=== PATIENT | female | born 1960 | race Caucasian/White ===

== ENCOUNTER 2016-10-12 20:28 | Emergency (ER) | payer OTHER ==
[2016-10-12] MEDS ORDERED: HYDROmorphone 1 MG/ML 1 ML SYRINGE IM STA (20:39)
[2016-10-12] MEDS ORDERED: ONDANSETRON ODT 4 MG TAB PO STA (20:39)
--- NOTE | 2016-10-12 20:41 | ED ---
General Adult HPI - General Chief complaint: Back Pain/Injury Stated complaint: back/flank injury-SOB Time Seen by Provider: 10/12/16 20:34 Source: patient, RN notes reviewed Mode of arrival: wheelchair Limitations: no limitations - History of Present Illness Initial comments: Patient 56-year-old female who presents emergency room today with chief complaint of left-sided rib pain that occurred just one hour ago. She does admit that she was laying down in bed when she went to roll onto her left side and then use her arm to push herself up. She states she felt a pop on the left side of the ribs. She does admit to pain to the left lateral ribs that she feels is coming through to the anterior portion. Patient does admit that it's worse with any turning twisting and bending. She states it hurts when she takes a deep breath. She does admit that she's been using pain medicine of oxycodone that she does have at home for chronic pain. She states she still having pain through his pain medication. Patient admits that it feels better when she holds the area with her hand. She denies any other complaints or symptoms. Patient denies any recent fever, chills, shortness of breath, chest pain, back pain, abdominal pain, nausea or vomiting, numbness or tingling, dysuria or hematuria, constipation or diarrhea, headaches or visual changes, or any other complaints. - Related Data Home Medications Medication Instructions Recorded Confirmed Furosemide [Lasix] 20 mg PO DAILY 09/24/14 10/12/16 Gabapentin [Neurontin] 300 mg PO QID 09/24/14 10/12/16 Montelukast Sodium [Singulair] 10 mg PO QAM 09/24/14 10/12/16 Omeprazole [PriLOSEC] 20 mg PO BID 09/24/14 10/12/16 cloNIDine HCL [Catapres] 0.1 mg PO HS 09/24/14 10/12/16 oxyCODONE HCL 10 mg PO BID 09/24/14 10/12/16 Albuterol Nebulized [Ventolin 2.5 mg INHALATION RT-Q4H PRN 04/05/16 10/12/16 Nebulized] Albuterol Sulfate [Ventolin HFA] 2 puff INHALATION RT-Q4H PRN 04/05/16 10/12/16 Alendronate Sodium [Fosamax] 70 mg PO MO 04/05/16 10/12/16 Cholecalciferol [Vitamin D3] 4,000 unit SL DAILY 04/05/16 10/12/16 Cyclobenzaprine [Flexeril] 10 mg PO BID 04/05/16 10/12/16 Fluticasone/Salmeterol [Advair 2 puff INHALATION RT-BID 04/05/16 10/12/16 500-50 Diskus] Lubiprostone [Amitiza] 24 mcg PO BID 04/05/16 10/12/16 Multivitamins, Thera [Multivitamin] 1 tab PO DAILY 04/05/16 10/12/16 Pramipexole Di-HCl [Mirapex] 1 mg PO TID 04/05/16 10/12/16 Ramipril [Altace] 5 mg PO DAILY 04/05/16 10/12/16 Triamterene/Hydrochlorothiazid 1 tab PO DAILY 04/05/16 10/12/16 [Maxzide 37.5-25] Calcium Carbonate [Calcium] 1,200 mg PO DAILY 10/12/16 10/12/16 Cholecalciferol (Vitamin D3) 2 drop MUCOUS MEM BID 10/12/16 10/12/16 [Vitamin D3] Temazepam 15 mg PO HS 10/12/16 10/12/16 oxyCODONE ER [OxyCONTIN 15MG E.R] 15 mg PO Q12HR 10/12/16 10/12/16 predniSONE 10 mg PO DAILY 10/12/16 10/12/16 traZODone HCL 50 mg PO HS 10/12/16 10/12/16 Allergies Allergy/AdvReac Type Severity Reaction Status Date / Time Penicillins Allergy Rash/Hives Verified 10/12/16 20:54 morphine AdvReac Severe Nausea & Verified 10/12/16 20:54 Vomiting aspirin AdvReac Dyspnea Verified 10/12/16 20:54 Review of Systems ROS Statement: Those systems with pertinent positive or pertinent negative responses have been documented in the HPI. ROS Other: All systems not noted in ROS Statement are negative. Past Medical History Past Medical History: Chest Pain / Angina, COPD History of Any Multi-Drug Resistant Organisms: None Reported Additional Past Surgical History / Comment(s): abdominal surgeries Past Psychological History: No Psychological Hx Reported Smoking Status: Unknown if ever smoked Past Alcohol Use History: Unable to Obtain Past Drug Use History: Unable to Obtain General Exam - General Exam Comments Initial Comments: General: The patient is awake and alert, in no distress, and does not appear acutely ill. Eye: Pupils are equal, round and reactive to light, extra-ocular movements are intact. No nystagmus. There is normal conjunctiva bilaterally. No signs of icterus. Ears, nose, mouth and throat: There are moist mucous membranes and no oral lesions. Neck: The neck is supple, there is no tenderness or JVD. Cardiovascular: There is a regular rate and rhythm. No murmur, rub or gallop is appreciated. Respiratory: Lungs are clear to auscultation, respirations are non-labored, breath sounds are equal. No wheezes, stridor, rales, or rhonchi. Musculoskeletal: Normal ROM. Patient has normal appearance of the left side of her ribs no obvious deformity. She is tender over the lateral left lower ribs. This reproduces her pain. Worse with bending and twisting. Strength 5/ 5. Sensation intact. Pulses equal bilaterally 2+. Neurological: A&O x 3. CN II-XII intact, There are no obvious motor or sensory deficits. Coordination appears grossly intact. Speech is normal. Skin: Skin is warm and dry and no rashes or lesions are noted. Psychiatric: Cooperative, appropriate mood & affect, normal judgment. Limitations: no limitations Course Vital Signs 10/12/16 20:30 Temperature 98.0 F Pulse Rate 108 H Respiratory 18 Rate Blood Pressure 133/81 O2 Sat by Pulse 97 Oximetry Medical Decision Making - Medical Decision Making X-rays reviewed and are unremarkable for any acute abnormalities. Results were discussed with the patient. Patient will be discharged home and advised to follow-up family doctor return if any symptoms increase or worsen. Disposition Clinical Impression: Rib pain on left side Disposition: HOME SELF-CARE Condition: Good Instructions: Rib Contusion (ED) Additional Instructions: Please use medication as discussed. Please follow-up with family doctor in the next 2 days of symptoms have not improved. Please return to emergency room if the symptoms increase or worsen or for any other concerns. Time of Disposition: 22:07
--- NOTE | 2016-10-12 22:03 | XR ---
EXAMINATION TYPE: XR ribs LT w pa chest xray DATE OF EXAM: 10/12/2016 9:07 PM COMPARISON: NONE HISTORY: Pain on left. TECHNIQUE: Single AP chest 2 views left RIBS FINDINGS: Mild plate atelectasis at the left base. No displaced fractures are identified. No pneumoth orax is evident. IMPRESSION: 1. Normal left ribs
[2016-10-12 22:16] VITALS: BP 100/58; PULSE 76; RESP 20; TEMP 97
== END 2016-10-12 22:16 | disposition home or self-care (01) ==
LOC: EC 20:28
DX: R07.81 Pleurodynia (principal); J44.9 Chronic obstructive pulmonary disease, unspecified; Z79.891 Long term (current) use of opiate analgesic; Z79.52 Long term (current) use of systemic steroids; Z79.899 Other long term (current) drug therapy; Z88.0 Allergy status to penicillin; Z88.5 Allergy status to narcotic agent; Z88.6 Allergy status to analgesic agent
CPT/HCPCS: 71101; 99284; 96372; J1170

== ENCOUNTER → 2016-11-09 | Outpatient (CLI) | payer OTHER ==
--- NOTE | 2016-11-09 17:56 | CT ---
EXAMINATION TYPE: CT abdomen pelvis w con DATE OF EXAM: 11/09/2016 4:36 PM COMPARISON: 12/24/2012 HISTORY: Epigastric pain and constipation. Hx of bowel obstructions. CT DLP: 1779 mGycm Automated exposure control for dose reduction was used. TECHNIQUE: Helical acquisition of images was performed from the lung bases through the pelvis. CONTRAST: Performed with Oral Contrast and with IV Contrast, patient injected with 100 mL of Omnipaque 300. FINDINGS: Lung bases are clear. There is no pleural effusion. There is a hiatal hernia. There are apparent clips at the gastroesophageal junction. Liver spleen pancreas appear normal. There are clips from cholecystectomy. Bile ducts are not dilated . There is no adrenal mass. Kidneys show satisfactory contrast opacification. There is no hydronephro sis. There are a few left renal cortical cysts posteriorly. The largest measures 3 cm. There is no re troperitoneal adenopathy. There is no ascites. Bladder distends smoothly. There is retained fecal mat erial in the rectum. There is a dilated loop of small bowel in the midabdomen. This measures 6 cm in diameter and is slightly smaller than the old CT scan of 12/24/2012. This appears to be the site of zaria stomosis and should be correlated with the surgical history. I do not see any other significant dilat ed bowel. The bladder distends smoothly. There is no pelvic mass. There is no ascites. Appendix is no t seen. IMPRESSION: THERE IS A DILATED LOOP OF SMALL BOWEL IN THE MIDABDOMEN WITH SURGICAL CLIPS. CORRELATION WITH THE OK EVIOUS SURGERY IS RECOMMENDED. THE BOWEL IS LESS DILATED THAN THE OLD CT SCAN OF 12/24/2012. STABLE LEFT RENAL CORTICAL CYSTS. STABLE HIATAL HERNIA. THERE ARE DILATED FLUID-FILLED BOWEL LOOPS ON PREVIOUS EXAM THAT ARE NOT SEEN ON TODAY'S EXAM AND CONSISTENT WITH RESOLUTION OF A PARTIAL VISUAL ARTIST AL SMALL BOWEL OBSTRUCTION.
== END | disposition home or self-care (01) ==
LOC: RADCTMAIN 15:49
PROVIDERS: ATTEND Family Medicine
DX: K59.8 Other specified functional intestinal disorders (principal); N28.1 Cyst of kidney, acquired; K44.9 Diaphragmatic hernia without obstruction or gangrene
CPT/HCPCS: 74177; Q9967

== ENCOUNTER 2017-01-21 09:30 | Emergency (ER) | payer OTHER ==
[2017-01-21] MEDS ORDERED: METOCLOPRAMIDE 5 MG/ML 2 ML VIAL IVP STA (09:57)
[2017-01-21] MEDS ORDERED: SODIUM CHLORIDE 0.9% 1,000 ML IV STA (09:57)
[2017-01-21] MEDS ORDERED: HYDROmorphone 1 MG/ML 1 ML SYRINGE IVP STA (09:57)
--- NOTE | 2017-01-21 10:02 | ED ---
Abdominal Pain HPI - General Chief Complaint: Abdominal Pain Stated Complaint: hiatal hernia, vomiting, weakness Time Seen by Provider: 01/21/17 09:57 Source: patient, RN notes reviewed Mode of arrival: wheelchair Limitations: no limitations - History of Present Illness Initial Comments: This a 56-year-old female presents emergency Department chief complaint of epigastric abdominal pain that started around 4:00 yesterday. The pain has been persistent states that she is been dry heaving and very stated. She denies any shortness of breath or chest pain. Patient states that she has been diagnosed with a hiatal hernia states occasionally she does have some issues with this. Patient denies any no fever, chills. Patient is normally has loose stool but states it's not worse than usual and check she states she has not had any bowel movements in 2 days. Patient had multiple bowel obstructions secondary to her gastric bypass that was in 1994. She states she had a gastric bypass. Patient did 13 or 14 surgeries after that for about instructions. Patient denies any dysuria, hematuria. - Related Data Home Medications Medication Instructions Recorded Confirmed Furosemide [Lasix] 20 mg PO DAILY 09/24/14 01/21/17 Gabapentin [Neurontin] 300 mg PO QID 09/24/14 01/21/17 Montelukast Sodium [Singulair] 10 mg PO QAM 09/24/14 01/21/17 Omeprazole [PriLOSEC] 20 mg PO BID 09/24/14 01/21/17 cloNIDine HCL [Catapres] 0.1 mg PO HS 09/24/14 01/21/17 Albuterol Nebulized [Ventolin 2.5 mg INHALATION RT-Q4H PRN 04/05/16 01/21/17 Nebulized] Albuterol Sulfate [Ventolin HFA] 2 puff INHALATION RT-Q4H PRN 04/05/16 01/21/17 Alendronate Sodium [Fosamax] 70 mg PO MO 04/05/16 01/21/17 Cyclobenzaprine [Flexeril] 10 mg PO HS 04/05/16 01/21/17 Fluticasone/Salmeterol [Advair 2 puff INHALATION RT-BID 04/05/16 01/21/17 500-50 Diskus] Lubiprostone [Amitiza] 24 mcg PO BID 04/05/16 01/21/17 Multivitamins, Thera [Multivitamin] 1 tab PO DAILY 04/05/16 01/21/17 Pramipexole Di-HCl [Mirapex] 1 mg PO TID 04/05/16 01/21/17 Ramipril [Altace] 5 mg PO DAILY 04/05/16 01/21/17 Triamterene/Hydrochlorothiazid 1 tab PO DAILY 04/05/16 01/21/17 [Maxzide 37.5-25] Calcium Carbonate [Calcium] 1,200 mg PO DAILY 10/12/16 01/21/17 Cholecalciferol (Vitamin D3) 2 drop MUCOUS MEM BID 10/12/16 01/21/17 [Vitamin D3] predniSONE 10 mg PO DAILY 10/12/16 01/21/17 traZODone HCL 50 mg PO HS 10/12/16 01/21/17 Morphine Sulfate [Wilma] 10 mg PO BID 01/21/17 01/21/17 Mylanta 1 tab PO DAILY 01/21/17 01/21/17 oxyCODONE HCL [Roxicodone] 5 mg PO BID 01/21/17 01/21/17 Previous Rx's Medication Instructions Recorded Azithromycin [Zithromax Z-pack] 0 mg PO DIRECTED #1 pack 01/21/17 Metoclopramide [Reglan] 10 mg PO TID PRN #15 tab 01/21/17 Allergies Allergy/AdvReac Type Severity Reaction Status Date / Time Penicillins Allergy Rash/Hives Verified 01/21/17 11:09 morphine AdvReac Severe Nausea & Verified 01/21/17 11:09 Vomiting aspirin AdvReac Dyspnea Verified 01/21/17 11:09 Review of Systems ROS Statement: Those systems with pertinent positive or pertinent negative responses have been documented in the HPI. ROS Other: All systems not noted in ROS Statement are negative. Past Medical History Past Medical History: Chest Pain / Angina, COPD Additional Past Medical History / Comment(s): hiatel hernia History of Any Multi-Drug Resistant Organisms: None Reported Additional Past Surgical History / Comment(s): abdominal surgeries Past Psychological History: No Psychological Hx Reported Smoking Status: Never smoker Past Alcohol Use History: None Reported Past Drug Use History: None Reported General Exam Limitations: no limitations General appearance: alert, in no apparent distress Head exam: Present: atraumatic, normocephalic, normal inspection Neck exam: Present: normal inspection, full ROM. Absent: tenderness, meningismus, lymphadenopathy Respiratory exam: Present: normal lung sounds bilaterally. Absent: respiratory distress, wheezes, rales, rhonchi, stridor Cardiovascular Exam: Present: regular rate, normal rhythm, normal heart sounds. Absent: systolic murmur, diastolic murmur, rubs, gallop, clicks GI/Abdominal exam: Present: soft, tenderness (Mild to moderate epigastric tenderness), normal bowel sounds. Absent: distended, guarding, rebound, rigid Back exam: Absent: CVA tenderness (R), CVA tenderness (L) Skin exam: Present: warm, dry, intact, normal color. Absent: rash Course Vital Signs 01/21/17 09:37 Temperature 97.8 F Pulse Rate 78 Respiratory 20 Rate Blood Pressure 113/77 O2 Sat by Pulse 97 Oximetry Medical Decision Making - Medical Decision Making 56-year-old female presented for epigastric discomfort and nausea and cough. Patient has what appears to be a left lingular pneumonia. Patient be treated for this. She just left Reglan pain medication. Patient discharged with Reglan also for nausea. Does have a hiatal hernia will follow up with her surgeon at [facility]. - Lab Data Result diagrams: 01/21/17 10:11 01/21/17 10:11 Lab Results 01/21/17 01/21/17 01/21/17 Range/Units 10:11 10:11 10:11 WBC 14.4 H (3.8-10.6) k/uL RBC 5.33 (3.80-5.40) m/uL Hgb 14.0 (11.4-16.0) gm/dL Hct 44.1 (34.0-46.0) % MCV 82.7 (80.0-100.0) fL MCH 26.3 (25.0-35.0) pg MCHC 31.8 (31.0-37.0) g/dL RDW 15.3 (11.5-15.5) % Plt Count 550 H (150-450) k/uL Neutrophils % 86 % Lymphocytes % 10 % Monocytes % 3 % Eosinophils % 0 % Basophils % 0 % Neutrophils # 12.4 H (1.3-7.7) k/uL Lymphocytes # 1.4 (1.0-4.8) k/uL Monocytes # 0.4 (0-1.0) k/uL Eosinophils # 0.0 (0-0.7) k/uL Basophils # 0.0 (0-0.2) k/uL PT 10.6 (9.0-12.0) sec INR 1.1 (<1.2) APTT 22.5 (22.0-30.0) sec Sodium 135 L (137-145) mmol/L Potassium 4.7 (3.5-5.1) mmol/L Chloride 100 (98-107) mmol/L Carbon Dioxide 23 (22-30) mmol/L Anion Gap 12 mmol/L BUN 23 H (7-17) mg/dL Creatinine 0.88 (0.52-1.04) mg/dL Est GFR (MDRD) Af Amer >60 (>60 ml/min/1.73 sqM) Est GFR (MDRD) Non-Af >60 (>60 ml/min/1.73 sqM) Glucose 107 H (74-99) mg/dL Calcium 9.4 (8.4-10.2) mg/dL Total Bilirubin 0.9 (0.2-1.3) mg/dL AST 35 (14-36) U/L ALT 32 (9-52) U/L Alkaline Phosphatase 97 (38-126) U/L Troponin I (0.000-0.034) ng/mL Total Protein 7.6 (6.3-8.2) g/dL Albumin 4.4 (3.5-5.0) g/dL Amylase 72 (30-110) U/L Lipase 170 (23-300) U/L /12/02 Range/Units 10:11 WBC (3.8-10.6) k/uL RBC (3.80-5.40) m/uL Hgb (11.4-16.0) gm/dL Hct (34.0-46.0) % MCV (80.0-100.0) fL MCH (25.0-35.0) pg MCHC (31.0-37.0) g/dL RDW (11.5-15.5) % Plt Count (150-450) k/uL Neutrophils % % Lymphocytes % % Monocytes % % Eosinophils % % Basophils % % Neutrophils # (1.3-7.7) k/uL Lymphocytes # (1.0-4.8) k/uL Monocytes # (0-1.0) k/uL Eosinophils # (0-0.7) k/uL Basophils # (0-0.2) k/uL PT (9.0-12.0) sec INR (<1.2) APTT (22.0-30.0) sec Sodium (137-145) mmol/L Potassium (3.5-5.1) mmol/L Chloride (98-107) mmol/L Carbon Dioxide (22-30) mmol/L Anion Gap mmol/L BUN (7-17) mg/dL Creatinine (0.52-1.04) mg/dL Est GFR (MDRD) Af Amer (>60 ml/min/1.73 sqM) Est GFR (MDRD) Non-Af (>60 ml/min/1.73 sqM) Glucose (74-99) mg/dL Calcium (8.4-10.2) mg/dL Total Bilirubin (0.2-1.3) mg/dL AST (14-36) U/L ALT (9-52) U/L Alkaline Phosphatase (38-126) U/L Troponin I <0.012 (0.000-0.034) ng/mL Total Protein (6.3-8.2) g/dL Albumin (3.5-5.0) g/dL Amylase (30-110) U/L Lipase (23-300) U/L Disposition Clinical Impression: Abdominal pain, Hiatal hernia, Pneumonia Disposition: HOME SELF-CARE Condition: Stable Instructions: Abdominal Pain (ED) Additional Instructions: Please return to the Emergency Department if symptoms worsen or any other concerns. Prescriptions: Azithromycin [Zithromax Z-pack] 0 mg PO DIRECTED #1 pack Metoclopramide [Reglan] 10 mg PO TID PRN #15 tab PRN Reason: GERD Referrals: Antoinette Khoury DO [Primary Care Provider] - 1-2 days Time of Disposition: 12:22
--- NOTE | 2017-01-21 10:30 | XR ---
EXAMINATION TYPE: XR KUB , 2 VIEWS DATE OF EXAM ORDERED: 01/21/2017 HISTORY: abdominal pain. COMPARISON: Previous study dated 12/24/2012. FINDINGS: Metallic sutures project over the epigastrium. There is been a previous cholecystectomy. T here is been a previous bowel resection. The abdominal gas pattern is normal. There is no evidence of obstruction or free air. There are scatt ered air-fluid levels. No unusual calcifications are seen. IMPRESSION: FINDINGS MOST CONSISTENT WITH EARLY ILEUS.
--- NOTE | 2017-01-21 10:32 | XR ---
EXAMINATION TYPE: XR chest 2V DATE OF EXAM: 01/21/2017 HISTORY: abdominal pain. REFERENCE: Previous study dated 10/12/2016. FINDINGS: There is a questionable infiltrate in the left lingula. Lungs otherwise clear. Pleural spac e are clear. Heart size is normal. IMPRESSION: I CANNOT EXCLUDE AN EARLY INFILTRATE IN THE LEFT LINGULA.
[2017-01-21 10:43] LABS: Basophils % (A) 0 %; CH 27.4; CHCM 33.2; Eosinophils % (A) 0 %; HCT 44.1 % (34.0-46.0); HDW 2.78; Luc # (Auto) 0.09; Luc % (Auto) 1; Lymphocytes # (A) 1.4 k/uL (1.0-4.8); Lymphocytes % (A) 10 %; MCH 26.3 pg (25.0-35.0); MCHC 31.8 g/dL (31.0-37.0); MCV 82.7 fL (80.0-100.0); Mean Platelet Volume 7.5; Monocytes # (A) 0.4 k/uL (0-1.0); Monocytes % (A) 3 %; Neutrophils # (A) 12.4 k/uL (1.3-7.7); Neutrophils % (A) 86 %; RBC 5.33 m/uL (3.80-5.40); RDW 15.3 % (11.5-15.5); WBC 14.4 k/uL (3.8-10.6); WBC (Perox) 14.11
[2017-01-21] MEDS ORDERED: RX INFO: IV CONTRAST WAS GIVEN 1 EACH MISC MISCELLANE PRN (10:47)
[2017-01-21] MEDS ORDERED: IOHEXOL 350 MG/ML 25 ML BOTTLE (ORAL USE) PO PRN (10:47)
[2017-01-21 10:51] LABS: INR 1.1 (<1.2); Prothrombin Time 10.6 sec (9.0-12.0)
[2017-01-21 10:58] LABS: Partial Thromboplastin Time 22.5 sec (22.0-30.0)
[2017-01-21 11:00] LABS: ALT 32 U/L (9-52); AST 35 U/L (14-36); Alkaline Phosphatase 97 U/L (38-126); Amylase 72 U/L (30-110); Anion Gap 12 mmol/L; Blood Urea Nitrogen 23 mg/dL (7-17); Calcium 9.4 mg/dL (8.4-10.2); Carbon Dioxide 23 mmol/L (22-30); Chloride 100 mmol/L (98-107); Glucose 107 mg/dL (74-99); Non-African American GFR(MDRD) >60 (>60 ml/min/1.73 sqM); Sodium 135 mmol/L (137-145); Total Bilirubin 0.9 mg/dL (0.2-1.3); Total Protein 7.6 g/dL (6.3-8.2)
[2017-01-21 11:07] LABS: Potassium 4.7 mmol/L (3.5-5.1)
--- NOTE | 2017-01-21 12:05 | CT ---
EXAMINATION TYPE: CT abdomen pelvis w con DATE OF EXAM: 01/21/2017 REFERENCE: Previous study dated 11/09/2016 HISTORY: Pain HISTORY: Epigastric pain CT DLP: 1226.5 mGy Automated exposure control for dose reduction was used. TECHNIQUE: Helical acquisition through the abdomen and pelvis was obtained following the oral ingesti on of with Oral Contrast and following intravenous administration of 97 mL of Omnipaque 300. The data was reformatted in axial, coronal and sagittal projections. FINDINGS: There is mild dependent atelectasis at the lung bases. Lungs otherwise clear. There is no pleural or pericardial fluid. The heart is not enlarged. Within the abdomen, the gallbladder is been removed. Liver and spleen appear normal. There is been a previous gastric sleeve procedure. Both adrenal glands appear normal. There are 2 stable, simple appearing cyst in the upper pole of the left kidney. The right kidney is u nremarkable. The pancreas is unremarkable. There is no significant retroperitoneal, iliac or inguinal adenopathy. The uterus and ovaries appear normal. The bladder is unremarkable. There is no significant diverticular change and there is no radiographic evidence of diverticulitis. There is thickening of the humeral mucosa of the sigmoid colon, descending colon and distal transvers e colon. The appendix is not visualized. Small bowel loops are normal in caliber. No free fluid and no free air is seen. There is degenerative disc disease, facet arthropathy and hypertrophic spondylosis within the spine. IMPRESSION: 1. POSTSURGICAL CHANGE. 2. STABLE LEFT RENAL CYST. 3. THICKENING OF THE LEFT SIDE OF THE COLON. PLEASE CORRELATE FOR COLITIS. 4. MILD DEGENERATIVE CHANGE WITHIN THE SPINE.
[2017-01-21 12:21] VITALS: RESP 18; TEMP 98
[2017-01-21 13:09] VITALS: BP 100/56; PULSE 64
== END 2017-01-21 13:09 | disposition home or self-care (01) ==
LOC: EC 09:30
DX: K44.9 Diaphragmatic hernia without obstruction or gangrene (principal); J18.9 Pneumonia, unspecified organism; J44.9 Chronic obstructive pulmonary disease, unspecified; Z98.84 Bariatric surgery status; Z79.899 Other long term (current) drug therapy; Z79.51 Long term (current) use of inhaled steroids; Z88.6 Allergy status to analgesic agent; Z88.5 Allergy status to narcotic agent; Z88.0 Allergy status to penicillin; Z79.891 Long term (current) use of opiate analgesic
CPT/HCPCS: 36415; 80053; 82150; 83690; 84484; 85025; 85610; 85730; 71020; 74000; 74177; 96374; 96375; 96361; 99284; J2765; J1170; Q9967

== ENCOUNTER → 2017-02-23 | Outpatient (CLI) | payer OTHER ==
--- NOTE | 2017-02-23 10:07 | FL ---
EXAMINATION TYPE: FL barium swallow DATE OF EXAM: 02/23/2017 CLINICAL HISTORY: GERD per order. Frequent vomiting with food getting stuck in distal esophagus per p atient. History of gastric bypass surgery 1994. Patient states she has hiatal hernia. TECHNIQUE: A double contrast esophagram is performed utilizing air and barium. A total of 1 minute 37 seconds of fluoroscopic time was utilized during procedure. A total of 48 images are saved during procedure. Air-contrast was utilized as I was told patient had no surgical history prior to starting procedure. COMPARISON: CT abdomen and pelvis January 21, 2017 FINDINGS: The esophagus shows occasional episodes of spasm with abnormal secondary and tertiary contr actions identified. Stomach remnant from gastric bypass is identified herniating above hemidiaphragm. There is mild narrowing or stricture at gastroesophageal junction just superior to this. There is go od flow of contrast along the diaphragmatic hiatus into another component of stomach remnant. There i s good flow of contrast from stomach remnant into the efferent small bowel loop. There is good flow o f contrast past this point. Cholecystectomy clips are incidentally noted. IMPRESSION: Surgical changes from gastric bypass procedure are identified. There is mild narrowing or stricture at gastroesophageal junction. There is herniation of portion of the gastric remnant above the diaphragmatic hiatus noted.
== END | disposition home or self-care (01) ==
LOC: RADFLMAIN 08:38
PROVIDERS: ATTEND Surgery
DX: K44.9 Diaphragmatic hernia without obstruction or gangrene (principal); K21.9 Gastro-esophageal reflux disease without esophagitis; Z98.84 Bariatric surgery status
CPT/HCPCS: 74220

== ENCOUNTER 2017-02-27 08:05 | Day surgery (SDC) | payer OTHER ==
[2017-02-23 15:40] VITALS: BMI 39.7
[~2017-02-27 08:05] MED LIST: LACTATED RINGERS 1,000 ML IV SCH
[2017-02-27 09:10] LABS: Glucose,Whole Blood 90 mg/dL (75-99)
[2017-02-27] MEDS ORDERED: PROPOFOL 10 MG/ML 20 ML VIAL IV ONE (09:19)
[2017-02-27] MEDS ORDERED: LIDOCAINE 1% 20 ML VIAL (10MG/ML) FOR IV START INTRADERMA ONE (09:19)
[2017-02-27 09:21] VITALS: TEMP 97.9
--- NOTE | 2017-02-27 09:21 | P.GSHP ---
History of Present Illness H&P Date: 02/27/17 Chief Complaint: GERD This is a 56-year-old female referred from Dr. Antoinette Khoury. Patient presents today for EGD. She's had issues with GERD. She has a history of a gastric bypass in 1994. Past Medical History Past Medical History: Asthma, Chest Pain / Angina, Hypertension Additional Past Medical History / Comment(s): IS HAVING DIFFICULTY EATING, HAS HAD 70 LB WT LOSS RECENTLY, hiatal hernia, OSTEOPOROSIS, CHRONIC BOWEL BLOCKAGES , CHRONIC BACK PAIN R/T SPINE ISSUES History of Any Multi-Drug Resistant Organisms: None Reported Past Surgical History: Appendectomy, Bariatric Surgery, Section, Cholecystectomy, Hernia Repair Additional Past Surgical History / Comment(s): STATES 14 BOWEL SX, GASTRIC BYPASS, SINUS SX Past Anesthesia/Blood Transfusion Reactions: No Reported Reaction Past Psychological History: No Psychological Hx Reported Smoking Status: Never smoker Past Alcohol Use History: None Reported Past Drug Use History: None Reported - Past Family History Mother Family Medical History: Unable to Obtain Additional Family Medical History / Comment(s): adopted Brother(s) Family Medical History: Cancer Medications and Allergies Home Medications Medication Instructions Recorded Confirmed Type Furosemide [Lasix] 20 mg PO DAILY 09/24/14 02/23/17 History Gabapentin [Neurontin] 300 mg PO QID 09/24/14 02/23/17 History Montelukast Sodium [Singulair] 10 mg PO QAM 09/24/14 02/23/17 History Omeprazole [PriLOSEC] 20 mg PO BID 09/24/14 02/23/17 History cloNIDine HCL [Catapres] 0.1 mg PO HS 09/24/14 02/23/17 History Albuterol Nebulized [Ventolin 2.5 mg INHALATION RT-Q4H PRN 04/05/16 02/23/17 History Nebulized] Albuterol Sulfate [Ventolin HFA] 2 puff INHALATION RT-Q4H PRN 04/05/16 02/23/17 History Alendronate Sodium [Fosamax] 70 mg PO MO 04/05/16 02/23/17 History Cyclobenzaprine [Flexeril] 10 mg PO HS 04/05/16 02/23/17 History Fluticasone/Salmeterol [Advair 2 puff INHALATION RT-BID 04/05/16 02/23/17 History 500-50 Diskus] Multivitamins, Thera [Multivitamin] 1 tab PO DAILY 04/05/16 02/23/17 History Pramipexole Di-HCl [Mirapex] 1 mg PO TID 04/05/16 02/23/17 History Ramipril [Altace] 5 mg PO DAILY 04/05/16 02/23/17 History Triamterene/Hydrochlorothiazid 1 tab PO DAILY 04/05/16 02/23/17 History [Maxzide 37.5-25] Calcium Carbonate [Calcium] 1,200 mg PO DAILY 10/12/16 02/23/17 History predniSONE 10 mg PO DAILY 10/12/16 02/23/17 History traZODone HCL 50 mg PO HS 10/12/16 02/23/17 History Mylanta 1 tab PO DAILY PRN 01/21/17 02/23/17 History oxyCODONE HCL [Roxicodone] 10 mg PO BID 01/21/17 02/23/17 History Cyanocobalamin (Vitamin B-12) 1,000 mcg PO DAILY 02/23/17 02/23/17 History [Vitamin B-12] Ergocalciferol [Vitamin D2] 50,000 unit PO Q7D 02/23/17 02/23/17 History oxyCODONE HCL [OxyCONTIN] 10 mg PO BID 02/23/17 02/23/17 History Allergies Allergy/AdvReac Type Severity Reaction Status Date / Time Penicillins Allergy Rash/Hives Verified 02/23/17 15:32 morphine AdvReac Severe Nausea & Verified 02/23/17 15:32 Vomiting aspirin AdvReac Dyspnea Verified 02/23/17 15:32 Surgical - Exam - General well developed, no distress - Eyes PERRL - ENT normal pinna - Neck no masses - Respiratory normal expansion - Cardiovascular Rhythm: regular - Abdomen Abdomen: soft, non tender Assessment and Plan Plan: GERD. We'll perform EGD.
[2017-02-27 10:15] VITALS: BP 105/56; PULSE 70; RESP 18
--- NOTE | 2017-03-07 14:35 | P.OP ---
Date of Procedure: 02/27/17 Preoperative Diagnosis: GERD Postoperative Diagnosis: Esophagitis Hiatal hernia Procedure(s) Performed: EGD Anesthesia: MAC Surgeon: Kendall Holloway Pathology: other (Esophagus) Condition: stable Disposition: PACU Description of Procedure: The patient's placed on the endoscopy table in the lateral position. She received IV sedation. The gastroscope placed oropharynx passed in the esophagus and stomach. The patient a previous gastric bypass. The scope was then placed through the gastrojejunostomy. This was patent without evidence of inflammation or stricture. The jejunum appeared normal. Scope was then brought back and stomach. There appeared to be evidence of a hiatal hernia. The GE junction was at 35 cm. The distal esophagus appeared mildly inflamed this was biopsied. The proximal esophagus appeared normal. Scope was withdrawn for patient.
== END 2017-02-27 11:32 | disposition home or self-care (01) ==
LOC: ORWHC2ENDO 08:05
PROVIDERS: ATTEND Surgery
DX: K21.0 Gastro-esophageal reflux disease with esophagitis (principal); K44.9 Diaphragmatic hernia without obstruction or gangrene; Z98.84 Bariatric surgery status; I25.10 Atherosclerotic heart disease of native coronary artery without angina pectoris; I10 Essential (primary) hypertension; J45.909 Unspecified asthma, uncomplicated; M79.7 Fibromyalgia; G25.81 Restless legs syndrome; Z79.891 Long term (current) use of opiate analgesic; Z79.51 Long term (current) use of inhaled steroids; Z79.52 Long term (current) use of systemic steroids; Z79.899 Other long term (current) drug therapy; Z88.6 Allergy status to analgesic agent; Z88.5 Allergy status to narcotic agent; Z88.0 Allergy status to penicillin; M81.0 Age-related osteoporosis without current pathological fracture
CPT/HCPCS: 88305; 43239; J2704

== ENCOUNTER → 2018-02-20 | Outpatient (CLI) | payer BC ==
[2018-02-20 13:55] LABS: Anisocytosis Slight; Basophils % (A) 0 %; Eosinophils # (A) 0.1 k/uL (0-0.7); Eosinophils % (A) 2 %; HGB 10.9 gm/dL (11.4-16.0); Hypochromasia Moderate; Lymphocytes % (A) 24 %; MCH 23.1 pg (25.0-35.0); MCHC 30.4 g/dL (31.0-37.0); MCV 75.9 fL (80.0-100.0); Mean Platelet Volume 6.5; Microcytosis Slight; Monocytes # (A) 0.4 k/uL (0-1.0); Monocytes % (A) 4 %; Neutrophils % (A) 69 %; Platelet Count 418 k/uL (150-450); RBC 4.74 m/uL (3.80-5.40); RDW 16.5 % (11.5-15.5); WBC 8.6 k/uL (3.8-10.6)
[2018-02-20 14:41] LABS: ALT 33 U/L (9-52); AST 28 U/L (14-36); Anion Gap 9 mmol/L; Blood Urea Nitrogen 23 mg/dL (7-17); C Reactive Protein <5.0 mg/L (<10.0); Calcium 8.8 mg/dL (8.4-10.2); Carbon Dioxide 26 mmol/L (22-30); Chloride 104 mmol/L (98-107); Creatine Kinase 35 U/L (30-135); Glucose 96 mg/dL (74-99); Potassium 4.5 mmol/L (3.5-5.1); Sodium 139 mmol/L (137-145); Uric Acid 5.5 mg/dL (3.7-7.4)
[2018-02-20 14:56] LABS: T4, Free (Free Thyroxine) 0.97 ng/dL (0.78-2.19)
[2018-02-20 15:14] LABS: Erythrocyte Sedimentation Rate 12 mm/hr (0-20)
[2018-02-20 20:53] LABS: Cyclic Citrullinated Pep IgG NEGATIVE (NEGATIVE)
[2018-02-20 23:07] LABS: Rheumatoid Factor 8 IU/mL (0-15)
[2018-02-20 23:14] LABS: Vitamin D 25 Hydroxy 16.8 ng/mL (30.0-100.0)
[2018-02-21 06:46] LABS: Angiotensin-1 Converting Enz. 5 U/L (8-52)
[2018-02-21 10:20] LABS: HLA B27 NEGATIVE
== END | disposition home or self-care (01) ==
LOC: LABWHC1 13:23
PROVIDERS: ATTEND Physician Assistant Medical
DX: M13.0 Polyarthritis, unspecified (principal)
CPT/HCPCS: 36415; 80048; 82164; 82306; 82550; 84439; 84443; 84450; 84460; 84550; 85025; 85652; 86038; 86140; 86200; 86431; 86812

== ENCOUNTER → 2018-11-21 | Outpatient (CLI) | payer BC ==
--- NOTE | 2018-11-21 13:52 | XR ---
EXAMINATION TYPE: XR lumbar spine 2 or 3V DATE OF EXAM: 11/21/2018 COMPARISON: None HISTORY: Low back pain TECHNIQUE: Three-view lumbar spine FINDINGS: There 5 lumbar-type vertebral bodies. The pedicles are intact. There is narrowing of the po sterior L4-5 and L3-4 disc heights. Remaining disc heights are preserved. Vertebral body heights are preserved. Spondylosis is present. IMPRESSION: 1. Mild posterior disc space narrowing L3-4 L4-5.
== END | disposition home or self-care (01) ==
LOC: RADXRMAIN 12:02
PROVIDERS: ATTEND Family Medicine
DX: M99.73 Connective tissue and disc stenosis of intervertebral foramina of lumbar region (principal)
CPT/HCPCS: 72100

== ENCOUNTER 2019-02-26 09:41 | Day surgery (SDC) | payer BC ==
[2019-02-24 10:37] VITALS: BMI 44.6
[~2019-02-26 09:41] MED LIST changes: +LIDOCAINE 1% 20 ML VIAL (10MG/ML) FOR IV START INTRADERMA PRN
[2019-02-26 10:19] VITALS: TEMP 97.9
[2019-02-26 10:46] LABS: Glucose,Whole Blood 94 mg/dL (75-99)
[2019-02-26] MEDS ORDERED: PROPOFOL 10 MG/ML 20 ML VIAL IV ONE (11:08)
--- NOTE | 2019-02-26 11:21 | P.GSHP ---
History of Present Illness H&P Date: 02/26/19 Chief Complaint: Screening colonoscopy This a 58-year-old female who presents today for screening colonoscopy. Patient denies a significant GI complaints. Past Medical History Past Medical History: Chest Pain / Angina, COPD, Hypertension Additional Past Medical History / Comment(s): hiatel hernia. CHRONIC SBO History of Any Multi-Drug Resistant Organisms: None Reported Past Surgical History: Appendectomy, Bariatric Surgery, Section, Cholecystectomy, Hernia Repair Additional Past Surgical History / Comment(s): abdominal surgeries X14. COLONOSCOPY Past Anesthesia/Blood Transfusion Reactions: No Reported Reaction Smoking Status: Never smoker - Past Family History Mother Additional Family Medical History / Comment(s): PT ADOPTED COMPLETE FAMILY HX UNKNOWN Brother(s) Family Medical History: Cancer Additional Family Medical History / Comment(s): TWIN BROTHER FROM CANCER AGE 45 Medications and Allergies Home Medications Medication Instructions Recorded Confirmed Type Furosemide [Lasix] 20 mg PO DAILY 09/24/14 02/26/19 History Gabapentin [Neurontin] 300 mg PO TID 09/24/14 02/26/19 History Montelukast Sodium [Singulair] 10 mg PO QAM 09/24/14 02/26/19 History Omeprazole [PriLOSEC] 20 mg PO BID 09/24/14 02/26/19 History cloNIDine HCL [Catapres] 0.1 mg PO HS 09/24/14 02/26/19 History Albuterol Nebulized [Ventolin 2.5 mg INHALATION RT-Q4H PRN 04/05/16 02/26/19 History Nebulized] Albuterol Sulfate [Ventolin HFA] 2 puff INHALATION RT-Q4H PRN 04/05/16 02/26/19 History Alendronate Sodium [Fosamax] 70 mg PO MO 04/05/16 02/26/19 History Cyclobenzaprine [Flexeril] 10 mg PO HS 04/05/16 02/26/19 History Fluticasone/Salmeterol [Advair 2 puff INHALATION RT-BID 04/05/16 02/26/19 History 500-50 Diskus] Multivitamins, Thera [Multivitamin] 1 tab PO DAILY 04/05/16 02/26/19 History Pramipexole Di-HCl [Mirapex] 1 mg PO TID 04/05/16 02/26/19 History Ramipril [Altace] 5 mg PO DAILY 04/05/16 02/26/19 History Triamterene/Hydrochlorothiazid 1 tab PO DAILY 04/05/16 02/26/19 History [Maxzide 37.5-25] Calcium Carbonate [Calcium] 1,200 mg PO DAILY 10/12/16 02/26/19 History predniSONE 10 mg PO DAILY 10/12/16 02/26/19 History traZODone HCL 50 mg PO HS 10/12/16 02/26/19 History Mylanta 1 tab PO DAILY PRN 01/21/17 02/26/19 History Cyanocobalamin (Vitamin B-12) 1,000 mcg PO DAILY 02/23/17 02/26/19 History [Vitamin B-12] oxyCODONE HCL [OxyCONTIN] 10 mg PO BID 02/23/17 02/26/19 History Allergies Allergy/AdvReac Type Severity Reaction Status Date / Time Penicillins Allergy Rash/Hives Verified 02/26/19 10:09 morphine AdvReac Severe Nausea & Verified 02/26/19 10:09 Vomiting aspirin AdvReac Dyspnea Verified 02/26/19 10:09 Surgical - Exam Vital Signs Temp Pulse Resp BP Pulse Ox 97.9 F 70 18 125/59 100 02/26/19 10:10 02/26/19 10:10 02/26/19 10:10 02/26/19 10:10 02/26/19 10:10 - General well developed, well nourished, no distress - Eyes PERRL - ENT normal pinna - Neck no masses - Respiratory normal expansion - Cardiovascular Rhythm: regular - Abdomen Abdomen: soft, non tender Assessment and Plan Assessment: We'll perform screening colonoscopy.
--- NOTE | 2019-02-26 11:30 | P.OP ---
Date of Procedure: 02/26/19 Preoperative Diagnosis: Screening colonoscopy Postoperative Diagnosis: Normal colon to splenic flexure Poor colonic prep Procedure(s) Performed: Colonoscopy Anesthesia: MAC Surgeon: Kendall Holloway Pathology: none sent Condition: stable Disposition: PACU Description of Procedure: The patient's placed on the endoscopy table in the lateral position. She received IV sedation. Digital rectal exam was performed which revealed a few external hemorrhoids. The flexible colonoscope was then placed patient anus passed throughout the colon. Scope was passed beyond the transverse colon secondary to poor colonic prep. There is a large amount stool in the transverse colon. This point scope was withdrawn. The descending and sigmoid colon appeared normal however the view was limited due to the large amount stool. Scope was then brought back the rectum this appeared normal. Scope was withdrawn for patient. The patient will have to be reprepped for another colonoscopy due to her large amount of fecal material from her poor prep..
[2019-02-26 11:38] VITALS: RESP 16
[2019-02-26 12:09] VITALS: BP 122/87; PULSE 61
== END 2019-02-26 12:25 | disposition home or self-care (01) ==
LOC: ORWHC2ENDO 09:41
PROVIDERS: ATTEND Surgery
DX: Z12.11 Encounter for screening for malignant neoplasm of colon (principal); K64.4 Residual hemorrhoidal skin tags; J44.9 Chronic obstructive pulmonary disease, unspecified; I10 Essential (primary) hypertension; Z90.49 Acquired absence of other specified parts of digestive tract; Z98.84 Bariatric surgery status; Z79.891 Long term (current) use of opiate analgesic; Z79.51 Long term (current) use of inhaled steroids; Z79.52 Long term (current) use of systemic steroids; Z79.899 Other long term (current) drug therapy; Z88.6 Allergy status to analgesic agent; Z88.5 Allergy status to narcotic agent; Z88.0 Allergy status to penicillin
CPT/HCPCS: G0121; J2704

== ENCOUNTER 2019-02-28 07:57 | Day surgery (SDC) | payer BC ==
[~2019-02-28 07:57] MED LIST changes: -LIDOCAINE 1% 20 ML VIAL (10MG/ML) FOR IV START INTRADERMA PRN
[2019-02-28 08:16] VITALS: RESP 16; TEMP 97.7
[2019-02-28 08:25] LABS: Glucose,Whole Blood 92 mg/dL (75-99)
[2019-02-28] MEDS ORDERED: MIDAZOLAM 2 MG/2 ML VIAL ONE (08:50)
[2019-02-28] MEDS ORDERED: PROPOFOL 10 MG/ML 20 ML VIAL IV ONE (08:50)
--- NOTE | 2019-02-28 08:54 | P.GSHP ---
History of Present Illness H&P Date: 02/28/19 Chief Complaint: Screening colonoscopy This is a 58-year-old female who presents today for screening colonoscopy. Patient denies a significant GI complaints. Past Medical History Past Medical History: Chest Pain / Angina, COPD, Hypertension Additional Past Medical History / Comment(s): hiatal hernia. CHRONIC SBO History of Any Multi-Drug Resistant Organisms: None Reported Past Surgical History: Appendectomy, Bariatric Surgery, Section, Cholecystectomy, Hernia Repair Additional Past Surgical History / Comment(s): abdominal surgeries X14. COLONOSCOPY Past Anesthesia/Blood Transfusion Reactions: No Reported Reaction Smoking Status: Never smoker - Past Family History Mother Additional Family Medical History / Comment(s): PT ADOPTED COMPLETE FAMILY HX UNKNOWN Brother(s) Family Medical History: Cancer Additional Family Medical History / Comment(s): TWIN BROTHER FROM CANCER AGE 45 Medications and Allergies Home Medications Medication Instructions Recorded Confirmed Type Furosemide [Lasix] 20 mg PO DAILY 09/24/14 02/28/19 History Gabapentin [Neurontin] 300 mg PO TID 09/24/14 02/28/19 History Montelukast Sodium [Singulair] 10 mg PO QAM 09/24/14 02/28/19 History Omeprazole [PriLOSEC] 20 mg PO BID 09/24/14 02/28/19 History cloNIDine HCL [Catapres] 0.1 mg PO HS 09/24/14 02/28/19 History Albuterol Nebulized [Ventolin 2.5 mg INHALATION RT-Q4H PRN 04/05/16 02/28/19 History Nebulized] Albuterol Sulfate [Ventolin HFA] 2 puff INHALATION RT-Q4H PRN 04/05/16 02/28/19 History Alendronate Sodium [Fosamax] 70 mg PO MO 04/05/16 02/28/19 History Cyclobenzaprine [Flexeril] 10 mg PO HS 04/05/16 02/28/19 History Fluticasone/Salmeterol [Advair 2 puff INHALATION RT-BID 04/05/16 02/28/19 History 500-50 Diskus] Multivitamins, Thera [Multivitamin] 1 tab PO DAILY 04/05/16 02/28/19 History Pramipexole Di-HCl [Mirapex] 1 mg PO TID 04/05/16 02/28/19 History Ramipril [Altace] 5 mg PO DAILY 04/05/16 02/28/19 History Triamterene/Hydrochlorothiazid 1 tab PO DAILY 04/05/16 02/28/19 History [Maxzide 37.5-25] Calcium Carbonate [Calcium] 1,200 mg PO DAILY 10/12/16 02/28/19 History predniSONE 10 mg PO DAILY 10/12/16 02/28/19 History traZODone HCL 50 mg PO HS 10/12/16 02/28/19 History Mylanta 1 tab PO DAILY PRN 01/21/17 02/28/19 History Cyanocobalamin (Vitamin B-12) 1,000 mcg PO DAILY 02/23/17 02/28/19 History [Vitamin B-12] oxyCODONE HCL [OxyCONTIN] 10 mg PO BID 02/23/17 02/28/19 History Allergies Allergy/AdvReac Type Severity Reaction Status Date / Time Penicillins Allergy Rash/Hives Verified 02/28/19 08:18 morphine AdvReac Severe Nausea & Verified 02/28/19 08:18 Vomiting aspirin AdvReac Dyspnea Verified 02/28/19 08:18 Surgical - Exam Vital Signs Temp Pulse Resp BP Pulse Ox 97.7 F 83 16 118/69 98 02/28/19 08:15 02/28/19 08:15 02/28/19 08:15 02/28/19 08:15 02/28/19 08:15 - General well developed, well nourished, no distress - Eyes PERRL - ENT normal pinna - Neck no masses - Respiratory normal expansion - Cardiovascular Rhythm: regular - Abdomen Abdomen: soft, non tender Assessment and Plan Assessment: We'll perform screening colonoscopy.
--- NOTE | 2019-02-28 09:10 | P.OP ---
Date of Procedure: 02/28/19 Preoperative Diagnosis: Screening colonoscopy Postoperative Diagnosis: Normal colon Procedure(s) Performed: Colonoscopy Anesthesia: MAC Surgeon: Kendall Holloway Pathology: none sent Condition: stable Disposition: PACU Description of Procedure: PROCEDURE: The patient was placed on the endoscopy table in the lateral position. Digital rectal examination was performed which revealed no abnormalities. . Flexible colonoscope was then placed in the patient's anus and passed throughout the entire colon. The ileocecal valve was visualized. The cecum, ascending, transverse, descending and sigmoid colon were normal. The rectum was normal as well. There were no masses, polyps or diverticula noted in the entire colon. SUMMARY OF FINDINGS: Normal colonoscopy.
[2019-02-28 09:25] VITALS: BP 108/68; PULSE 65
== END 2019-02-28 09:44 | disposition home or self-care (01) ==
LOC: ORWHC2ENDO 07:57
PROVIDERS: ATTEND Surgery
DX: Z12.11 Encounter for screening for malignant neoplasm of colon (principal); J44.9 Chronic obstructive pulmonary disease, unspecified; I25.10 Atherosclerotic heart disease of native coronary artery without angina pectoris; I10 Essential (primary) hypertension; K56.609 Unspecified intestinal obstruction, unspecified as to partial versus complete obstruction; Z98.84 Bariatric surgery status; Z90.49 Acquired absence of other specified parts of digestive tract; Z79.83 Long term (current) use of bisphosphonates; Z79.891 Long term (current) use of opiate analgesic; Z79.51 Long term (current) use of inhaled steroids; Z79.52 Long term (current) use of systemic steroids; Z79.899 Other long term (current) drug therapy; Z88.6 Allergy status to analgesic agent; Z88.5 Allergy status to narcotic agent; Z88.0 Allergy status to penicillin; Z97.2 Presence of dental prosthetic device (complete) (partial)
CPT/HCPCS: G0121; J2250; J2704; 45378

== ENCOUNTER 2019-07-18 17:15 | Emergency (ER) | payer BC ==
[2019-07-18 17:21] VITALS: RESP 18; TEMP 97.8
[2019-07-18] MEDS ORDERED: ACETAMINOPHEN TAB 325 MG TAB PO STA (17:48)
[2019-07-18] MEDS ORDERED: SODIUM CHLORIDE 0.9% 1,000 ML IV STA (17:48)
[2019-07-18 18:21] LABS: Basophils % (A) 0 %; Eosinophils % (A) 0 %; HCT 39.7 % (34.0-46.0); HGB 12.4 gm/dL (11.4-16.0); Lymphocytes # (A) 1.4 k/uL (1.0-4.8); Lymphocytes % (A) 13 %; MCH 26.4 pg (25.0-35.0); MCHC 31.3 g/dL (31.0-37.0); MCV 84.5 fL (80.0-100.0); Mean Platelet Volume 7.3; Monocytes # (A) 0.3 k/uL (0-1.0); Monocytes % (A) 3 %; Neutrophils # (A) 9.4 k/uL (1.3-7.7); Neutrophils % (A) 83 %; Platelet Count 441 k/uL (150-450); RDW 15.8 % (11.5-15.5); WBC 11.4 k/uL (3.8-10.6)
--- NOTE | 2019-07-18 18:26 | ED ---
General Adult HPI - General Chief complaint: Abdominal Pain Stated complaint: Bowel Obstruction Time Seen by Provider: 07/18/19 17:40 Source: patient, RN notes reviewed, old records reviewed Mode of arrival: ambulatory Limitations: no limitations - History of Present Illness Initial comments: 58-year-old female patient with past history of extensive abdominal surgeries, patient did have a bariatric surgery in 1994, had multiple complications from the patient has had cholecystectomy appendectomy small bowel obstruction, colon perforation over the years. Patient reports that she does have a chronic small bowel obstruction which is partial however there is concern from her primary care provider that is worsening. Patient is having left lower quadrant abdominal pain. Does have chronic abdominal pain and chronic nausea and vomiting at baseline, however reports that the last week the pain has gotten worse. Denies any fevers, denies any other complaints. Systemic: Pt denies fatigue, fever/chills, rash. Pt denies weakness, night sweats, weight loss. Neuro: Pt denies headache, visual disturbances, syncope or pre-syncope. HEENT: Pt denies ocular discharge or irritation, otalgia, rhinorrhea, pharyngitis or notable lymphadenopathy. Cardiopulmonary: Pt denies chest pain, SOB, heart palpitations, dyspnea on exertion. . : Pt denies dysuria, burning w/ urination, frequency/urgency. Denies new onset urinary or bowel incontinence. MSK: Pt denies myalgia, loss of strength or function in extremities. Neuro: Pt denies new onset weakness, paresthesias. - Related Data Home Medications Medication Instructions Recorded Confirmed Furosemide [Lasix] 20 mg PO DAILY 09/24/14 02/28/19 Gabapentin [Neurontin] 300 mg PO TID 09/24/14 02/28/19 Montelukast Sodium [Singulair] 10 mg PO QAM 09/24/14 02/28/19 Omeprazole [PriLOSEC] 20 mg PO BID 09/24/14 02/28/19 cloNIDine HCL [Catapres] 0.1 mg PO HS 09/24/14 02/28/19 Albuterol Nebulized [Ventolin 2.5 mg INHALATION RT-Q4H PRN 04/05/16 02/28/19 Nebulized] Albuterol Sulfate [Ventolin HFA] 2 puff INHALATION RT-Q4H PRN 04/05/16 02/28/19 Alendronate Sodium [Fosamax] 70 mg PO MO 04/05/16 02/28/19 Cyclobenzaprine [Flexeril] 10 mg PO HS 04/05/16 02/28/19 Fluticasone/Salmeterol [Advair 2 puff INHALATION RT-BID 04/05/16 02/28/19 500-50 Diskus] Multivitamins, Thera [Multivitamin] 1 tab PO DAILY 04/05/16 02/28/19 Pramipexole Di-HCl [Mirapex] 1 mg PO TID 04/05/16 02/28/19 Ramipril [Altace] 5 mg PO DAILY 04/05/16 02/28/19 Triamterene/Hydrochlorothiazid 1 tab PO DAILY 04/05/16 02/28/19 [Maxzide 37.5-25] Calcium Carbonate [Calcium] 1,200 mg PO DAILY 10/12/16 02/28/19 predniSONE 10 mg PO DAILY 10/12/16 02/28/19 traZODone HCL 50 mg PO HS 10/12/16 02/28/19 Mylanta 1 tab PO DAILY PRN 01/21/17 02/28/19 Cyanocobalamin (Vitamin B-12) 1,000 mcg PO DAILY 02/23/17 02/28/19 [Vitamin B-12] oxyCODONE HCL [OxyCONTIN] 10 mg PO BID 02/23/17 02/28/19 Allergies Allergy/AdvReac Type Severity Reaction Status Date / Time Penicillins Allergy Rash/Hives Verified 07/18/19 17:22 morphine AdvReac Severe Nausea & Verified 07/18/19 17:22 Vomiting aspirin AdvReac Dyspnea Verified 07/18/19 17:22 Review of Systems ROS Statement: Those systems with pertinent positive or pertinent negative responses have been documented in the HPI. ROS Other: All systems not noted in ROS Statement are negative. Past Medical History Past Medical History: Asthma, Chest Pain / Angina, Hypertension Additional Past Medical History / Comment(s): hiatal hernia. CHRONIC SBO History of Any Multi-Drug Resistant Organisms: None Reported Past Surgical History: Appendectomy, Bariatric Surgery, Section, Cholecystectomy, Hernia Repair Additional Past Surgical History / Comment(s): abdominal surgeries X14. COLONOSCOPY Past Anesthesia/Blood Transfusion Reactions: No Reported Reaction Past Psychological History: No Psychological Hx Reported Smoking Status: Never smoker Past Alcohol Use History: None Reported Past Drug Use History: None Reported - Past Family History Mother Additional Family Medical History / Comment(s): PT ADOPTED COMPLETE FAMILY HX UNKNOWN Brother(s) Family Medical History: Cancer Additional Family Medical History / Comment(s): TWIN BROTHER FROM CANCER AGE 45 General Exam - General Exam Comments Initial Comments: Constitutional: NAD, AOX3, Pt has pleasant affect. HEENT: NC/AT, trachea midline, neck supple, no lymphadenopathy. Posterior pharynx non erythematous, without exudates. External ears appear normal, without discharge. Mucous membranes moist. Eyes PERRLA, EOM intact. There is no scleral icterus. No pallor noted. Cardiopulmonary: RRR, no murmurs, rubs or gallops, no JVD noted. Lungs CTAB in anterior and posterior martin. No peripheral edema. Abdominal exam: Abdomen is mildly distended, abdomen is tender to palpation left lower quadrant. No other areas of abdominal tenderness. Neuro: CN II-XII grossly intact. No nuchal rigidity. No raccon eyes, no moreno sign, no hemotympanum. No cervical spinal tenderness. MSK: No posterior calf tenderness bilaterally, homans sign negative bilaterally. Posterior tibialis and radial pulse +2 bilaterally. Sensation intact in upper and lower extremities. Full active ROM in upper and lower extremities, 5/5 stregnth. Limitations: no limitations Course Vital Signs 07/18/19 17:17 Temperature 97.8 F Pulse Rate 105 H Respiratory 18 Rate Blood Pressure 134/85 O2 Sat by Pulse 98 Oximetry Medical Decision Making - Medical Decision Making 58-year-old female patient with past history of extensive abdominal surgeries, patient did have a bariatric surgery in 1994, had multiple complications from the patient has had cholecystectomy appendectomy small bowel obstruction, colon perforation over the years. Patient reports that she does have a chronic small bowel obstruction which is partial however there is concern from her primary care provider that is worsening. Patient is having left lower quadrant abdominal pain. Does have chronic abdominal pain and chronic nausea and vomiting at baseline, however reports that the last week the pain has gotten worse. Denies any fevers, denies any other complaints. She will signs are stable, afebrile. Physical exam didn't display Savana be mildly distended and tender to palpation left lower quadrant. Laboratory investigations revealed a leukocytosis of 11.4. CMP, urine non-impressive. CT abdomen and pelvis displayed previous bariatric surgery. Loop of dilated jejunum in the midabdomen nonspecific change from old exam. No evidence of mechanical small bowel obs truction. Renal cortical cysts unchanged. Patient is aware of these results. She reports that she did have a bowel movement today and passed flatus. Patient will be discharged to follow up with primary care provider and will return to ER if condition worsens. Case discussed with Dr. Haynes. - Lab Data Result diagrams: 07/18/19 18:05 07/18/19 18:05 Lab Results 07/18/19 07/18/19 07/18/19 Range/Units 18:05 18:05 18:05 WBC 11.4 H (3.8-10.6) k/uL RBC 4.70 (3.80-5.40) m/uL Hgb 12.4 (11.4-16.0) gm/dL Hct 39.7 (34.0-46.0) % MCV 84.5 (80.0-100.0) fL MCH 26.4 (25.0-35.0) pg MCHC 31.3 (31.0-37.0) g/dL RDW 15.8 H (11.5-15.5) % Plt Count 441 (150-450) k/uL Neutrophils % 83 % Lymphocytes % 13 % Monocytes % 3 % Eosinophils % 0 % Basophils % 0 % Neutrophils # 9.4 H (1.3-7.7) k/uL Lymphocytes # 1.4 (1.0-4.8) k/uL Monocytes # 0.3 (0-1.0) k/uL Eosinophils # 0.0 (0-0.7) k/uL Basophils # 0.0 (0-0.2) k/uL PT (9.0-12.0) sec INR (<1.2) APTT (22.0-30.0) sec Sodium 134 L (137-145) mmol/L Potassium 4.0 (3.5-5.1) mmol/L Chloride 102 (98-107) mmol/L Carbon Dioxide 25 (22-30) mmol/L Anion Gap 7 mmol/L BUN 19 H (7-17) mg/dL Creatinine 0.69 (0.52-1.04) mg/dL Est GFR (CKD-EPI)AfAm >90 (>60 ml/min/1.73 sqM) Est GFR (CKD-EPI)NonAf >90 (>60 ml/min/1.73 sqM) Glucose 115 H (74-99) mg/dL Plasma Lactic Acid Dave 1.3 (0.7-2.0) mmol/L Calcium 9.3 (8.4-10.2) mg/dL Total Bilirubin 0.4 (0.2-1.3) mg/dL AST 32 (14-36) U/L ALT 31 (4-34) U/L Alkaline Phosphatase 119 (38-126) U/L Total Protein 6.7 (6.3-8.2) g/dL Albumin 3.9 (3.5-5.0) g/dL Lipase 97 (23-300) U/L Urine Color Urine Appearance (Clear) Urine pH (5.0-8.0) Ur Specific Shipman (1.001-1.035) Urine Protein (Negative) Urine Glucose (UA) (Negative) Urine Ketones (Negative) Urine Blood (Negative) Urine Nitrite (Negative) Urine Bilirubin (Negative) Urine Urobilinogen (<2.0) mg/dL Ur Leukocyte Esterase (Negative) Urine RBC (0-5) /hpf Urine WBC (0-5) /hpf Ur Squamous Epith Cells (0-4) /hpf Hyaline Casts (0-2) /lpf Urine Mucus (None) /hpf 07/18/19 07/18/19 Range/Units 18:05 19:55 WBC (3.8-10.6) k/uL RBC (3.80-5.40) m/uL Hgb (11.4-16.0) gm/dL Hct (34.0-46.0) % MCV (80.0-100.0) fL MCH (25.0-35.0) pg MCHC (31.0-37.0) g/dL RDW (11.5-15.5) % Plt Count (150-450) k/uL Neutrophils % % Lymphocytes % % Monocytes % % Eosinophils % % Basophils % % Neutrophils # (1.3-7.7) k/uL Lymphocytes # (1.0-4.8) k/uL Monocytes # (0-1.0) k/uL Eosinophils # (0-0.7) k/uL Basophils # (0-0.2) k/uL PT 9.3 (9.0-12.0) sec INR 0.9 (<1.2) APTT 21.8 L (22.0-30.0) sec Sodium (137-145) mmol/L Potassium (3.5-5.1) mmol/L Chloride (98-107) mmol/L Carbon Dioxide (22-30) mmol/L Anion Gap mmol/L BUN (7-17) mg/dL Creatinine (0.52-1.04) mg/dL Est GFR (CKD-EPI)AfAm (>60 ml/min/1.73 sqM) Est GFR (CKD-EPI)NonAf (>60 ml/min/1.73 sqM) Glucose (74-99) mg/dL Plasma Lactic Acid Dave (0.7-2.0) mmol/L Calcium (8.4-10.2) mg/dL Total Bilirubin (0.2-1.3) mg/dL AST (14-36) U/L ALT (4-34) U/L Alkaline Phosphatase (38-126) U/L Total Protein (6.3-8.2) g/dL Albumin (3.5-5.0) g/dL Lipase (23-300) U/L Urine Color Light Yellow Urine Appearance Clear (Clear) Urine pH 5.0 (5.0-8.0) Ur Specific Shipman 1.040 H (1.001-1.035) Urine Protein Negative (Negative) Urine Glucose (UA) Negative (Negative) Urine Ketones Negative (Negative) Urine Blood Negative (Negative) Urine Nitrite Negative (Negative) Urine Bilirubin Negative (Negative) Urine Urobilinogen <2.0 (<2.0) mg/dL Ur Leukocyte Esterase Moderate H (Negative) Urine RBC 1 (0-5) /hpf Urine WBC 5 (0-5) /hpf Ur Squamous Epith Cells 1 (0-4) /hpf Hyaline Casts 1 (0-2) /lpf Urine Mucus Rare H (None) /hpf Disposition Clinical Impression: Abdominal pain Disposition: HOME SELF-CARE Condition: Stable Instructions (If sedation given, give patient instructions): Abdominal Pain (ED) Additional Instructions: Follow up with primary care provider tomorrow. Return to ER if condition worsens in anyway. Is patient prescribed a controlled substance at d/c from ED?: No Referrals: Antoinette Khoury DO [Primary Care Provider] - 1-2 days
[2019-07-18 18:34] LABS: INR 0.9 (<1.2); Prothrombin Time 9.3 sec (9.0-12.0)
[2019-07-18 18:36] LABS: Partial Thromboplastin Time 21.8 sec (22.0-30.0)
[2019-07-18 18:48] LABS: ALT 31 U/L (4-34); AST 32 U/L (14-36); African American GFR (CKD) >90 (>60 ml/min/1.73 sqM); Albumin 3.9 g/dL (3.5-5.0); Alkaline Phosphatase 119 U/L (38-126); Anion Gap 7 mmol/L; Blood Urea Nitrogen 19 mg/dL (7-17); Calcium 9.3 mg/dL (8.4-10.2); Carbon Dioxide 25 mmol/L (22-30); Chloride 102 mmol/L (98-107); Glucose 115 mg/dL (74-99); Non-African American GFR(CKD) >90 (>60 ml/min/1.73 sqM); Sodium 134 mmol/L (137-145); Total Bilirubin 0.4 mg/dL (0.2-1.3); Total Protein 6.7 g/dL (6.3-8.2)
--- NOTE | 2019-07-18 19:21 | CT ---
EXAMINATION TYPE: CT abdomen pelvis w con DATE OF EXAM: 07/18/2019 COMPARISON: 01/21/2017 HISTORY: Abdominal pain. Possible obstruction CT DLP: 1842.3 mGycm Automated exposure control for dose reduction was used. CONTRAST: Performed with IV Contrast, patient injected with 100 mL of Isovue 300. Multiple axial sections were obtained from the diaphragm to the floor the pelvis with intravenous con trast. Lung bases are clear of consolidation. Heart size is normal. There is no pericardial effusion. There is gastric bariatric surgery. There is hiatal hernia. Spleen appears normal. There is no pancreatic m ass. Liver shows no focal defect. There are clips from cholecystectomy. The bile ducts are not dilate d. There is no adrenal mass. Kidneys have normal size. There are 3 cm cortical cyst on the lateral aspec t left kidney. Delayed images show normal renal excretion. There is no hydronephrosis. There is no re troperitoneal adenopathy. Bladder distends smoothly. There is no inguinal hernia. There is no free fl uid in the pelvis. Uterus is anteverted. Lumbar spine is intact. There is no evidence of a pelvic mas s. There is previous intestinal surgery with dilated loop of bowel in the mid abdomen that measures 7 cm in diameter. Appendix is not definitely seen. There is no sign of thickened appendix. There is no evidence of free air. There is no ascites. There is no mesenteric edema. Lumbar spine is intact. Bon y pelvis appears intact. IMPRESSION: Previous bariatric surgery. Loop of dilated jejunum in the mid abdomen not significantly different th an old exam. I do not see evidence for mechanical bowel obstruction. Renal cortical cysts unchanged.
[2019-07-18 20:13] LABS: Hyaline Casts,Urine 1 /lpf (0-2); RBC,Urine 1 /hpf (0-5); WBC,Urine 5 /hpf (0-5)
[2019-07-18 20:16] LABS: Appearance,Urine Clear (Clear); Bilirubin,Urine Negative (Negative); Blood,Urine Negative (Negative); Color,Urine Light Yellow; Glucose,Urine (UA) Negative (Negative); Ketones,Urine Negative (Negative); Leukocyte Esterase,Urine Moderate (Negative); Mucus,Urine Rare /hpf; Nitrite,Urine Negative (Negative); Protein,Urine Negative (Negative); Squamous Epithelial Cell,Urine 1 /hpf (0-4); Urobilinogen,Urine <2.0 mg/dL (<2.0)
[2019-07-18 20:53] VITALS: BP 128/86; PULSE 91
== END 2019-07-18 20:53 | disposition home or self-care (01) ==
LOC: EC 17:15
DX: R10.32 Left lower quadrant pain (principal); G89.29 Other chronic pain; N28.1 Cyst of kidney, acquired; I10 Essential (primary) hypertension; Z79.51 Long term (current) use of inhaled steroids; Z79.899 Other long term (current) drug therapy; Z88.0 Allergy status to penicillin; Z88.5 Allergy status to narcotic agent; Z88.6 Allergy status to analgesic agent; Z98.84 Bariatric surgery status; Z90.89 Acquired absence of other organs; Z90.49 Acquired absence of other specified parts of digestive tract
CPT/HCPCS: 99284 ×2; 96360 ×2; 96361 ×2; 36415; 80053; 83605; 83690; 85025; 85610; 85730; 81001; 74177; Q9967

== ENCOUNTER 2020-01-27 13:24 | Observation (INO) | payer BC ==
--- NOTE | 2020-01-27 14:12 | ED ---
SOB HPI - General Chief Complaint: Shortness of Breath Stated Complaint: Difficulty Breathing Time Seen by Provider: 01/27/20 14:07 Source: patient Mode of arrival: ambulatory Limitations: no limitations - History of Present Illness Initial Comments: She is a 59-year-old female with history of asthma, hypertension, fibromyalgia, gastric bypass presenting to emergency department with chief complaint shortness of breath. Patient reports about 10 days ago she developed some left-sided chest pain that is radiating to the left upper flank region. Patient reports he feels like it is "under her rib cage". Patient reports some after onset of the chest pain she developed shortness of breath. Also reports chest pain is pleuritic that is exacerbated with deep breaths. Patient states about 5 days ago she was [facility] where she had lab work as well as a CAT scan to rule out a PE. The results were negative. Patient was di scharged. Patient states her symptoms are not improving. Patient also reports having some lightheadedness but not currently. Denies any dizziness headaches one-sided weakness or paresthesia at this time. She reports having diaphoretic episodes for the last week. - Related Data Home Medications Medication Instructions Recorded Confirmed Furosemide [Lasix] 20 mg PO DAILY 09/24/14 02/28/19 Gabapentin [Neurontin] 300 mg PO TID 09/24/14 02/28/19 Montelukast Sodium [Singulair] 10 mg PO QAM 09/24/14 02/28/19 Omeprazole [PriLOSEC] 20 mg PO BID 09/24/14 02/28/19 cloNIDine HCL [Catapres] 0.1 mg PO HS 09/24/14 02/28/19 Albuterol Nebulized [Ventolin 2.5 mg INHALATION RT-Q4H PRN 04/05/16 02/28/19 Nebulized] Albuterol Sulfate [Ventolin HFA] 2 puff INHALATION RT-Q4H PRN 04/05/16 02/28/19 Alendronate Sodium [Fosamax] 70 mg PO MO 04/05/16 02/28/19 Cyclobenzaprine [Flexeril] 10 mg PO HS 04/05/16 02/28/19 Fluticasone/Salmeterol [Advair 2 puff INHALATION RT-BID 10/19/16 09/13/19 500-50 Diskus] Multivitamins, Thera [Multivitamin] 1 tab PO DAILY 04/05/16 02/28/19 Pramipexole Di-HCl [Mirapex] 1 mg PO TID 04/05/16 02/28/19 Ramipril [Altace] 5 mg PO DAILY 04/05/16 02/28/19 Triamterene/Hydrochlorothiazid 1 tab PO DAILY 04/05/16 02/28/19 [Maxzide 37.5-25] Calcium Carbonate [Calcium] 1,200 mg PO DAILY 10/12/16 02/28/19 predniSONE 10 mg PO DAILY 10/12/16 02/28/19 traZODone HCL 50 mg PO HS 10/12/16 02/28/19 Mylanta 1 tab PO DAILY PRN 01/21/17 02/28/19 Cyanocobalamin (Vitamin B-12) 1,000 mcg PO DAILY 02/23/17 02/28/19 [Vitamin B-12] oxyCODONE HCL [OxyCONTIN] 10 mg PO BID 02/23/17 02/28/19 Allergies Allergy/AdvReac Type Severity Reaction Status Date / Time Penicillins Allergy Rash/Hives Verified 01/27/20 15:41 morphine AdvReac Severe Nausea & Verified 01/27/20 15:41 Vomiting aspirin AdvReac Dyspnea Verified 01/27/20 15:41 Review of Systems ROS Statement: Those systems with pertinent positive or pertinent negative responses have been documented in the HPI. ROS Other: All systems not noted in ROS Statement are negative. Past Medical History Past Medical History: Asthma, Chest Pain / Angina, Hypertension Additional Past Medical History / Comment(s): hiatal hernia. CHRONIC SBO History of Any Multi-Drug Resistant Organisms: None Reported Past Surgical History: Appendectomy, Bariatric Surgery, Section, Cholecystectomy, Hernia Repair Additional Past Surgical History / Comment(s): abdominal surgeries X14. COLONOSCOPY Past Anesthesia/Blood Transfusion Reactions: No Reported Reaction Past Psychological History: No Psychological Hx Reported Past Alcohol Use History: None Reported Past Drug Use History: None Reported - Past Family History Mother Additional Family Medical History / Comment(s): PT ADOPTED COMPLETE FAMILY HX UNKNOWN Brother(s) Family Medical History: Cancer Additional Family Medical History / Comment(s): TWIN BROTHER FROM CANCER AGE 45 General Exam Limitations: no limitations General appearance: alert, in no apparent distress, obese Head exam: Present: atraumatic, normocephalic, normal inspection Eye exam: Present: normal appearance, PERRL, EOMI Pupils: Present: normal accommodation ENT exam: Present: normal exam, normal oropharynx, mucous membranes moist, TM's normal bilaterally, normal external ear exam Neck exam: Present: normal inspection, full ROM. Absent: tenderness Respiratory exam: Present: normal lung sounds bilaterally, chest wall tenderness. Absent: respiratory distress, wheezes, rales Cardiovascular Exam: Present: regular rate, normal rhythm, normal heart sounds GI/Abdominal exam: Present: soft, tenderness (Left upper quadrant, left lower chest.), normal bowel sounds. Absent: distended, guarding Extremities exam: Present: normal inspection, full ROM. Absent: tenderness Back exam: Present: normal inspection, full ROM. Absent: tenderness Neurological exam: Present: alert, oriented X3 Psychiatric exam: Present: normal affect, normal mood Skin exam: Present: warm, dry, intact, normal color Course Vital Signs 01/27/20 13:27 Temperature 98.1 F Pulse Rate 94 Respiratory 18 Rate Blood Pressure 157/101 O2 Sat by Pulse 97 Oximetry Medical Decision Making - Medical Decision Making Patient is a 59-year-old female history hypertension, fibromyalgia and asthma presenting to emergency Department with chief complaint of chest pain and shortness of breath. This appears to be pleuritic left-sided chest pain with radiation to the left upper flank region. Vitals are stable. Lungs are clear to auscultation. Chest x-ray reveals basilar atelectasis versus early infiltrates. Patient does have a white blood count of 15.5. I have higher suspicion for an inflammatory etiology. Patient will be started on antibiotics. Poor EKG showing likely sinus rhythm with some junctional ST depressions. Initial troponin is negative. D-dimer negative. Laboratory results from 5 days ago from another medical facility that showed CTA showed no signs of a PE. She also had CBC performed with a white count only of 11.5 which has not increased to 15.4. Patient will also be admitted for serial troponins. Patient will be admitted for further medical management. Case discussed with Admitting is Dr Carmen Consult cardiology - Lab Data Result diagrams: 01/27/20 14:33 01/27/20 14:33 Lab Results 0801/27/20 01/27/20 Range/Units 14:33 14:33 14:33 WBC 15.5 H (3.8-10.6) k/uL RBC 5.14 (3.80-5.40) m/uL Hgb 13.0 (11.4-16.0) gm/dL Hct 41.9 (34.0-46.0) % MCV 81.5 (80.0-100.0) fL MCH 25.2 (25.0-35.0) pg MCHC 30.9 L (31.0-37.0) g/dL RDW 16.4 H (11.5-15.5) % Plt Count 467 H (150-450) k/uL Neutrophils % 91 % Lymphocytes % 7 % Monocytes % 1 % Eosinophils % 0 % Basophils % 0 % Neutrophils # 14.1 H (1.3-7.7) k/uL Lymphocytes # 1.1 (1.0-4.8) k/uL Monocytes # 0.2 (0-1.0) k/uL Eosinophils # 0.1 (0-0.7) k/uL Basophils # 0.1 (0-0.2) k/uL Anisocytosis Slight PT 9.3 (9.0-12.0) sec INR 0.9 (<1.2) APTT 21.9 L (22.0-30.0) sec D-Dimer (<0.60) mg/L FEU Sodium 134 L (137-145) mmol/L Potassium 5.2 H (3.5-5.1) mmol/L Chloride 102 (98-107) mmol/L Carbon Dioxide 24 (22-30) mmol/L Anion Gap 8 mmol/L BUN 32 H (7-17) mg/dL Creatinine 1.00 (0.52-1.04) mg/dL Est GFR (CKD-EPI)AfAm 72 (>60 ml/min/1.73 sqM) Est GFR (CKD-EPI)NonAf 63 (>60 ml/min/1.73 sqM) Glucose 131 H (74-99) mg/dL Plasma Lactic Acid Dave (0.7-2.0) mmol/L Calcium 9.1 (8.4-10.2) mg/dL Total Bilirubin 0.4 (0.2-1.3) mg/dL AST 29 (14-36) U/L ALT 25 (4-34) U/L Alkaline Phosphatase 106 (38-126) U/L Troponin I (0.000-0.034) ng/mL Total Protein 6.9 (6.3-8.2) g/dL Albumin 4.2 (3.5-5.0) g/dL Amylase 71 (30-110) U/L Lipase 125 (23-300) U/L Urine Color Urine Appearance (Clear) Urine pH (5.0-8.0) Ur Specific [place] (1.001-1.035) Urine Protein (Negative) Urine Glucose (UA) (Negative) Urine Ketones (Negative) Urine Blood (Negative) Urine Nitrite (Negative) Urine Bilirubin (Negative) Urine Urobilinogen (<2.0) mg/dL Ur Leukocyte Esterase (Negative) Urine RBC (0-5) /hpf Urine WBC (0-5) /hpf Ur Squamous Epith Cells (0-4) /hpf Urine Mucus (None) /hpf 01/27/20 01/27/20 01/27/20 Range/Units 14:33 14:33 14:33 WBC (3.8-10.6) k/uL RBC (3.80-5.40) m/uL Hgb (11.4-16.0) gm/dL Hct (34.0-46.0) % MCV (80.0-100.0) fL MCH (25.0-35.0) pg MCHC (31.0-37.0) g/dL RDW (11.5-15.5) % Plt Count (150-450) k/uL Neutrophils % % Lymphocytes % % Monocytes % % Eosinophils % % Basophils % % Neutrophils # (1.3-7.7) k/uL Lymphocytes # (1.0-4.8) k/uL Monocytes # (0-1.0) k/uL Eosinophils # (0-0.7) k/uL Basophils # (0-0.2) k/uL Anisocytosis PT (9.0-12.0) sec INR (<1.2) APTT (22.0-30.0) sec D-Dimer 0.57 (<0.60) mg/L FEU Sodium (137-145) mmol/L Potassium (3.5-5.1) mmol/L Chloride (98-107) mmol/L Carbon Dioxide (22-30) mmol/L Anion Gap mmol/L BUN (7-17) mg/dL Creatinine (0.52-1.04) mg/dL Est GFR (CKD-EPI)AfAm (>60 ml/min/1.73 sqM) Est GFR (CKD-EPI)NonAf (>60 ml/min/1.73 sqM) Glucose (74-99) mg/dL Plasma Lactic Acid Dave 1.0 (0.7-2.0) mmol/L Calcium (8.4-10.2) mg/dL Total Bilirubin (0.2-1.3) mg/dL AST (14-36) U/L ALT (4-34) U/L Alkaline Phosphatase (38-126) U/L Troponin I <0.012 (0.000-0.034) ng/mL Total Protein (6.3-8.2) g/dL Albumin (3.5-5.0) g/dL Amylase (30-110) U/L Lipase (23-300) U/L Urine Color Urine Appearance (Clear) Urine pH (5.0-8.0) Ur Specific [place] (1.001-1.035) Urine Protein (Negative) Urine Glucose (UA) (Negative) Urine Ketones (Negative) Urine Blood (Negative) Urine Nitrite (Negative) Urine Bilirubin (Negative) Urine Urobilinogen (<2.0) mg/dL Ur Leukocyte Esterase (Negative) Urine RBC (0-5) /hpf Urine WBC (0-5) /hpf Ur Squamous Epith Cells (0-4) /hpf Urine Mucus (None) /hpf 01/27/20 Range/Units 14:59 WBC (3.8-10.6) k/uL RBC (3.80-5.40) m/uL Hgb (11.4-16.0) gm/dL Hct (34.0-46.0) % MCV (80.0-100.0) fL MCH (25.0-35.0) pg MCHC (31.0-37.0) g/dL RDW (11.5-15.5) % Plt Count (150-450) k/uL Neutrophils % % Lymphocytes % % Monocytes % % Eosinophils % % Basophils % % Neutrophils # (1.3-7.7) k/uL Lymphocytes # (1.0-4.8) k/uL Monocytes # (0-1.0) k/uL Eosinophils # (0-0.7) k/uL Basophils # (0-0.2) k/uL Anisocytosis PT (9.0-12.0) sec INR (<1.2) APTT (22.0-30.0) sec D-Dimer (<0.60) mg/L FEU Sodium (137-145) mmol/L Potassium (3.5-5.1) mmol/L Chloride (98-107) mmol/L Carbon Dioxide (22-30) mmol/L Anion Gap mmol/L BUN (7-17) mg/dL Creatinine (0.52-1.04) mg/dL Est GFR (CKD-EPI)AfAm (>60 ml/min/1.73 sqM) Est GFR (CKD-EPI)NonAf (>60 ml/min/1.73 sqM) Glucose (74-99) mg/dL Plasma Lactic Acid Dave (0.7-2.0) mmol/L Calcium (8.4-10.2) mg/dL Total Bilirubin (0.2-1.3) mg/dL AST (14-36) U/L ALT (4-34) U/L Alkaline Phosphatase (38-126) U/L Troponin I (0.000-0.034) ng/mL Total Protein (6.3-8.2) g/dL Albumin (3.5-5.0) g/dL Amylase (30-110) U/L Lipase (23-300) U/L Urine Color Yellow Urine Appearance Clear (Clear) Urine pH 6.0 (5.0-8.0) Ur Specific [place] 1.023 (1.001-1.035) Urine Protein Negative (Negative) Urine Glucose (UA) Negative (Negative) Urine Ketones Negative (Negative) Urine Blood Negative (Negative) Urine Nitrite Negative (Negative) Urine Bilirubin Negative (Negative) Urine Urobilinogen <2.0 (<2.0) mg/dL Ur Leukocyte Esterase Moderate H (Negative) Urine RBC 2 (0-5) /hpf Urine WBC 2 (0-5) /hpf Ur Squamous Epith Cells 1 (0-4) /hpf Urine Mucus Rare H (None) /hpf Disposition Clinical Impression: Shortness of breath, Chest pain, Pneumonia Disposition: ADMITTED IP TO THIS HOSP Condition: Good Additional Instructions: Patient will be admitted Is patient prescribed a controlled substance at d/c from ED?: No Referrals: Steven Carmen MD [Primary Care Provider] - 1-2 days Time of Disposition: 16:03
[2020-01-27 14:46] LABS: Anisocytosis Slight; Basophils # (A) 0.1 k/uL (0-0.2); Basophils % (A) 0 %; Eosinophils # (A) 0.1 k/uL (0-0.7); Eosinophils % (A) 0 %; HCT 41.9 % (34.0-46.0); Lymphocytes # (A) 1.1 k/uL (1.0-4.8); Lymphocytes % (A) 7 %; MCH 25.2 pg (25.0-35.0); MCHC 30.9 g/dL (31.0-37.0); MCV 81.5 fL (80.0-100.0); Mean Platelet Volume 7.1; Monocytes # (A) 0.2 k/uL (0-1.0); Monocytes % (A) 1 %; Neutrophils # (A) 14.1 k/uL (1.3-7.7); Neutrophils % (A) 91 %; Platelet Count 467 k/uL (150-450); RBC 5.14 m/uL (3.80-5.40); RDW 16.4 % (11.5-15.5); WBC 15.5 k/uL (3.8-10.6)
--- NOTE | 2020-01-27 14:52 | XR ---
EXAMINATION TYPE: XR chest 2V DATE OF EXAM: 01/27/2020 COMPARISON: 01/21/2017 TECHNIQUE: PA and lateral views submitted. HISTORY: Chest pain FINDINGS: Limited inspiration. Heart size normal. Subsegmental changes at the right lung base. No interstitial edema. Arthropathy of the shoulders. Degenerative change of the spine. IMPRESSION: 1. Basilar atelectasis versus early infiltrate correlate clinically.
[2020-01-27 15:00] LABS: Albumin 4.2 g/dL (3.5-5.0); Calcium 9.1 mg/dL (8.4-10.2); Potassium 5.2 mmol/L (3.5-5.1); Total Bilirubin 0.4 mg/dL (0.2-1.3); Total Protein 6.9 g/dL (6.3-8.2)
[2020-01-27 15:04] LABS: INR 0.9 (<1.2); Partial Thromboplastin Time 21.9 sec (22.0-30.0); Prothrombin Time 9.3 sec (9.0-12.0)
[2020-01-27 15:13] LABS: Appearance,Urine Clear (Clear); Bilirubin,Urine Negative (Negative); Blood,Urine Negative (Negative); Color,Urine Yellow; Glucose,Urine (UA) Negative (Negative); Ketones,Urine Negative (Negative); Leukocyte Esterase,Urine Moderate (Negative); Mucus,Urine Rare /hpf; Nitrite,Urine Negative (Negative); Protein,Urine Negative (Negative); RBC,Urine 2 /hpf (0-5); Specific Gravity,Urine 1.023 (1.001-1.035); Squamous Epithelial Cell,Urine 1 /hpf (0-4); Urobilinogen,Urine <2.0 mg/dL (<2.0); WBC,Urine 2 /hpf (0-5)
[2020-01-27] MEDS ORDERED: NALOXONE 0.4 MG/ML 1 ML VIAL IV PRN (15:56)
[2020-01-27] MEDS ORDERED: LORazepam 2 MG/ML INJ IV PRN (15:56)
[2020-01-27] MEDS ORDERED: cefTRIAXone IN SWFI 1,000 MG/10 ML SYRINGE IVP STA (16:03)
[2020-01-27] MEDS: ACETAMINOPHEN TAB 325 MG TAB PO PRN (17:14)
[2020-01-27] MEDS ORDERED: HYDROcodone/APAP 7.5-325MG 1 EACH TAB PO PRN (18:37)
[2020-01-27] MEDS: SODIUM CHLORIDE 0.9% 1,000 ML IV SCH (18:56)
--- NOTE | 2020-01-27 20:12 | CONS ---
CONSULTATION CHIEF COMPLAINT: Chest pain. HISTORY OF PRESENT ILLNESS: Josee is a 59-year-old lady with history of asthma and hypertension who presented to hospital complaining of chest pain. She describes it as left-sided precordial chest, like a pressure without definite radiation to neck, arm or back. This thing has been going on for the last 10 days. Initially they thought she may have a pulmonary embolism. Apparently she had a CT scan of the chest that was negative. She comes in to [facility] where she is admitted. EKG does not reveal ischemic changes and 1st set of troponin is negative. PAST MEDICAL HISTORY: Significant for asthma and hypertension. MEDICATIONS: Include Advair, Lasix, vitamin B12, Ventolin, Grant, Maxzide, Aldactone, Altace, OxyContin, Prilosec, Singulair, and Neurontin. ALLERGIES: PENICILLIN, MORPHINE, ASPIRIN. FAMILY HISTORY: Negative for premature coronary artery disease. SOCIAL HISTORY: Negative for smoking, EtOH abuse, or drug abuse. REVIEW OF SYSTEMS: HEENT: Is unremarkable. CARDIAC: As described above. RESPIRATORY: Negative. GI: Negative. ENDOCRINE: Negative. ALLERGY/IMMUNOLOGY: Negative. SKIN: Negative. MUSCULOSKELETAL: Negative. ENDOCRINE: Negative. DERM: Negative. CONSTITUTIONAL: Negative. ONCOLOGICAL: Negative. SHIFT BOSS: Negative. The rest of the system review is not relevant. PHYSICAL EXAM: Patient is comfortable at rest. Vital signs are stable. There is no jugular venous distention. Carotid upstroke is normal. There is no bruit. Chest exam reveals good air entry bilaterally. Heart exam reveals first and second heart sounds. No gallop. No murmur. No rub. Abdomen is soft, nontender. Exam of extremities did not reveal edema. Peripheral pulses are felt. LABS: Show that the hemoglobin is 13, white cell count is elevated, platelet count is 460. Potassium is 5.2, creatinine is 1. ASSESSMENT: 1. Atypical chest pain. 2. Hypertension. PLAN: We will obtain serial troponins. If they are negative, schedule her for a dobutamine echo tomorrow morning. If that looks good, she can be discharged home. If it is abnormal, we will investigate further. The patient has hyperkalemia. She is on spironolactone which I am going to stop. MMODL / IJN: [id number] /
[2020-01-27] MEDS: ALBUTEROL NEBULIZED 2.5 MG/3 ML INHALATION PRN (20:37)
[2020-01-27] MEDS: BUDESONIDE 0.5 MG/2 ML NEBU INHALATION SCH (20:37)
[2020-01-27] MEDS ORDERED: PRAMIPEXOLE 1 MG TAB PO SCH (21:00)
[2020-01-27] MEDS ORDERED: traZODone HCL 100 MG TAB PO SCH (21:00)
[2020-01-27] MEDS ORDERED: METOCLOPRAMIDE 5 MG/ML 2 ML VIAL IVP PRN (21:06)
[2020-01-27] MEDS: PANTOPRAZOLE 40 MG TABLET PO SCH (21:07)
[2020-01-27] MEDS: oxyCODONE ER 15 MG TAB.ER.12H PO SCH (21:08)
[2020-01-27] MEDS: GABAPENTIN 300 MG CAP PO SCH (21:08)
[2020-01-27] MEDS: methylPREDNISolone SOD SUCCI 40 MG/ML 1 ML VIAL IV SCH (23:55)
[2020-01-28 02:29] VITALS: RESP 18
[2020-01-28] MEDS ORDERED: DOBUTamine DRIP for NUC MED 500 MG in DEXTROSE/WATER 1 250ML.BAG IV ONE (06:00)
[2020-01-28] MEDS: SODIUM CHLORIDE 0.9% 1,000 ML IV SCH (06:28)
[2020-01-28] MEDS: ALBUTEROL NEBULIZED 2.5 MG/3 ML INHALATION PRN ×2 (07:33→16:48)
[2020-01-28] MEDS: BUDESONIDE 0.5 MG/2 ML NEBU INHALATION SCH (07:33)
[2020-01-28] MEDS ORDERED: TRIAMTERENE-HCTZ 37.5-25MG 1 EACH TAB PO SCH (09:00)
[2020-01-28] MEDS ORDERED: SAVELLA 50 MG PO SCH (09:00)
[2020-01-28] MEDS ORDERED: FUROSEMIDE 40 MG TAB PO SCH (09:00)
[2020-01-28] MEDS ORDERED: MONTELUKAST 10 MG TAB PO SCH (09:00)
[2020-01-28] MEDS: methylPREDNISolone SOD SUCCI 40 MG/ML 1 ML VIAL IV SCH ×2 (09:34→16:23)
[2020-01-28] MEDS: oxyCODONE ER 15 MG TAB.ER.12H PO SCH (09:34)
[2020-01-28] MEDS: PANTOPRAZOLE 40 MG TABLET PO SCH (09:35)
[2020-01-28] MEDS: GABAPENTIN 300 MG CAP PO SCH ×2 (09:35→16:23)
[2020-01-28] MEDS: ACETAMINOPHEN TAB 325 MG TAB PO PRN (11:44)
--- NOTE | 2020-01-28 12:00 | ECHOF ---
Referral Reason: MEASUREMENTS -------- HEIGHT: 154.9 cm WEIGHT: 113.4 kg BP: 137/73 RVIDd: 3.1 cm (< 3.3) IVSd: 0.9 cm (0.6 - 1.1) LVIDd: 4.2 cm (3.9 - 5.3) LVPWd: 0.9 cm (0.6 - 1.1) IVSs: 1.5 cm LVIDs: 2.7 cm LVPWs: 1.6 cm LA Diam: 3.4 cm (2.7 - 3.8) LAESV Index (A-L): 18.04 ml/m Ao Diam: 2.9 cm (2.0 - 3.7) AV Cusp: 1.9 cm (1.5 - 2.6) MV EXCURSION: 13.536 mm (> 18.000) MV EF SLOPE: 93 mm/s (70 - 150) EPSS: 1.2 cm MV E Rene: 1.02 m/s MV DecT: 275 ms MV A Rene: 1.27 m/s MV E/A Ratio: 0.80 FINDINGS -------- Sinus rhythm. This was a technically good study. The left ventricular size is normal. Left ventricular wall thickness is normal. Overall left vent ricular systolic function is normal with, an EF between 60 - 65 %. The right ventricle is normal in size. Normal LA size by volume 22+/-6 ml/m2. The right atrium is normal in size. Interatrial and interventricular septum intact. The aortic valve is trileaflet and appears structurally normal. Mild mitral regurgitation is present. The tricuspid valve appears structurally normal. There is no pulmonic regurgitation present. The aortic root size is normal. Normal inferior vena cava with normal inspiratory collapse consistent with estimated right atrial pre ssure of 5 mmHg. There is no pericardial effusion. CONCLUSIONS -------- 1. The left ventricular size is normal. 2. Left ventricular wall thickness is normal. 3. Overall left ventricular systolic function is normal with, an EF between 60 - 65 %. 4. Mild mitral regurgitation is present. 5. There is no pericardial effusion. [employer]: Melissa Warner [facility]
--- NOTE | 2020-01-28 13:33 | P.PN ---
Subjective This is a pleasant 59-year-old female past medical history significant for asthma and hypertension. She has had no further symptoms of chest discomfort. She denies shortness of breath, dizziness or palpitations. Blood pressure 126/78 heart rate 89 afebrile maintaining oxygen saturations on room air. Laboratory data reviewed, cardiac enzymes negative 3. Echocardiogram obtained reveals preserved LV systolic function with ejection fraction 60-65% with mild mitral regurgitation. GENERAL: Well-appearing, well-nourished and in no acute distress. NECK: Supple without JVD or thyromegaly. LUNGS: Breath sounds clear to auscultation bilaterally. Respiration equal and unlabored. No wheezes, rales or rhonchi. HEART: Regular rate and rhythm without murmurs, rubs or gallops. S1 and S2 heard. EXTREMITIES: Normal range of motion, no edema. No clubbing or cyanosis. Peripheral pulses intact. ASSESSMENT Chest pain, atypical. An acute coronary event has been ruled out. Hypertension PLAN Dobutamine stress echocardiogram is negative for stress-induced ischemia. Patient can be discharged home to follow-up in the office with Dr. Tyson in 2 weeks. Nurse Practitioner note has been reviewed, I agree with a documented findings and plan of care. Patient was seen and examined. Objective - Vital Signs Vital signs: Vital Signs Temp 98.1 F 01/28/20 09:00 Pulse 89 01/28/20 09:00 Resp 18 01/28/20 09:00 BP 126/78 01/28/20 09:00 Pulse Ox 92 L 01/28/20 09:00 Intake & Output 01/27/20 01/28/20 01/28/20 18:59 06:59 18:59 Intake Total 450 105 Output Total 300 Balance 450 -195 Weight 113.398 kg 113.4 kg Intake: Intake, IV Titration 75 Amount Sodium Chloride 0.9% 1, 75 000 ml @ 75 mls/hr IV . [id number] FRANKIE Rx#:[id number] Oral 450 30 Output: Urine 300 Other: Voiding Method Toilet Toilet # Voids 1 1 - Labs CBC & Chem 7: 01/27/20 14:33 01/27/20 14:33 Labs: Abnormal Lab Results - Last 24 Hours (Table) 01/27/20 01/27/20 01/27/20 Range/Units 14:33 14:33 14:33 WBC 15.5 H (3.8-10.6) k/uL MCHC 30.9 L (31.0-37.0) g/dL RDW 16.4 H (11.5-15.5) % Plt Count 467 H (150-450) k/uL Neutrophils # 14.1 H (1.3-7.7) k/uL APTT 21.9 L (22.0-30.0) sec Sodium 134 L (137-145) mmol/L Potassium 5.2 H (3.5-5.1) mmol/L BUN 32 H (7-17) mg/dL Glucose 131 H (74-99) mg/dL Ur Leukocyte Esterase (Negative) Urine Mucus (None) /hpf 01/27/20 Range/Units 14:59 WBC (3.8-10.6) k/uL MCHC (31.0-37.0) g/dL RDW (11.5-15.5) % Plt Count (150-450) k/uL Neutrophils # (1.3-7.7) k/uL APTT (22.0-30.0) sec Sodium (137-145) mmol/L Potassium (3.5-5.1) mmol/L BUN (7-17) mg/dL Glucose (74-99) mg/dL Ur Leukocyte Esterase Moderate H (Negative) Urine Mucus Rare H (None) /hpf
--- NOTE | 2020-01-28 14:29 | ECHOS ---
STRESS ECHOCARDIOGRAM LUMASON: Vial INDICATIONS: Chest pain. MEDICATIONS: BASELINE HEART RATE: 79 BASELINE BLOOD PRESSURE: 180/83 MAXIMUM HEART RATE: 142 MAXIMUM BLOOD PRESSURE: 150/89 85% MPHR: 138 100% MPHR: 162 METS: MAXIMUM STAGE REACHED: TOTAL EXERCISE TIME: CLINICAL INFORMATION: Baseline EKG shows sinus rhythm, normal axis, normal intervals. Patient was given intravenous dobutamine over a period of 6.5 minutes as per protocol, achieving 85% of predicted maximal heart rate without chest pain or diagnostic ST-segment depression. Baseline echo shows normal left ventricular size, wall motion and systolic function. Post dobutamine infusion there is normal hyperdynamic response of all segments of myocardium noted. CONCLUSION: 1. Negative stress test by EKG criteria. 2. Negative dobutamine echo. MMODL / IJN: [id number] /
[2020-01-28 16:45] LABS: Glucose,Whole Blood 228 mg/dL (75-99)
[2020-01-28] MEDS ORDERED: INSULIN ASPART (NovoLOG) 100 UNIT/ML VIAL SQ SCH (17:30)
[2020-01-28 18:06] VITALS: BP 145/81; PULSE 93; TEMP 98
--- NOTE | 2020-01-29 23:02 | P.HPIM ---
History of Present Illness H&P Date: 01/28/20 Chief Complaint: chest pain Josee Cooper is a 59 yo F with PMH of asthma, HTN who presented to the ED for worsening L sided chest pain. Pt states this has been going on for over a week and worsening. She initially went to see her PCP and at that time described it as radiating into her mid-back so underwent an EKG, CT and infectious labs which were negative. She then followed up and complained of the same pain but mostly in the mid back and got a trigger point steroid injection into the paraspinal muscles. She does not feel that helped and complains her pain has continued and feels deeper in her chest/back. On presentation she was hypertensive, WBC 15k, trop negative. Review of Systems All systems: negative Constitutional: Denies chills, Denies fever Eyes: denies blurred vision, denies pain Ears, nose, mouth and throat: Denies headache, Denies sore throat Cardiovascular: Reports chest pain, Denies shortness of breath Respiratory: Denies cough Gastrointestinal: Denies abdominal pain, Denies diarrhea, Denies nausea, Denies vomiting Genitourinary: Denies dysuria, Denies hematuria Musculoskeletal: Denies myalgias Integumentary: Denies pruritus, Denies rash Neurological: Denies numbness, Denies weakness Psychiatric: Denies anxiety, Denies depression Endocrine: Denies fatigue, Denies weight change Past Medical History Past Medical History: Asthma, Fibromyalgia Additional Past Medical History / Comment(s): hiatal hernia. CHRONIC SOB. RLS. per pt cramping really bad all over feet, legs, and arms. History of Any Multi-Drug Resistant Organisms: None Reported Past Surgical History: Appendectomy, Bariatric Surgery, Section, Cholecystectomy, Hernia Repair Additional Past Surgical History / Comment(s): abdominal surgeries X14. COLONOSCOPY. chronic bloackge of smalll bowel Past Anesthesia/Blood Transfusion Reactions: No Reported Reaction Past Psychological History: No Psychological Hx Reported Smoking Status: Never smoker Past Alcohol Use History: None Reported Past Drug Use History: None Reported - Past Family History Mother Additional Family Medical History / Comment(s): PT ADOPTED COMPLETE FAMILY HX UNKNOWN Brother(s) Family Medical History: Cancer Additional Family Medical History / Comment(s): TWIN BROTHER FROM CANCER AGE 45 Medications and Allergies Home Medications Medication Instructions Recorded Confirmed Type Gabapentin [Neurontin] 300 mg PO TID 09/24/14 01/27/20 History Montelukast Sodium [Singulair] 10 mg PO QAM 09/24/14 01/27/20 History Omeprazole [PriLOSEC] 20 mg PO BID 09/24/14 01/27/20 History Albuterol Sulfate [Ventolin HFA] 2 puff INHALATION RT-Q4H PRN 04/05/16 01/27/20 History Fluticasone/Salmeterol [Advair 2 puff INHALATION RT-DAILY 04/05/16 01/27/20 History 500-50 Diskus] Pramipexole Di-HCl [Mirapex] 1 mg PO HS 04/05/16 01/27/20 History Ramipril [Altace] 5 mg PO DAILY 04/05/16 01/27/20 History Triamterene/Hydrochlorothiazid 1 tab PO DAILY 04/05/16 01/27/20 History [Maxzide 37.5-25] Calcium Carbonate [Calcium] 1,200 mg PO DAILY 10/12/16 01/27/20 History predniSONE 10 mg PO DAILY 10/12/16 01/27/20 History Cyanocobalamin (Vitamin B-12) 1,000 mcg PO DAILY 02/23/17 01/27/20 History [Vitamin B-12] Furosemide [Lasix] 40 mg PO DAILY 01/27/20 01/27/20 History HYDROcodone/APAP 7.5-325MG [[place] 1 tab PO BID 01/27/20 01/27/20 History 7.5-325] Milnacipran HCl [Savella] 50 mg PO DAILY 01/27/20 01/27/20 History Spironolactone [Aldactone] 25 mg PO DAILY 01/27/20 01/27/20 History Teriparatide [Forteo] 20 mcg SQ DAILY 01/27/20 01/27/20 History Vitamin C (Unknown Strength) 1 tab PO DAILY 01/27/20 01/27/20 History oxyCODONE ER [OxyCONTIN] 15 mg PO BID 01/27/20 01/27/20 History traZODone HCL 100 mg PO HS 01/27/20 01/27/20 History Levofloxacin [Levaquin] 750 mg PO DAILY 3 Days #3 tab 01/28/20 Rx predniSONE 0 mg PO DIRECTED #30 tab 01/28/20 Rx Allergies Allergy/AdvReac Type Severity Reaction Status Date / Time Penicillins Allergy Rash/Hives Verified 01/27/20 15:41 morphine AdvReac Severe Nausea & Verified 01/27/20 15:41 Vomiting aspirin AdvReac Dyspnea Verified 01/27/20 15:41 Physical Exam General: well nourished, well developed, NAD. Vitals reviewed Eyes: PERRL, EOMI, conjunctiva normal HENT: normocephalic, mucus membranes moist Neck: supple, no JVD Lungs: normal respiratory effort, no wheezes or rales CV: Regular rate and rhythm, no murmur. Peripheral pulses 2+ Abdomen: soft, nondistended, no organomegaly MSK: Point tenderness to paraspinal muscles Skin: warm and dry. Neuro: A&Ox3, normal mood and affect Results CBC & Chem 7: 01/27/20 14:33 01/27/20 14:33 Labs: Microbiology - Last 24 Hours (Table) 01/27/20 17:00 Blood Culture - Preliminary Blood No Growth after 48 hours Thrombosis Risk Factor Assmnt - Choose All That Apply Any of the Below Risk Factors Present?: Yes Each Factor Represents 1 point: Age 41-60 years, Obesity (BMI >25) Other Risk Factors: No Other congenital or acquired thrombophilia - If yes, enter type in comment: No Thrombosis Risk Factor Assessment Total Risk Factor Score: 2 Thrombosis Risk Factor Assessment Level: Low Risk Assessment and Plan (1) Chest pain Status: Acute Code(s): R07.9 - CHEST PAIN, UNSPECIFIED SNOMED Code(s): 18986451 (2) Shortness of breath Status: Acute Code(s): R06.02 - SHORTNESS OF BREATH SNOMED Code(s): 247629687 (3) Fibromyalgia Status: Acute Code(s): M79.7 - FIBROMYALGIA SNOMED Code(s): 264567336 (4) Type 2 diabetes mellitus Status: Acute Code(s): E11.9 - TYPE 2 DIABETES MELLITUS WITHOUT COMPLICATIONS SNOMED Code(s): 19355382 (5) Essential hypertension Status: Acute Code(s): I10 - ESSENTIAL (PRIMARY) HYPERTENSION SNOMED Code(s): 17153824 Plan: 1. Chest pain. ACS ruled out. Consider MSK. Cardiology consulted and pt for stress test. Gonzales control. Continue to control BP 2. T2DM. Continue home meds 3. HTN
--- NOTE | 2020-01-30 07:39 | CDI ---
Documentation Clarification Form Date: 01/30/2020 07:28:31 AM From: Sarah Sanon Phone: If you have a question about this query, please contact Mercedes Moran Audio Video Mechanic at [phone] between 8am and 5pm. Admit Date: 01/27/2020 03:56:00 PM Patient Name: Josee Cooper Visit Number: [id number] Discharge Date: 01/28/2020 06:52:00 PM ATTENTION: The Clinical Documentation Specialists (CDI) and [facility] Coding Staff appreciate your assistance in clarifying documentation. Please respond to the clarification below the line at the bottom and electronically sign. The CDI & [facility] Coding staff will review the response and follow-up if needed. Please note: Queries are made part of the Legal Health Record. If you have any questions, please contact the author of this message via ITS. Dr. Steven Carmen Pneumonia was documented in ED notes. Please clarify if patient had pneumonia or was it ruled out. History/Risk Factors: Patient with CP to back Clinical Indicators: Vital signs: 98.1 F 94bpm 18 157/101 97 RA WBC/Left shift: 15.5 X-ray: Sulaiman atelectasis versus early inflitrate Lung/Breathing assessment Patient SOB Treatment: Rocephin IV pulmicort albuteral IV fluids Antibiotics Rocephin In order to capture the severity of condition, please clarify if the condition signifies and you are treating for: Bacterial Pneumonia, specify causal organism (if known) Gram Negative Pneumonia Due to Strep ?Due to Staph ?Due to E. Coli ?Other bacteria (please specify) Viral Pneumonia, specify casual organism (if known) Healthcare Acquired Pneumonia/Pneumonia, unspecified Pneumonia ruled out Other, please specify Unable to determine Gram Negative Pneumonia MTDD
--- NOTE | 2020-02-02 23:38 | P.DS ---
Providers Date of admission: 01/27/20 15:56 Expected date of discharge: 01/28/20 Attending physician: Steven Carmen MD Consults: 01/27/20 15:56 Consult Physician Stat Consulting Provider: Anabelle Osman Consult Reason/Comments: Chest pain, pneumonia, shortness of breath Do you want consulting provider notified?: Yes Primary care physician: Steven Carmen MD - Discharge Diagnosis(es) (1) Chest pain Status: Acute (2) Shortness of breath Status: Acute (3) Fibromyalgia Status: Acute (4) Type 2 diabetes mellitus Status: Acute (5) Essential hypertension Status: Acute Hospital Course: Josee Cooper is a 59 yo F with PMH of asthma, HTN who presented to the ED for worsening L sided chest pain. Pt states this has been going on for over a week and worsening. She initially went to see her PCP and at that time described it as radiating into her mid-back so underwent an EKG, CT and procalcitonin which were negative. She then followed up and complained of the same pain but mostly in the mid back and got a trigger point steroid injection into the paraspinal muscles. She does not feel that helped and complains her pain has continued and feels deeper in her chest/back. On presentation she was hypertensive, WBC 15k, trop negative. She was admitted to medicine and seen by cardiology. Pt was started on empiric rocephin. She did undergo stress echo which was negative. Pt is discharged in stable condition and recommended to complete a course of antibiotics and follow up with her PCP. Patient Condition at Discharge: Good Plan - Discharge Summary Discharge Rx Participant: No New Discharge Prescriptions: New predniSONE 0 mg PO DIRECTED #30 tab Levofloxacin [Levaquin] 750 mg PO DAILY 3 Days #3 tab Continue Montelukast Sodium [Singulair] 10 mg PO QAM Omeprazole [PriLOSEC] 20 mg PO BID Gabapentin [Neurontin] 300 mg PO TID Fluticasone/Salmeterol [Advair 500-50 Diskus] 2 puff INHALATION RT-DAILY Triamterene/Hydrochlorothiazid [Maxzide 37.5-25] 1 tab PO DAILY Ramipril [Altace] 5 mg PO DAILY Albuterol Sulfate [Ventolin HFA] 2 puff INHALATION RT-Q4H PRN PRN Reason: Shortness Of Breath Pramipexole Di-HCl [Mirapex] 1 mg PO HS Calcium Carbonate [Calcium] 1,200 mg PO DAILY predniSONE 10 mg PO DAILY Cyanocobalamin (Vitamin B-12) [Vitamin B-12] 1,000 mcg PO DAILY Vitamin C (Unknown Strength) 1 tab PO DAILY Furosemide [Lasix] 40 mg PO DAILY HYDROcodone/APAP 7.5-325MG [[place] 7.5-325] 1 tab PO BID Milnacipran HCl [Savella] 50 mg PO DAILY oxyCODONE ER [OxyCONTIN] 15 mg PO BID Spironolactone [Aldactone] 25 mg PO DAILY Teriparatide [Forteo] 20 mcg SQ DAILY traZODone HCL 100 mg PO HS Discharge Medication List Gabapentin [Neurontin] 300 mg PO TID 09/24/14 [History] Montelukast Sodium [Singulair] 10 mg PO QAM 09/24/14 [History] Omeprazole [PriLOSEC] 20 mg PO BID 09/24/14 [History] Albuterol Sulfate [Ventolin HFA] 2 puff INHALATION RT-Q4H PRN 04/05/16 [History] Fluticasone/Salmeterol [Advair 500-50 Diskus] 2 puff INHALATION RT-DAILY 04/05/16 [History] Pramipexole Di-HCl [Mirapex] 1 mg PO HS 04/05/16 [History] Ramipril [Altace] 5 mg PO DAILY 04/05/16 [History] Triamterene/Hydrochlorothiazid [Maxzide 37.5-25] 1 tab PO DAILY 04/05/16 [History] Calcium Carbonate [Calcium] 1,200 mg PO DAILY 10/12/16 [History] predniSONE 10 mg PO DAILY 10/12/16 [History] Cyanocobalamin (Vitamin B-12) [Vitamin B-12] 1,000 mcg PO DAILY 02/23/17 [Hist ory] Furosemide [Lasix] 40 mg PO DAILY 01/27/20 [History] HYDROcodone/APAP 7.5-325MG [[place] 7.5-325] 1 tab PO BID 01/27/20 [History] Milnacipran HCl [Savella] 50 mg PO DAILY 01/27/20 [History] Spironolactone [Aldactone] 25 mg PO DAILY 01/27/20 [History] Teriparatide [Forteo] 20 mcg SQ DAILY 01/27/20 [History] Vitamin C (Unknown Strength) 1 tab PO DAILY 01/27/20 [History] oxyCODONE ER [OxyCONTIN] 15 mg PO BID 01/27/20 [History] traZODone HCL 100 mg PO HS 01/27/20 [History] Levofloxacin [Levaquin] 750 mg PO DAILY 3 Days #3 tab 01/28/20 [Rx] predniSONE 0 mg PO DIRECTED #30 tab 01/28/20 [Rx] Follow up Appointment(s)/Referral(s): Steven Carmen MD [Primary Care Provider] - 1-2 days Activity/Diet/Wound Care/Special Instructions: Patient will be admitted Discharge Disposition: HOME SELF-CARE
== END 2020-01-28 18:52 | disposition home or self-care (01) ==
LOC: EC 13:24 → 3NCARDOBS 15:52 → UNDOADMOB 15:56 → 3NCARDOBS 15:56 → INTOOBSV 15:56 → OBSVTOIN 15:56 → UNDODISIN 01-28 18:52
PROVIDERS: ADMIT Family Medicine; ATTEND Family Medicine
DX: J15.9 Unspecified bacterial pneumonia (principal); E11.9 Type 2 diabetes mellitus without complications; G25.81 Restless legs syndrome; I10 Essential (primary) hypertension; J45.909 Unspecified asthma, uncomplicated; M79.7 Fibromyalgia; E87.5 Hyperkalemia; K56.609 Unspecified intestinal obstruction, unspecified as to partial versus complete obstruction; E66.9 Obesity, unspecified; Z68.42 Body mass index [BMI] 45.0-49.9, adult; Z79.891 Long term (current) use of opiate analgesic; Z90.49 Acquired absence of other specified parts of digestive tract; Z98.84 Bariatric surgery status; Z88.6 Allergy status to analgesic agent; Z88.5 Allergy status to narcotic agent; Z88.0 Allergy status to penicillin; Z79.83 Long term (current) use of bisphosphonates; Z79.899 Other long term (current) drug therapy; Z79.52 Long term (current) use of systemic steroids; Z80.9 Family history of malignant neoplasm, unspecified
CPT/HCPCS: 96361; 96365; 96375; 96376 ×2; 99285; 36415; 94640 ×3; 93005; 93306; 93351; 85379; 80053; 82150; 83605; 83690; 84484; 85025; 85610; 85730; 81001; 87040; 71046; G0378 ×2; J1250; J2920 ×2; J0696 ×2; 96374

== ENCOUNTER 2020-04-27 07:04 | Inpatient (IN) | payer BC ==
[2020-04-27] MEDS ORDERED: PANTOPRAZOLE 40 MG/10 ML VIAL IVP STA (07:31)
[2020-04-27] MEDS ORDERED: ONDANSETRON 4 MG/2 ML VIAL IVP STA (07:31)
[2020-04-27] MEDS ORDERED: SODIUM CHLORIDE 0.9% 1,000 ML IV STA (07:31)
[2020-04-27] MEDS ORDERED: HYDROmorphone 1 MG/ML 1 ML SYRINGE IVP STA (07:33)
--- NOTE | 2020-04-27 07:38 | ED ---
General Adult HPI - General Chief complaint: Abdominal Pain Stated complaint: abd pain Time Seen by Provider: 04/27/20 07:22 Source: patient, family Mode of arrival: wheelchair Limitations: no limitations - History of Present Illness Initial comments: Patient is a pleasant 59-year-old female presenting to the emergency Department with complaints of abdominal discomfort. Patient does have similar symptoms previously associated with her hiatal hernia. This has been worse over the past month. Symptoms have been severe over the past 3 days. Patient does have nausea. Patient does vomit when she attempts to eat. No constipation or diarrhea. Patient denies any chest pain despite being asked multiple times. Patient points to the epigastrium. No fevers. - Related Data Home Medications Medication Instructions Recorded Confirmed Gabapentin [Neurontin] 300 mg PO TID 09/24/14 01/27/20 Montelukast Sodium [Singulair] 10 mg PO QAM 09/24/14 01/27/20 Omeprazole [PriLOSEC] 20 mg PO BID 09/24/14 01/27/20 Albuterol Sulfate [Ventolin HFA] 2 puff INHALATION RT-Q4H PRN 04/05/16 01/27/20 Fluticasone/Salmeterol [Advair 2 puff INHALATION RT-DAILY 04/05/16 01/27/20 500-50 Diskus] Pramipexole Di-HCl [Mirapex] 1 mg PO HS 04/05/16 01/27/20 Ramipril [Altace] 5 mg PO DAILY 04/05/16 01/27/20 Triamterene/Hydrochlorothiazid 1 tab PO DAILY 04/05/16 01/27/20 [Maxzide 37.5-25] Calcium Carbonate [Calcium] 1,200 mg PO DAILY 10/12/16 01/27/20 predniSONE 10 mg PO DAILY 10/12/16 01/27/20 Cyanocobalamin (Vitamin B-12) 1,000 mcg PO DAILY 02/23/17 01/27/20 [Vitamin B-12] Furosemide [Lasix] 40 mg PO DAILY 01/27/20 01/27/20 HYDROcodone/APAP 7.5-325MG [[place] 1 tab PO BID 01/27/20 01/27/20 7.5-325] Milnacipran HCl [Savella] 50 mg PO DAILY 01/27/20 01/27/20 Spironolactone [Aldactone] 25 mg PO DAILY 01/27/20 01/27/20 Teriparatide [Forteo] 20 mcg SQ DAILY 01/27/20 01/27/20 Vitamin C (Unknown Strength) 1 tab PO DAILY 01/27/20 01/27/20 oxyCODONE ER [OxyCONTIN] 15 mg PO BID 01/27/20 01/27/20 traZODone HCL 100 mg PO HS 01/27/20 01/27/20 Previous Rx's Medication Instructions Recorded Levofloxacin [Levaquin] 750 mg PO DAILY 3 Days #3 tab 01/28/20 predniSONE 0 mg PO DIRECTED #30 tab 01/28/20 Allergies Allergy/AdvReac Type Severity Reaction Status Date / Time Penicillins Allergy Rash/Hives Verified 04/27/20 07:20 morphine AdvReac Severe Nausea & Verified 04/27/20 07:20 Vomiting aspirin AdvReac Dyspnea Verified 04/27/20 07:20 Review of Systems ROS Statement: Those systems with pertinent positive or pertinent negative responses have been documented in the HPI. ROS Other: All systems not noted in ROS Statement are negative. Constitutional: Denies: fever, chills Eyes: Denies: eye pain ENT: Denies: ear pain Respiratory: Denies: cough, dyspnea Cardiovascular: Denies: chest pain Endocrine: Denies: fatigue Gastrointestinal: Reports: abdominal pain, nausea, vomiting. Denies: diarrhea, constipation Genitourinary: Denies: dysuria Musculoskeletal: Denies: back pain Skin: Denies: rash Neurological: Denies: weakness Past Medical History Past Medical History: Asthma, Fibromyalgia Additional Past Medical History / Comment(s): hiatal hernia. CHRONIC SOB. RLS. per pt cramping really bad all over feet, legs, and arms. History of Any Multi-Drug Resistant Organisms: None Reported Past Surgical History: Appendectomy, Bariatric Surgery, Section, Cholecystectomy, Hernia Repair Additional Past Surgical History / Comment(s): abdominal surgeries X14. COLONOSCOPY. chronic bloackge of smalll bowel Past Anesthesia/Blood Transfusion Reactions: No Reported Reaction Past Psychological History: No Psychological Hx Reported Smoking Status: Never smoker Past Alcohol Use History: None Reported Past Drug Use History: None Reported - Past Family History Mother Additional Family Medical History / Comment(s): PT ADOPTED COMPLETE FAMILY HX UNKNOWN Brother(s) Family Medical History: Cancer Additional Family Medical History / Comment(s): TWIN BROTHER FROM CANCER AGE 45 General Exam Limitations: no limitations General appearance: alert, obese, other (Patient does appear uncomfortable) Head exam: Present: normocephalic Eye exam: Present: normal appearance Neck exam: Present: normal inspection Respiratory exam: Present: normal lung sounds bilaterally Cardiovascular Exam: Present: regular rate, normal rhythm Expanded Peripheral pulses: 2+: Dorsalis Pedis (R), Dorsalis Pedis (L) GI/Abdominal exam: Present: soft, tenderness (Moderate epigastric tenderness to palpation), normal bowel sounds. Absent: distended, guarding, rebound, rigid, pulsatile mass Extremities exam: Present: normal inspection Neurological exam: Present: alert Psychiatric exam: Present: normal affect, normal mood Skin exam: Present: normal color Course Vital Signs 04/27/20 04/27/20 07:15 10:06 Temperature 97.1 F L Pulse Rate 100 85 Respiratory 20 18 Rate Blood Pressure 125/68 118/53 O2 Sat by Pulse 99 100 Oximetry EKG Findings - EKG Comments: EKG Findings:: Normal sinus rhythm 86. ID 126. QRS 80. QT 374. QTC 447. Normal axis. Normal QRS. No acute ST change. Medical Decision Making - Medical Decision Making Patient reevaluated and improved following Dilaudid. Still some discomfort. Patient is concerned that every time she has oral intake she has similar symptoms. Case was discussed with Dr. Minaya, who will admit his patient with consult with Dr. Francis who has previously seen this patient. Patient may benefit from endoscopy. - Lab Data Result diagrams: 04/27/20 08:00 04/27/20 08:00 Lab Results 04/27/20 04/27/20 04/27/20 Range/Units 08:00 08:00 08:00 WBC 14.9 H (3.8-10.6) k/uL RBC 5.37 (3.80-5.40) m/uL Hgb 13.0 (11.4-16.0) gm/dL Hct 41.2 (34.0-46.0) % MCV 76.7 L (80.0-100.0) fL MCH 24.2 L (25.0-35.0) pg MCHC 31.6 (31.0-37.0) g/dL RDW 16.1 H (11.5-15.5) % Plt Count 455 H (150-450) k/uL Neutrophils % 83 % Lymphocytes % 11 % Monocytes % 4 % Eosinophils % 2 % Basophils % 0 % Neutrophils # 12.4 H (1.3-7.7) k/uL Lymphocytes # 1.6 (1.0-4.8) k/uL Monocytes # 0.5 (0-1.0) k/uL Eosinophils # 0.2 (0-0.7) k/uL Basophils # 0.0 (0-0.2) k/uL Anisocytosis Slight Microcytosis Slight PT 10.2 (9.0-12.0) sec INR 1.0 (<1.2) APTT 21.9 L (22.0-30.0) sec Sodium (137-145) mmol/L Potassium (3.5-5.1) mmol/L Chloride (98-107) mmol/L Carbon Dioxide (22-30) mmol/L Anion Gap mmol/L BUN (7-17) mg/dL Creatinine (0.52-1.04) mg/dL Est GFR (CKD-EPI)AfAm (>60 ml/min/1.73 sqM) Est GFR (CKD-EPI)NonAf (>60 ml/min/1.73 sqM) Glucose (74-99) mg/dL Calcium (8.4-10.2) mg/dL Total Bilirubin (0.2-1.3) mg/dL AST (14-36) U/L ALT (4-34) U/L Alkaline Phosphatase (38-126) U/L Troponin I (0.000-0.034) ng/mL Total Protein (6.3-8.2) g/dL Albumin (3.5-5.0) g/dL Amylase (30-110) U/L Lipase (23-300) U/L Urine Color Yellow Urine Appearance Clear (Clear) Urine pH 5.5 (5.0-8.0) Ur Specific [place] 1.034 (1.001-1.035) Urine Protein Negative (Negative) Urine Glucose (UA) Negative (Negative) Urine Ketones 1+ H (Negative) Urine Blood Negative (Negative) Urine Nitrite Negative (Negative) Urine Bilirubin Negative (Negative) Urine Urobilinogen <2.0 (<2.0) mg/dL Ur Leukocyte Esterase Small H (Negative) Urine RBC 2 (0-5) /hpf Urine WBC 1 (0-5) /hpf Ur Squamous Epith Cells 2 (0-4) /hpf Urine Bacteria Rare H (None) /hpf Hyaline Casts 53 H (0-2) /lpf Urine Mucus Moderate H (None) /hpf 04/27/20 04/27/20 Range/Units 08:00 08:00 WBC (3.8-10.6) k/uL RBC (3.80-5.40) m/uL Hgb (11.4-16.0) gm/dL Hct (34.0-46.0) % MCV (80.0-100.0) fL MCH (25.0-35.0) pg MCHC (31.0-37.0) g/dL RDW (11.5-15.5) % Plt Count (150-450) k/uL Neutrophils % % Lymphocytes % % Monocytes % % Eosinophils % % Basophils % % Neutrophils # (1.3-7.7) k/uL Lymphocytes # (1.0-4.8) k/uL Monocytes # (0-1.0) k/uL Eosinophils # (0-0.7) k/uL Basophils # (0-0.2) k/uL Anisocytosis Microcytosis PT (9.0-12.0) sec INR (<1.2) APTT (22.0-30.0) sec Sodium 135 L (137-145) mmol/L Potassium 4.7 (3.5-5.1) mmol/L Chloride 103 (98-107) mmol/L Carbon Dioxide 23 (22-30) mmol/L Anion Gap 9 mmol/L BUN 25 H (7-17) mg/dL Creatinine 1.01 (0.52-1.04) mg/dL Est GFR (CKD-EPI)AfAm 71 (>60 ml/min/1.73 sqM) Est GFR (CKD-EPI)NonAf 62 (>60 ml/min/1.73 sqM) Glucose 128 H (74-99) mg/dL Calcium 9.2 (8.4-10.2) mg/dL Total Bilirubin 0.7 (0.2-1.3) mg/dL AST 28 (14-36) U/L ALT 19 (4-34) U/L Alkaline Phosphatase 88 (38-126) U/L Troponin I <0.012 (0.000-0.034) ng/mL Total Protein 7.1 (6.3-8.2) g/dL Albumin 4.3 (3.5-5.0) g/dL Amylase 60 (30-110) U/L Lipase 93 (23-300) U/L Urine Color Urine Appearance (Clear) Urine pH (5.0-8.0) Ur Specific [place] (1.001-1.035) Urine Protein (Negative) Urine Glucose (UA) (Negative) Urine Ketones (Negative) Urine Blood (Negative) Urine Nitrite (Negative) Urine Bilirubin (Negative) Urine Urobilinogen (<2.0) mg/dL Ur Leukocyte Esterase (Negative) Urine RBC (0-5) /hpf Urine WBC (0-5) /hpf Ur Squamous Epith Cells (0-4) /hpf Urine Bacteria (None) /hpf Hyaline Casts (0-2) /lpf Urine Mucus (None) /hpf - Radiology Data Radiology results: report reviewed (Computed tomography scan abdomen pelvis shows status post gastric bypass. Hiatal hernia. Stable anastomosis likely chronic postsurgical. Left kidney lesion.) Disposition Clinical Impression: Abdominal pain Disposition: ADMITTED IP TO THIS HOSP Is patient prescribed a controlled substance at d/c from ED?: No Referrals: Steven Carmen MD [Primary Care Provider] - 1-2 days Decision Time: 10:14
[2020-04-27 08:09] LABS: Anisocytosis Slight; Basophils % (A) 0 %; Eosinophils # (A) 0.2 k/uL (0-0.7); Eosinophils % (A) 2 %; HCT 41.2 % (34.0-46.0); Lymphocytes # (A) 1.6 k/uL (1.0-4.8); Lymphocytes % (A) 11 %; MCH 24.2 pg (25.0-35.0); MCHC 31.6 g/dL (31.0-37.0); MCV 76.7 fL (80.0-100.0); Microcytosis Slight; Monocytes # (A) 0.5 k/uL (0-1.0); Monocytes % (A) 4 %; Neutrophils # (A) 12.4 k/uL (1.3-7.7); Neutrophils % (A) 83 %; Platelet Count 455 k/uL (150-450); RBC 5.37 m/uL (3.80-5.40); RDW 16.1 % (11.5-15.5); WBC 14.9 k/uL (3.8-10.6)
[2020-04-27 08:22] LABS: Albumin 4.3 g/dL (3.5-5.0); Calcium 9.2 mg/dL (8.4-10.2); Total Bilirubin 0.7 mg/dL (0.2-1.3); Total Protein 7.1 g/dL (6.3-8.2)
[2020-04-27 08:23] LABS: Potassium 4.7 mmol/L (3.5-5.1)
[2020-04-27 08:37] LABS: Prothrombin Time 10.2 sec (9.0-12.0)
[2020-04-27 08:44] LABS: Partial Thromboplastin Time 21.9 sec (22.0-30.0)
--- NOTE | 2020-04-27 09:24 | CT ---
EXAMINATION TYPE: CT abdomen pelvis w con DATE OF EXAM: 04/27/2020 COMPARISON: 07/18/2019 HISTORY: 59-year-old female with upper abd pain TECHNIQUE: Contiguous axial scanning of the abdomen and pelvis following administration of 100 ml Iso kathy 300 IV contrast. Delayed images through the kidneys and coronal/sagittal reconstructions perform ed. CT DLP: 1841.3 mGycm Automated exposure control for dose reduction was used. FINDINGS: Heart normal size without pericardial effusion. Bandlike atelectasis inferior lingula. No pleural eff usion. There appears to be a Juan Carlos-en-Y gastric bypass. However, there is a moderate-sized hiatal hernia cont aining the gastrojejunostomy. No obstructive changes are identified. Nonspecific 1 cm hypodensity anterior left liver lobe could represent a cyst. Portal venous system is patent. No biliary ductal dilatation. Cholecystectomy clips. Adrenal glands, right kidney, spleen, and pancreas appear within normal limits. Hypodense lesions within the left kidney suggestive of cysts measuring up to 2.9 cm. There is a clust er along the lateral upper to midpole. One of these lesions adjacent to the cluster shows somewhat in termediate attenuation measuring 2.0 cm versus 1.5 cm, previously. Its elongated configuration makes accurate assessment of density difficult. An enlarging hemorrhagic or proteinaceous cyst is possible, refer to axial image 35. Patulous lower anastomosis likely chronic postsurgical sequela. No obstructive changes. A few promine nt mesenteric lymph nodes measuring up to 9 mm, for example, axial image 38 remain unchanged. No prog ressive mesenteric or retroperitoneal lymphadenopathy. Mild stool burden. Redundant proximal sigmoid colon. Occasional left-sided colonic diverticula change . Bladder urine distended. Uterus anteverted. Both ovaries are visualized. A couple left-sided pelvic p hleboliths. No abnormal fluid collection in the pelvis or pelvic lymphadenopathy. Bones: Facet arthropathy lower lumbar spine. IMPRESSION: 1. STATUS POST JUAN CARLOS-EN-Y GASTRIC BYPASS. THERE IS A MODERATE SIZED HIATAL HERNIA CONTAINING THE GASTR OJEJUNOSTOMY. RELATIVELY SIMILAR IN RETROSPECT COMPARED TO 07/18/2019. CONSIDER THIS A POTENTIAL SOURCE OF UPPER ABDOMINAL PAIN. PATIENT COULD BE REFERRED BACK TO HER SURGEON ON AN OUTPATIENT BASIS . 2. 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 3. ENLARGING INDETERMINATE 2.0 CM LESION AT THE MID LEFT KIDNEY (VERSUS 1.5 CM, PREVIOUSLY) ADJACENT TO A CLUSTER OF CYSTS. THIS COULD REPRESENT A HEMORRHAGIC/PROTEINACEOUS CYST OR A SMALL SOLID MASS. 6 MONTH FOLLOW-UP CT RECOMMENDED TO REASSESS.
[2020-04-27 10:09] LABS: Appearance,Urine Clear (Clear); Bacteria,Urine Rare /hpf; Bilirubin,Urine Negative (Negative); Blood,Urine Negative (Negative); Color,Urine Yellow; Glucose,Urine (UA) Negative (Negative); Hyaline Casts,Urine 53 /lpf (0-2); Ketones,Urine 1+ (Negative); Leukocyte Esterase,Urine Small (Negative); Mucus,Urine Moderate /hpf; Nitrite,Urine Negative (Negative); PH, Urine 5.5 (5.0-8.0); Protein,Urine Negative (Negative); RBC,Urine 2 /hpf (0-5); Specific Gravity,Urine 1.034 (1.001-1.035); Squamous Epithelial Cell,Urine 2 /hpf (0-4); Urobilinogen,Urine <2.0 mg/dL (<2.0); WBC,Urine 1 /hpf (0-5)
[2020-04-27] MEDS ORDERED: NALOXONE 0.4 MG/ML 1 ML VIAL IV PRN (10:14)
[2020-04-27] MEDS: SODIUM CHLORIDE 0.9% 1,000 ML IV SCH ×2 (12:08→20:05)
[2020-04-27] MEDS: HYDROmorphone 1 MG/ML 1 ML SYRINGE IVP PRN (12:11)
--- NOTE | 2020-04-27 14:55 | P.GSCN ---
History of Present Illness Consult date: 04/27/20 History of present illness: CHIEF COMPLAINT: Abdominal pain HISTORY OF PRESENT ILLNESS: This is a 59-year-old female with a history of hiatal hernia, asthma, fibromyalgia, Juan Carlos-en-Y, cholecystectomy, appendectomy. Patient presents with epigastric abdominal pain. She reports she's had similar symptoms associated with right hernia. The symptoms have worsened over the last month. Symptoms were severe over the last 3 days. She's been having nausea. She complains of vomiting when she attempts to eat. Denies any cuts patient of diarrhea. Denies any fevers chills or sweats. PAST MEDICAL HISTORY: See list. PAST SURGICAL HISTORY: See list. MEDICATIONS: See list. ALLERGIES: See list. SOCIAL HISTORY: No illicit drug use. REVIEW OF SYSTEMS: CONSTITUTIONAL: Denies fever or chills. HEENT: Denies blurred vision, vision changes, or eye pain. Denies hemoptysis CARDIOVASCULAR: Denies chest pain or pressure. RESPIRATORY: No shortness of breath. GASTROINTESTINAL: See HPI for pertinent findings HEMATOLOGIC: Denies bleeding disorders. GENITOURINARY: Denies any blood in urine or increased urinary frequency. SKIN: Denies pruitis. Denies rash. PHYSICAL EXAM: VITAL SIGNS: Reviewed GENERAL: Well-developed in no acute distress. HEENT: No sclera icterus. Extraocular movements grossly intact. Moist buccal mucosa. Head is atraumatic, normocephalic. No nasal drainage. ABDOMEN: Soft. Epigastric tenderness with palpation. Nondistended. NEUROLOGIC: Alert and oriented. Cranial nerves II through XII grossly intact. LABORATORY DATA: WBC 14.9 hemoglobin 13 LFTs and lipase normal IMAGING: CT abdomen and pelvis status post Juan Carlos-en-Y gastric bypass. There is a moderate size hiatal hernia containing the gastrojejunostomy ASSESSMENT: 1. Epigastric abdominal pain 2. Moderate size hiatal hernia 3. History of Juan Carlos-en-Y PLAN: -Patient scheduled for EGD with Dr. murdock tomorrow -Nothing by mouth after midnight Thank you for this consultation Physician Signals Collector/Analyst note has been reviewed by physician. Signing provider agrees with the documented findings, assessment, and plan of care. Past Medical History Past Medical History: Asthma, Fibromyalgia Additional Past Medical History / Comment(s): hiatal hernia. CHRONIC SOB. RLS. per pt cramping really bad all over feet, legs, and arms. Swelling/edema of evelio lower extremites. Chronic blockage of the small bowel History of Any Multi-Drug Resistant Organisms: None Reported Past Surgical History: Appendectomy, Bariatric Surgery, Section, Cholecystectomy, Hernia Repair Additional Past Surgical History / Comment(s): abdominal surgeries X14. COLONOSCOPY. chronic bloackge of smalll bowel Past Anesthesia/Blood Transfusion Reactions: No Reported Reaction Past Psychological History: No Psychological Hx Reported Smoking Status: Never smoker Past Alcohol Use History: None Reported Past Drug Use History: None Reported - Past Family History Mother Additional Family Medical History / Comment(s): PT ADOPTED COMPLETE FAMILY HX UNKNOWN Brother(s) Family Medical History: Cancer Additional Family Medical History / Comment(s): TWIN BROTHER FROM CANCER AGE 45 Medications and Allergies Home Medications Medication Instructions Recorded Confirmed Type Gabapentin [Neurontin] 300 mg PO TID 09/24/14 04/27/20 History Montelukast Sodium [Singulair] 10 mg PO QAM 09/24/14 04/27/20 History Omeprazole [PriLOSEC] 20 mg PO BID 09/24/14 04/27/20 History Albuterol Sulfate [Ventolin HFA] 2 puff INHALATION RT-Q4H PRN 04/05/16 04/27/20 History Fluticasone/Salmeterol [Advair 2 puff INHALATION RT-DAILY 04/05/16 04/27/20 History 500-50 Diskus] Pramipexole Di-HCl [Mirapex] 1 mg PO HS 04/05/16 04/27/20 History Ramipril [Altace] 5 mg PO DAILY 04/05/16 04/27/20 History Triamterene/Hydrochlorothiazid 1 tab PO DAILY 04/05/16 04/27/20 History [Maxzide 37.5-25] Calcium Carbonate [Calcium] 1,200 mg PO DAILY 10/12/16 04/27/20 History predniSONE 10 mg PO DAILY 10/12/16 04/27/20 History Cyanocobalamin (Vitamin B-12) 1,000 mcg PO DAILY 02/23/17 04/27/20 History [Vitamin B-12] Furosemide [Lasix] 40 mg PO DAILY 01/27/20 04/27/20 History HYDROcodone/APAP 7.5-325MG [[place] 1 tab PO BID 01/27/20 04/27/20 History 7.5-325] Milnacipran HCl [Savella] 50 mg PO DAILY 01/27/20 04/27/20 History Spironolactone [Aldactone] 25 mg PO DAILY 01/27/20 04/27/20 History Teriparatide [Forteo] 20 mcg SQ DAILY 01/27/20 04/27/20 History oxyCODONE ER [OxyCONTIN] 15 mg PO BID 01/27/20 04/27/20 History traZODone HCL 100 mg PO HS 01/27/20 04/27/20 History Ascorbic Acid [Vitamin C] 500 mg PO DAILY 04/27/20 04/27/20 History Allergies Allergy/AdvReac Type Severity Reaction Status Date / Time Penicillins Allergy Intermediate Rash/Hives Verified 04/27/20 12:21 aspirin AdvReac Severe Dyspnea Verified 04/27/20 12:21 morphine AdvReac Severe Nausea & Verified 04/27/20 12:21 Vomiting Surgical - Exam Vital Signs Temp Pulse Resp BP Pulse Ox 97.1 F L 100 20 125/68 99 04/27/20 07:15 04/27/20 07:15 04/27/20 07:15 04/27/20 07:15 04/27/20 07:15 Results - Labs 04/27/20 08:00 04/27/20 08:00 Abnormal Lab Results - Last 24 Hours (Table) 04/27/20 04/27/20 04/27/20 Range/Units 08:00 08:00 08:00 WBC 14.9 H (3.8-10.6) k/uL MCV 76.7 L (80.0-100.0) fL MCH 24.2 L (25.0-35.0) pg RDW 16.1 H (11.5-15.5) % Plt Count 455 H (150-450) k/uL Neutrophils # 12.4 H (1.3-7.7) k/uL APTT 21.9 L (22.0-30.0) sec Sodium (137-145) mmol/L BUN (7-17) mg/dL Glucose (74-99) mg/dL Urine Ketones 1+ H (Negative) Ur Leukocyte Esterase Small H (Negative) Urine Bacteria Rare H (None) /hpf Hyaline Casts 53 H (0-2) /lpf Urine Mucus Moderate H (None) /hpf 04/27/20 Range/Units 08:00 WBC (3.8-10.6) k/uL MCV (80.0-100.0) fL MCH (25.0-35.0) pg RDW (11.5-15.5) % Plt Count (150-450) k/uL Neutrophils # (1.3-7.7) k/uL APTT (22.0-30.0) sec Sodium 135 L (137-145) mmol/L BUN 25 H (7-17) mg/dL Glucose 128 H (74-99) mg/dL Urine Ketones (Negative) Ur Leukocyte Esterase (Negative) Urine Bacteria (None) /hpf Hyaline Casts (0-2) /lpf Urine Mucus (None) /hpf Diabetes panel 04/27/20 Range/Units 08:00 Sodium 135 L (137-145) mmol/L Potassium 4.7 (3.5-5.1) mmol/L Chloride 103 (98-107) mmol/L Carbon Dioxide 23 (22-30) mmol/L BUN 25 H (7-17) mg/dL Creatinine 1.01 (0.52-1.04) mg/dL Glucose 128 H (74-99) mg/dL Calcium 9.2 (8.4-10.2) mg/dL AST 28 (14-36) U/L ALT 19 (4-34) U/L Alkaline Phosphatase 88 (38-126) U/L Total Protein 7.1 (6.3-8.2) g/dL Albumin 4.3 (3.5-5.0) g/dL Calcium panel 04/27/20 Range/Units 08:00 Calcium 9.2 (8.4-10.2) mg/dL Albumin 4.3 (3.5-5.0) g/dL Pituitary panel 04/27/20 Range/Units 08:00 Sodium 135 L (137-145) mmol/L Potassium 4.7 (3.5-5.1) mmol/L Chloride 103 (98-107) mmol/L Carbon Dioxide 23 (22-30) mmol/L BUN 25 H (7-17) mg/dL Creatinine 1.01 (0.52-1.04) mg/dL Glucose 128 H (74-99) mg/dL Calcium 9.2 (8.4-10.2) mg/dL Adrenal panel 04/27/20 Range/Units 08:00 Sodium 135 L (137-145) mmol/L Potassium 4.7 (3.5-5.1) mmol/L Chloride 103 (98-107) mmol/L Carbon Dioxide 23 (22-30) mmol/L BUN 25 H (7-17) mg/dL Creatinine 1.01 (0.52-1.04) mg/dL Glucose 128 H (74-99) mg/dL Calcium 9.2 (8.4-10.2) mg/dL Total Bilirubin 0.7 (0.2-1.3) mg/dL AST 28 (14-36) U/L ALT 19 (4-34) U/L Alkaline Phosphatase 88 (38-126) U/L Total Protein 7.1 (6.3-8.2) g/dL Albumin 4.3 (3.5-5.0) g/dL
[2020-04-27] MEDS ORDERED: LIDOCAINE 1% (10MG/ML) FOR IV START INTRADERMA PRN (15:48)
[2020-04-27] MEDS: LACTATED RINGERS 1,000 ML IV SCH (19:50)
[2020-04-27] MEDS: oxyCODONE ER 15 MG TAB.ER.12H PO SCH (20:37)
[2020-04-27] MEDS: PRAMIPEXOLE 1 MG TAB PO SCH (21:53)
[2020-04-27] MEDS: HYDROcodone/APAP 7.5-325MG 1 EACH TAB PO SCH (21:53)
[2020-04-27] MEDS: traZODone HCL 100 MG TAB PO SCH (21:53)
[2020-04-27] MEDS: GABAPENTIN 300 MG CAP PO SCH (21:53)
[2020-04-28] MEDS: ONDANSETRON 4 MG/2 ML VIAL IVP PRN ×3 (00:50→20:31)
[2020-04-28] MEDS: HYDROmorphone 1 MG/ML 1 ML SYRINGE IVP PRN ×4 (00:55→20:31)
[2020-04-28] MEDS: SODIUM CHLORIDE 0.9% 1,000 ML IV SCH ×2 (05:07→16:00)
[2020-04-28] MEDS: SYMBICORT 160-4.5 MCG INHALER INHALATION SCH ×2 (08:37→21:39)
[2020-04-28] MEDS: oxyCODONE ER 15 MG TAB.ER.12H PO SCH ×2 (09:00→21:47)
[2020-04-28] MEDS ORDERED: PANTOPRAZOLE 40 MG/10 ML VIAL IV SCH (09:00)
[2020-04-28] MEDS: NON FORMULARY DRUG (Milnacipran Hcl [Savella] 50 MG Tablet) PO SCH (09:00)
[2020-04-28] MEDS: GABAPENTIN 300 MG CAP PO SCH ×3 (09:00→21:46)
[2020-04-28] MEDS: HYDROcodone/APAP 7.5-325MG 1 EACH TAB PO SCH ×2 (09:00→21:46)
--- NOTE | 2020-04-28 14:54 | P.PN ---
Subjective Progress Note Date: 04/28/20 CHIEF COMPLAINT: Abdominal pain HISTORY OF PRESENT ILLNESS: Patient seen and examined with Dr. murdock. Patient complaining of epigastric abdominal pain with nausea and vomiting. Afebrile. PHYSICAL EXAM: VITAL SIGNS: Reviewed. GENERAL: Well-developed in no acute distress. HEENT: No sclera icterus. Extraocular movements grossly intact. Moist buccal mucosa. Head is atraumatic, normocephalic. ABDOMEN: Soft. Nondistended. Epigastric tenderness NEUROLOGIC: Alert and oriented. Cranial nerves II through XII grossly intact. ASSESSMENT: 1. Epigastric abdominal pain 2. Moderate size hiatal hernia 3. History of Juan Carlos-en-Y PLAN: -Reschedule the EGD for tomorrow with Dr. Murdock -Nothing by mouth after midnight Physician Security Incident Handler note has been reviewed by physician. Signing provider agrees with the documented findings, assessment, and plan of care. Objective - Vital Signs Vital signs: Vital Signs Temp 98.2 F 04/28/20 12:52 Pulse 92 04/28/20 12:52 Resp 24 04/28/20 12:52 BP 85/52 04/28/20 12:52 Pulse Ox 95 04/28/20 12:52 Intake & Output 04/27/20 04/28/20 04/28/20 18:59 06:59 18:59 Intake Total 1240 Output Total 300 700 Balance -300 540 Weight 104.5 kg Intake: Intake, IV Titration 1000 Amount Sodium Chloride 0.9% 1, 1000 000 ml @ 100 mls/hr IV . Q10H [facility] Rx#:[id number] Oral 240 Output: Urine 300 700 Other: Voiding Method Toilet # Voids 1 - Labs CBC & Chem 7: 04/27/20 08:00 04/27/20 08:00
[2020-04-28] MEDS: ASCORBIC ACID 500 MG TAB PO SCH (15:56)
[2020-04-28] MEDS: predniSONE 10 MG TAB PO SCH (15:56)
[2020-04-28] MEDS: MONTELUKAST 10 MG TAB PO SCH (15:56)
[2020-04-28] MEDS: FUROSEMIDE 40 MG TAB PO SCH (15:57)
[2020-04-28] MEDS: PANTOPRAZOLE 40 MG TABLET PO SCH (15:57)
[2020-04-28] MEDS: SPIRONOLACTONE 25 MG TAB PO SCH (15:58)
[2020-04-28 16:08] VITALS: BMI 43.5
[2020-04-28] MEDS: LACTATED RINGERS 1,000 ML IV SCH (20:42)
[2020-04-28] MEDS: ALBUTEROL NEBULIZED 2.5 MG/3 ML INHALATION PRN (21:40)
[2020-04-28] MEDS: traZODone HCL 100 MG TAB PO SCH (21:46)
[2020-04-28] MEDS: PRAMIPEXOLE 1 MG TAB PO SCH (21:46)
--- NOTE | 2020-04-28 22:06 | P.HPIM ---
History of Present Illness H&P Date: 04/28/20 Chief Complaint: abdominal pain Josee Cooper is a 59 yo F with PMH of hiatal hernia, juan carlos-en-y, appendectomy, cholecystectomy, fibromyalgia who presented to the ED with worsening abdominal pain nausea and vomiting. She reports progressive discomfort with eating over the past month but in the last 3-5 days especially she has been experiencing this pain more constantly. Pt continues to note symptoms of sharp pain after eating as well as when laying down. She reports that she vomited 5+ times prior to admission and had continued to experience dry heaves. On presentation her vitals were stable, WBC 14k, urine ketones 1+. CT abd/pelvis with hiatal hernia containing juan carlos-en-y junction. Review of Systems All systems: negative Constitutional: Denies chills, Denies fever Eyes: denies blurred vision, denies pain Ears, nose, mouth and throat: Denies headache, Denies sore throat Cardiovascular: Denies chest pain, Denies shortness of breath Respiratory: Denies cough Gastrointestinal: Reports abdominal pain, Reports dyspepsia, Reports early satiety, Reports nausea, Reports vomiting, Denies diarrhea Genitourinary: Denies dysuria, Denies hematuria Musculoskeletal: Denies myalgias Integumentary: Denies pruritus, Denies rash Neurological: Denies numbness, Denies weakness Psychiatric: Denies anxiety, Denies depression Endocrine: Denies fatigue, Denies weight change Past Medical History Past Medical History: Asthma, Fibromyalgia Additional Past Medical History / Comment(s): hiatal hernia. CHRONIC SOB. RLS. per pt cramping really bad all over feet, legs, and arms. Swelling/edema of evelio lower extremites. Chronic blockage of the small bowel History of Any Multi-Drug Resistant Organisms: None Reported Past Surgical History: Appendectomy, Bariatric Surgery, Section, Cholecystectomy, Hernia Repair Additional Past Surgical History / Comment(s): abdominal surgeries X14. CO LONOSCOPY. chronic bloackge of smalll bowel Past Anesthesia/Blood Transfusion Reactions: No Reported Reaction Past Psychological History: No Psychological Hx Reported Smoking Status: Never smoker Past Alcohol Use History: None Reported Past Drug Use History: None Reported - Past Family History Mother Additional Family Medical History / Comment(s): PT ADOPTED COMPLETE FAMILY HX UNKNOWN Brother(s) Family Medical History: Cancer Additional Family Medical History / Comment(s): TWIN BROTHER FROM CANCER AGE 45 Medications and Allergies Home Medications Medication Instructions Recorded Confirmed Type Gabapentin [Neurontin] 300 mg PO TID 09/24/14 04/27/20 History Montelukast Sodium [Singulair] 10 mg PO QAM 09/24/14 04/27/20 History Omeprazole [PriLOSEC] 20 mg PO BID 09/24/14 04/27/20 History Albuterol Sulfate [Ventolin HFA] 2 puff INHALATION RT-Q4H PRN 04/05/16 04/27/20 History Fluticasone/Salmeterol [Advair 2 puff INHALATION RT-DAILY 04/05/16 04/27/20 History 500-50 Diskus] Pramipexole Di-HCl [Mirapex] 1 mg PO HS 04/05/16 04/27/20 History Ramipril [Altace] 5 mg PO DAILY 04/05/16 04/27/20 History Triamterene/Hydrochlorothiazid 1 tab PO DAILY 04/05/16 04/27/20 History [Maxzide 37.5-25] Calcium Carbonate [Calcium] 1,200 mg PO DAILY 10/12/16 04/27/20 History predniSONE 10 mg PO DAILY 10/12/16 04/27/20 History Cyanocobalamin (Vitamin B-12) 1,000 mcg PO DAILY 02/23/17 04/27/20 History [Vitamin B-12] Furosemide [Lasix] 40 mg PO DAILY 01/27/20 04/27/20 History HYDROcodone/APAP 7.5-325MG [[place] 1 tab PO BID 01/27/20 04/27/20 History 7.5-325] Milnacipran HCl [Savella] 50 mg PO DAILY 01/27/20 04/27/20 History Spironolactone [Aldactone] 25 mg PO DAILY 01/27/20 04/27/20 History Teriparatide [Forteo] 20 mcg SQ DAILY 01/27/20 04/27/20 History oxyCODONE ER [OxyCONTIN] 15 mg PO BID 01/27/20 04/27/20 History traZODone HCL 100 mg PO HS 01/27/20 04/27/20 History Ascorbic Acid [Vitamin C] 500 mg PO DAILY 04/27/20 04/27/20 History Allergies Allergy/AdvReac Type Severity Reaction Status Date / Time Penicillins Allergy Intermediate Rash/Hives Verified 04/27/20 12:21 aspirin AdvReac Severe Dyspnea Verified 04/27/20 12:21 morphine AdvReac Severe Nausea & Verified 04/27/20 12:21 Vomiting Physical Exam Vitals: Vital Signs Temp Pulse Pulse Resp BP BP Pulse Ox 04/28/20 21:52 88 04/28/20 21:40 88 04/28/20 16:21 97.5 F L 82 16 117/69 97 04/28/20 12:52 98.2 F 92 24 85/52 95 04/28/20 09:21 116/74 04/28/20 08:11 98.0 F 80 24 96 04/28/20 01:13 97.9 F 89 18 102/71 97 Intake and Output 04/28/20 04/28/20 04/28/20 06:59 14:59 22:59 Intake Total 1000 Output Total 700 Balance 300 Intake: Intake, IV Titration 1000 Amount Sodium Chloride 0.9% 1, 1000 000 ml @ 100 mls/hr IV . Q10H [facility] Rx#:[id number] Output: Urine 700 Other: Voiding Method Toilet Toilet # Voids 1 2 Weight 104.5 kg General: well nourished, well developed, NAD. Morbidly obese. Vitals reviewed Eyes: PERRL, EOMI, conjunctiva normal HENT: normocephalic, mucus membranes moist Neck: supple, no JVD Lungs: normal respiratory effort, no wheezes or rales CV: Regular rate and rhythm, no murmur. Peripheral pulses 2+. 1+ edema evelio Abdomen: soft, nondistended, no organomegaly. Epigastric and RUQ tenderness to palpation Lymph: no cervical or axillary LAD Skin: warm and dry. Neuro: A&Ox3, normal mood and affect Results CBC & Chem 7: 04/27/20 08:00 04/27/20 08:00 Thrombosis Risk Factor Assmnt - Choose All That Apply Each Factor Represents 1 point: Age 41-60 years, Minor surgery planned, Obesity (BMI >25) Other congenital or acquired thrombophilia - If yes, enter type in comment: No Thrombosis Risk Factor Assessment Total Risk Factor Score: 3 Thrombosis Risk Factor Assessment Level: Moderate Risk Assessment and Plan (1) Abdominal pain Current Visit: Yes Status: Acute Code(s): R10.9 - UNSPECIFIED ABDOMINAL PAIN SNOMED Code(s): 25147879 (2) Essential hypertension Current Visit: No Status: Acute Code(s): I10 - ESSENTIAL (PRIMARY) HYPERTENSION SNOMED Code(s): 34488405 (3) Fibromyalgia Current Visit: No Status: Acute Code(s): M79.7 - FIBROMYALGIA SNOMED Code(s): 774438030 (4) Morbid obesity Current Visit: Yes Status: Acute Code(s): E66.01 - MORBID (SEVERE) OBESITY DUE TO EXCESS CALORIES SNOMED Code(s): 469827312 (5) Hiatal hernia Current Visit: Yes Status: Acute Code(s): K44.9 - DIAPHRAGMATIC HERNIA WITHOUT OBSTRUCTION OR GANGRENE SNOMED Code(s): 56683643 (6) History of Juan Carlos-en-Y gastric bypass Current Visit: Yes Status: Acute Code(s): Z98.84 - BARIATRIC SURGERY STATUS SNOMED Code(s): 664097306 Plan: 1. Abdominal pain and intractable nausea and vomiting. Suspect mechanical related to hiatal hernia. Start IV fluid hydration. Surgery consult, plan for EGD tomorrow. IV protonix bid. Continue home prednisone 2. Leukocytosis. Likely reactive. Follow CBC 3. HTN. Continue with aldactone 4. Fibromyalgia. continue norco
[2020-04-29] MEDS: HYDROmorphone 1 MG/ML 1 ML SYRINGE IVP PRN ×3 (06:38→13:07)
[2020-04-29 06:59] LABS: Anisocytosis Slight; Basophils % (A) 1 %; Eosinophils # (A) 0.1 k/uL (0-0.7); Eosinophils % (A) 1 %; HCT 32.2 % (34.0-46.0); HGB 10.4 gm/dL (11.4-16.0); Hypochromasia Slight; Lymphocytes # (A) 1.7 k/uL (1.0-4.8); Lymphocytes % (A) 24 %; MCH 25.8 pg (25.0-35.0); MCHC 32.2 g/dL (31.0-37.0); MCV 79.9 fL (80.0-100.0); Mean Platelet Volume 7.3; Monocytes # (A) 0.4 k/uL (0-1.0); Monocytes % (A) 5 %; Neutrophils % (A) 68 %; Platelet Count 319 k/uL (150-450); RBC 4.02 m/uL (3.80-5.40); RDW 16.3 % (11.5-15.5); WBC 7.4 k/uL (3.8-10.6)
[2020-04-29] MEDS ORDERED: PROPOFOL 10 MG/ML 20 ML VIAL IV ONE (08:52)
[2020-04-29] MEDS ORDERED: IV FLUID CONTINUATION 1,000 ML IV ONE (08:52)
--- NOTE | 2020-04-29 09:04 | P.OP ---
Date of Procedure: 04/29/20 Preoperative Diagnosis: Epigastric abdominal pain Postoperative Diagnosis: Status post gastric bypass. No evidence of gastric bypass obstruction. Mild gastritis. Procedure(s) Performed: EGD Anesthesia: MAC Surgeon: Kendall Holloway Pathology: other (Gastric) Condition: stable Disposition: PACU Description of Procedure: Patient's placed on the endoscopy table lateral position. She received IV sedation. The gastroscope placed oropharynx passed in the esophagus into the stomach. The patient a previous gastric bypass. The gastrojejunostomy was visualized. There is no evidence of any inflammatory changes of the anastomosis. The scope was then placed into the jejunal limb and there is no evidence of obstruction. Scope was brought back there was minimal inflammation of the gastric pouch. A biopsies performed. The GE junction was at 40 cms. The distal esophagus appeared normal. The proximal esophagus appeared normal. Scope was withdrawn patient.
[2020-04-29] MEDS: GABAPENTIN 300 MG CAP PO SCH ×3 (09:34→20:26)
[2020-04-29] MEDS: PANTOPRAZOLE 40 MG TABLET PO SCH (09:34)
[2020-04-29] MEDS: ASCORBIC ACID 500 MG TAB PO SCH (09:34)
[2020-04-29] MEDS: MONTELUKAST 10 MG TAB PO SCH (09:34)
[2020-04-29] MEDS: SPIRONOLACTONE 25 MG TAB PO SCH (09:34)
[2020-04-29] MEDS: FUROSEMIDE 40 MG TAB PO SCH (09:34)
[2020-04-29] MEDS: predniSONE 10 MG TAB PO SCH (09:34)
[2020-04-29] MEDS: SYMBICORT 160-4.5 MCG INHALER INHALATION SCH ×2 (09:40→21:10)
[2020-04-29] MEDS: HYDROcodone/APAP 7.5-325MG 1 EACH TAB PO SCH ×2 (10:08→20:26)
[2020-04-29] MEDS: ONDANSETRON 4 MG/2 ML VIAL IVP PRN ×2 (10:08→20:25)
[2020-04-29] MEDS: oxyCODONE ER 15 MG TAB.ER.12H PO SCH ×2 (10:17→20:25)
[2020-04-29] MEDS: NON FORMULARY DRUG (Milnacipran Hcl [Savella] 50 MG Tablet) PO SCH (10:17)
[2020-04-29] MEDS: METOCLOPRAMIDE 5 MG/ML 2 ML VIAL IVP PRN (13:52)
[2020-04-29] MEDS: SODIUM CHLORIDE 0.9% 1,000 ML IV SCH ×2 (20:04→20:34)
[2020-04-29] MEDS: PRAMIPEXOLE 1 MG TAB PO SCH (20:32)
[2020-04-29] MEDS: LACTATED RINGERS 1,000 ML IV SCH (20:48)
[2020-04-29] MEDS: ALBUTEROL NEBULIZED 2.5 MG/3 ML INHALATION PRN (21:10)
[2020-04-29] MEDS: traZODone HCL 100 MG TAB PO SCH (21:27)
--- NOTE | 2020-04-29 22:53 | P.PN ---
Subjective Progress Note Date: 04/29/20 Principal diagnosis: abdominal pain She continues to complain of constant epigastric pain slightly improved from yesterday. WBC have normalized. Her nausea is better and she is tolerating clear liquids. Pt for EGD today Objective - Vital Signs Vital signs: Vital Signs Temp 97.6 F 04/29/20 20:30 Pulse 80 04/29/20 21:21 Resp 18 04/29/20 20:30 BP 126/78 04/29/20 20:30 Pulse Ox 93 L 04/29/20 20:30 Intake & Output 04/29/20 04/29/20 04/30/20 06:59 18:59 06:59 Intake Total 100 Output Total 2350 2 800 Balance -2350 98 -800 Intake: IV 100 Output: Urine 2350 800 Emesis 2 Other: Voiding Method Toilet # Voids 2 2 - Exam General: morbidly obese, NAD. Vitals reviewed Lungs: normal respiratory effort, no wheezes or rales CV: Regular rate and rhythm, no murmur. Peripheral pulses 2+ Abdomen: soft, nondistended, no organomegaly. Tenderness to palpation epigastric Skin: warm and dry. - Labs CBC & Chem 7: 04/29/20 06:09 04/27/20 08:00 Labs: Abnormal Lab Results - Last 24 Hours (Table) 04/29/20 Range/Units 06:09 Hgb 10.4 L (11.4-16.0) gm/dL Hct 32.2 L (34.0-46.0) % MCV 79.9 L (80.0-100.0) fL RDW 16.3 H (11.5-15.5) % Assessment and Plan (1) Abdominal pain Current Visit: Yes Status: Acute Code(s): R10.9 - UNSPECIFIED ABDOMINAL PAIN SNOMED Code(s): 35990603 (2) Essential hypertension Current Visit: No Status: Acute Code(s): I10 - ESSENTIAL (PRIMARY) HYPERTENSION SNOMED Code(s): 74779694 (3) Fibromyalgia Current Visit: No Status: Acute Code(s): M79.7 - FIBROMYALGIA SNOMED Code(s): 567167699 (4) Morbid obesity Current Visit: Yes Status: Acute Code(s): E66.01 - MORBID (SEVERE) OBESITY DUE TO EXCESS CALORIES SNOMED Code(s): 150865643 (5) Hiatal hernia Current Visit: Yes Status: Acute Code(s): K44.9 - DIAPHRAGMATIC HERNIA WITHOUT OBSTRUCTION OR GANGRENE SNOMED Code(s): 52755117 (6) History of Juan Carlos-en-Y gastric bypass Current Visit: Yes Status: Acute Code(s): Z98.84 - BARIATRIC SURGERY STATUS SNOMED Code(s): 401519592 Plan: Await her EGD and diet per surgery. Start reglan. Continue with IV fluid hydration. Pain control
[2020-04-30] MEDS: METOCLOPRAMIDE 5 MG/ML 2 ML VIAL IVP PRN (00:51)
[2020-04-30] MEDS: HYDROmorphone 1 MG/ML 1 ML SYRINGE IVP PRN ×4 (00:51→21:48)
[2020-04-30 06:37] LABS: Anisocytosis Slight; Basophils % (A) 1 %; Eosinophils % (A) 2 %; HCT 36.3 % (34.0-46.0); HGB 11.4 gm/dL (11.4-16.0); Hypochromasia Slight; Lymphocytes % (A) 31 %; MCH 25.2 pg (25.0-35.0); MCHC 31.4 g/dL (31.0-37.0); MCV 80.4 fL (80.0-100.0); Mean Platelet Volume 6.6; Monocytes % (A) 4 %; Neutrophils % (A) 60 %; Platelet Count 327 k/uL (150-450); RBC 4.51 m/uL (3.80-5.40); RDW 16.5 % (11.5-15.5); WBC 8.6 k/uL (3.8-10.6)
[2020-04-30 06:38] LABS: Basophils # (A) 0.1 k/uL (0-0.2); Eosinophils # (A) 0.2 k/uL (0-0.7); Lymphocytes # (A) 2.7 k/uL (1.0-4.8); Monocytes # (A) 0.4 k/uL (0-1.0); Neutrophils # (A) 5.2 k/uL (1.3-7.7)
[2020-04-30] MEDS: ONDANSETRON 4 MG/2 ML VIAL IVP PRN (07:44)
[2020-04-30] MEDS: SODIUM CHLORIDE 0.9% 1,000 ML IV SCH ×2 (07:49→13:33)
[2020-04-30] MEDS: SYMBICORT 160-4.5 MCG INHALER INHALATION SCH ×2 (08:08→21:09)
[2020-04-30] MEDS ORDERED: methylPREDNISolone SOD SUCCI 125 MG/2 ML VIAL IV STA (08:27)
--- NOTE | 2020-04-30 08:33 | FL ---
EXAMINATION TYPE: FL UGI w small bowel DATE OF EXAM: 04/29/2020 COMPARISON: 02/23/2017 HISTORY: Dysphasia TECHNIQUE: A single contrast UGI study is performed with small bowel follow through. FINDINGS: Rolling Up Machine Operator image of the abdomen shows no gross abnormality. 1.15 minutes of fluoroscopy and 22 images submitted. There is be evidence of a Juan Carlos-en-Y surgery. Surgical stenosis appears be mildly narrowed but patent with no significant obstructive changes at the level. There does appear to be dilation of the esophag us which appears to extend to the level of the GE junction. There is passage of all contrast. There i s evidence of dysmotility. No sizable reflux. Delayed images demonstrate filling of the small bowel w ith mildly prominent bowel loops seen in the distal ileum. Faint opacification limits exam. Delayed i mages at 8 hours demonstrates filling of the colon. IMPRESSION: 1. The anastomosis of the Juan Carlos-en-Y appears to be patent. There are several prominent small bowel loo ps in the abdomen and there is delayed transit through the small bowel to the colon requiring 8 hours . Possibility of either partial obstruction or ileus. 2. There is dilation of the esophagus to the level of GE junction direct visualization is recommended to assess for narrowing or mucosal lesion of the distal esophagus.
[2020-04-30] MEDS: NON FORMULARY DRUG (Milnacipran Hcl [Savella] 50 MG Tablet) PO SCH (08:54)
[2020-04-30] MEDS: predniSONE 10 MG TAB PO SCH (08:55)
[2020-04-30] MEDS ORDERED: METOCLOPRAMIDE 5 MG/ML 2 ML VIAL IVP SCH (09:00)
[2020-04-30] MEDS: ASCORBIC ACID 500 MG TAB PO SCH (09:29)
[2020-04-30] MEDS: MONTELUKAST 10 MG TAB PO SCH (09:29)
[2020-04-30] MEDS: FUROSEMIDE 40 MG TAB PO SCH (09:29)
[2020-04-30] MEDS: GABAPENTIN 300 MG CAP PO SCH ×3 (09:29→22:41)
[2020-04-30] MEDS: PANTOPRAZOLE 40 MG TABLET PO SCH (09:30)
[2020-04-30] MEDS: SPIRONOLACTONE 25 MG TAB PO SCH (09:30)
[2020-04-30] MEDS: HYDROcodone/APAP 7.5-325MG 1 EACH TAB PO SCH ×2 (09:42→22:41)
[2020-04-30] MEDS: oxyCODONE ER 15 MG TAB.ER.12H PO SCH ×2 (09:43→22:42)
[2020-04-30] MEDS ORDERED: METOCLOPRAMIDE 5 MG TAB PO SCH (12:30)
--- NOTE | 2020-04-30 12:35 | P.DS ---
Providers Date of admission: 04/29/20 14:01 Expected date of discharge: 04/30/20 Attending physician: Steven Carmen MD Consults: 04/27/20 10:15 Consult Physician Urgent Consulting Provider: Kendall Holloway Consult Reason/Comments: Abdominal pain, possible EGD Do you want consulting provider notified?: Yes Primary care physician: Steven Carmen MD Hospital Course: Final Diagnoses: (1) Abdominal pain attributed to gastritis and possible scar tissue as per surgery. Current Visit: Yes Status: Acute Code(s): R10.9 - UNSPECIFIED ABDOMINAL PAIN SNOMED Code(s): 61377491 (2) Essential hypertension Current Visit: No Status: Acute Code(s): I10 - ESSENTIAL (PRIMARY) HYPERTENSION SNOMED Code(s): 25137321 (3) Fibromyalgia Current Visit: No Status: Acute Code(s): M79.7 - FIBROMYALGIA SNOMED Code(s): 209926689 (4) Morbid obesity Current Visit: Yes Status: Acute Code(s): E66.01 - MORBID (SEVERE) OBESITY DUE TO EXCESS CALORIES SNOMED Code(s): 633688283 (5) Hiatal hernia Current Visit: Yes Status: Acute Code(s): K44.9 - DIAPHRAGMATIC HERNIA WITHOUT OBSTRUCTION OR GANGRENE SNOMED Code(s): 65941112 (6) History of Juan Carlos-en-Y gastric bypass Current Visit: Yes Status: Acute Code(s): Z98.84 - BARIATRIC SURGERY STATUS SNOMED Code(s): 581929370 Hospital course :This is 59-year-old female admitted with abdominal pain, history of Juan Carlos-en-Y gastric bypass and multiple other medical issues. Evaluated by surgery. Completed EGD reporting no evidence of gastric bypass obstruction, mild gastritis. Upper GI and small bowel x-ray completed, results pending. Patient will be discharged home later today pending patient tolerating diet, pending final DC recommendations and clearance from surgery. The impression and plan of care has been dictated as directed. : I performed a history and examination of this patient, discussed the same with the dictator. I agree with the dictator's note ,documented as a scribe. Any additional findings or plans will be noted. Patient Condition at Discharge: Stable Plan - Discharge Summary Discharge Rx Participant: No New Discharge Prescriptions: New Metoclopramide [Reglan] 10 mg PO AC-TID PRN #21 tab PRN Reason: Nausea Continue Montelukast Sodium [Singulair] 10 mg PO QAM Omeprazole [PriLOSEC] 20 mg PO BID Gabapentin [Neurontin] 300 mg PO TID Fluticasone/Salmeterol [Advair 500-50 Diskus] 2 puff INHALATION RT-DAILY Triamterene/Hydrochlorothiazid [Maxzide 37.5-25] 1 tab PO DAILY Albuterol Sulfate [Ventolin HFA] 2 puff INHALATION RT-Q4H PRN PRN Reason: Shortness Of Breath Pramipexole Di-HCl [Mirapex] 1 mg PO HS Calcium Carbonate [Calcium] 1,200 mg PO DAILY predniSONE 10 mg PO DAILY Cyanocobalamin (Vitamin B-12) [Vitamin B-12] 1,000 mcg PO DAILY Furosemide [Lasix] 40 mg PO DAILY HYDROcodone/APAP 7.5-325MG [Lafitte 7.5-325] 1 tab PO BID Milnacipran HCl [Savella] 50 mg PO DAILY oxyCODONE ER [OxyCONTIN] 15 mg PO BID Spironolactone [Aldactone] 25 mg PO DAILY Teriparatide [Forteo] 20 mcg SQ DAILY traZODone HCL 100 mg PO HS Ascorbic Acid [Vitamin C] 500 mg PO DAILY Discontinued Ramipril [Altace] 5 mg PO DAILY Discharge Medication List Gabapentin [Neurontin] 300 mg PO TID 09/24/14 [History] Montelukast Sodium [Singulair] 10 mg PO QAM 09/24/14 [History] Omeprazole [PriLOSEC] 20 mg PO BID 09/24/14 [History] Albuterol Sulfate [Ventolin HFA] 2 puff INHALATION RT-Q4H PRN 04/05/16 [History] Fluticasone/Salmeterol [Advair 500-50 Diskus] 2 puff INHALATION RT-DAILY 04/05/16 [History] Pramipexole Di-HCl [Mirapex] 1 mg PO HS 04/05/16 [History] Triamterene/Hydrochlorothiazid [Maxzide 37.5-25] 1 tab PO DAILY 04/05/16 [History] Calcium Carbonate [Calcium] 1,200 mg PO DAILY 10/12/16 [History] predniSONE 10 mg PO DAILY 10/12/16 [History] Cyanocobalamin (Vitamin B-12) [Vitamin B-12] 1,000 mcg PO DAILY 02/23/17 [History] Furosemide [Lasix] 40 mg PO DAILY 01/27/20 [History] HYDROcodone/APAP 7.5-325MG [Lafitte 7.5-325] 1 tab PO BID 01/27/20 [History] Milnacipran HCl [Savella] 50 mg PO DAILY 01/27/20 [History] Spironolactone [Aldactone] 25 mg PO DAILY 01/27/20 [History] Teriparatide [Forteo] 20 mcg SQ DAILY 01/27/20 [History] oxyCODONE ER [OxyCONTIN] 15 mg PO BID 01/27/20 [History] traZODone HCL 100 mg PO HS 01/27/20 [History] Ascorbic Acid [Vitamin C] 500 mg PO DAILY 04/27/20 [History] Metoclopramide [Reglan] 10 mg PO AC-TID PRN #21 tab 04/30/20 [Rx] Follow up Appointment(s)/Referral(s): Steven Carmen MD [Primary Care Provider] - 3 Days Activity/Diet/Wound Care/Special Instructions: Pending final DC recommendations and clearance from surgery.
--- NOTE | 2020-04-30 14:42 | P.PN ---
Subjective Progress Note Date: 04/30/20 CHIEF COMPLAINT: Abdominal pain HISTORY OF PRESENT ILLNESS: Patient complaining of epigastric abdominal pain with nausea and vomiting. Patient reports no improvement since admission. She had vomiting again at dinner last night and breakfast this morning. She is on a regular diet. She is status post EGD which showed mild gastritis. No evidence of gastric bypass obstruction. Afebrile. WBC 8.6 Hgb 11.4 She reports not having a bowel movement since admission. Dr. Carmen has change Reglan to [facility]. Upper GI report states the anastomosis of the Juan Carlos-en-Y appears to be patent. There are several prominent small bowel loops in the abdomen and then and there is delayed transit through the small bowel to the colon requiring 8 hours. Possibility of either partial obstruction or ileus. There is dilation of the esophagus to the level of the GE junction junction. PHYSICAL EXAM: VITAL SIGNS: Reviewed. GENERAL: Well-developed in no acute distress. HEENT: No sclera icterus. Extraocular movements grossly intact. Moist buccal mucosa. Head is atraumatic, normocephalic. ABDOMEN: Soft. Nondistended. Epigastric tenderness NEUROLOGIC: Alert and oriented. Cranial nerves II through XII grossly intact. ASSESSMENT: 1. Epigastric abdominal pain. Status post EGD which showed mild gastritis 2. Moderate size hiatal hernia 3. History of Juan Carlos-en-Y PLAN: -Decreased diet to a full liquid diet -Continue Padmini Physician Manufacturing Process Technician note has been reviewed by physician. Signing provider agrees with the documented findings, assessment, and plan of care. Objective - Vital Signs Vital signs: Vital Signs Temp 97.9 F 04/30/20 07:00 Pulse 81 04/30/20 07:00 Resp 18 04/30/20 07:00 BP 105/65 04/30/20 07:00 Pulse Ox 100 04/30/20 07:00 Intake & Output 04/29/20 04/30/20 04/30/20 18:59 06:59 18:59 Intake Total 100 Output Total 2 800 100 Balance 98 -800 -100 Intake: IV 100 Output: Urine 800 Emesis 2 100 Other: Voiding Method Toilet # Voids 1 1 - Labs CBC & Chem 7: 04/30/20 06:22 04/27/20 08:00 Labs: Abnormal Lab Results - Last 24 Hours (Table) 04/30/20 Range/Units 06:22 RDW 16.5 H (11.5-15.5) %
[2020-04-30] MEDS: traZODone HCL 100 MG TAB PO SCH (22:41)
[2020-04-30] MEDS: PRAMIPEXOLE 1 MG TAB PO SCH (22:41)
[2020-05-01] MEDS: SODIUM CHLORIDE 0.9% 1,000 ML IV SCH ×2 (04:01→10:45)
[2020-05-01] MEDS: PANTOPRAZOLE 40 MG TABLET PO SCH (05:59)
[2020-05-01 07:54] LABS: Anisocytosis Slight; Basophils % (A) 0 %; Eosinophils % (A) 0 %; HCT 34.9 % (34.0-46.0); Hypochromasia Slight; Lymphocytes # (A) 1.9 k/uL (1.0-4.8); Lymphocytes % (A) 19 %; MCH 25.3 pg (25.0-35.0); MCHC 31.5 g/dL (31.0-37.0); MCV 80.3 fL (80.0-100.0); Mean Platelet Volume 7.3; Monocytes # (A) 0.4 k/uL (0-1.0); Monocytes % (A) 4 %; Neutrophils # (A) 7.5 k/uL (1.3-7.7); Neutrophils % (A) 75 %; Platelet Count 330 k/uL (150-450); RBC 4.35 m/uL (3.80-5.40); RDW 16.6 % (11.5-15.5)
[2020-05-01] MEDS: SYMBICORT 160-4.5 MCG INHALER INHALATION SCH ×2 (08:27→19:49)
[2020-05-01] MEDS: GABAPENTIN 300 MG CAP PO SCH ×3 (08:49→22:10)
[2020-05-01] MEDS: FUROSEMIDE 40 MG TAB PO SCH (08:49)
[2020-05-01] MEDS: HYDROcodone/APAP 7.5-325MG 1 EACH TAB PO SCH ×2 (08:49→20:48)
[2020-05-01] MEDS: ASCORBIC ACID 500 MG TAB PO SCH (08:49)
[2020-05-01] MEDS: oxyCODONE ER 15 MG TAB.ER.12H PO SCH ×2 (08:50→20:50)
[2020-05-01] MEDS: MONTELUKAST 10 MG TAB PO SCH (08:50)
[2020-05-01] MEDS: SPIRONOLACTONE 25 MG TAB PO SCH (08:51)
[2020-05-01] MEDS: predniSONE 10 MG TAB PO SCH (08:51)
[2020-05-01] MEDS: NON FORMULARY DRUG (Milnacipran Hcl [Savella] 50 MG Tablet) PO SCH (08:52)
[2020-05-01] MEDS: HYDROmorphone 1 MG/ML 1 ML SYRINGE IVP PRN (14:44)
[2020-05-01] MEDS: traZODone HCL 100 MG TAB PO SCH (20:50)
[2020-05-01] MEDS: PRAMIPEXOLE 1 MG TAB PO SCH (20:50)
[2020-05-02] MEDS: PANTOPRAZOLE 40 MG TABLET PO SCH (06:36)
[2020-05-02] MEDS: SODIUM CHLORIDE 0.9% 1,000 ML IV SCH ×3 (06:37→23:30)
[2020-05-02] MEDS: predniSONE 10 MG TAB PO SCH (08:35)
[2020-05-02] MEDS: GABAPENTIN 300 MG CAP PO SCH ×3 (08:35→21:00)
[2020-05-02] MEDS: ASCORBIC ACID 500 MG TAB PO SCH (08:35)
[2020-05-02] MEDS: MONTELUKAST 10 MG TAB PO SCH (08:35)
[2020-05-02] MEDS: FUROSEMIDE 40 MG TAB PO SCH (08:35)
[2020-05-02] MEDS: SPIRONOLACTONE 25 MG TAB PO SCH (08:35)
[2020-05-02] MEDS: oxyCODONE ER 15 MG TAB.ER.12H PO SCH ×2 (08:36→21:01)
[2020-05-02] MEDS: HYDROcodone/APAP 7.5-325MG 1 EACH TAB PO SCH ×2 (08:40→21:01)
[2020-05-02] MEDS: NON FORMULARY DRUG (Milnacipran Hcl [Savella] 50 MG Tablet) PO SCH (08:40)
[2020-05-02] MEDS: SYMBICORT 160-4.5 MCG INHALER INHALATION SCH ×2 (09:16→21:03)
[2020-05-02] MEDS: HYDROmorphone 1 MG/ML 1 ML SYRINGE IVP PRN (13:30)
--- NOTE | 2020-05-02 15:06 | XR ---
EXAMINATION TYPE: XR abdomen acute w cxr DATE OF EXAM: 05/02/2020 COMPARISON: Chest x-ray 01/27/2020 HISTORY: Abdominal pain and tachycardia TECHNIQUE: 5 views FINDINGS: There is some patchy atelectasis at the lung bases. There is no heart failure. There is con trast in the large bowel. There is no sign of intestinal obstruction or pneumoperitoneum. Fecal patte rn is normal. There is no evidence of a mass. There are no pathologic calcifications over the kidneys . IMPRESSION: There is some atelectasis at the lung bases that is slightly worse than old exam. No hear t failure seen. Nonacute abdomen.
--- NOTE | 2020-05-02 19:51 | P.PN ---
Subjective Progress Note Date: 05/02/20 Principal diagnosis: Abdominal pain; status post gastric bypass Status post EGD/gastritis; gastric bypass obstruction 59-year-old female patient admitted with complaint of abdominal pain; patient has been seen by surgery and underwent EGD which reveals gastritis without any evidence of gastric bypass obstruction Patient complains of abdominal distention and nausea this morning; stat abdominal x-rays done which does show stool in the colon without any evidence of some obstruction; we will order suppository and possibly animal if needed; start patient on laxatives; patient remains on a full liquid diet and hasn't been able to advance to soft regular diet; patient requests transferred to [facility] and refuses to be discharged Objective - Vital Signs Vital signs: Vital Signs Temp 99.0 F 05/02/20 11:55 Pulse 86 05/02/20 11:55 Resp 16 05/02/20 11:55 BP 97/59 05/02/20 11:55 Pulse Ox 94 L 05/02/20 11:55 Intake & Output 05/01/20 05/02/20 05/02/20 18:59 06:59 18:59 Intake Total 720 Output Total 1300 Balance 720 -1300 Intake: Oral 720 Output: Urine 1300 Other: # Voids 2 2 1 - Exam VITAL SIGNS: Reviewed. GENERAL: Well-developed in no acute distress. HEENT: No sclera icterus. Extraocular movements grossly intact. Moist buccal mucosa. Head is atraumatic, normocephalic. ABDOMEN: Soft. Nondistended. Epigastric tenderness NEUROLOGIC: Alert and oriented. Cranial nerves II through XII grossly intact. - Labs CBC & Chem 7: 05/01/20 06:51 04/27/20 08:00 Assessment and Plan Assessment: 1. Abdominal pain; status post EGD which reveals gastritis; continue with PPI 2. Essential hypertension; stable on current antihypertensive therapy 3. Hiatal hernia; patient requesting transfer to [facility] for evaluation by surgery for repair 4. Morbid obesity; counseling done DVT prophylaxis CODE STATUS; full code
[2020-05-02] MEDS: traZODone HCL 100 MG TAB PO SCH (21:00)
[2020-05-02] MEDS: PRAMIPEXOLE 1 MG TAB PO SCH (21:00)
[2020-05-03] MEDS: HYDROmorphone 1 MG/ML 1 ML SYRINGE IVP PRN ×3 (04:19→18:11)
[2020-05-03] MEDS: PANTOPRAZOLE 40 MG TABLET PO SCH (06:09)
[2020-05-03] MEDS: SODIUM CHLORIDE 0.9% 1,000 ML IV SCH ×2 (06:10→12:57)
[2020-05-03] MEDS: HYDROcodone/APAP 7.5-325MG 1 EACH TAB PO SCH ×2 (09:15→20:58)
[2020-05-03] MEDS: FUROSEMIDE 40 MG TAB PO SCH (09:15)
[2020-05-03] MEDS: ASCORBIC ACID 500 MG TAB PO SCH (09:15)
[2020-05-03] MEDS: GABAPENTIN 300 MG CAP PO SCH ×3 (09:15→21:15)
[2020-05-03] MEDS: oxyCODONE ER 15 MG TAB.ER.12H PO SCH ×2 (09:16→21:15)
[2020-05-03] MEDS: NON FORMULARY DRUG (Milnacipran Hcl [Savella] 50 MG Tablet) PO SCH (09:16)
[2020-05-03] MEDS: MONTELUKAST 10 MG TAB PO SCH (09:16)
[2020-05-03] MEDS: SPIRONOLACTONE 25 MG TAB PO SCH (09:17)
[2020-05-03] MEDS: predniSONE 10 MG TAB PO SCH (09:17)
--- NOTE | 2020-05-03 11:16 | P.PN ---
Progress Note - Text Progress Note Date: 05/03/20 Patient is tolerating full liquids all weekend. Has had no further vomiting. The patient apparently had some discussion about being transferred [facility] for her hiatal hernia. On exam vital signs are stable. Abdomen is soft. Patient will undergo a modified barium swallow today to evaluate her swallow. If this is normal she will be advanced to a soft diet. I did discuss. Due to the cold mid and increase inpatient missions that there was unlikely to be a transfer bed available for this time at [facility].
[2020-05-03] MEDS: SYMBICORT 160-4.5 MCG INHALER INHALATION SCH ×2 (14:11→20:47)
--- NOTE | 2020-05-03 15:23 | P.PN ---
Subjective Progress Note Date: 05/03/20 Abdominal pain; status post gastric bypass Status post EGD/gastritis; gastric bypass obstruction 59-year-old female patient admitted with complaint of abdominal pain; patient has been seen by surgery and underwent EGD which reveals gastritis without any evidence of gastric bypass obstruction Patient complains of abdominal distention and nausea this morning; stat abdominal x-rays done which does show stool in the colon without any evidence of some obstruction; we will order suppository and possibly animal if needed; start patient on laxatives; patient remains on a full liquid diet and hasn't been able to advance to soft regular diet; patient requests transferred to [facility] and refuses to be discharged 05/03/2020 She is seen and evaluated in follow-up and is currently maintained on clear liquid diet as patient refuses to advance diet stating that she feels sharp stabbing pains along with extreme fullness in her upper abdomen when increasing her diet. Patient is being seen and evaluated by surgery recommending no surgical intervention at this time and also recommending a modified barium swallow as patient continues to state she has these pains with food. Patient had an abdominal x-ray yesterday which showed no sign of intestinal obstruction or pneumoperitoneum along with no evidence of a mass. Patient states she is passing gas and belching but has not had a bowel movement. Review of systems: Constitutional: No reports of fatigue, fever, or chills Cardiovascular: No reports of chest pain or palpitations Respiratory: No reports of shortness of breath or cough GI: No reports of nausea, vomiting, or diarrhea, reports abdominal distention and discomfort in the left upper rib and left upper quadrant region : No reports of dysuria or retention Neurovascular: No reports of weakness or numbness All medications have been reviewed Objective - Vital Signs Vital signs: Vital Signs Temp 97.4 F L 05/03/20 09:21 Pulse 79 05/03/20 09:21 Resp 18 05/03/20 09:21 BP 144/79 05/03/20 09:21 Pulse Ox 100 05/03/20 09:21 Intake & Output 05/02/20 05/03/20 05/03/20 18:59 06:59 18:59 Intake Total 1080 Output Total 1300 Balance -220 Weight 104.5 kg Intake: Oral 1080 Output: Urine 1300 Other: Voiding Method Incontinent # Voids 1 1 - Exam VITAL SIGNS: Reviewed. Temp is 97.4F, pulse is 79, respirations are 18, blood pressure is 144/79, oxygen saturation is 100% on room air. GENERAL: Well-developed in no acute distress. Alert and oriented 3 sitting up in the bed. Obese. Cardiovascular: S1, S2 are present, no murmurs or gallops noted Respiratory: Clear to auscultation with no wheezing or rhonchi noted. Normal respiratory rate and rhythm noted on exam HEENT: No sclera icterus. Extraocular movements grossly intact. Moist buccal mucosa. Head is atraumatic, normocephalic. ABDOMEN: Soft. Obese. Nondistended. Epigastric tenderness noted on palpation of the left upper quadrant and left upper rib cage area NEUROLOGIC: Alert and oriented. Cranial nerves II through XII grossly intact. - Labs CBC & Chem 7: 05/01/20 06:51 04/27/20 08:00 Assessment and Plan Assessment: -Abdominal pain status post EGD which revealed gastritis -Essential hypertension -Hiatal hernia -Morbid obesity -DVT prophylaxis -GI prophylaxis -Full code Plan: Continue with current medications, management, and symptomatic treatment. Surgery following recommending modified barium swallow as patient continues to complain of epigastric abdominal discomfort with advancing of food. Patient currently maintained on clear liquids and discussed with nursing staff along with patient about advancing diet to monitor for tolerance. We'll continue to monitor closely. Further recommendations to follow. Anticipate discharge in 24 hours.
[2020-05-03] MEDS: PRAMIPEXOLE 1 MG TAB PO SCH (21:15)
[2020-05-03] MEDS: traZODone HCL 100 MG TAB PO SCH (21:15)
[2020-05-04] MEDS: PANTOPRAZOLE 40 MG TABLET PO SCH (06:47)
[2020-05-04] MEDS: SODIUM CHLORIDE 0.9% 1,000 ML IV SCH ×2 (06:50→14:14)
[2020-05-04] MEDS: HYDROmorphone 1 MG/ML 1 ML SYRINGE IVP PRN ×2 (08:06→12:56)
[2020-05-04] MEDS: SYMBICORT 160-4.5 MCG INHALER INHALATION SCH ×2 (08:16→20:59)
[2020-05-04] MEDS: ASCORBIC ACID 500 MG TAB PO SCH (10:25)
[2020-05-04] MEDS: oxyCODONE ER 15 MG TAB.ER.12H PO SCH ×2 (10:26→22:14)
[2020-05-04] MEDS: HYDROcodone/APAP 7.5-325MG 1 EACH TAB PO SCH ×2 (10:29→22:15)
[2020-05-04] MEDS: GABAPENTIN 300 MG CAP PO SCH ×3 (10:30→22:14)
[2020-05-04] MEDS: predniSONE 10 MG TAB PO SCH (10:30)
[2020-05-04] MEDS: MONTELUKAST 10 MG TAB PO SCH (10:30)
[2020-05-04] MEDS: SPIRONOLACTONE 25 MG TAB PO SCH (10:31)
[2020-05-04] MEDS: NON FORMULARY DRUG (Milnacipran Hcl [Savella] 50 MG Tablet) PO SCH (10:33)
[2020-05-04] MEDS: FUROSEMIDE 40 MG TAB PO SCH (11:50)
[2020-05-04] MEDS: IOPAMIDOL CONTRAST (ORAL USE) VIAL PO PRN ×2 (11:53→12:47)
--- NOTE | 2020-05-04 12:30 | P.PN ---
Subjective Progress Note Date: 05/04/20 CHIEF COMPLAINT: Abdominal pain HISTORY OF PRESENT ILLNESS: Patient is being followed for her epigastric abdominal pain. Patient reports having vomiting after being started on her regular diet at dinner and again at breakfast this morning. She reports yesterday she was able to keep full liquids down however she felt that her stomach did become distended in the epigastric area. She is able to swallow although feels that food gets stuck in the epigastric area and will not continued on. She reports no bowel movement since admission. She is afebrile. PHYSICAL EXAM: VITAL SIGNS: Reviewed. GENERAL: Well-developed in no acute distress. HEENT: No sclera icterus. Extraocular movements grossly intact. Moist buccal mucosa. Head is atraumatic, normocephalic. ABDOMEN: Soft. Nondistended. Epigastric tenderness NEUROLOGIC: Alert and oriented. Cranial nerves II through XII grossly intact. ASSESSMENT: 1. Epigastric abdominal pain with vomiting. Status post EGD which showed mild gastritis 2. Moderate size hiatal hernia 3. History of Juan Carlos-en-Y PLAN: -Ordered computed tomography scan the abdomen and pelvis with oral and IV contrast for further evaluate this dictation of her abdominal pain and vomiting -agree with decreasing diet to a full liquid diet -Continue Zofran as needed Physician Electrical Test Technician note has been reviewed by physician. Signing provider agrees with the documented findings, assessment, and plan of care. Objective - Vital Signs Vital signs: Vital Signs Temp 98.2 F 05/04/20 08:10 Pulse 88 05/04/20 08:10 Resp 18 05/04/20 08:10 BP 144/88 05/04/20 08:10 Pulse Ox 96 05/04/20 08:10 Intake & Output 05/03/20 05/04/20 05/04/20 18:59 06:59 18:59 Intake Total 1070 300 Balance 1070 300 Weight 104.5 kg Intake: Intake, IV Titration 350 Amount Sodium Chloride 0.9% 1, 350 000 ml @ 100 mls/hr IV . Q10H FRANKIE Rx#:[id number] Oral 720 300 Other: # Voids 2 1 # Emeses 1 - Labs CBC & Chem 7: 05/01/20 06:51 04/27/20 08:00
[2020-05-04] MEDS ORDERED: SODIUM CHLORIDE 0.9% 1,000 ML IV SCH (13:15)
--- NOTE | 2020-05-04 13:57 | CT ---
EXAMINATION TYPE: CT discontinued procedure DATE OF EXAM: 05/04/2020 COMPARISON: None HISTORY: Femoral pain CT DLP: 12 mGycm Automated exposure control for dose reduction was used. FINDINGS: [employer] Director film shows large amount of retained barium. IMPRESSION: EXAM IS ABORTED AND REFERRING CLINICIAN WAS INFORMED, EXAM TO BE RESCHEDULED PER REFERRING CLINICIAN.
[2020-05-04] MEDS: METOCLOPRAMIDE 5 MG/ML 2 ML VIAL IVP SCH ×3 (14:23→23:39)
--- NOTE | 2020-05-04 15:24 | P.PN ---
Subjective Progress Note Date: 05/04/20 Abdominal pain; status post gastric bypass Status post EGD/gastritis; gastric bypass obstruction 59-year-old female patient admitted with complaint of abdominal pain; patient has been seen by surgery and underwent EGD which reveals gastritis without any evidence of gastric bypass obstruction Patient complains of abdominal distention and nausea this morning; stat abdominal x-rays done which does show stool in the colon without any evidence of some obstruction; we will order suppository and possibly animal if needed; start patient on laxatives; patient remains on a full liquid diet and hasn't been able to advance to soft regular diet; patient requests transferred to [facility] and refuses to be discharged 05/03/2020 She is seen and evaluated in follow-up and is currently maintained on clear liquid diet as patient refuses to advance diet stating that she feels sharp stabbing pains along with extreme fullness in her upper abdomen when increasing her diet. Patient is being seen and evaluated by surgery recommending no surgical intervention at this time and also recommending a modified barium swallow as patient continues to state she has these pains with food. Patient had an abdominal x-ray yesterday which showed no sign of intestinal obstruction or pneumoperitoneum along with no evidence of a mass. Patient states she is passing gas and belching but has not had a bowel movement. Review of systems: Constitutional: No reports of fatigue, fever, or chills Cardiovascular: No reports of chest pain or palpitations Respiratory: No reports of shortness of breath or cough GI: No reports of nausea, vomiting, or diarrhea, reports abdominal distention and discomfort in the left upper rib and left upper quadrant region : No reports of dysuria or retention Neurovascular: No reports of weakness or numbness All medications have been reviewed 05/04/2020 Patient is seen and evaluated and follow-up and continues on clear liquids and be and advance to full liquids and tolerating tomato soup at this time. She attempted a regular diet and had immediate severe sharp stabbing pain in the upper epigastrium and left upper quadrant area. Patient also had vomiting at that time. Patient continues to feel this dull pain underneath the ribs that increases with eating and feelings of bloating and fullness in the epigastrium area. Surgery is following recommending CT of the abdomen which is currently pending at this time. Will repeat a.m. labs and monitor closely. She denies any bowel movements but is passing gas and belching quite often. Currently patient denies any chest pain, shortness of breath, or palpitations. Patient is afebrile. Objective - Vital Signs Vital signs: Vital Signs Temp 98.2 F 05/04/20 08:10 Pulse 88 05/04/20 08:10 Resp 18 05/04/20 08:10 BP 144/88 05/04/20 08:10 Pulse Ox 96 05/04/20 08:10 Intake & Output 05/03/20 05/04/20 05/04/20 18:59 06:59 18:59 Intake Total 1070 300 Balance 1070 300 Weight 104.5 kg Intake: Intake, IV Titration 350 Amount Sodium Chloride 0.9% 1, 350 000 ml @ 100 mls/hr IV . Q10H FRANKIE Rx#:[id number] Oral 720 300 Other: # Voids 2 1 # Emeses 1 - Exam VITAL SIGNS: Reviewed. Temp is 98.7F, pulse is 86, respirations are 18, blood pressure is 126/79, oxygen saturation is 95% on room air. GENERAL: Well-developed in no acute distress. Alert and oriented 3 sitting up in the bed. Obese. Cardiovascular: S1, S2 are present, no murmurs or gallops noted Respiratory: Clear to auscultation with no wheezing or rhonchi noted. Normal respiratory rate and rhythm noted on exam HEENT: No sclera icterus. Extraocular movements grossly intact. Moist buccal mucosa. Head is atraumatic, normocephalic. ABDOMEN: Soft. Obese. Nondistended. Epigastric tenderness noted on palpation of the left upper quadrant and left upper rib cage area NEUROLOGIC: Alert and oriented. Cranial nerves II through XII grossly intact. - Labs CBC & Chem 7: 05/01/20 06:51 04/27/20 08:00 Assessment and Plan Assessment: -Abdominal pain status post EGD which revealed gastritis -Essential hypertension -Hiatal hernia -Morbid obesity -DVT prophylaxis -GI prophylaxis -Full code Plan: Continue with current medications, management, and symptomatic treatment. S urgery following recommending CT of the abdomen as patient continues to have feeling of fullness with an inability to tolerate diet advancement. Patient currently maintained on clear liquids and discussed with nursing staff along with patient about advancing diet to monitor for tolerance. We'll continue to monitor closely. Will repeat a.m. labs and await CT report. Further recommendations to follow. Anticipate discharge in 24-48 hours.
[2020-05-04] MEDS: traZODone HCL 100 MG TAB PO SCH (22:14)
[2020-05-04] MEDS: PRAMIPEXOLE 1 MG TAB PO SCH (22:14)
[2020-05-04 22:40] VITALS: RESP 18
[2020-05-05 06:30] LABS: Anisocytosis Slight; Basophils % (A) 1 %; Eosinophils # (A) 0.2 k/uL (0-0.7); Eosinophils % (A) 3 %; HCT 33.2 % (34.0-46.0); HGB 10.3 gm/dL (11.4-16.0); Hypochromasia Slight; Lymphocytes # (A) 2.3 k/uL (1.0-4.8); Lymphocytes % (A) 29 %; MCH 24.8 pg (25.0-35.0); MCHC 31.1 g/dL (31.0-37.0); MCV 79.8 fL (80.0-100.0); Microcytosis Slight; Monocytes # (A) 0.4 k/uL (0-1.0); Monocytes % (A) 5 %; Neutrophils # (A) 4.8 k/uL (1.3-7.7); Neutrophils % (A) 61 %; Platelet Count 284 k/uL (150-450); RBC 4.16 m/uL (3.80-5.40); RDW 16.6 % (11.5-15.5); WBC 7.9 k/uL (3.8-10.6)
[2020-05-05 06:48] LABS: African American GFR (CKD) >90 (>60 ml/min/1.73 sqM); Anion Gap 3 mmol/L; Blood Urea Nitrogen 12 mg/dL (7-17); Calcium 8.7 mg/dL (8.4-10.2); Carbon Dioxide 29 mmol/L (22-30); Chloride 105 mmol/L (98-107); Glucose 79 mg/dL (74-99); Non-African American GFR(CKD) 88 (>60 ml/min/1.73 sqM); Potassium 3.8 mmol/L (3.5-5.1); Sodium 137 mmol/L (137-145)
[2020-05-05] MEDS: METOCLOPRAMIDE 5 MG/ML 2 ML VIAL IVP SCH ×2 (07:01→12:02)
[2020-05-05] MEDS: SYMBICORT 160-4.5 MCG INHALER INHALATION SCH (07:14)
[2020-05-05] MEDS: NON FORMULARY DRUG (Milnacipran Hcl [Savella] 50 MG Tablet) PO SCH (08:15)
[2020-05-05] MEDS: GABAPENTIN 300 MG CAP PO SCH (08:31)
[2020-05-05] MEDS: MONTELUKAST 10 MG TAB PO SCH (08:31)
[2020-05-05] MEDS: SPIRONOLACTONE 25 MG TAB PO SCH (08:31)
[2020-05-05] MEDS: ASCORBIC ACID 500 MG TAB PO SCH (08:31)
[2020-05-05] MEDS: FUROSEMIDE 40 MG TAB PO SCH (08:31)
[2020-05-05] MEDS: oxyCODONE ER 15 MG TAB.ER.12H PO SCH (08:32)
[2020-05-05] MEDS: PANTOPRAZOLE 40 MG TABLET PO SCH (08:32)
[2020-05-05] MEDS: HYDROcodone/APAP 7.5-325MG 1 EACH TAB PO SCH (08:33)
[2020-05-05] MEDS ORDERED: TRIAMTERENE-HCTZ 37.5-25MG 1 EACH TAB PO SCH (09:00)
[2020-05-05 09:07] VITALS: BP 130/74; PULSE 87; TEMP 98.3
[2020-05-05] MEDS: predniSONE 10 MG TAB PO SCH (10:27)
--- NOTE | 2020-05-05 12:25 | P.PN ---
Subjective Progress Note Date: 05/05/20 CHIEF COMPLAINT: Abdominal pain HISTORY OF PRESENT ILLNESS: Patient is being followed for her epigastric abdominal pain. Patient is able to tolerate a full liquid diet. She's had no nausea or vomiting with the full liquids. She is having issues with constipation. Her last bowel movement was for 5 days ago. She had a small hard BM today and is impacted. Soapsuds enemas were ordered. Patient unable to complete computed tomography scan of the abdomen and pelvis due to retained barium. Patient afebrile. WBC 7.9 hemoglobin 10.3 PHYSICAL EXAM: VITAL SIGNS: Reviewed. GENERAL: Well-developed in no acute distress. HEENT: No sclera icterus. Extraocular movements grossly intact. Moist buccal mucosa. Head is atraumatic, normocephalic. ABDOMEN: Soft. Nondistended. Mild Epigastric tenderness NEUROLOGIC: Alert and oriented. Cranial nerves II through XII grossly intact. ASSESSMENT: 1. Epigastric abdominal pain with vomiting. Status post EGD which showed mild gastritis. Able to tolerate full liquid diet 2. Moderate size hiatal hernia 3. History of Juan Carlos-en-Y PLAN: -Patient to be discharged on a full liquid diet -Patient can be discharge from surgical standpoint -Patient follow up with Dr. Holloway in 1 week -Patient will have a computed tomography scan the abdomen and pelvis with oral and IV contrast completed in the outpatient setting. This will be arranged through Dr. Holloway's office Physician Sewer Pipe Sorter note has been reviewed by physician. Signing provider agrees with the documented findings, assessment, and plan of care. Objective - Vital Signs Vital signs: Vital Signs Temp 98.3 F 05/05/20 08:00 Pulse 87 05/05/20 08:00 Resp 18 05/05/20 08:00 BP 130/74 05/05/20 08:00 Pulse Ox 96 05/05/20 08:00 Intake & Output 05/04/20 05/05/20 05/05/20 18:59 06:59 18:59 Intake Total 120 200 Balance 120 200 Intake: Oral 120 200 Other: Voiding Method Incontinent # Voids 1 2 # Bowel Movements 1 # Emeses 1 - Labs CBC & Chem 7: 05/05/20 06:13 05/05/20 06:13 Labs: Abnormal Lab Results - Last 24 Hours (Table) 11/18/20 Range/Units 06:13 Hgb 10.3 L (11.4-16.0) gm/dL Hct 33.2 L (34.0-46.0) % MCV 79.8 L (80.0-100.0) fL MCH 24.8 L (25.0-35.0) pg RDW 16.6 H (11.5-15.5) %
--- NOTE | 2020-05-06 09:07 | P.DS ---
Providers Date of admission: 04/29/20 14:01 Expected date of discharge: 05/05/20 Attending physician: Steven Carmen MD Consults: 04/27/20 10:15 Consult Physician Urgent Consulting Provider: Kendall Holloway Consult Reason/Comments: Abdominal pain, possible EGD Do you want consulting provider notified?: Yes Primary care physician: Steven Carmen MD Hospital Course: Final diagnosis -Abdominal pain status post EGD which revealed gastritis -Essential hypertension -Hiatal hernia -Morbid obesity -DVT prophylaxis -GI prophylaxis -Full code Discharge disposition Patient is being discharged in a stable condition with guarded prognosis to home. Patient will follow-up with Dr. Carmen in the outpatient setting upon discharge. Patient also instructed to follow-up with her previous surgeon in the outpatient setting or Dr. Holloway in one week for follow-up. Total time taken is greater than 35 minutes. History of present illness This is a 59-year-old female who was recently admitted with abdominal pain and was being closely monitored. She was seen and evaluated by surgery and underwent EGD without any evidence of gastric bypass obstruction. Patient continued to have abdominal distention and nausea and vomiting with diet and was maintained on clear liquids and advance to full liquids. Patient only able to tolerate tomato soup per preference. Patient was passing gas although not having any bowel movements and performed a self disimpaction and had small hard round stool. Patient did receive soapsuds enema with positive results. Patient will be discharged and instructed to follow-up with her surgeon otherwise follow-up with Dr. Holloway in one week for reevaluation. A CT of the abdomen was attempted to be repeated although barium remained in the epigastric area and unable to perform the scan. Patient will possibly need a repeat CT of the abdomen in the outpatient setting in 1 week with follow-up. Currently no reports of chest pain, shortness of breath, or palpitations. Patient is afebrile. No reports of nausea or vomiting and patient is tolerating diet. Patient instructed to continue with full liquid and advance slowly on diet as tolerated. Patient verbalized understanding. Patient requesting refills on pain medications upon discharge and prescription provided although instructed patient to follow-up with primary care provider and/or roller painter. She will be discharged home today. On exam vital signs are stable. Temp is 98.3F, pulse is 87, respirations are 18, blood pressure is 130/74, oxygen saturation is 96% on room air. Cardio S1, S2 are muffled. Respiratory system shows diminished breath sounds at the bases with no wheezing or rhonchi noted. Abdomen is soft, obese, and nontender. Nervous system shows no focal deficits. Please refer to medication reconciliation sheet for a list of medications. Patient Condition at Discharge: Stable Plan - Discharge Summary Discharge Rx Participant: No New Discharge Prescriptions: New Metoclopramide [Reglan] 10 mg PO AC-TID PRN #21 tab PRN Reason: Nausea Continue Montelukast Sodium [Singulair] 10 mg PO QAM Omeprazole [PriLOSEC] 20 mg PO BID Gabapentin [Neurontin] 300 mg PO TID Fluticasone/Salmeterol [Advair 500-50 Diskus] 2 puff INHALATION RT-DAILY Triamterene/Hydrochlorothiazid [Maxzide 37.5-25] 1 tab PO DAILY Albuterol Sulfate [Ventolin HFA] 2 puff INHALATION RT-Q4H PRN PRN Reason: Shortness Of Breath Pramipexole Di-HCl [Mirapex] 1 mg PO HS Calcium Carbonate [Calcium] 1,200 mg PO DAILY predniSONE 10 mg PO DAILY Cyanocobalamin (Vitamin B-12) [Vitamin B-12] 1,000 mcg PO DAILY Furosemide [Lasix] 40 mg PO DAILY Milnacipran HCl [Savella] 50 mg PO DAILY Spironolactone [Aldactone] 25 mg PO DAILY Teriparatide [Forteo] 20 mcg SQ DAILY traZODone HCL 100 mg PO HS Ascorbic Acid [Vitamin C] 500 mg PO DAILY HYDROcodone/APAP 7.5-325MG [[place] 7.5-325] 1 tab PO BID #10 tab oxyCODONE ER [OxyCONTIN] 15 mg PO BID #10 tab Discontinued Ramipril [Altace] 5 mg PO DAILY Discharge Medication List Gabapentin [Neurontin] 300 mg PO TID 09/24/14 [History] Montelukast Sodium [Singulair] 10 mg PO QAM 09/24/14 [History] Omeprazole [PriLOSEC] 20 mg PO BID 09/24/14 [History] Albuterol Sulfate [Ventolin HFA] 2 puff INHALATION RT-Q4H PRN 04/05/16 [History] Fluticasone/Salmeterol [Advair 500-50 Diskus] 2 puff INHALATION RT-DAILY [History] Pramipexole Di-HCl [Mirapex] 1 mg PO HS 04/05/16 [History] Triamterene/Hydrochlorothiazid [Maxzide 37.5-25] 1 tab PO DAILY 04/05/16 [History] Calcium Carbonate [Calcium] 1,200 mg PO DAILY 10/12/16 [History] predniSONE 10 mg PO DAILY 10/12/16 [History] Cyanocobalamin (Vitamin B-12) [Vitamin B-12] 1,000 mcg PO DAILY 02/23/17 [History] Furosemide [Lasix] 40 mg PO DAILY 01/27/20 [History] Milnacipran HCl [Savella] 50 mg PO DAILY 01/27/20 [History] Spironolactone [Aldactone] 25 mg PO DAILY 01/27/20 [History] Teriparatide [Forteo] 20 mcg SQ DAILY 01/27/20 [History] traZODone HCL 100 mg PO HS 01/27/20 [History] Ascorbic Acid [Vitamin C] 500 mg PO DAILY 04/27/20 [History] Metoclopramide [Reglan] 10 mg PO AC-TID PRN #21 tab 04/30/20 [Rx] HYDROcodone/APAP 7.5-325MG [[place] 7.5-325] 1 tab PO BID #10 tab 05/05/20 [Rx] oxyCODONE ER [OxyCONTIN] 15 mg PO BID #10 tab 05/05/20 [Rx] Follow up Appointment(s)/Referral(s): Steven Carmen MD [Primary Care Provider] - 3 Days (05-10-2020 at 1:15pm with Rona Kelly) Kendall Holloway MD [STAFF PHYSICIAN] - 1 Week (05-11-2020 at 1:45pm) Activity/Diet/Wound Care/Special Instructions: Activity Limited until follow-up Follow-up with primary care provider upon discharge Follow-up with your surgeon outpatient Continue current Full liquid diet preferably tomato soup and advance slowly as tolerated Encourage fluids Discharge Disposition: HOME SELF-CARE
== END 2020-05-05 13:35 | disposition home or self-care (01) | DRG 392 ==
LOC: EC 07:04 → 6PED 10:14 → OBSVTOIN 04-29 14:01
PROVIDERS: ADMIT Family Medicine; ATTEND Family Medicine
PROC: 0DJ08ZZ Inspection of Upper Intestinal Tract, Via Natural or Artificial Opening Endoscopic (ICD-10-PCS; principal; 2020-04-29 07:45)
DX: K29.70 Gastritis, unspecified, without bleeding (principal); Z68.41 Body mass index [BMI] 40.0-44.9, adult; K44.9 Diaphragmatic hernia without obstruction or gangrene; K59.00 Constipation, unspecified; M79.7 Fibromyalgia; E66.01 Morbid (severe) obesity due to excess calories; G25.81 Restless legs syndrome; I10 Essential (primary) hypertension; J45.909 Unspecified asthma, uncomplicated; Z98.84 Bariatric surgery status; Z79.899 Other long term (current) drug therapy; Z80.9 Family history of malignant neoplasm, unspecified; Z90.49 Acquired absence of other specified parts of digestive tract; Z79.891 Long term (current) use of opiate analgesic; Z53.8 Procedure and treatment not carried out for other reasons; Z88.6 Allergy status to analgesic agent; Z88.5 Allergy status to narcotic agent; Z88.0 Allergy status to penicillin
CPT/HCPCS: 36415; 43239; 74022; 74177; 74240; 74248; 76380; 80048; 80053; 81001; 82150; 83690; 84484; 85025; 85610; 85730; 88305; 93005; 94640; 96361; 96374; 96375; 99285

== ENCOUNTER → 2020-05-10 | Outpatient (CLI) | payer BC ==
--- NOTE | 2020-05-10 11:23 | CT ---
EXAMINATION TYPE: CT abdomen pelvis wo con DATE OF EXAM: 05/10/2020 COMPARISON: 04/27/2020 HISTORY: Small Bowel Obstruction CT DLP: 1024.10 mGycm Examination of the solid and hollow viscera is limited given the lack of contrast. FINDINGS: LUNG BASES: No evidence for nodule. No evidence for infiltrate. LIVER/GB: Cholecystectomy clips are in place. No space-occupying hepatic lesion. PANCREAS: No pancreatic mass identified. No inflammatory process seen. SPLEEN: No evidence for splenomegaly. No intrasplenic lesions seen. ADRENALS: No adrenal nodules identified. No evidence for thickening. KIDNEYS: Indeterminate left renal lesion is not appropriately evaluated with the noncontrast evaluati on. No nephrolithiasis. No hydronephrosis. BOWEL: Again noted are changes of the Juan Carlos-en-Y gastric bypass with the hiatal hernia unchanged from prior study. Contrast is noted within the small bowel without dilatation. The distal small bowel is u nopacified at this point in time. Large bowel is of normal caliber. Lymph nodes: No evidence for adenopathy greater than 1 cm. Abdominal aorta: Atheromatous changes seen. No evidence for aneurysm. Genital organs: No significant abnormality. Other: No significant abnormality. IMPRESSION: 1.Contrast is noted within the small bowel without dilatation. The distal small bowel is unopacified at this point in time. Large bowel is of normal caliber. 2. Stable post surgical changes as noted.
== END | disposition home or self-care (01) ==
LOC: RADCTMAIN 09:36
PROVIDERS: ATTEND Surgery
DX: K56.609 Unspecified intestinal obstruction, unspecified as to partial versus complete obstruction (principal); Z90.49 Acquired absence of other specified parts of digestive tract; Z98.84 Bariatric surgery status
CPT/HCPCS: 74176

== ENCOUNTER → 2020-12-14 | Outpatient (CLI) | payer BC ==
--- NOTE | 2020-12-14 11:26 | XR ---
EXAMINATION TYPE: XR chest 2V DATE OF EXAM: 12/14/2020 COMPARISON: January 27, 2020 HISTORY: Shortness of breath TECHNIQUE: Frontal and lateral views of the chest are obtained. FINDINGS: Scattered senescent parenchymal changes noted. Hyperinflation compatible with COPD. No evidence for infiltrate. No evidence for atelectasis. Heart size is stable. Mediastinal structures are stable and grossly unremarkable. No evidence for hilar prominence. Fixed hiatal hernia redemonstrated. Degenerative changes dorsal spine. IMPRESSION: 1. No evidence for acute pulmonary disease.
== END | disposition home or self-care (01) ==
LOC: RADXRMAIN 10:52
PROVIDERS: ATTEND Family Medicine
DX: R06.02 Shortness of breath (principal)
CPT/HCPCS: 71046

== ENCOUNTER → 2021-01-12 | Outpatient (CLI) | payer BC ==
[~2021-01-12] MED LIST changes: -LACTATED RINGERS 1,000 ML IV SCH; +REGADENOSON 0.4 MG/5 ML SYRINGE IV PRN
--- NOTE | 2021-01-12 12:25 | NM ---
EXAMINATION TYPE: NM stress lexiscan cardiolite DATE OF EXAM: 01/12/2021 COMPARISON: NONE HISTORY: Chest pain TECHNIQUE: After the intravenous administration of 9.4 mCi Tc 99m Sestamibi - Cardiolite resting SPE CT images acquired 45 minutes post injection. The patient received 0.4mg Lexiscan, 25.4 mCi Tc 99m Sestamibi - Stress images obtained [address] injection FINDINGS: Review of stress and rest SPECT images demonstrates decreased perfusion involving the inferior latera l wall. I cannot exclude stress-induced ischemia. Gated analysis shows normal wall motion with an est imated left ventricular ejection fraction of 70 %. IMPRESSION: I cannot exclude stress-induced ischemia involving the inferolateral wall of the left ventricle.
--- NOTE | 2021-01-13 08:40 | EST ---
EXERCISE STRESS DATE OF SERVICE: January 12, 2021 AGE: 60 SEX: F HT: 5'1" WT: 235 lbs. PROTOCOL: Lexiscan STAGE: NA DURATION OF EXERCISE: NA HEART RATE REST: 61 BLOOD PRESSURE REST: 115/70 MAXIMUM HEART RATE ACHIEVED: 108 MAXIMUM BLOOD PRESSURE: 134/79 85% MPHR: 137 100% MPHR: 161 METS: NA STRESS DATA: Pretesting physical examination showed a heart rate of 61, pressure is 115/70 mmHg. Baseline EKG showed sinus mechanism. 0.4 mg of Lexiscan given over 15 seconds per protocol. Max heart rate was 108 beats per minute. Maximum pressure was 134/79 mmHg. Clinically, the patient did not have any symptoms and the EKG did not show any significant ST or T-wave abnormalities concerning for ischemia. CONCLUSION: 1. Nondiagnostic electrocardiogram stress testing in response to Lexiscan. 2. Please follow up on the Cardiolite portion on a separate report from Radiology Department. MMODL / IJN: [id number] /
== END | disposition home or self-care (01) ==
LOC: RADNMMAIN 01-11 08:01
PROVIDERS: ATTEND Family Medicine
DX: I47.1 Supraventricular tachycardia (principal); R07.9 Chest pain, unspecified
CPT/HCPCS: 93017; 78452; A9500; J2785

== ENCOUNTER → 2021-01-27 | Outpatient (CLI) | payer BC ==
[2021-01-27 11:15] LABS: Anisocytosis Slight; HCT 38.5 % (34.0-46.0); HGB 12.1 gm/dL (11.4-16.0); Hypochromasia Slight; MCH 25.8 pg (25.0-35.0); MCHC 31.4 g/dL (31.0-37.0); MCV 82.1 fL (80.0-100.0); Mean Platelet Volume 7.4; Platelet Count 378 k/uL (150-450); RBC 4.69 m/uL (3.80-5.40); WBC 10.5 k/uL (3.8-10.6)
[2021-01-27 11:29] LABS: Potassium 4.8 mmol/L (3.5-5.1)
== END | disposition home or self-care (01) ==
LOC: LABWHC1 10:42
PROVIDERS: ATTEND Internal Medicine Cardiovascular Disease
DX: Z01.812 Encounter for preprocedural laboratory examination (principal); R93.1 Abnormal findings on diagnostic imaging of heart and coronary circulation
CPT/HCPCS: 36415; 80051; 82565; 84520; 85027

== ENCOUNTER 2021-02-03 06:06 | Day surgery (SDC) | payer BC ==
[2021-02-02 08:51] VITALS: BMI 44.4
[2021-02-03] MEDS ORDERED: NITROGLYCERIN SL TABS 0.4 MG TAB SUBLINGUAL PRN (06:18)
[2021-02-03] MEDS ORDERED: ALPRAZolam 0.25 MG TAB PO PRN (06:18)
[2021-02-03] MEDS ORDERED: ALPRAZolam 0.5 MG TAB PO PRN (06:18)
[2021-02-03] MEDS ORDERED: SODIUM CHLORIDE 0.9% 1,000 ML in EMPTY BAG 1 BAG IV ONE (06:18)
[2021-02-03] MEDS ORDERED: HEPARIN SODIUM,PORCINE 2,500 UNIT in SODIUM CHLORIDE 0.9% 250 ML IRRIGATION PRN (07:00)
[2021-02-03] MEDS ORDERED: ATORVASTATIN 80 MG TAB PO ONE (07:00)
[2021-02-03] MEDS ORDERED: HEPARIN SODIUM,PORCINE 10,000 UNIT in SODIUM CHLORIDE 0.9% 1,000 ML IRRIGATION PRN (07:00)
[2021-02-03] MEDS ORDERED: SODIUM CHLORIDE 0.9% 1,000 ML IV ONE (07:10)
[2021-02-03 07:15] VITALS: RESP 16; TEMP 98.1
[2021-02-03] MEDS ORDERED: LIDOCAINE 1% INJ 10MG/ML (20 ML MDV) SQ ONE (07:50)
[2021-02-03] MEDS ORDERED: fentaNYL (PF) 50 MCG/ML 2 ML AMP IV ONE (07:51)
[2021-02-03] MEDS: MIDAZOLAM 2 MG/2 ML VIAL IV ONE ×2 (07:51→07:53)
[2021-02-03] MEDS ORDERED: NALOXONE 0.4 MG/ML 1 ML VIAL IV ONE (08:09)
[2021-02-03] MEDS ORDERED: FLUMAZENIL 0.1 MG/ML 5 ML VIAL IVP ONE (08:09)
[2021-02-03] MEDS ORDERED: IOPAMIDOL-370 125ML BTL INJ ONE (08:17)
--- NOTE | 2021-02-03 09:31 | CC ---
CARDIAC CATHETERIZATION REPORT INDICATION: Shortness of breath with abnormal stress test. PROCEDURE NOTE: After obtaining informed consent, left heart catheterization and coronary angiogram are performed via the right femoral artery using standard Kvng catheters. The patient tolerated the procedure well but she developed hypoxia secondary to sedation and initially had to receive nasal cannula oxygen and subsequently she had a facemask and a non-rebreather. We had to reverse both the Versed and the fentanyl that we gave her and because of the drops in saturation, GLO[employer] COMM[employer] MANAGER was called to the lab. However, she recovered uneventfully and the procedure was completed and a femoral angiogram was obtained and Angio-Seal was deployed for hemostasis. FINDINGS: HEMODYNAMICS: Left ventricular end-diastolic pressure is 12-14 mm. There is no significant gradient across the aortic valve. LEFT VENTRICULOGRAM: Not performed. ANGIOGRAPHIC DATA: LEFT MAIN CORONARY ARTERY: Left main coronary artery is a normal-sized vessel and is free of stenosis. Divides into left anterior descending coronary artery and circumflex coronary artery. LAD and its branches, circumflex coronary artery and its branches are free of significant stenosis. RIGHT CORONARY ARTERY: Right coronary artery is a codominant system and is free of significant disease. CONCLUSIONS: 1. Normal coronary arteries. 2. False-positive stress test. 3. Sedation induced hypoxia. PLAN: Patient will work on risk factor modification and medical therapy. MMODL / IJN: [id number] /
[2021-02-03] MEDS ORDERED: RX INFO: IV CONTRAST WAS GIVEN 1 EACH MISC MISCELLANE PRN (10:18)
[2021-02-03] MEDS ORDERED: SODIUM CHLORIDE 0.9% 1,000 ML IV SCH (10:30)
[2021-02-03 13:59] VITALS: BP 107/51; PULSE 58
== END 2021-02-03 14:04 | disposition home or self-care (01) ==
LOC: CATHCVL 06:06
PROVIDERS: ATTEND Internal Medicine Cardiovascular Disease
DX: R06.02 Shortness of breath (principal); R09.02 Hypoxemia
CPT/HCPCS: 93458; C1760; C1894; C1769; J2250; J2310; J2001; J3010; Q9967

== ENCOUNTER 2021-11-15 14:56 | Emergency (ER) | payer BC ==
[2021-11-15 15:01] VITALS: TEMP 98.1
[2021-11-15] MEDS ORDERED: fentaNYL (PF) 50 MCG/ML 2 ML AMP IVP STA (16:49)
--- NOTE | 2021-11-15 16:53 | ED ---
General Adult HPI - General Chief complaint: Extremity Injury, Lower Stated complaint: L hip injury Time Seen by Provider: 11/15/21 16:40 Source: patient, RN notes reviewed, old records reviewed Mode of arrival: ambulatory Limitations: no limitations - History of Present Illness Initial comments: This is a tearful 61-year-old female that presents to the emergency room with left hip pain for 5 hours. Patient states that she was trying to keep her cat from going after her bird and twisted her left hip and fell into a chair. She states that she felt a pop and has had increased hip pain since. She did go to the urgent care and had an x-ray that showed a questionable femoral head fracture and was sent to the emergency room. Patient states that she drove herself to the hospital. -: hour(s) (5) Location: left, lower extremity (hip) Severity scale (1-10): 10 Quality: constant Consistency: constant Improves with: immobilization Worsens with: movement, other (sitting) Associated Symptoms: denies other symptoms Treatments Prior to Arrival: other - Related Data Home Medications Medication Instructions Recorded Confirmed Gabapentin [Neurontin] 300 mg PO TID 09/24/14 02/03/21 Montelukast Sodium [Singulair] 10 mg PO QAM 09/24/14 02/03/21 Omeprazole [PriLOSEC] 20 mg PO BID 09/24/14 02/03/21 Albuterol Sulfate [Ventolin HFA] 2 puff INHALATION RT-Q4H PRN 04/05/16 02/03/21 Fluticasone/Salmeterol [Advair 2 puff INHALATION RT-DAILY 04/05/16 02/03/21 500-50 Diskus] Triamterene/Hydrochlorothiazid 1 tab PO DAILY 04/05/16 02/03/21 [Maxzide 37.5-25] Calcium Carbonate [Calcium] 1,200 mg PO DAILY 10/12/16 02/03/21 predniSONE 10 mg PO DAILY 10/12/16 02/03/21 Cyanocobalamin (Vitamin B-12) 1,000 mcg PO DAILY 02/23/17 02/03/21 [Vitamin B-12] Furosemide [Lasix] 40 mg PO DAILY 01/27/20 02/03/21 Milnacipran HCl [Savella] 50 mg PO DAILY 01/27/20 02/03/21 Spironolactone [Aldactone] 25 mg PO DAILY 01/27/20 02/03/21 traZODone HCL 100 mg PO HS 01/27/20 02/03/21 Ascorbic Acid [Vitamin C] 500 mg PO DAILY 04/27/20 02/03/21 Atorvastatin [Lipitor] 10 mg PO HS 02/02/21 02/03/21 DULoxetine HCL [Cymbalta] 30 mg PO DAILY 02/02/21 02/03/21 Metoprolol Succinate [Toprol XL] 50 mg PO DAILY 02/02/21 02/03/21 Pramipexole [Mirapex] 0.5 mg PO HS 02/02/21 02/03/21 Ramipril [Altace] 5 mg PO DAILY 02/02/21 02/03/21 cloNIDine HCL 0.1 mg PO HS 02/02/21 02/03/21 rOPINIRole HCL [Requip] 0.5 mg PO HS 02/02/21 02/03/21 Previous Rx's Medication Instructions Recorded HYDROcodone/APAP 7.5-325MG [[place] 1 tab PO BID #10 tab 05/05/20 7.5-325] oxyCODONE ER [OxyCONTIN] 15 mg PO BID #10 tab 05/05/20 Cyclobenzaprine [Flexeril] 5 mg PO TID PRN #10 tablet 11/15/21 Allergies Allergy/AdvReac Type Severity Reaction Status Date / Time Penicillins Allergy Intermediate Rash/Hives Verified 11/15/21 15:01 aspirin AdvReac Severe Dyspnea Verified 11/15/21 15:01 morphine AdvReac Severe Nausea & Verified 11/15/21 15:01 Vomiting Review of Systems ROS Statement: Those systems with pertinent positive or pertinent negative responses have been documented in the HPI. ROS Other: All systems not noted in ROS Statement are negative. Past Medical History Past Medical History: Asthma, Fibromyalgia Additional Past Medical History / Comment(s): hiatal hernia. CHRONIC SOB. RLS. per pt cramping really bad all over feet, legs, and arms. Swelling/edema of evelio lower extremites. Chronic blockage of the small bowel History of Any Multi-Drug Resistant Organisms: None Reported Past Surgical History: Appendectomy, Bariatric Surgery, Section, Cholecystectomy, Hernia Repair Additional Past Surgical History / Comment(s): abdominal surgeries X14. COLONOSCOPY. chronic bloackge of smalll bowel. gastric bypass Past Anesthesia/Blood Transfusion Reactions: No Reported Reaction Past Psychological History: No Psychological Hx Reported Smoking Status: Never smoker Past Alcohol Use History: None Reported Past Drug Use History: None Reported - Past Family History Mother Additional Family Medical History / Comment(s): PT ADOPTED COMPLETE FAMILY HX UNKNOWN Brother(s) Family Medical History: Cancer Additional Family Medical History / Comment(s): TWIN BROTHER FROM CANCER AGE 45 General Exam Limitations: no limitations General appearance: alert, in no apparent distress Head exam: Present: atraumatic Eye exam: Present: EOMI, conjunctival injection, other (tearful) ENT exam: Present: normal exam, normal oropharynx, mucous membranes moist Neck exam: Absent: meningismus Respiratory exam: Present: normal lung sounds bilaterally. Absent: respiratory distress, accessory muscle use Cardiovascular Exam: Present: tachycardia GI/Abdominal exam: Present: soft. Absent: distended, tenderness Left Hip exam: Present: tenderness, internal rotation, shortening. Absent: swelling, ecchymosis, deformity, erythema Neurovascular tendon exam: Present: no vascular compromise. Absent: abnormal cap refill, extremity cold to touch, pallor, foot drop Neurological exam: Present: alert, oriented X3 Psychiatric exam: Present: normal affect, normal mood, other (tearful) Skin exam: Present: warm, dry, normal color. Absent: cyanosis, diaphoretic, petechiae, pallor Course Vital Signs 11/15/21 11/15/21 14:58 18:10 Temperature 98.1 F Pulse Rate 101 H 94 Respiratory 22 18 Rate Blood Pressure 149/90 132/60 O2 Sat by Pulse 97 96 Oximetry Medical Decision Making - Medical Decision Making X-ray shows no acute osseous abnormality, mild osteoarthrosis of the left hip which is consistent with what patient states her pain is. She is neurovascularly intact. She denies any knee pain. Patient was given fentanyl for pain. She is able to stand and take 3 steps in the emergency room. She describes the pain as "soft tissue" pain. She states that she did drive herself to the hospital. She was directed to follow up with orthopedics for continuation of care. Family at bedside requesting an MRI today. I did explain that an MRI is not indicated in the emergency room setting. After lengthy discussion with family member regarding plan of care, I did encourage her to try to contact orthopedics tomorrow morning. Patient was directed not to drive a vehicle when taking flexeril. She was given a dose of Valium for muscle pain and discharged home to family member at [facility] who states will drive patient home. Vital signs are stable at discharge. Case discussed with Dr. Chon Davis Clinical Impression: Left hip pain Disposition: HOME SELF-CARE Condition: Good Instructions (If sedation given, give patient instructions): Hip Pain (ED) Additional Instructions: Rest, ice, take Tylenol and Flexeril as needed for any pain. Use the walker you have to support your weight and relieve pressure on hip when walking. Follow-up with orthopedics this week. Prescriptions: Cyclobenzaprine [Flexeril] 5 mg PO TID PRN #10 tablet PRN Reason: Pain Is patient prescribed a controlled substance at d/c from ED?: No Referrals: Antoinette Khoury DO [Primary Care Provider] - 1-2 days Joe Riley DO [Doctor of Osteopathic Medicine] - 1-2 days Time of Disposition: 18:00
--- NOTE | 2021-11-15 17:46 | XR ---
EXAMINATION TYPE: XR Hip Complete LT DATE OF EXAM: 11/15/2021 5:30 PM INDICATION: Patient age:Female; 61 years old; Reason for study: fall hip pain; COMPARISON: None. TECHNIQUE: The left hip was examined in the frontal and lateral projections and a AP pelvis. FINDINGS: Mild osteophyte formation at the superior acetabulum. No evidence of any acute osseous path ology, joint dislocation, or soft tissue swelling. Atherosclerosis of the arterial vasculature. IMPRESSION: 1. No acute osseous pathology. 2. Mild osteoarthrosis of the left hip.
[2021-11-15] MEDS ORDERED: DIAZEPAM 5 MG/ML 2 ML INJ IVP STA (17:57)
[2021-11-15] MEDS ORDERED: diazePAM 5 MG TAB PO STA (18:04)
[2021-11-15 18:11] VITALS: BP 132/60; PULSE 94; RESP 18
== END 2021-11-15 18:20 | disposition home or self-care (01) ==
LOC: EC 14:56
DX: M25.552 Pain in left hip (principal); J45.909 Unspecified asthma, uncomplicated; M79.7 Fibromyalgia; Z79.51 Long term (current) use of inhaled steroids; Z79.899 Other long term (current) drug therapy; W18.30XA Fall on same level, unspecified, initial encounter; X50.1XXA Overexertion from prolonged static or awkward postures, initial encounter
CPT/HCPCS: 73502; 99284; 96374; J3010

== ENCOUNTER 2022-03-30 10:23 | Day surgery (SDC) | payer BC ==
[2022-03-29 14:08] VITALS: BMI 45.3
[~2022-03-30 10:23] MED LIST changes: -REGADENOSON 0.4 MG/5 ML SYRINGE IV PRN; +SODIUM CHLORIDE 0.9% 1,000 ML IV SCH
[2022-03-30] MEDS ORDERED: SODIUM CHLORIDE 0.9% 500 ML 500 ML IV ONE (10:58)
[2022-03-30 11:05] VITALS: BP 144/69; PULSE 85; RESP 16; TEMP 97.9
--- NOTE | 2022-03-30 16:29 | P.EPPROC ---
- EP Procedure Note Electrophysiology Procedure Note: Diagnosis Recurrent syncope Twelve-lead EKG Sinus mechanism normal TX Normal QT interval No delta waves no epsilon waves Tilt table test per protocol Baseline blood pressure 130/74 mmHg, Baseline heart rate 85 beats a minute Patient was tilted upright at an angle of 70 per protocol no symptoms change in heart rate and blood pressure in about 10 minutes heart rate went up to 105 beats a minute and remained between 110-125 beats a minute, sinus tachycardia No change in blood pressure She complained of dizziness her blood pressure is normal, heart rate 107 beats a minute at that time When she was laid supine, heart rate immediately came down to 100 beats a minute Impression Possible orthostatic intolerance/pots No evidence for secondary neurocardiogenic phenomenon Normal twelve-lead EKG
== END 2022-03-30 15:01 | disposition home or self-care (01) ==
LOC: CATHEP 10:23
PROVIDERS: ATTEND Internal Medicine Clinical Cardiac Electrophysiology
DX: R55 Syncope and collapse (principal); I10 Essential (primary) hypertension; E78.2 Mixed hyperlipidemia; E66.01 Morbid (severe) obesity due to excess calories; Z68.42 Body mass index [BMI] 45.0-49.9, adult; Z98.84 Bariatric surgery status; G90.A Postural orthostatic tachycardia syndrome [POTS]; J45.909 Unspecified asthma, uncomplicated; Z90.49 Acquired absence of other specified parts of digestive tract; Z79.51 Long term (current) use of inhaled steroids; Z79.899 Other long term (current) drug therapy; Z79.83 Long term (current) use of bisphosphonates; Z79.891 Long term (current) use of opiate analgesic; Z79.52 Long term (current) use of systemic steroids; Z88.6 Allergy status to analgesic agent; Z88.5 Allergy status to narcotic agent; Z88.0 Allergy status to penicillin
CPT/HCPCS: 93660

== ENCOUNTER → 2023-04-09 | Outpatient (CLI) | payer BC ==
--- NOTE | 2023-04-09 21:56 | MR ---
EXAMINATION TYPE: MR brain wo/w con DATE OF EXAM: 04/09/2023 8:50 PM CLINICAL INDICATION:Female, 62 years old with history of R53.1, R41.3, H53.9; PHH, Severe memory loss ., weakness, vision and speech disturbances. COMPARISON: None TECHNIQUE: Multi planar, multi sequence imaging was performed through the brain including: T1, T2, In version recovery, susceptibility weighted imaging and gradient echo imaging and Diffusion weighted im aging. The patient was then given intravenous contrast and multi planar, T1 fat-saturation images wer e obtained. IV Contrast: 11.5 cc Gadavist FINDINGS: The bilateral hepatic campus are symmetrical without significant atrophy changes. No abnormal postcon trast enhancement. The kumar-white junctions, ventricular system, basal cisterns appear unremarkable. Diffusion-weighted imaging shows no evidence of restricted diffusion to suggest acute/subacute infar ct. Intracranial arterial flow voids are maintained. Midline structures show no abnormality. The susc eptibility weighted images do not reveal any evidence for micro-hemorrhage. After administration of g adolinium, no abnormal enhancement is seen. The bone marrow signal is within normal limits. Paranasal sinuses and mastoid air cells: Mild scattered paranasal sinus disease. Visualized orbits: Orbital contents are intact. IMPRESSION: No evidence of intracranial mass, acute/subacute infarct, or abnormal enhancement. The bilateral halima ocampus are symmetrical without signal abnormality.
== END | disposition home or self-care (01) ==
LOC: RADMRIMAIN 18:30
PROVIDERS: ATTEND Family Medicine
DX: H53.9 Unspecified visual disturbance (principal); R53.1 Weakness; R41.3 Other amnesia; R47.9 Unspecified speech disturbances
CPT/HCPCS: 70553; A9585

== ENCOUNTER 2023-07-02 20:34 | Inpatient (IN) | payer BC ==
[2023-07-02] MEDS ORDERED: PANTOPRAZOLE 40 MG/10 ML VIAL IVP STA (21:28)
[2023-07-02] MEDS ORDERED: ONDANSETRON 4 MG/2 ML VIAL IVP STA (21:28)
[2023-07-02] MEDS ORDERED: SODIUM CHLORIDE 0.9% 1,000 ML IV STA ×3 (21:28→22:52)
[2023-07-02] MEDS ORDERED: MIDODRINE 5 MG TAB PO STA ×2 (21:30→23:21)
[2023-07-02 22:02] LABS: Anisocytosis Slight; Basophils # (A) 0.1 k/uL (0-0.2); Basophils % (A) 0 %; Eosinophils # (A) 0.1 k/uL (0-0.7); Eosinophils % (A) 0 %; HCT 41.3 % (34.0-46.0); HGB 12.8 gm/dL (11.4-16.0); Hypochromasia Moderate; Lymphocytes # (A) 0.9 k/uL (1.0-4.8); Lymphocytes % (A) 5 %; MCH 23.1 pg (25.0-35.0); MCHC 31.1 g/dL (31.0-37.0); MCV 74.5 fL (80.0-100.0); Mean Platelet Volume 7.7; Microcytosis Moderate; Monocytes # (A) 0.3 k/uL (0-1.0); Monocytes % (A) 2 %; Neutrophils # (A) 17.5 k/uL (1.3-7.7); Neutrophils % (A) 92 %; Platelet Count 333 k/uL (150-450); RBC 5.54 m/uL (3.80-5.40)
[2023-07-02 22:09] LABS: VBG PH 7.23 (7.31-7.41)
[2023-07-02 22:12] LABS: Partial Thromboplastin Time 24.1 sec (22.0-30.0); Prothrombin Time 10.8 sec (10.0-12.5)
--- NOTE | 2023-07-02 22:13 | ED ---
General Adult HPI - General Chief complaint: Abdominal Pain Stated complaint: Abd Pain Time Seen by Provider: 07/02/23 21:17 Source: patient, RN notes reviewed, old records reviewed Mode of arrival: EMS Limitations: no limitations - History of Present Illness Initial comments: Patient is a 62-year-old female with multiple medical problems. Has a history of dysautonomia, chronic enlarging hiatal hernia for which she is seeing a specialist on a [facility] for, asthma, hypertension, fibromyalgia. His chronic shortness of breath as well. He has chronic abdominal pain. Presents emergency department she is having her typical chronic abdominal pain which has been explained by a hiatal hernia. Has been unchanged over the last 5-6 weeks. Is due to see a specialist on Sunday. Daughter brought her in now because she was experiencing syncopal episodes at home. This has happened in the past but because multiple occurred, she presents for further evaluation. States pain is unchanged. Patient is currently able to talk in full sentences and is alert and oriented 4. Uncertain if she took her medications today, this includes Midodrin. Denies any acute chest pain, just her typical epigastric abdominal pain that radiates across the top of her abdomen. This is unchanged from her baseline. Denies any back pain, tearing chest pain, lower abdominal pain. Denies any headaches or weakness. His no other acute complaints at this time. Has been having chronic diarrhea as well as nausea and emesis. Presents for further evaluation. Patient was placed in room one as she was having near syncopal episode while sitting in the waiting room and was found be hypotensive. - Related Data Home Medications Medication Instructions Recorded Confirmed Gabapentin [Neurontin] 300 mg PO QID 09/24/14 07/02/23 Montelukast Sodium [Singulair] 10 mg PO DAILY 09/24/14 07/02/23 Omeprazole [PriLOSEC] 20 mg PO BID 09/24/14 07/02/23 Albuterol Sulfate [Ventolin HFA] 2 puff INHALATION RT-Q4H PRN 04/05/16 07/02/23 predniSONE 10 mg PO DAILY 10/12/16 07/02/23 Furosemide [Lasix] 40 mg PO DAILY 01/27/20 07/02/23 Milnacipran HCl [Savella] 50 mg PO DAILY 01/27/20 07/02/23 Spironolactone [Aldactone] 25 mg PO DAILY 01/27/20 07/02/23 DULoxetine HCL [Cymbalta] 30 mg PO DAILY 02/02/21 07/02/23 Metoprolol Succinate [Toprol XL] 50 mg PO DAILY 02/02/21 07/02/23 Midodrine HCl [ProAmantine] 2.5 mg PO BID 07/02/23 07/02/23 lisinopriL [Zestril] 5 mg PO DAILY 07/02/23 07/02/23 oxyCODONE HCL [oxyCODONE HCL (IR)] 10 mg PO QID 07/02/23 07/02/23 Allergies Allergy/AdvReac Type Severity Reaction Status Date / Time Penicillins Allergy Intermediate Unknown Verified 07/02/23 22:53 Childhood aspirin AdvReac Severe Dyspnea Verified 07/02/23 22:53 morphine AdvReac Severe Nausea & Verified 07/02/23 22:53 Vomiting Review of Systems ROS Statement: Those systems with pertinent positive or pertinent negative responses have been documented in the HPI. Review of Systems: CONST: Denies fever EYES: Denies blurry vision ENT: Denies nasal congestion C/V: Denies Chest pain RESP: Denies shortness of breath GI: Endorses chronic abdominal pain : Denies dysuria SKIN: Denies rash. MSK: Denies joint pain. NEURO: Denies headache ROS Other: All systems not noted in ROS Statement are negative. Past Medical History Past Medical History: Asthma, Fibromyalgia, Hypertension Additional Past Medical History / Comment(s): see Dr Andrea's H&P, CHRONIC SOB,RLS ,per pt cramping really bad all over feet, legs, and arms. Swelling/edema of evelio lower extremites, Chronic blockage of the small bowel, hx ulcer History of Any Multi-Drug Resistant Organisms: None Reported Past Surgical History: Appendectomy, Bariatric Surgery, Section, Cholecystectomy, Hernia Repair Additional Past Surgical History / Comment(s): abdominal surgeries X14, sinus surgery x4,COLONOSCOPY, surgery for chronic bloackge of smalll bowel ,gastric bypass Past Anesthesia/Blood Transfusion Reactions: No Reported Reaction Past Psychological History: No Psychological Hx Reported Smoking Status: Never smoker Past Alcohol Use History: None Reported Past Drug Use History: None Reported - Past Family History Mother Additional Family Medical History / Comment(s): PT ADOPTED COMPLETE FAMILY HX UNKNOWN Brother(s) Family Medical History: Cancer Additional Family Medical History / Comment(s): TWIN BROTHER FROM CANCER AG E 45 General Exam - General Exam Comments Initial Comments: General: Appears in mild distress. HEAD: Normal with no signs of head trauma. EYES: PERRLA, EOMI, conjunctiva normal, no discharge. Pupils 2 mm and equal bilaterally. ENT: Hearing grossly intact, normal oropharynx. RESPIRATORY: Clear breath sounds bilaterally. No wheezes, rales, or rhonchi. C/V: Tachycardic. S1 and S2 auscultated, no edema, peripheral pulses 2+ and intact throughout ABD: Abdomen soft, nondistended. Minimally tender to palpation in the epigastric region. No guarding. No rebound tenderness. EXT: Normal range of motion, no obvious deformity SKIN: No rashes or lesions observed on exposed skin. NEURO: Alert and oriented x 4. Cranial nerves II-XII intact. No focal sensory or strength deficits. Limitations: no limitations Course Vital Signs 07/02/23 07/02/23 07/02/23 21:08 21:32 22:18 Temperature 99.2 F Pulse Rate 145 H 122 H Respiratory 22 19 Rate Blood Pressure 68/26 86/60 95/65 O2 Sat by Pulse 99 95 Oximetry 07/02/23 07/02/23 07/02/23 22:38 23:08 23:35 Temperature Pulse Rate 117 H 112 H 109 H Respiratory 19 19 17 Rate Blood Pressure 99/62 90/68 76/64 O2 Sat by Pulse 99 Oximetry 07/02/23 07/03/23 23:52 00:11 Temperature Pulse Rate 109 H 106 H Respiratory 17 19 Rate Blood Pressure 117/75 109/63 O2 Sat by Pulse Oximetry Medical Decision Making - Medical Decision Making Was pt. sent in by a medical professional or institution (, PA, EDUCATIONAL RESOURCE COORDINATOR, urgent care, hospital, or half-way...) When possible be specific @ -No Did you speak to anyone other than the patient for history (EMS, parent, family, police, friend...)? What history was obtained from this source @ -Patient's daughter presents and is able to provide patient's past medical history. Did you review nursing and triage notes (agree or disagree)? Why? @ -I reviewed and agree with nursing and triage notes Were old charts reviewed (outside hosp., previous admission, EMS record, old EKG, old radiological studies, urgent care reports/EKG's, half-way records)? Report findings @ -Old charts reviewed Differential Diagnosis (chest pain, altered mental status, abdominal pain women, abdominal pain men, vaginal bleeding, weakness, fever, dyspnea, syncope, headache, dizziness, GI bleed, back pain, seizure, CVA, palpatations, mental health, musculoskeletal)? @ -Differential Abdominal Pain Women: Appendicitis, Cholecystitis, diverticulosis, ischemic bowel, pancreatitis, hepatitis, UTI, gastroenteritis, AAA, incarcerated hernia, bowel obstruction, constipation, inflammatory bowel, hepatitis, peptic ulcer disease, splenic infarction, perforated viscus, vulvitis, ovarian torsion, PID, kidney stone, placenta abruption, this is not meant to be an all-inclusive list EKG interpreted by me (3pts min.). @ -As above X-rays interpreted by me (1pt min.). @ -Chest x-ray reveals no obvious acute, probably process. Radiology concern for atelectasis versus infiltrate however patient has no upper respiratory symptoms CT interpreted by me (1pt min.). @ -CT angiogram of the chest, abdomen, pelvis negative for any obvious acute aortic injury, PE, dissection. Patient has a left renal cysts which I discussed with the patient. Patient also has a hiatal hernia. U/S interpreted by me (1pt. min.). @ -None done What testing was considered but not performed or refused? (CT, X-rays, U/S, labs)? Why? @ -None What meds were considered but not given or refused? Why? @ -None Did you discuss the management of the patient with other professionals (professionals i.e. , PA, EDUCATIONAL RESOURCE COORDINATOR, lab, RT, psych nurse, social media executive, sticker hand, teacher, correctional officer captain, nurse case management)? Give summary @ -No Was smoking cessation discussed for >3mins.? @ -No Was critical care preformed (if so, how long)? @ -yes, 36 minutes Were there social determinants of health that impacted care today? How? (Homelessness, low income, unemployed, alcoholism, drug addiction, transportation, low edu. Level, literacy, decrease access to med. care, [facility], rehab)? @ -No Was there de-escalation of care discussed even if they declined (Discuss DNR or withdrawal of care, Hospice)? DNR status @ -No What co-morbidities impacted this encounter? (DM, HTN, Smoking, COPD, CAD, Cancer, CVA, ARF, Chemo, Hep., AIDS, mental health diagnosis, sleep apnea, morbid obesity)? @ -None Was patient admitted / discharged? Hospital course, mention meds given and route, prescriptions, significant lab abnormalities, going to OR and other pertinent info. @ -Based on the patient's presentation and physical exam, presents with chronic abdominal pain as well as near syncopal and syncopal episodes. Has a history of dysautonomia but unknown if this is causing her current symptoms. Does have a known hiatal hernia. Is due to see a specialist this week. Patient was hypotensive and tachycardic in triage. I did discuss with her like to obtain CT imaging has been no recent imaging. She was in agreement with this plan. Broad workup will be obtained. She'll be given a dose of her evening Midrin as well as 1 L fluid bolus and IV Protonix, Zofran and fentanyl. Patient was in agreement this plan. Vital signs are improving as patient is lying flat. EKG shows no signs of acute ischemia.Patient's imaging unremarkable. Laboratory studies remarkable for leukocytosis of 19, and acute kidney injury with an e levated BUN of 15 and creatinine of 2.09, nondetectable troponin. A negative lactic acidosis. Urinalysis negative. Viral swabs negative. Following Midrin and 2 L fluid bolus, patient's blood pressures did improve however as the patient presented hypotensive, tachycardic, with a leukocytosis patient does meet sepsis criteria. This was met at 2344. Patient was started on broad-spectrum antibiotics vancomycin and cefepime empirically. Blood cultures sent. Second IV access was obtained. After the patient. She was in agreement with the plan for admission. Syncopal/near syncopal episodes likely secondary to dysautonomia as well as dehydration and possible infection. I spoke with the accepting physician, Dr. Carmen who accepted the patient. Undiagnosed new problem with uncertain prognosis? @ -No Drug Therapy requiring intensive monitoring for toxicity (Heparin, Nitro, Insulin, Cardizem)? @ -No Were any procedures done? @ -No Diagnosis/symptom? @ -Sepsis, dehydration, acute kidney injury, near syncope, nausea and vomiting Acute, or Chronic, or Acute on Chronic? @ -Acute Uncomplicated (without systemic symptoms) or Complicated (systemic symptoms)? @ -Complicated Side effects of treatment? @ -none Exacerbation, Progression, or Severe Exacerbation] @ -no Poses a threat to life or bodily function? @ -Yes Diagnosis/symptom? @ -Chronic abdominal pain, likely secondary to hiatal hernia Acute, or Chronic, or Acute on Chronic? @ -Chronic Uncomplicated (without systemic symptoms) or Complicated (systemic symptoms)? @ -Uncomplicated Side effects of treatment? @ -none Exacerbation, Progression, or Severe Exacerbation] @ -no Poses a threat to life or bodily function? @ -no - Lab Data Result diagrams: 07/02/23 21:35 07/02/23 21:35 Lab Results 07/02/23 07/02/23 07/02/23 Range/Units 21:35 21:35 21:35 WBC 19.0 H (3.8-10.6) k/uL RBC 5.54 H (3.80-5.40) m/uL Hgb 12.8 (11.4-16.0) gm/dL Hct 41.3 (34.0-46.0) % MCV 74.5 L (80.0-100.0) fL MCH 23.1 L (25.0-35.0) pg MCHC 31.1 (31.0-37.0) g/dL RDW 19.0 H (11.5-15.5) % Plt Count 333 (150-450) k/uL MPV 7.7 Neutrophils % 92 % Lymphocytes % 5 % Monocytes % 2 % Eosinophils % 0 % Basophils % 0 % Neutrophils # 17.5 H (1.3-7.7) k/uL Lymphocytes # 0.9 L (1.0-4.8) k/uL Monocytes # 0.3 (0-1.0) k/uL Eosinophils # 0.1 (0-0.7) k/uL Basophils # 0.1 (0-0.2) k/uL Hypochromasia Moderate Anisocytosis Slight Microcytosis Moderate PT 10.8 (10.0-12.5) sec INR 1.0 (<1.2) APTT 24.1 (22.0-30.0) sec VBG pH (7.31-7.41) VBG pCO2 (37-51) mmHg VBG HCO3 (24-28) mmol/L Sodium 130 L (137-145) mmol/L Potassium 4.7 (3.5-5.1) mmol/L Chloride 104 (98-107) mmol/L Carbon Dioxide 12 L (22-30) mmol/L Anion Gap 14 mmol/L BUN 50 H (7-17) mg/dL Creatinine 2.09 H (0.52-1.04) mg/dL Est GFR (CKD-EPI)AfAm 29 (>60 ml/min/1.73 sqM) Est GFR (CKD-EPI)NonAf 25 (>60 ml/min/1.73 sqM) Glucose 136 H (74-99) mg/dL Plasma Lactic Acid Dave (0.7-2.0) mmol/L Calcium 8.8 (8.4-10.2) mg/dL Total Bilirubin 0.4 (0.2-1.3) mg/dL AST 26 (14-36) U/L ALT 14 (4-34) U/L Alkaline Phosphatase 126 (38-126) U/L Troponin I (0.000-0.034) ng/mL Total Protein 6.4 (6.3-8.2) g/dL Albumin 3.5 (3.5-5.0) g/dL Amylase 53 (30-110) U/L Lipase 131 (23-300) U/L Urine Color Urine Appearance (Clear) Urine pH (5.0-8.0) Ur Specific [place] (1.001-1.035) Urine Protein (Negative) Urine Glucose (UA) (Negative) Urine Ketones (Negative) Urine Blood (Negative) Urine Nitrite (Negative) Urine Bilirubin (Negative) Urine Urobilinogen (<2.0) mg/dL Ur Leukocyte Esterase (Negative) Influenza Type A (PCR) (Not Detectd) Influenza Type B (PCR) (Not Detectd) RSV (PCR) (Not Detectd) SARS-CoV-2 (PCR) (Not Detectd) 07/02/23 07/02/23 07/02/23 Range/Units 21:35 21:35 21:36 WBC (3.8-10.6) k/uL RBC (3.80-5.40) m/uL Hgb (11.4-16.0) gm/dL Hct (34.0-46.0) % MCV (80.0-100.0) fL MCH (25.0-35.0) pg MCHC (31.0-37.0) g/dL RDW (11.5-15.5) % Plt Count (150-450) k/uL MPV Neutrophils % % Lymphocytes % % Monocytes % % Eosinophils % % Basophils % % Neutrophils # (1.3-7.7) k/uL Lymphocytes # (1.0-4.8) k/uL Monocytes # (0-1.0) k/uL Eosinophils # (0-0.7) k/uL Basophils # (0-0.2) k/uL Hypochromasia Anisocytosis Microcytosis PT (10.0-12.5) sec INR (<1.2) APTT (22.0-30.0) sec VBG pH (7.31-7.41) VBG pCO2 (37-51) mmHg VBG HCO3 (24-28) mmol/L Sodium (137-145) mmol/L Potassium (3.5-5.1) mmol/L Chloride (98-107) mmol/L Carbon Dioxide (22-30) mmol/L Anion Gap mmol/L BUN (7-17) mg/dL Creatinine (0.52-1.04) mg/dL Est GFR (CKD-EPI)AfAm (>60 ml/min/1.73 sqM) Est GFR (CKD-EPI)NonAf (>60 ml/min/1.73 sqM) Glucose (74-99) mg/dL Plasma Lactic Acid Dave 2.0 (0.7-2.0) mmol/L Calcium (8.4-10.2) mg/dL Total Bilirubin (0.2-1.3) mg/dL AST (14-36) U/L ALT (4-34) U/L Alkaline Phosphatase (38-126) U/L Troponin I <0.012 (0.000-0.034) ng/mL Total Protein (6.3-8.2) g/dL Albumin (3.5-5.0) g/dL Amylase (30-110) U/L Lipase (23-300) U/L Urine Color Urine Appearance (Clear) Urine pH (5.0-8.0) Ur Specific [place] (1.001-1.035) Urine Protein (Negative) Urine Glucose (UA) (Negative) Urine Ketones (Negative) Urine Blood (Negative) Urine Nitrite (Negative) Urine Bilirubin (Negative) Urine Urobilinogen (<2.0) mg/dL Ur Leukocyte Esterase (Negative) Influenza Type A (PCR) Not Detected (Not Detectd) Influenza Type B (PCR) Not Detected (Not Detectd) RSV (PCR) Not Detected (Not Detectd) SARS-CoV-2 (PCR) Not Detected (Not Detectd) 07/02/23 07/02/23 Range/Units 21:57 23:38 WBC (3.8-10.6) k/uL RBC (3.80-5.40) m/uL Hgb (11.4-16.0) gm/dL Hct (34.0-46.0) % MCV (80.0-100.0) fL MCH (25.0-35.0) pg MCHC (31.0-37.0) g/dL RDW (11.5-15.5) % Plt Count (150-450) k/uL MPV Neutrophils % % Lymphocytes % % Monocytes % % Eosinophils % % Basophils % % Neutrophils # (1.3-7.7) k/uL Lymphocytes # (1.0-4.8) k/uL Monocytes # (0-1.0) k/uL Eosinophils # (0-0.7) k/uL Basophils # (0-0.2) k/uL Hypochromasia Anisocytosis Microcytosis PT (10.0-12.5) sec INR (<1.2) APTT (22.0-30.0) sec VBG pH 7.23 L (7.31-7.41) VBG pCO2 39 (37-51) mmHg VBG HCO3 16 L (24-28) mmol/L Sodium (137-145) mmol/L Potassium (3.5-5.1) mmol/L Chloride (98-107) mmol/L Carbon Dioxide (22-30) mmol/L Anion Gap mmol/L BUN (7-17) mg/dL Creatinine (0.52-1.04) mg/dL Est GFR (CKD-EPI)AfAm (>60 ml/min/1.73 sqM) Est GFR (CKD-EPI)NonAf (>60 ml/min/1.73 sqM) Glucose (74-99) mg/dL Plasma Lactic Acid Dave (0.7-2.0) mmol/L Calcium (8.4-10.2) mg/dL Total Bilirubin (0.2-1.3) mg/dL AST (14-36) U/L ALT (4-34) U/L Alkaline Phosphatase (38-126) U/L Troponin I (0.000-0.034) ng/mL Total Protein (6.3-8.2) g/dL Albumin (3.5-5.0) g/dL Amylase (30-110) U/L Lipase (23-300) U/L Urine Color Yellow Urine Appearance Clear (Clear) Urine pH 5.0 (5.0-8.0) Ur Specific [place] 1.035 (1.001-1.035) Urine Protein Trace H (Negative) Urine Glucose (UA) Negative (Negative) Urine Ketones Negative (Negative) Urine Blood Negative (Negative) Urine Nitrite Negative (Negative) Urine Bilirubin Negative (Negative) Urine Urobilinogen <2.0 (<2.0) mg/dL Ur Leukocyte Esterase Negative (Negative) Influenza Type A (PCR) (Not Detectd) Influenza Type B (PCR) (Not Detectd) RSV (PCR) (Not Detectd) SARS-CoV-2 (PCR) (Not Detectd) - EKG Data -: EKG Interpreted by Me EKG Comments: 12-lead Electrocardiogram Interpretation Note EKG was reviewed and interpreted by myself. 12-lead ECG performed at 2122 is interpreted by me as revealing sinus tachycardia at a rate of 129 beats per minute. [place] is normal. GA interval is 124 ms, QRS duration is 80 ms, QTc is 410 ms.. There were no ST or T wave abnormalities to suggest myocardial ischemia or injury. R wave progression across the precordium was satisfactory. By my interpretation this EKG is non-diagnostic for acute ischemia. Critical Care Time Critical Care Time: Yes Total Critical Care Time: 36 Disposition Clinical Impression: Sepsis, MARY (acute kidney injury), Dehydration, Nausea and vomiting Disposition: ADMITTED IP TO THIS HOSP Condition: Stable Time of Disposition: 00:01
[2023-07-02 22:24] LABS: ALT 14 U/L (4-34); AST 26 U/L (14-36); African American GFR (CKD) 29 (>60 ml/min/1.73 sqM); Albumin 3.5 g/dL (3.5-5.0); Alkaline Phosphatase 126 U/L (38-126); Amylase 53 U/L (30-110); Anion Gap 14 mmol/L; Blood Urea Nitrogen 50 mg/dL (7-17); Calcium 8.8 mg/dL (8.4-10.2); Carbon Dioxide 12 mmol/L (22-30); Chloride 104 mmol/L (98-107); Glucose 136 mg/dL (74-99); Lipase 131 U/L (23-300); Non-African American GFR(CKD) 25 (>60 ml/min/1.73 sqM); Potassium 4.7 mmol/L (3.5-5.1); Sodium 130 mmol/L (137-145); Total Bilirubin 0.4 mg/dL (0.2-1.3); Total Protein 6.4 g/dL (6.3-8.2)
--- NOTE | 2023-07-02 22:56 | XR ---
EXAM: XR Chest, 2 Views CLINICAL HISTORY: ITS.REASON XR Reason: abdominal pain TECHNIQUE: Frontal and lateral views of the chest. COMPARISON: Chest x-ray 12/14/20. FINDINGS: Lungs: Question mild left lower lobe atelectasis or infiltrate. No consolidation. Pleural space: No pneumothorax. Heart: No cardiomegaly. Mediastinum: Unremarkable. Bones/Soft Tissues: No acute abnormality. IMPRESSION: 1. Question mild left lower lobe atelectasis or infiltrate.
--- NOTE | 2023-07-02 23:10 | CT ---
EXAM: CT Angiography Chest Without and With Intravenous Contrast CLINICAL HISTORY: ITS.REASON CT Reason: low BP, chest pain. Eval for PE, Aortic injury. TECHNIQUE: Axial computed tomographic angiography images of the chest without and with intravenous contrast. CTDI is 23.6 mGy and DLP is 1732.3 mGy-cm. This CT exam was performed using one or more of the following dose reduction techniques: automated exposure control, adjustment of the mA and/or kV according to patient size, and/or use of iterative reconstruction technique. 100 ML Isovue-370 given IV. 3D and MIP reconstructed images were created and reviewed. COMPARISON: CT abdomen pelvis 05/10/2020. FINDINGS: Aorta: No dissection or aneurysm. Pulmonary arteries: No pulmonary embolism. Lungs: Stable lingular scarring, otherwise, clear. No consolidation. Pleural space: No significant effusion. No pneumothorax. Heart: No cardiomegaly. No significant pericardial effusion. Bones/joints: No acute fracture. Soft tissues: Moderate hiatal hernia, stable. Prominent mediastinal and epicardial fat, also stable. Lymph nodes: No enlarged lymph nodes. IMPRESSION: 1. No pulmonary embolism, aortic aneurysm or dissection. 2. Lungs are clear. EXAM: CT Angiography Abdomen and Pelvis Without and With Intravenous Contrast CLINICAL HISTORY: ITS.REASON CT Reason: low BP, chest pain. Eval for PE, Aortic injury. TECHNIQUE: Axial computed tomographic angiography images of the abdomen and pelvis without and with intravenous contrast. CTDI is 23.6 mGy and DLP is 1732. 3 mGy-cm. This CT exam was performed using one or more of the following dose reduction techniques: automated exposure control, adjustment of the mA and/or kV according to patient size, and/or use of iterative reconstruction technique.100 ML Isovue-370 given IV. 3D and MIP reconstructed images were created and reviewed. COMPARISON: CT abdomen pelvis 05/10/2020. FINDINGS: VASCULATURE: Aorta: No significant atherosclerosis. No aneurysm or dissection. Celiac trunk and mesenteric arteries: No occlusion. Renal arteries: No occlusion. Iliac arteries: No occlusion. ABDOMEN/PELVIS: Liver: Fatty, stable. Gallbladder and bile ducts: Cholecystectomy. No ductal dilation. Pancreas: No ductal dilation. Spleen: Unremarkable, for technique. Adrenals: Unremarkable. Kidneys and ureters: Complex, hyperdense cyst in the left kidney measures 3.3 cm, adjacent to a 17 mm simple cyst, stable. No hydronephrosis. Stomach and bowel: Anastomotic sutures in the left midabdomen, stable. No obstruction. Intraperitoneal space: No free air or fluid. Bones/joints: No acute fracture. Soft tissues: Unremarkable. Lymph nodes: No enlarged lymph nodes. Bladder: No stones. Reproductive: Unremarkable as visualized. IMPRESSION: 1. No aortic aneurysm, dissection, branch vessel occlusion or end organ ischemia. 2. Stable complex, hyperdense left renal cyst measuring 3.3 cm.
[2023-07-02] MEDS ORDERED: VANCOMYCIN IV PER PHARMACY 1 EACH MISC MISCELLANE PRN (23:46)
[2023-07-02] MEDS ORDERED: CEFEPIME 2 GM in SODIUM CHLORIDE 0.9% 100 ML IVPB STA (23:46)
[2023-07-02 23:49] LABS: Appearance,Urine Clear (Clear); Bilirubin,Urine Negative (Negative); Blood,Urine Negative (Negative); Color,Urine Yellow; Glucose,Urine (UA) Negative (Negative); Ketones,Urine Negative (Negative); Leukocyte Esterase,Urine Negative (Negative); Nitrite,Urine Negative (Negative); Protein,Urine Trace (Negative); Specific Gravity,Urine 1.035 (1.001-1.035); Urobilinogen,Urine <2.0 mg/dL (<2.0)
[2023-07-03] MEDS ORDERED: NALOXONE 0.4 MG/ML 1 ML VIAL IV PRN (00:09)
[2023-07-03] MEDS ORDERED: ACETAMINOPHEN TAB 325 MG TAB PO PRN (00:09)
[2023-07-03] MEDS: HEPARIN SODIUM,PORCINE 5,000 UNIT/ML 1 ML VIAL SQ SCH ×4 (00:52→23:45)
[2023-07-03] MEDS ORDERED: fentaNYL (PF) 50 MCG/ML 2 ML AMP IVP STA (01:15)
[2023-07-03] MEDS ORDERED: VANCOMYCIN 2,000 MG in SODIUM CHLORIDE 0.9% 500 ML 500 ML IVPB ONE (01:30)
[2023-07-03] MEDS: PANTOPRAZOLE 40 MG/10 ML VIAL IV SCH (08:19)
[2023-07-03] MEDS: ONDANSETRON 4 MG/2 ML VIAL IVP PRN (20:57)
--- NOTE | 2023-07-03 22:19 | P.CONS ---
History of Present Illness - Reason for Consult Consult date: 07/03/23 - History of Present Illness Patient is a 62-year-old female with a past medical history significant for hypertension fibromyalgia and asthma patient has been brought into the hospital for evaluation of weakness and almost passed out patient complaining of pain to the epigastric area that seem to be radiating to the left upper abdominal area/lower chest and apparently because of the pain patient mention she was almost passing out patient denies any fever or any chills no URI symptoms did have some nausea but no vomiting, did have some diarrhea which is not new for her but no blood or mucus in the stool no urinary symptoms on presentation to the hospital patient did have low-grade fever of 99.2 F patient was tachycardic but not hypotensive or hypoxic patient did have elevated white count 19,000 BUN/creatinine has been mildly elevated liver enzymes are normal amylase lipase was normal urine has been negative influenza RSV COVID testing was negative patient did have a chest x-ray questionable mild left lower lobe atelectasis or infiltrate thoracic aorta CT no pulmonary embolism aortic aneurysm or dissection lungs are clear patient has been admitted to hospital infectious disease was consulted for possible sepsis with elevated white count patient did receive cefepime in the ER and has been continued on vancomycin pharmacy to dose cultures obtained which are currently pending Past Medical History Past Medical History: Asthma, Fibromyalgia, Hypertension Additional Past Medical History / Comment(s): see Dr Andrea's H&P, CHRONIC SOB,RLS ,per pt cramping really bad all over feet, legs, and arms. Swelling/edema of evelio lower extremites, Chronic blockage of the small bowel, hx ulcer History of Any Multi-Drug Resistant Organisms: None Reported Past Surgical History: Appendectomy, Bariatric Surgery, Section, Cholecystectomy, Hernia Repair Additional Past Surgical History / Comment(s): abdominal surgeries X14, sinus surgery x4,COLONOSCOPY, surgery for chronic bloackge of smalll bowel ,gastric bypass Past Anesthesia/Blood Transfusion Reactions: No Reported Reaction Past Psychological History: No Psychological Hx Reported Smoking Status: Never smoker Past Alcohol Use History: None Reported Past Drug Use History: None Reported - Past Family History Mother Additional Family Medical History / Comment(s): PT ADOPTED COMPLETE FAMILY HX UNKNOWN Brother(s) Family Medical History: Cancer Additional Family Medical History / Comment(s): TWIN BROTHER FROM CANCER AGE 45 Medications and Allergies Home Medications Medication Instructions Recorded Confirmed Type Gabapentin [Neurontin] 300 mg PO QID 09/24/14 07/02/23 History Montelukast Sodium [Singulair] 10 mg PO DAILY 09/24/14 07/02/23 History Omeprazole [PriLOSEC] 20 mg PO BID 09/24/14 07/02/23 History Albuterol Sulfate [Ventolin HFA] 2 puff INHALATION RT-Q4H PRN 04/05/16 07/02/23 History predniSONE 10 mg PO DAILY 10/12/16 07/02/23 History Furosemide [Lasix] 40 mg PO DAILY 01/27/20 07/02/23 History Milnacipran HCl [Savella] 50 mg PO DAILY 01/27/20 07/02/23 History Spironolactone [Aldactone] 25 mg PO DAILY 01/27/20 07/02/23 History DULoxetine HCL [Cymbalta] 30 mg PO DAILY 02/02/21 07/02/23 History Metoprolol Succinate [Toprol XL] 50 mg PO DAILY 02/02/21 07/02/23 History Midodrine HCl [ProAmantine] 2.5 mg PO BID 07/02/23 07/02/23 History lisinopriL [Zestril] 5 mg PO DAILY 07/02/23 07/02/23 History oxyCODONE HCL [oxyCODONE HCL (IR)] 10 mg PO QID 07/02/23 07/02/23 History Allergies Allergy/AdvReac Type Severity Reaction Status Date / Time Penicillins Allergy Intermediate Unknown Verified 07/02/23 22:53 Childhood aspirin AdvReac Severe Dyspnea Verified 07/02/23 22:53 morphine AdvReac Severe Nausea & Verified 07/02/23 22:53 Vomiting Physical Exam Vitals: Vital Signs Temp Pulse Resp BP Pulse Ox 07/03/23 10:00 103 H 18 112/70 95 07/03/23 06:21 98.0 F 101 H 16 98/78 95 07/03/23 05:05 105 H 17 123/83 07/03/23 03:39 101 H 19 109/66 07/03/23 01:54 103 H 17 96/77 07/03/23 00:11 106 H 19 109/63 07/02/23 23:52 109 H 17 117/75 07/02/23 23:35 109 H 17 76/64 07/02/23 23:08 112 H 19 90/68 07/02/23 22:38 117 H 19 99/62 99 07/02/23 22:18 95/65 07/02/23 21:32 122 H 19 86/60 95 07/02/23 21:08 99.2 F 145 H 22 68 99 Intake and Output 07/02/23 07/03/23 07/03/23 22:59 06:59 14:59 Other: Weight 108.409 kg Results CBC & Chem 7: 07/04/23 08:25 07/04/23 08:25 Labs: Abnormal Lab Results - Last 24 Hours (Table) 07/02/23 07/02/23 07/02/23 Range/Units 21:35 21:35 21:57 WBC 19.0 H (3.8-10.6) k/uL RBC 5.54 H (3.80-5.40) m/uL MCV 74.5 L (80.0-100.0) fL MCH 23.1 L (25.0-35.0) pg RDW 19.0 H (11.5-15.5) % Neutrophils # 17.5 H (1.3-7.7) k/uL Lymphocytes # 0.9 L (1.0-4.8) k/uL VBG pH 7.23 L (7.31-7.41) VBG HCO3 16 L (24-28) mmol/L Sodium 130 L (137-145) mmol/L Carbon Dioxide 12 L (22-30) mmol/L BUN 50 H (7-17) mg/dL Creatinine 2.09 H (0.52-1.04) mg/dL Glucose 136 H (74-99) mg/dL Urine Protein (Negative) 07/02/23 Range/Units 23:38 WBC (3.8-10.6) k/uL RBC (3.80-5.40) m/uL MCV (80.0-100.0) fL MCH (25.0-35.0) pg RDW (11.5-15.5) % Neutrophils # (1.3-7.7) k/uL Lymphocytes # (1.0-4.8) k/uL VBG pH (7.31-7.41) VBG HCO3 (24-28) mmol/L Sodium (137-145) mmol/L Carbon Dioxide (22-30) mmol/L BUN (7-17) mg/dL Creatinine (0.52-1.04) mg/dL Glucose (74-99) mg/dL Urine Protein Trace H (Negative) Assessment and Plan Plan: 1patient presented to hospital with weakness also complaining of pain to the epigastric area radiating to the left upper abdominal/lower chest area patient did have a low-grade fever of 99 degrees on hide also noticed to have elevated white count did have a CT chest negative for pneumonia urine has been negative likely concerning for intra-abdominal process 2-patient with a borderline kidney function high risk of nephrotoxicity 3-penicillin allergy that will limit the number of antibiotics safe to use 4-we will discontinue vancomycin to decrease risk of nephrotoxicity clinic suspicion low for gram-positive infection 5-obtain CT of abdominal pelvis with oral contrast to define intra-abdominal pathology 6-we will empirically covered with the cefepime and Flagyl while waiting for the workup to be completed We will follow on clinical condition and cultures to further adjust medication if needed Thank you for this consultation we will follow the patient along with you Dictation was produced using [employer] dictation software. please excuse any grammatical, word or spelling errors. Time with Patient: Greater than 30
[2023-07-03] MEDS: metroNIDAZOLE 500 MG TAB PO SCH (23:37)
[2023-07-03] MEDS: CEFEPIME 2 GM in SODIUM CHLORIDE 0.9% 100 ML IVPB SCH (23:38)
[2023-07-04] MEDS ORDERED: VANCOMYCIN 2,000 MG in SODIUM CHLORIDE 0.9% 500 ML 500 ML IVPB ONE (06:00)
--- NOTE | 2023-07-04 08:25 | P.HPIM ---
History of Present Illness H&P Date: 07/03/23 Chief Complaint: weakness, abd pain Josee Cooper is a 62 yo F with PMH of morbid obesity, chronic abdominal pain, history of abdominal adhesions related to previous gastric bypass surgery, systolic CHF who presented to the ED complaining of weakness and increased abdominal pain. She states she has been feeling like she is going to pass out, more difficulty with ambulating and felt confused so came to the hospital. She denies any fever, chills, sore throat, congestion or cough. She denies diarrhea. On presentation pt did have a temp of 99, tachycardic, WBC 19k, Hgb 12.8. Cr 2.[address] thoracic aorta no PE and no evidence of pneumonia. Influenza and RSV negative, Covid negative, UA negative. Review of Systems All systems: negative Constitutional: Reports malaise, Reports weakness, Denies chills, Denies fever Eyes: denies blurred vision, denies pain Ears, nose, mouth and throat: Denies headache, Denies sore throat Cardiovascular: Denies chest pain, Denies shortness of breath Respiratory: Denies cough Gastrointestinal: Reports abdominal pain, Denies diarrhea, Denies nausea, Denies vomiting Genitourinary: Denies dysuria, Denies hematuria Musculoskeletal: Denies myalgias Integumentary: Denies pruritus, Denies rash Neurological: Denies numbness, Denies weakness Psychiatric: Denies anxiety, Denies depression Endocrine: Denies fatigue, Denies weight change Past Medical History Past Medical History: Asthma, Fibromyalgia, Hypertension Additional Past Medical History / Comment(s): see Dr Andrea's H&P, CHRONIC SOB,RLS ,per pt cramping really bad all over feet, legs, and arms. Swelling/edema of evelio lower extremites, Chronic blockage of the small bowel, hx ulcer History of Any Multi-Drug Resistant Organisms: None Reported Past Surgical History: Appendectomy, Bariatric Surgery, Section, Cholecystectomy, Hernia Repair Additional Past Surgical History / Comment(s): abdominal surgeries X14, sinus surgery x4,COLONOSCOPY, surgery for chronic bloackge of smalll bowel ,gastric bypass Past Anesthesia/Blood Transfusion Reactions: No Reported Reaction Past Psychological History: No Psychological Hx Reported Smoking Status: Never smoker Past Alcohol Use History: None Reported Past Drug Use History: None Reported - Past Family History Mother Additional Family Medical History / Comment(s): PT ADOPTED COMPLETE FAMILY HX UNKNOWN Brother(s) Family Medical History: Cancer Additional Family Medical History / Comment(s): TWIN BROTHER FROM CANCER AGE 45 Medications and Allergies Home Medications Medication Instructions Recorded Confirmed Type Gabapentin [Neurontin] 300 mg PO QID 09/24/14 07/02/23 History Montelukast Sodium [Singulair] 10 mg PO DAILY 09/24/14 07/02/23 History Omeprazole [PriLOSEC] 20 mg PO BID 09/24/14 07/02/23 History Albuterol Sulfate [Ventolin HFA] 2 puff INHALATION RT-Q4H PRN 04/05/16 07/02/23 History predniSONE 10 mg PO DAILY 10/12/16 07/02/23 History Furosemide [Lasix] 40 mg PO DAILY 01/27/20 07/02/23 History Milnacipran HCl [Savella] 50 mg PO DAILY 01/27/20 07/02/23 History Spironolactone [Aldactone] 25 mg PO DAILY 01/27/20 07/02/23 History DULoxetine HCL [Cymbalta] 30 mg PO DAILY 02/02/21 07/02/23 History Metoprolol Succinate [Toprol XL] 50 mg PO DAILY 02/02/21 07/02/23 History Midodrine HCl [ProAmantine] 2.5 mg PO BID 07/02/23 07/02/23 History lisinopriL [Zestril] 5 mg PO DAILY 07/02/23 07/02/23 History oxyCODONE HCL [oxyCODONE HCL (IR)] 10 mg PO QID 07/02/23 07/02/23 History Allergies Allergy/AdvReac Type Severity Reaction Status Date / Time Penicillins Allergy Intermediate Unknown Verified 07/02/23 22:53 Childhood aspirin AdvReac Severe Dyspnea Verified 07/02/23 22:53 morphine AdvReac Severe Nausea & Verified 07/02/23 22:53 Vomiting Physical Exam Vitals: Vital Signs Temp Pulse Pulse Resp BP BP Pulse Ox 07/04/23 02:00 98.4 F 96 17 107/69 99 07/03/23 20:00 98.3 F 91 16 114/80 97 07/03/23 19:53 105/80 07/03/23 15:00 97 18 103/63 97 07/03/23 10:00 103 H 18 112/70 95 Intake and Output 07/03/23 07/04/23 07/04/23 22:59 06:59 14:59 Other: Voiding Method Toilet # Voids 1 Gen: morbidly obese, NAD, well developed HEENT: NC/AT, mmm Neck: supple, no JVD or thyromegaly CV: RRR, no murmur Lungs: Normal effort, no wheezes, rales or rhonchi Abd: soft, tender to palpation diffusely Neuro: AAOx3, no focal deficit Skin: warm and dry Results CBC & Chem 7: 07/02/23 21:35 07/02/23 21:35 Assessment and Plan Plan: Sepsis. Consider enteritis vs cystitis. Admit, start IV abx. ID consult. Follow blood cultures and check procalcitonin Hypotension. Cardiorenal syndrome. Hold lisinopril. Continue with metoprolol and cardiology to evaluate Fibromyalgia. Continue cymbalta Lovenox for DVT prophylaxis
[2023-07-04 08:49] LABS: Anisocytosis Slight; Basophils % (A) 0 %; Eosinophils # (A) 0.5 k/uL (0-0.7); Eosinophils % (A) 6 %; HCT 32.9 % (34.0-46.0); HGB 10.4 gm/dL (11.4-16.0); Hypochromasia Moderate; Lymphocytes # (A) 1.7 k/uL (1.0-4.8); Lymphocytes % (A) 23 %; MCH 23.5 pg (25.0-35.0); MCHC 31.7 g/dL (31.0-37.0); MCV 74.3 fL (80.0-100.0); Mean Platelet Volume 8.1; Microcytosis Moderate; Monocytes # (A) 0.4 k/uL (0-1.0); Monocytes % (A) 5 %; Neutrophils # (A) 4.8 k/uL (1.3-7.7); Neutrophils % (A) 63 %; Platelet Count 266 k/uL (150-450); RBC 4.43 m/uL (3.80-5.40); RDW 19.1 % (11.5-15.5); WBC 7.5 k/uL (3.8-10.6)
[2023-07-04] MEDS: PANTOPRAZOLE 40 MG/10 ML VIAL IV SCH (08:57)
[2023-07-04] MEDS: CEFEPIME 2 GM in SODIUM CHLORIDE 0.9% 100 ML IVPB SCH ×2 (08:58→20:57)
[2023-07-04] MEDS: metroNIDAZOLE 500 MG TAB PO SCH ×3 (08:58→21:02)
[2023-07-04] MEDS: GABAPENTIN 300 MG CAP PO SCH ×4 (08:58→21:02)
[2023-07-04] MEDS: DULoxetine HCL 30 MG CAPSULE.DR PO SCH (08:59)
[2023-07-04] MEDS ORDERED: SPIRONOLACTONE 25 MG TAB PO SCH (09:00)
[2023-07-04] MEDS ORDERED: METOPROLOL SUCCINATE (ER) 50 MG TAB.ER.24H PO SCH (09:00)
[2023-07-04] MEDS ORDERED: ENOXAPARIN 30 MG/0.3 ML SYRINGE SQ SCH (09:00)
[2023-07-04] MEDS ORDERED: ENOXAPARIN 40 MG/0.4 ML SYRINGE SQ SCH (09:00)
[2023-07-04 09:04] LABS: African American GFR (CKD) >90 (>60 ml/min/1.73 sqM); Anion Gap 11 mmol/L; Blood Urea Nitrogen 17 mg/dL (7-17); Calcium 8.7 mg/dL (8.4-10.2); Carbon Dioxide 12 mmol/L (22-30); Chloride 113 mmol/L (98-107); Glucose 89 mg/dL (74-99); Non-African American GFR(CKD) 89 (>60 ml/min/1.73 sqM); Sodium 136 mmol/L (137-145)
[2023-07-04] MEDS: HEPARIN SODIUM,PORCINE 5,000 UNIT/ML 1 ML VIAL SQ SCH (09:07)
--- NOTE | 2023-07-04 09:40 | P.CRDCN ---
History of Present Illness History of present illness: HISTORY OF PRESENT ILLNESS: This is a 62-year-old female with a past medical history significant for hiatal hernia, chronic abdominal pain, dysautonomia, and hypertension. Patient follows in the office with Dr. Tyson. We have been asked to see the patient in consult ation for hypotension. Patient examined at the bedside. Patient was brought to the hospital secondary to presyncope. Patient was found to have leukocytosis and was also hypotensive with a BP of 68/26 and 86/60. The patient received 2 L in fluid boluses and was started on maintenance IV fluids. Patient's blood pressure has improved. Chest pain or pressure. She denies shortness of breath. She does report continued abdominal pain this morning. She has been evaluated by infectious disease and is scheduled to undergo CT abdomen and pelvis today. His blood pressure 117/82. * EKG reveals sinus tachycardia with no signs of acute ischemia * CTA of the chest was negative for pulmonary embolism, aortic aneurysm, or dissection. * Chest xray questionable left lower lobe atelectasis versus infiltrate * Laboratory data: WBC 19.0. Hemoglobin 12.8. Platelet count 333. Sodium 130. Potassium 4.7 BUN 50. Creatinine 2.09. Troponin negative 1. * Most recent echocardiogram obtained in January 2020 revealed ejection fraction 60-65%, mild mitral regurgitation * Cardiac catheterization history: January 2021 revealing normal coronary arteries REVIEW OF SYSTEMS: At the time of my exam: CONSTITUTIONAL: Denies fever or chills. HEENT: Denies blurred vision, vision changes, or eye pain. Denies hemoptysis CARDIOVASCULAR: Denies chest pain. Denies orthopnea. Denies PND. Denies palpitations RESPIRATORY: Denies shortness of breath. GASTROINTESTINAL: Denies abdominal pain. Denies nausea or vomiting. HEMATOLOGIC: Denies bleeding disorders. GENITOURINARY: Denies any blood in urine. SKIN: Denies pruitis. Denies rash. PHYSICAL EXAM: VITAL SIGNS: Reviewed. GENERAL: Well-developed in no acute distress. HEENT: Head is normocephalic. Pupils are equal, round. Sclerae anicteric. Mucous membranes of the mouth are moist. Neck supple. No JVD or thyromegaly LUNGS: Respirations even and unlabored. Lungs essentially clear to auscultation bilaterally. HEART: Regular rate and rhythm. S1 and S2 heard. ABDOMEN: Soft. Nondistended. Nontender. EXTREMITIES: Normal range of motion. No clubbing or cyanosis. Peripheral pulses intact. No lower extremity edema NEUROLOGIC: Awake and alert. Oriented x 3. ASSESSMENT: Presyncope Leukocytosis Hypotension, resolved Acute kidney injury History of dysautonomia History of hypertension Chronic abdominal pain History of hiatal hernia PLAN: Obtain 2-D echo to assess cardiac structure and function Lisinopril and diuretics on hold secondary to acute kidney injury Discontinue metoprolol Resume home dose of midodrine Continue to monitor blood pressure Further recommendations pending patient's course Nurse practitioner note has been reviewed by physician. Signing provider agrees with the documented findings, assessment, and plan of care. Past Medical History Past Medical History: Asthma, Fibromyalgia, Hypertension Additional Past Medical History / Comment(s): see Dr Andrea's H&P, CHRONIC SOB,RLS ,per pt cramping really bad all over feet, legs, and arms. Swelling /edema of evelio lower extremites, Chronic blockage of the small bowel, hx ulcer History of Any Multi-Drug Resistant Organisms: None Reported Past Surgical History: Appendectomy, Bariatric Surgery, Section, Cholecystectomy, Hernia Repair Additional Past Surgical History / Comment(s): abdominal surgeries X14, sinus surgery x4,COLONOSCOPY, surgery for chronic bloackge of smalll bowel ,gastric bypass Past Anesthesia/Blood Transfusion Reactions: No Reported Reaction Past Psychological History: No Psychological Hx Reported Smoking Status: Never smoker Past Alcohol Use History: None Reported Past Drug Use History: None Reported - Past Family History Mother Additional Family Medical History / Comment(s): PT ADOPTED COMPLETE FAMILY HX U NKNOWN Brother(s) Family Medical History: Cancer Additional Family Medical History / Comment(s): TWIN BROTHER FROM CANCER AGE 45 Medications and Allergies Home Medications Medication Instructions Recorded Confirmed Type Gabapentin [Neurontin] 300 mg PO QID 09/24/14 07/02/23 History Montelukast Sodium [Singulair] 10 mg PO DAILY 09/24/14 07/02/23 History Omeprazole [PriLOSEC] 20 mg PO BID 09/24/14 07/02/23 History Albuterol Sulfate [Ventolin HFA] 2 puff INHALATION RT-Q4H PRN 04/05/16 07/02/23 History predniSONE 10 mg PO DAILY 10/12/16 07/02/23 History Furosemide [Lasix] 40 mg PO DAILY 01/27/20 07/02/23 History Milnacipran HCl [Savella] 50 mg PO DAILY 01/27/20 07/02/23 History Spironolactone [Aldactone] 25 mg PO DAILY 01/27/20 07/02/23 History DULoxetine HCL [Cymbalta] 30 mg PO DAILY 02/02/21 07/02/23 History Metoprolol Succinate [Toprol XL] 50 mg PO DAILY 02/02/21 07/02/23 History Midodrine HCl [ProAmantine] 2.5 mg PO BID 07/02/23 07/02/23 History lisinopriL [Zestril] 5 mg PO DAILY 07/02/23 07/02/23 History oxyCODONE HCL [oxyCODONE HCL (IR)] 10 mg PO QID 07/02/23 07/02/23 History Allergies Allergy/AdvReac Type Severity Reaction Status Date / Time Penicillins Allergy Intermediate Unknown Verified 07/02/23 22:53 Childhood aspirin AdvReac Severe Dyspnea Verified 07/02/23 22:53 morphine AdvReac Severe Nausea & Verified 07/02/23 22:53 Vomiting Physical Exam Vitals: Vital Signs Temp Pulse Resp BP Pulse Ox 07/03/23 10:00 103 H 18 112/70 95 07/03/23 06:21 98.0 F 101 H 16 98/78 95 07/03/23 05:05 105 H 17 123/83 07/03/23 03:39 101 H 19 109/66 07/03/23 01:54 103 H 17 96/77 07/03/23 00:11 106 H 19 109/63 07/02/23 23:52 109 H 17 117/75 07/02/23 23:35 109 H 17 76/64 07/02/23 23:08 112 H 19 90/68 07/02/23 22:38 117 H 19 99/62 99 07/02/23 22:18 95/65 07/02/23 21:32 122 H 19 86/60 95 07/02/23 21:08 99.2 F 145 H 22 68/ 99 Intake and Output 07/02/23 07/03/23 07/03/23 22:59 06:59 14:59 Other: Weight 108.409 kg Results 07/04/23 08:25 07/04/23 08:25 Cardiac Enzymes 07/02/23 07/02/23 Range/Units 21:35 21:35 AST 26 (14-36) U/L Troponin I <0.012 (0.000-0.034) ng/mL Coagulation 07/02/23 Range/Units 21:35 PT 10.8 (10.0-12.5) sec APTT 24.1 (22.0-30.0) sec CBC 07/02/23 Range/Units 21:35 WBC 19.0 H (3.8-10.6) k/uL RBC 5.54 H (3.80-5.40) m/uL Hgb 12.8 (11.4-16.0) gm/dL Hct 41.3 (34.0-46.0) % Plt Count 333 (150-450) k/uL Comprehensive Metabolic Panel 07/02/23 Range/Units 21:35 Sodium 130 L (137-145) mmol/L Potassium 4.7 (3.5-5.1) mmol/L Chloride 104 (98-107) mmol/L Carbon Dioxide 12 L (22-30) mmol/L BUN 50 H (7-17) mg/dL Creatinine 2.09 H (0.52-1.04) mg/dL Glucose 136 H (74-99) mg/dL Calcium 8.8 (8.4-10.2) mg/dL AST 26 (14-36) U/L ALT 14 (4-34) U/L Alkaline Phosphatase 126 (38-126) U/L Total Protein 6.4 (6.3-8.2) g/dL Albumin 3.5 (3.5-5.0) g/dL Current Medications Generic Name Dose Route Start Last Admin Trade Name Freq PRN Reason Stop Dose Admin Acetaminophen 650 mg 07/03/23 00:09 Acetaminophen Tab 325 Mg Tab PO Q6HR PRN Mild Pain or Fever > 100.5 Heparin Sodium (Porcine) 5,000 unit 07/03/23 00:15 07/03/23 08:19 Heparin Sodium,Porcine 5,000 Unit/Ml 1 Ml Vial SQ 5,000 unit Q8HR FRANKIE Administration Vancomycin HCl 2,000 mg/ 500 mls @ 167 mls/hr 07/04/23 06:00 Sodium Chloride IVPB 07/04/23 08:59 ONCE ONE Miscellaneous Information 1 each 07/02/23 23:46 Vancomycin Iv Per Pharmacy 1 Each Misc MISCELLANE DIRECTED PRN Per Protocol Protocol Naloxone HCl 0.2 mg 07/03/23 00:09 Naloxone 0.4 Mg/Ml 1 Ml Vial IV Q2M PRN Opioid Reversal Ondansetron HCl 4 mg 07/03/23 00:09 Ondansetron 4 Mg/2 Ml Vial IVP Q8HR PRN Nausea And Vomiting Pantoprazole Sodium 40 mg 07/03/23 09:00 07/03/23 08:19 Pantoprazole 40 Mg/10 Ml Vial IV 40 mg DAILY FRANKIE Administration Intake and Output 07/02/23 07/03/23 07/03/23 22:59 06:59 14:59 Other: Weight 108.409 kg 07/02/23 21:35 07/02/23 21:35
--- NOTE | 2023-07-04 09:55 | CA ---
Transthoracic Echo Report Name: Josee Cooper Age: 62 Gender: F : 1960 Exam Date: 07/03/2023 14:22 Exam Location: [facility] Ht (in): 61 Wt (lb): 239 Ordering Physician: Steven Carmen MD Attending/Referring Phys: Clutch Rebuilder Zackary Mai RD Procedure CPT: Indications: Hypotension Cardiac Hx: Technical Quality: Fair Contrast 1: Total Dose (mL): Contrast 2: Total Dose (mL): MEASUREMENTS (Male / Female) Normal Values 2D ECHO LV Diastolic Diameter PLAX 3.5 cm 4.2 - 5.9 / 3.9 - 5.3 cm LV Systolic Diameter PLAX 2.6 cm IVS Diastolic Thickness 0.6 cm 0.6 - 1.0 / 0.6 - 0.9 cm LVPW Diastolic Thickness 1.0 cm 0.6 - 1.0 / 0.6 - 0.9 cm LV Relative Wall Thickness 0.5 RV Internal Dim ED PLAX 2.8 cm LVOT Diameter 2.0 cm Aortic Root Diameter 2.6 cm LA Systolic Diameter LX 2.7 cm 3.0 - 4.0 / 2.7 - 3.8 cm LV Diastolic Volume MOD BP 46.2 cm??? 67 - 155 / 56 - 104 cm??? LV Systolic Volume MOD BP 17.3 cm??? / 19 - 49 cm??? LV Ejection Fraction MOD BP 62.5 % >= 55 % LV Cardiac Index MOD BP 1243.7 cm???/min???m??? LV Diastolic Volume MOD 4C 53.0 cm??? LV Systolic Volume MOD 4C 14.7 cm??? LV Ejection Fraction MOD 4C 72.2 % LV Cardiac Index MOD 4C 1648.1 cm???/min???m??? LV Diastolic Length 4C 6.6 cm LV Systolic Length 4C 5.9 cm LV Diastolic Volume MOD 2C 39.5 cm??? LV Systolic Volume MOD 2C 20.4 cm??? LV Ejection Fraction MOD 2C 48.3 % LV Cardiac Index MOD 2C 822.2 cm???/min???m??? LV Diastolic Length 2C 6.8 cm LV Systolic Length 2C 5.9 cm LA Volume 38.2 cm??? - / 22 - 52 cm??? LA Volume Index 17.1 cm???/m??? 16 - 28 cm???/m??? DOPPLER AV Peak Velocity 170.3 cm/s AV Peak Gradient 11.6 mmHg LVOT Peak Velocity 135.1 cm/s LVOT Peak Gradient 7.3 mmHg LVOT Velocity Time Integral 24.2 cm LVOT Stroke Volume 74.5 cm??? LVOT Stroke Volume Index 36.6 ml/m??? LVOT Cardiac Index 3214.4 cm???/min???m??? AV Area Cont Eq pk 2.4 cm??? MV Peak Velocity 116.7 cm/s MV Peak Gradient 5.4 mmHg MV Mean Velocity 70.2 cm/s MV Mean Gradient 2.3 mmHg MV Velocity Time Integral 30.6 cm MR Peak Velocity 152.9 cm/s MR Peak Gradient 9.4 mmHg Mitral E Point Velocity 84.3 cm/s Mitral A Point Velocity 96.8 cm/s Mitral E to A Ratio 0.9 MV Deceleration Time 225.2 ms MV E' Velocity 7.4 cm/s Mitral E to MV E' Ratio 11.3 TR Peak Velocity 144.3 cm/s TR Peak Gradient 8.3 mmHg Right Ventricular Systolic Press 13.3 mmHg PV Peak Velocity 112.5 cm/s PV Peak Gradient 5.1 mmHg FINDINGS Left Ventricle Normal LV size and wall thickness. Left ventricular ejection fraction is estimated at 50-55 %. Right Ventricle Normal right ventricular size and function. Right Atrium Normal right atrial size. Left Atrium Normal left atrial size. Mitral Valve Structurally normal mitral valve. Trace MR. Aortic Valve Aortic valve not well visualized. Trileaflet aortic valve. No aortic stenosis. No aortic regurgitation. Tricuspid Valve Tricuspid valve not well visualized. Trace TR. Pulmonic Valve Pulmonic valve not well visualized. No pulmonic regurgitation. Pericardium Normal pericardium. Aorta Normal size aortic root. CONCLUSIONS Normal size and systolic function Previewed by: Dr. Westley Andrea MD (Electronically Signed) Final Date: 04 July 2023 09:54
[2023-07-04] MEDS: MIDODRINE 5 MG TAB PO SCH ×2 (10:30→21:02)
[2023-07-04] MEDS: IOPAMIDOL CONTRAST (ORAL USE) VIAL PO PRN ×2 (10:55→11:58)
--- NOTE | 2023-07-04 11:57 | P.PN ---
Subjective Progress Note Date: 07/04/23 Principal diagnosis: Reason for follow-up is SIRS/sepsis leukocytosis Patient is a 62-year-old female with a past medical history significant for hypertension fibromyalgia and asthma patient has been brought into the hospital for evaluation of weakness and almost passed out patient complaining of pain to the epigastric area and also noticed to have low-grade fever and elevated white count, CT was negative for any pneumonia. On today's evaluation that is 07/04/2023, the patient continues to be afebrile patient is breathing comfortably on room air, no need for supplemental oxygen, patient denies any chest pain or cough, still complaining of pain to the epigastric area radiating to the left side some Nausea but no vomiting and did not have a bowel movement. Patient white count normalized to 7.5, creatinine 0.[address] is pending Objective - Vital Signs Vital signs: Vital Signs Temp 98.3 F 07/04/23 08:00 Pulse 98 07/04/23 08:00 Resp 17 07/04/23 02:00 BP 117/82 07/04/23 08:00 Pulse Ox 100 07/04/23 08:00 FiO2 Intake & Output 07/03/23 07/04/23 07/04/23 18:59 06:59 18:59 Weight 108.409 kg Other: Voiding Method Toilet # Voids 1 - Exam GENERAL DESCRIPTION: Middle-aged female lying in bed in no distress RESPIRATORY SYSTEM: Unlabored breathing , decreased breath sounds at bases HEART: S1 S2 regular rate and rhythm , ABDOMEN: Soft , no tenderness EXTREMITIES: No edema feet - Labs CBC & Chem 7: 07/04/23 08:25 07/04/23 08:25 Labs: Abnormal Lab Results - Last 24 Hours (Table) 07/04/23 07/04/23 Range/Units 08:25 08:25 Hgb 10.4 L (11.4-16.0) gm/dL Hct 32.9 L (34.0-46.0) % MCV 74.3 L (80.0-100.0) fL MCH 23.5 L (25.0-35.0) pg RDW 19.1 H (11.5-15.5) % Sodium 136 L (137-145) mmol/L Chloride 113 H (98-107) mmol/L Carbon Dioxide 12 L (22-30) mmol/L Assessment and Plan (1) Penicillin allergy Current Visit: Yes Status: Acute Code(s): Z88.0 - ALLERGY STATUS TO PENICILLIN SNOMED Code(s): 60198586 (2) Sepsis Current Visit: Yes Status: Acute Code(s): A41.9 - SEPSIS, UNSPECIFIED ORGANISM SNOMED Code(s): 69798304 (3) Abdominal pain Current Visit: No Status: Acute Code(s): R10.9 - UNSPECIFIED ABDOMINAL PAIN SNOMED Code(s): 74184547 Plan: 1patient presented to hospital with weakness also complaining of pain to the epigastric area radiating to the left upper abdominal/lower chest area patient did have a low-grade fever of 99 degrees Fahrenheit also noticed to have elevated white count did have a CT chest negative for pneumonia urine has been negative likely concerning for intra-abdominal process 2-patient with a borderline kidney function high risk of nephrotoxicity 3-penicillin allergy that will limit the number of antibiotics safe to use 4-currently waiting for CT of abdominal pelvis with oral contrast to define intra-abdominal pathology 5patient to continue with the cefepime and Flagyl while waiting for the workup to be completed Dictation was produced using [employer] dictation software. please excuse any grammatical, word or spelling errors. Time with Patient: Less than 30
[2023-07-04 13:17] LABS: C Reactive Protein 11.4 mg/dL (<1.0)
--- NOTE | 2023-07-04 13:30 | CT ---
EXAMINATION TYPE: CT abdomen pelvis wo con CT DLP: 1142.2 mGycm, Automated exposure control for dose reduction was used. DATE OF EXAM: 07/04/2023 12:45 PM COMPARISON: 07/02/2023 CLINICAL INDICATION:Female, 62 years old with history of Epigastric/left upper quadrant abdominal lynne n and; Epigastric LUQ pain TECHNIQUE: Axial CT abdomen pelvis wo con;Sagittal and coronal reformats were created on a separate workstation. Contrast used: mL of , (none if empty) Oral contrast used: with Oral Contrast (none if empty) FINDINGS: LOWER CHEST: Unremarkable ABDOMEN LIVER: Unremarkable GALLBLADDER AND BILE DUCTS: The gallbladder surgically absent. PANCREAS: Unremarkable. SPLEEN: Unremarkable. ADRENAL GLANDS: Unremarkable. KIDNEYS AND URETERS: No evidence of hydronephrosis or renal calculus. The ureters are unremarkable. I ndeterminate left renal lesion measuring up to 26 mm. PELVIS BLADDER: Unremarkable REPRODUCTIVE: Unremarkable. ABDOMEN & PELVIS STOMACH AND BOWEL: Small to moderate hiatal hernia. Postsurgical changes to the mid abdomen dilation at the anastomotic site containing oral contrast. Postsurgical changes to the gastric lumen with susp ected gastric bypass. No evidence of bowel obstruction. PERITONEUM/RETROPERITONEUM: No evidence of pneumoperitoneum or free fluid. VASCULATURE: No evidence of aortic aneurysm. MUSCULOSKELETAL: No acute osseous abnormalities LYMPH NODES: No gross evidence for lymphadenopathy. SOFT TISSUE/ABDOMINAL WALL: Unremarkable IMPRESSION: 1. No evidence for acute abdominal process. 2. Small to moderate hiatal hernia with post surgical changes gastric lumen and small bowel. No evid ence for obstruction. 3. Indeterminate left renal lesion. Further evaluation with MRI renal mass protocol is recommended.
--- NOTE | 2023-07-04 15:48 | P.PN ---
Subjective Progress Note Date: 07/04/23 H&P Date: 07/03/23 Chief Complaint: weakness, abd pain Josee Cooper is a 62 yo F with PMH of morbid obesity, chronic abdominal pain, history of abdominal adhesions related to previous gastric bypass surgery, systolic CHF who presented to the ED complaining of weakness and increased abdominal pain. She states she has been feeling like she is going to pass out, more difficulty with ambulating and felt confused so came to the hospital. She denies any fever, chills, sore throat, congestion or cough. She denies diarrhea. On presentation pt did have a temp of 99, tachycardic, WBC 19k, Hgb 12.8. Cr 2.[address] thoracic aorta no PE and no evidence of pneumonia. Influenza and RSV negative, Covid negative, UA negative. 07/04/23 evaluated by infectious disease with cefepime and Flagyl initiated yesterday. Denies sweats or chills, denies abdominal pain at rest , but persists with exertion . Denies nausea or vomiting. Denies bowel movement. Denies passing flatus. Denies lightheadedness dizziness or focal deficits. Afebrile. CT of abdomen and pelvis pending. Denies any chest pain, palpitations or shortness of breath. Sinus rhythm. Echo Doppler completed, results pending. Evaluated by cardiology, metoprolol discontinued, home dose of Midodrin resumed. Objective - Vital Signs Vital signs: Vital Signs Temp 98.3 F 07/04/23 08:00 Pulse 98 07/04/23 08:00 Resp 17 07/04/23 02:00 BP 117/82 07/04/23 08:00 Pulse Ox 100 07/04/23 08:00 FiO2 Intake & Output 07/03/23 07/04/23 07/04/23 18:59 06:59 18:59 Intake Total 180 Balance 180 Weight 108.409 kg Intake: Oral 180 Other: Voiding Method Toilet # Voids 1 - Exam Gen: morbidly obese, NAD, well developed HEENT: NC/AT, mmm Neck: supple, no JVD CV: RRR, no murmur Lungs: Normal effort, no wheezes, rales or rhonchi Abd: soft, tender to palpation diffusely Neuro: AAOx3, no focal deficit Skin: warm and dry - Labs CBC & Chem 7: 07/04/23 08:25 07/04/23 08:25 Labs: Abnormal Lab Results - Last 24 Hours (Table) 07/04/23 07/04/23 Range/Units 08:25 08:25 Hgb 10.4 L (11.4-16.0) gm/dL Hct 32.9 L (34.0-46.0) % MCV 74.3 L (80.0-100.0) fL MCH 23.5 L (25.0-35.0) pg RDW 19.1 H (11.5-15.5) % Sodium 136 L (137-145) mmol/L Chloride 113 H (98-107) mmol/L Carbon Dioxide 12 L (22-30) mmol/L C-Reactive Protein 11.4 H (<1.0) mg/dL Microbiology - Last 24 Hours (Table) 07/03/23 00:45 Blood Culture - Preliminary Blood 07/03/23 00:30 Blood Culture - Preliminary Blood Assessment and Plan Assessment: Sepsis related to possible gastroenteritis in a patient with history of Juan Carlos-en-Y, possible adhesions Hypotension, status post 2 L fluid bolus Acute renal injury ,cardiorenal syndrome Fibromyalgia Chronic abdominal pain with history of hiatal hernia Plan: Continue on current medication regime ,monitoring and symptomatic treatment. Labs/CRP/L calcitonin pending. CT of abdomen and pelvis pending . Ma intain IV antibiotics as per infectious disease. Preliminary blood cultures in progress.ROSA M inhibitor and diuretics remain on hold secondary to renal function. The impression and plan of care has been dictated as directed. : I performed a history and examination of this patient, discussed the same with the dictator. I agree with the dictator's note ,documented as a scribe. Any additional findings or plans will be noted.
[2023-07-04] MEDS: ONDANSETRON 4 MG/2 ML VIAL IVP PRN (20:54)
[2023-07-05] MEDS: CEFEPIME 2 GM in SODIUM CHLORIDE 0.9% 100 ML IVPB SCH ×2 (08:22→21:15)
[2023-07-05] MEDS: GABAPENTIN 300 MG CAP PO SCH ×4 (08:22→21:17)
[2023-07-05] MEDS: DULoxetine HCL 30 MG CAPSULE.DR PO SCH (08:22)
[2023-07-05] MEDS: MIDODRINE 5 MG TAB PO SCH ×2 (08:22→21:17)
[2023-07-05] MEDS: PANTOPRAZOLE 40 MG/10 ML VIAL IV SCH (08:23)
[2023-07-05] MEDS: metroNIDAZOLE 500 MG TAB PO SCH ×3 (08:23→21:16)
[2023-07-05] MEDS: ENOXAPARIN 40 MG/0.4 ML SYRINGE SQ SCH (08:23)
--- NOTE | 2023-07-05 09:31 | P.PN ---
Subjective HISTORY OF PRESENT ILLNESS: This is a 62-year-old female with a past medical history significant for hiatal hernia, chronic abdominal pain, dysautonomia, and hypertension. Patient follows in the office with Dr. Tyson. We have been asked to see the patient in consultation for hypotension. Patient examined at the bedside. Patient was brought to the hospital secondary to presyncope. Patient was found to have leukocytosis and was also hypotensive with a BP of 68/26 and 86/60. The patient received 2 L in fluid boluses and was started on maintenance IV fluids. Patient's blood pressure has improved. Chest pain or pressure. She denies shortness of breath. She does report continued abdominal pain this morning. She has been evaluated by infectious disease and is scheduled to undergo CT abdomen and pelvis today. His blood pressure 117/82. * EKG reveals sinus tachycardia with no signs of acute ischemia * CTA of the chest was negative for pulmonary embolism, aortic aneurysm, or dissection. * Chest xray questionable left lower lobe atelectasis versus infiltrate * Laboratory data: WBC 19.0. Hemoglobin 12.8. Platelet count 333. Sodium 130. Potassium 4.7 BUN 50. Creatinine 2.09. Troponin negative 1. * Most recent echocardiogram obtained in January 2020 revealed ejection fraction 60-65%, mild mitral regurgitation * Cardiac catheterization history: January 2021 revealing normal coronary arteries 07/05/2023 Patient examined this morning at the bedside. Patient denies chest pain or pressure. She denies shortness of breath. Vital signs are stable. Echocardiogram completed revealing preserved LV systolic function. PHYSICAL EXAM: VITAL SIGNS: Reviewed. GENERAL: Well-developed in no acute distress. HEENT: Head is normocephalic. Pupils are equal, round. Sclerae anicteric. Mucous membranes of the mouth are moist. Neck supple. No JVD or thyromegaly LUNGS: Respirations even and unlabored. Lungs essentially clear to auscultation bilaterally. HEART: Regular rate and rhythm. S1 and S2 heard. ABDOMEN: Soft. Nondistended. Nontender. EXTREMITIES: Normal range of motion. No clubbing or cyanosis. Peripheral pulses intact. No lower extremity edema NEUROLOGIC: Awake and alert. Oriented x 3. ASSESSMENT: Presyncope Leukocytosis Hypotension, resolved Acute kidney injury History of dysautonomia History of hypertension Chronic abdominal pain History of hiatal hernia PLAN: Continue to hold lisinopril and metoprolol at discharge Patient is currently stable from a cardiac perspective with no further inpatient recommendations We will sign off. Please reconsult if needed. Nurse practitioner note has been reviewed by physician. Signing provider agrees with the documented findings, assessment, and plan of care. Objective - Vital Signs Vital signs: Vital Signs Temp 98.2 F 07/05/23 07:35 Pulse 82 07/05/23 07:35 Resp 16 07/05/23 07:35 BP 113/77 07/05/23 07:35 Pulse Ox 99 07/05/23 07:35 FiO2 Intake & Output 07/04/23 07/05/23 07/05/23 18:59 06:59 18:59 Intake Total 280 810 Balance 280 810 Intake: Intake, IV Titration 100 100 Amount Cefepime 2 gm In Sodium 100 100 Chloride 0.9% 100 ml @ 25 mls/hr IVPB Q12HR [facility] Rx #:[id number] Oral 180 710 Other: Voiding Method Toilet # Voids 1 - Labs CBC & Chem 7: 07/04/23 08:25 07/04/23 08:25 Labs: Abnormal Lab Results - Last 24 Hours (Table) 07/04/23 07/04/23 Range/Units 08:25 08:25 C-Reactive Protein 11.4 H (<1.0) mg/dL Procalcitonin 0.68 H (0.02-0.09) ng/mL Microbiology - Last 24 Hours (Table) 07/03/23 00:45 Blood Culture - Preliminary Blood 07/03/23 00:30 Blood Culture - Preliminary Blood
[2023-07-05 10:08] LABS: Anisocytosis Slight; HCT 31.2 % (34.0-46.0); HGB 9.7 gm/dL (11.4-16.0); Hypochromasia Marked; MCH 23.3 pg (25.0-35.0); MCHC 31.1 g/dL (31.0-37.0); Mean Platelet Volume 8.3; Microcytosis Moderate; Platelet Count 289 k/uL (150-450); RBC 4.15 m/uL (3.80-5.40); RDW 19.2 % (11.5-15.5); WBC 8.6 k/uL (3.8-10.6)
--- NOTE | 2023-07-05 15:16 | P.GSCN ---
History of Present Illness Consult date: 07/05/23 History of present illness: CHIEF COMPLAINT: abdominal pain HISTORY OF PRESENT ILLNESS: This is a 62-year-old female presented to the hospital with complaints of hypotension and abdominal pain. Patient reports she's had right lower quadrant abdominal pain for the past 2 weeks. She reports normal bowel movements. She did have nausea and a few episodes of vomiting has not resolved. She denies any fever chills or sweats. She did have hypotension on admission blood pressure medications have been adjusted. She had a computed tomography scan abdomen and pelvis with oral contrast with no evidence of acute abdominal process. Patient reports a prior history of Juan Carlos-en-Y gastric bypass in 1994 as well as a history of appendectomy, cholecystectomy and . Last EGD was in April 2020 revealed gastritis. Last colonoscopy February 2019 which was normal. Patient did have elevated white count on admission is currently on antibiotics white count has normalized. Denies any urinary symptoms. Patient does report prior history of bowel obstructions requiring surgery. PAST MEDICAL HISTORY: Asthma, Fibromyalgia, Hypertension PAST SURGICAL HISTORY: Appendectomy, Juan Carlos en y gastric bypass, Section, Cholecystectomy, Hernia Repair MEDICATIONS: See below ALLERGIES: See below SOCIAL HISTORY: No illicit drug use. REVIEW OF SYSTEMS: CONSTITUTIONAL: Denies fever or chills. HEENT: Denies blurred vision, vision changes, or eye pain. Denies hemoptysis CARDIOVASCULAR: Denies chest pain or pressure. RESPIRATORY: No shortness of breath. GASTROINTESTINAL: See HPI for pertinent findings HEMATOLOGIC: Denies bleeding disorders. GENITOURINARY: Denies any blood in urine or increased urinary frequency. SKIN: Denies pruitis. Denies rash. PHYSICAL EXAM: VITAL SIGNS: Reviewed GENERAL: Well-developed in no acute distress. ABDOMEN: Soft. Obese. Nondistended. Tenderness with palpation to right lower quadrant. No obvious hernia present. Abdominal shield the midline incision with NEUROLOGIC: Alert and oriented. Cranial nerves II through XII grossly intact. LABORATORY DATA: WBC 19 down to 8.6 hgb 9.7 plt 289 Na 136 k 4.0 Cr 2.09 to 0.73 CRP 11.4 Procalcitonin 0.68 Urinalysis negative for infection Influenza, RSV and Covid not detected IMAGING: Computed tomography scan abdomen and pelvis no evidence for acute abdominal pr ocess. Small to moderate hiatal hernia with postsurgical changes gastric lumen and small bowel. No evidence of obstruction. Indeterminate left renal lesion. Thoracic aorta CT no pulmonary embolism, aortic dissection or aneurysm. Lungs are clear. Stable complex hyperdense left renal cyst ASSESSMENT: 1. Right lower quadrant abdominal pain 2. History of Juan Carlos-en-Y gastric bypass 3. History of appendectomy, cholecystectomy and 4. Leukocytosis 5. History of chronic abdominal pain 6. Small to moderate hiatal hernia PLAN: -Continue to observe -Continue heart healthy diet -Antibiotics per ID service -Continue pain management Physician Studio Artist note has been reviewed by physician. Signing provider agrees with the documented findings, assessment, and plan of care. Past Medical History Past Medical History: Asthma, Fibromyalgia, Hypertension Additional Past Medical History / Comment(s): see Dr Andrea's H&P, CHRONIC SOB,RLS ,per pt cramping really bad all over feet, legs, and arms. Swelling/edema of evelio lower extremites, Chronic blockage of the small bowel, hx ulcer History of Any Multi-Drug Resistant Organisms: None Reported Past Surgical History: Appendectomy, Bariatric Surgery, Section, Cholecystectomy, Hernia Repair Additional Past Surgical History / Comment(s): abdominal surgeries X14, sinus surgery x4,COLONOSCOPY, surgery for chronic bloackge of smalll bowel ,gastric bypass Past Anesthesia/Blood Transfusion Reactions: No Reported Reaction Past Psychological History: No Psychological Hx Reported Smoking Status: Never smoker Past Alcohol Use History: None Reported Past Drug Use History: None Reported - Past Family History Mother Additional Family Medical History / Comment(s): PT ADOPTED COMPLETE FAMILY HX UNKNOWN Brother(s) Family Medical History: Cancer Additional Family Medical History / Comment(s): TWIN BROTHER FROM CANCER AGE 45 Medications and Allergies Home Medications Medication Instructions Recorded Confirmed Type Gabapentin [Neurontin] 300 mg PO QID 09/24/14 07/02/23 History Montelukast Sodium [Singulair] 10 mg PO DAILY 09/24/14 07/02/23 History Omeprazole [PriLOSEC] 20 mg PO BID 09/24/14 07/02/23 History Albuterol Sulfate [Ventolin HFA] 2 puff INHALATION RT-Q4H PRN 04/05/16 07/02/23 History predniSONE 10 mg PO DAILY 10/12/16 07/02/23 History Furosemide [Lasix] 40 mg PO DAILY 01/27/20 07/02/23 History Milnacipran HCl [Savella] 50 mg PO DAILY 01/27/20 07/02/23 History Spironolactone [Aldactone] 25 mg PO DAILY 01/27/20 07/02/23 History DULoxetine HCL [Cymbalta] 30 mg PO DAILY 02/02/21 07/02/23 History Midodrine HCl [ProAmantine] 2.5 mg PO BID 07/02/23 07/02/23 History oxyCODONE HCL [oxyCODONE HCL (IR)] 10 mg PO QID 07/02/23 07/02/23 History Allergies Allergy/AdvReac Type Severity Reaction Status Date / Time Penicillins Allergy Intermediate Unknown Verified 07/02/23 22:53 Childhood aspirin AdvReac Severe Dyspnea Verified 07/02/23 22:53 morphine AdvReac Severe Nausea & Verified 07/02/23 22:53 Vomiting Surgical - Exam Vital Signs Temp Pulse Resp BP Pulse Ox 99.2 F 145 H 22 99 07/02/23 21:08 07/02/23 21:08 07/02/23 21:08 07/02/23 21:08 07/02/23 21:08 Results - Labs 07/05/23 09:56 07/04/23 08:25 Abnormal Lab Results - Last 24 Hours (Table) 07/04/23 07/05/23 Range/Units 08:25 09:56 Hgb 9.7 L (11.4-16.0) gm/dL Hct 31.2 L (34.0-46.0) % MCV 75.0 L (80.0-100.0) fL MCH 23.3 L (25.0-35.0) pg RDW 19.2 H (11.5-15.5) % Procalcitonin 0.68 H (0.02-0.09) ng/mL Microbiology - Last 24 Hours (Table) 07/03/23 00:45 Blood Culture - Preliminary Blood 07/03/23 00:30 Blood Culture - Preliminary Blood
--- NOTE | 2023-07-05 15:52 | P.PN ---
Subjective Progress Note Date: 07/05/23 Principal diagnosis: Reason for follow-up is SIRS/sepsis leukocytosis Patient is a 62-year-old female with a past medical history significant for hypertension fibromyalgia and asthma patient has been brought into the hospital for evaluation of weakness and almost passed out patient complaining of pain to the epigastric area and also noticed to have low-grade fever and elevated white count, CT was negative for any pneumonia. On today's evaluation that is 07/05/2023 the patient denies having any fever or any chills, the patient is breathing comfortably on room air, patient denies chest pain did have occasional dry cough, the patient denies nausea vomiting, still having some epigastric area pain but no worsening Patient white count is 8.6, creatinine 0.73 cultures are pending, CT abdominal pelvis did not show any acute abdominal pathology Objective - Vital Signs Vital signs: Vital Signs Temp 98.2 F 07/05/23 14:00 Pulse 82 07/05/23 14:00 Resp 17 07/05/23 14:00 BP 111/65 07/05/23 14:00 Pulse Ox 94 L 07/05/23 14:00 FiO2 Intake & Output 07/04/23 07/05/23 07/05/23 18:59 06:59 18:59 Intake Total 280 810 Balance 280 810 Intake: Intake, IV Titration 100 100 Amount Cefepime 2 gm In Sodium 100 100 Chloride 0.9% 100 ml @ 25 mls/hr IVPB Q12HR [facility] Rx #:[id number] Oral 180 710 Other: Voiding Method Toilet # Voids 1 - Exam GENERAL DESCRIPTION: Middle-aged female lying in bed in no distress RESPIRATORY SYSTEM: Unlabored breathing , decreased breath sounds at bases HEART: S1 S2 regular rate and rhythm , ABDOMEN: Soft , no tenderness EXTREMITIES: No edema feet - Labs CBC & Chem 7: 07/05/23 09:56 07/04/23 08:25 Labs: Abnormal Lab Results - Last 24 Hours (Table) 07/04/23 07/05/23 Range/Units 08:25 09:56 Hgb 9.7 L (11.4-16.0) gm/dL Hct 31.2 L (34.0-46.0) % MCV 75.0 L (80.0-100.0) fL MCH 23.3 L (25.0-35.0) pg RDW 19.2 H (11.5-15.5) % Procalcitonin 0.68 H (0.02-0.09) ng/mL Microbiology - Last 24 Hours (Table) 07/03/23 00:45 Blood Culture - Preliminary Blood 07/03/23 00:30 Blood Culture - Preliminary Blood Assessment and Plan (1) Penicillin allergy Current Visit: Yes Status: Acute Code(s): Z88.0 - ALLERGY STATUS TO PENICILLIN SNOMED Code(s): 79679603 (2) Sepsis Current Visit: Yes Status: Acute Code(s): A41.9 - SEPSIS, UNSPECIFIED ORGANISM SNOMED Code(s): 74831608 (3) Abdominal pain Current Visit: No Status: Acute Code(s): R10.9 - UNSPECIFIED ABDOMINAL PAIN SNOMED Code(s): 84418586 Plan: 1patient presented to hospital with weakness also complaining of pain to the epigastric area radiating to the left upper abdominal/lower chest area patient did have a low-grade fever of 99 degrees Fahrenheit also noticed to have elevated white count did have a CT chest negative for pneumonia urine has been negative likely concerning for intra-abdominal process 2-patient with a borderline kidney function high risk of nephrotoxicity 3-penicillin allergy that will limit the number of antibiotics safe to use 4-patient CT of abdominal pelvis with oral contrast did not show any acute intra-abdominal pathology 5patient is afebrile and the patient white count has normalized, to continue with the cefepime and Flagyl will transition to oral antibiotics on discharge Dictation was produced using [employer] dictation software. please excuse any grammatical, word or spelling errors. Time with Patient: Less than 30
--- NOTE | 2023-07-05 15:55 | P.PN ---
Subjective Progress Note Date: 07/05/23 H&P Date: 07/03/23 Chief Complaint: weakness, abd pain Josee Cooper is a 62 yo F with PMH of morbid obesity, chronic abdominal pain, history of abdominal adhesions related to previous gastric bypass surgery, systolic CHF who presented to the ED complaining of weakness and increased abdominal pain. She states she has been feeling like she is going to pass out, more difficulty with ambulating and felt confused so came to the hospital. She denies any fever, chills, sore throat, congestion or cough. She denies diarrhea. On presentation pt did have a temp of 99, tachycardic, WBC 19k, Hgb 12.8. Cr 2.[address] thoracic aorta no PE and no evidence of pneumonia. Influenza and RSV negative, Covid negative, UA negative. 07/04/23 evaluated by infectious disease with cefepime and Flagyl initiated yesterday. Denies sweats or chills, denies abdominal pain at rest , but persists with exertion . Denies nausea or vomiting. Denies bowel movement. Denies passing flatus. Denies lightheadedness dizziness or focal deficits. Afebrile. CT of abdomen and pelvis pending. Denies any chest pain, palpitations or shortness of breath. Sinus rhythm. Echo Doppler completed, results pending. Evaluated by cardiology, metoprolol discontinued, home dose of Midodrin resumed. 07/05/2023 maintained on cefepime. Afebrile, normal WBC. Preliminary blood cultures negative. C-reactive protein elevated at 11.4, pro calcitonin elevated 0.68. Abdomen and pelvis CT reported no evidence for acute abdominal process,small to moderate hiatal hernia with postsurgical changes gastric lumen and small bowel,no evidence of obstruction, indeterminate left renal lesion.Sodium increased up to 136. Renal function improved, BUN 17, creatinine 0.73. Denies nausea or vomiting. Positive bowel movement this morning Decrease bili pain currently reporting right groin pain. Objective - Vital Signs Vital signs: Vital Signs Temp 98.2 F 07/05/23 14:00 Pulse 82 07/05/23 14:00 Resp 17 07/05/23 14:00 BP 111/65 07/05/23 14:00 Pulse Ox 94 L 07/05/23 14:00 FiO2 Intake & Output 07/04/23 07/05/23 07/05/23 18:59 06:59 18:59 Intake Total 280 810 Balance 280 810 Intake: Intake, IV Titration 100 100 Amount Cefepime 2 gm In Sodium 100 100 Chloride 0.9% 100 ml @ 25 mls/hr IVPB Q12HR [facility] Rx #:[id number] Oral 180 710 Other: Voiding Method Toilet # Voids 1 - Exam Gen: morbidly obese, sitting up in bed, NAD, HEENT: NC/AT, mmm Neck: supple, no JVD CV: RRR, no murmur Lungs: Normal effort, no wheezes, rales or rhonchi Abd: soft, obese, diffuse right lower quadrant/right groin tenderness, Neuro: AAOx3, no focal deficit Skin: warm and dry - Labs CBC & Chem 7: 07/05/23 09:56 07/04/23 08:25 Labs: Abnormal Lab Results - Last 24 Hours (Table) 07/05/23 Range/Units 09:56 Hgb 9.7 L (11.4-16.0) gm/dL Hct 31.2 L (34.0-46.0) % MCV 75.0 L (80.0-100.0) fL MCH 23.3 L (25.0-35.0) pg RDW 19.2 H (11.5-15.5) % Microbiology - Last 24 Hours (Table) 07/03/23 00:45 Blood Culture - Preliminary Blood 07/03/23 00:30 Blood Culture - Preliminary Blood Assessment and Plan Assessment: Sepsis related to possible gastroenteritis in a patient with history of Juan Carlos-en-Y, possible adhesions Hypotension, status post 2 L fluid bolus Acute renal injury ,cardiorenal syndrome Fibromyalgia Chronic abdominal pain with history of hiatal hernia Plan: Continue on current medication regime ,monitoring and symptomatic treatment. General surgery consulted. IV antibiotics as per infectious diseas e. Preliminary blood cultures in progress.ROSA M inhibitor and diuretics remain on hold secondary to renal function. The impression and plan of care has been dictated as directed. : I performed a history and examination of this patient, discussed the same with the dictator. I agree with the dictator's note ,documented as a scribe. Any additional findings or plans will be noted.
[2023-07-06] MEDS: CEFEPIME 2 GM in SODIUM CHLORIDE 0.9% 100 ML IVPB SCH ×2 (08:01→21:10)
[2023-07-06] MEDS: PANTOPRAZOLE 40 MG/10 ML VIAL IV SCH (08:01)
[2023-07-06] MEDS: GABAPENTIN 300 MG CAP PO SCH ×4 (08:01→23:33)
[2023-07-06] MEDS: metroNIDAZOLE 500 MG TAB PO SCH ×3 (08:01→23:33)
[2023-07-06] MEDS: DULoxetine HCL 30 MG CAPSULE.DR PO SCH (08:01)
[2023-07-06] MEDS: ENOXAPARIN 40 MG/0.4 ML SYRINGE SQ SCH (08:01)
[2023-07-06] MEDS: MIDODRINE 5 MG TAB PO SCH ×2 (09:48→21:10)
--- NOTE | 2023-07-06 11:40 | P.PN ---
Subjective Progress Note Date: 07/06/23 CHIEF COMPLAINT: Abdominal pain HISTORY OF PRESENT ILLNESS: Patient continues to have right upper quadrant abdominal pain. She reports pain is lessened yesterday. She did have some nausea earlier. No vomiting. She is tolerating regular diet. She is having bowel movements. Pain is worse with walking. Afebrile WBC normal at 8.6 PHYSICAL EXAM: VITAL SIGNS: Reviewed. GENERAL: Well-developed in no acute distress. ABDOMEN: Soft. obese. Nondistended. Tenderness to palpation right lower quadrant NEUROLOGIC: Alert and oriented. Cranial nerves II through XII grossly intact. ASSESSMENT: 1. Right lower quadrant abdominal pain possibly secondary to adhesions 2. History of Juan Carlos-en-Y gastric bypass 3. History of appendectomy, cholecystectomy and 4. Leukocytosis 5. History of chronic abdominal pain 6. Small to moderate hiatal hernia PLAN: -No surgical intervention planned -Continue regular diet -Continue supportive care Physician Air Support Control Officer note has been reviewed by physician. Signing provider agrees with the documented findings, assessment, and plan of care. Objective - Vital Signs Vital signs: Vital Signs Temp 98.7 F 07/06/23 07:53 Pulse 91 07/06/23 07:53 Resp 16 07/06/23 07:53 BP 123/75 07/06/23 07:53 Pulse Ox 100 07/06/23 07:53 FiO2 Intake & Output 07/05/23 07/06/23 07/06/23 18:59 06:59 18:59 Intake Total 780 340 Balance 780 340 Intake: Intake, IV Titration 100 Amount Cefepime 2 gm In Sodium 100 Chloride 0.9% 100 ml @ 25 mls/hr IVPB Q12HR [facility] Rx #:[id number] Oral 780 240 Other: Voiding Method Toilet # Voids 2 - Labs CBC & Chem 7: 07/05/23 09:56 07/04/23 08:25 Labs: Microbiology - Last 24 Hours (Table) 07/03/23 00:45 Blood Culture - Preliminary Blood 07/03/23 00:30 Blood Culture - Preliminary Blood
--- NOTE | 2023-07-06 15:33 | P.PN ---
Subjective Progress Note Date: 07/06/23 Principal diagnosis: Reason for follow-up is SIRS/sepsis leukocytosis Patient is a 62-year-old female with a past medical history significant for hypertension fibromyalgia and asthma patient has been brought into the hospital for evaluation of weakness and almost passed out patient complaining of pain to the epigastric area and also noticed to have low-grade fever and elevated white count, CT was negative for any pneumonia. On today's evaluation that is 07/06/2023, the patient remains to be afebrile, the patient is breathing comfortably on room air, the patient denies any chest pain shortness of breath or cough patient still complaining of some epigastric discomfort nausea but no vomiting no diarrhea Patient white count is 8.6, creatinine 0.73 as of yesterday no lab draw today cultures are pending, CT abdominal pelvis did not show any acute abdominal pathology Objective - Vital Signs Vital signs: Vital Signs Temp 98.7 F 07/06/23 07:53 Pulse 91 07/06/23 07:53 Resp 16 07/06/23 07:53 BP 123/75 07/06/23 07:53 Pulse Ox 100 07/06/23 07:53 FiO2 Intake & Output 07/05/23 07/06/23 07/06/23 18:59 06:59 18:59 Intake Total 780 340 Balance 780 340 Intake: Intake, IV Titration 100 Amount Cefepime 2 gm In Sodium 100 Chloride 0.9% 100 ml @ 25 mls/hr IVPB Q12HR [facility] Rx #:[id number] Oral 780 240 Other: Voiding Method Toilet # Voids 2 - Exam GENERAL DESCRIPTION: Middle-aged female lying in bed in no distress RESPIRATORY SYSTEM: Unlabored breathing , decreased breath sounds at bases HEART: S1 S2 regular rate and rhythm , ABDOMEN: Soft , no tenderness EXTREMITIES: No edema feet - Labs CBC & Chem 7: 07/05/23 09:56 07/04/23 08:25 Labs: Microbiology - Last 24 Hours (Table) 07/03/23 00:45 Blood Culture - Preliminary Blood 07/03/23 00:30 Blood Culture - Preliminary Blood Assessment and Plan (1) Penicillin allergy Current Visit: Yes Status: Acute Code(s): Z88.0 - ALLERGY STATUS TO PENICILLIN SNOMED Code(s): 80449187 (2) Sepsis Current Visit: Yes Status: Acute Code(s): A41.9 - SEPSIS, UNSPECIFIED ORGANISM SNOMED Code(s): 55912825 (3) Abdominal pain Current Visit: No Status: Acute Code(s): R10.9 - UNSPECIFIED ABDOMINAL PAIN SNOMED Code(s): 79926084 Plan: 1patient presented to hospital with weakness also complaining of pain to the epigastric area radiating to the left upper abdominal/lower chest area patient did have a low-grade fever of 99 degrees Fahrenheit also noticed to have elevated white count did have a CT chest negative for pneumonia urine has been negative likely concerning for intra-abdominal process 2-patient with a borderline kidney function high risk of nephrotoxicity 3-penicillin allergy that will limit the number of antibiotics safe to use 4-patient CT of abdominal pelvis with oral contrast did not show any acute i ntra-abdominal pathology 5patient is afebrile and the patient white count has normalized, possible concern for abdominal source, patient to continue with the cefepime and Flagyl will transition to oral Ceftin and Flagyl on discharge, discussed with admitting team Dictation was produced using [employer] dictation software. please excuse any grammatical, word or spelling errors. Time with Patient: Less than 30
--- NOTE | 2023-07-06 15:59 | P.PN ---
Subjective Progress Note Date: 07/06/23 H&P Date: 07/03/23 Chief Complaint: weakness, abd pain Josee Cooper is a 62 yo F with PMH of morbid obesity, chronic abdominal pain, history of abdominal adhesions related to previous gastric bypass surgery, systolic CHF who presented to the ED complaining of weakness and increased abdominal pain. She states she has been feeling like she is going to pass out, more difficulty with ambulating and felt confused so came to the hospital. She denies any fever, chills, sore throat, congestion or cough. She denies diarrhea. On presentation pt did have a temp of 99, tachycardic, WBC 19k, Hgb 12.8. Cr 2.[address] thoracic aorta no PE and no evidence of pneumonia. Influenza and RSV negative, Covid negative, UA negative. 07/04/23 evaluated by infectious disease with cefepime and Flagyl initiated yesterday. Denies sweats or chills, denies abdominal pain at rest , but persists with exertion . Denies nausea or vomiting. Denies bowel movement. Denies passing flatus. Denies lightheadedness dizziness or focal deficits. Afebrile. CT of abdomen and pelvis pending. Denies any chest pain, palpitations or shortness of breath. Sinus rhythm. Echo Doppler completed, results pending. Evaluated by cardiology, metoprolol discontinued, home dose of Midodrin resumed. 07/05/2023 maintained on cefepime. Afebrile, normal WBC. Preliminary blood cultures negative. C-reactive protein elevated at 11.4, pro calcitonin elevated 0.68. Abdomen and pelvis CT reported no evidence for acute abdominal process,small to moderate hiatal hernia with postsurgical changes gastric lumen and small bowel,no evidence of obstruction, indeterminate left renal lesion.Sodium increased up to 136. Renal function improved, BUN 17, creatinine 0.73. Denies nausea or vomiting. Positive bowel movement this morning Decrease bili pain currently reporting right groin pain. 07/06/2023. Positive regular Diet intake, no nausea vomiting or diarrhea. Positive bowel movement. Reports decreased mid epigastric discomfort and right lower quadrant abdominal pain, worsens with right leg movement. General surgery following with no surgical intervention recommended at this time. Continues on cefepime and Flagyl .Afebrile, normal WBC. Hemoglobin decreased to 9.7 yesterday. Denies chest pain, palpitations or shortness of breath. Maintaining O2 sats in the high 90s to 100% on room air. Objective - Vital Signs Vital signs: Vital Signs Temp 97.8 F 07/06/23 13:33 Pulse 87 07/06/23 13:33 Resp 17 07/06/23 13:33 BP 134/80 07/06/23 13:33 Pulse Ox 95 07/06/23 13:33 FiO2 Intake & Output 07/05/23 07/06/23 07/06/23 18:59 06:59 18:59 Intake Total 780 340 Balance 780 340 Intake: Intake, IV Titration 100 Amount Cefepime 2 gm In Sodium 100 Chloride 0.9% 100 ml @ 25 mls/hr IVPB Q12HR [facility] Rx #:[id number] Oral 780 240 Other: Voiding Method Toilet # Voids 2 - Exam Gen: Alert and oriented 3 sitting up in bed, NAD, HEENT: NC/AT, mmm Neck: supple, no JVD CV: RRR, no murmur Lungs: Normal effort, no wheezes, rales or rhonchi Abd: soft, obese, diffuse right lower quadrant tenderness, Neuro: no focal deficit Skin: warm and dry - Labs CBC & Chem 7: 07/05/23 09:56 07/04/23 08:25 Labs: Microbiology - Last 24 Hours (Table) 07/03/23 00:45 Blood Culture - Preliminary Blood 07/03/23 00:30 Blood Culture - Preliminary Blood Assessment and Plan Assessment: Right lower quadrant abdominal pain with Sepsis related to possible ga stroenteritis in a patient with history of Juan Carlos-en-Y, possible adhesions, possible colitis Hypotension, status post 2 L fluid bolus, resolved Acute renal injury ,cardiorenal syndrome Fibromyalgia Chronic abdominal pain with history of hiatal hernia Plan: Continue on current medication regime ,monitoring and symptomatic treatment. Preliminary blood cultures in progress.IV antibiotics as per inf ectious disease. Close monitoring of hemoglobin and renal function with repeat labs ordered for a.m. The impression and plan of care has been dictated as directed. : I performed a history and examination of this patient, discussed the same with the dictator. I agree with the dictator's note ,documented as a scribe. Any additional findings or plans will be noted.
[2023-07-07 02:26] VITALS: RESP 18
[2023-07-07] MEDS: CEFEPIME 2 GM in SODIUM CHLORIDE 0.9% 100 ML IVPB SCH (09:15)
[2023-07-07] MEDS: ENOXAPARIN 40 MG/0.4 ML SYRINGE SQ SCH (09:16)
[2023-07-07] MEDS: GABAPENTIN 300 MG CAP PO SCH ×2 (09:17→12:34)
[2023-07-07] MEDS: MIDODRINE 5 MG TAB PO SCH (09:17)
[2023-07-07] MEDS: DULoxetine HCL 30 MG CAPSULE.DR PO SCH (09:17)
[2023-07-07] MEDS: metroNIDAZOLE 500 MG TAB PO SCH (09:17)
[2023-07-07] MEDS: PANTOPRAZOLE 40 MG/10 ML VIAL IV SCH (09:22)
[2023-07-07 12:27] VITALS: BP 120/74; PULSE 68; TEMP 98.4
[2023-07-07 12:38] LABS: BUN/Creat Ratio 13.14 Ratio (12.00-20.00); Blood Urea Nitrogen 9.2 mg/dL (9.0-27.0); Calcium 8.6 mg/dL (8.7-10.3); Carbon Dioxide 21.8 mmol/L (21.6-31.8); Chloride 109 mmol/L (96-109); Glucose 89 mg/dL (70-110); Potassium 4.4 mmol/L (3.5-5.5); Sodium 139 mmol/L (135-145)
[2023-07-07 12:56] LABS: Basophils # (A) 0.07 X 10*3/uL (0.00-0.10); Basophils % (A) 0.9 %; Eosinophils # (A) 0.73 X 10*3/uL (0.04-0.35); Eosinophils % (A) 9.3 %; HGB 8.9 g/dL (12.0-15.0); Lymphocytes # (A) 2.54 X 10*3/uL (0.90-5.00); Lymphocytes % (A) 32.5 %; MCH 22.3 pg (27.0-32.0); MCHC 29.7 g/dL (32.0-37.0); MCV 75.2 FL (80.0-97.0); Mean Platelet Volume 10.1 FL (9.5-12.2); Monocytes # (A) 0.72 X 10*3/uL (0.20-1.00); Monocytes % (A) 9.2 %; NRBC Per 100 WBC 0 X 10*3/uL (0.00-0.01); Neutrophils # (A) 3.68 X 10*3/uL (1.80-7.70); Neutrophils % (A) 47.1 %; Platelet Count 373 X 10*3/uL (140-440); RBC 3.99 X 10*6/uL (4.10-5.20); RDW 21.1 % (11.5-14.5); WBC 7.82 X 10*3/uL (4.50-10.00)
--- NOTE | 2023-07-07 13:03 | P.DS ---
Providers Date of admission: 07/03/23 00:10 Expected date of discharge: 07/07/23 Attending physician: Steven Carmen MD Consults: 07/03/23 08:21 Consult Physician Routine Consulting Provider: Samantha Calhoun Consult Reason/Comments: sepsis Do you want consulting provider notified?: Yes 07/05/23 14:18 Consult Physician Routine Consulting Provider: Kendall Holloway Consult Reason/Comments: right groin pain, hx of Juan Carlos en y Do you want consulting provider notified?: Yes Primary care physician: Steven Carmen MD Hospital Course: Discharge diagnoses; Right lower quadrant abdominal pain with Sepsis related to possible gastroenteritis in a patient with history of Juan Carlos-en-Y, possible adhesions, possible colitis Hypotension, resolved Acute renal injury ,cardiorenal syndrome Fibromyalgia Chronic abdominal pain with history of hiatal hernia Hospital course; Josee Cooper is a 62 yo F with PMH of morbid obesity, chronic abdominal pain, history of abdominal adhesions related to previous gastric bypass surgery, systolic CHF who presented to the ED complaining of weakness and increased abdominal pain. She states she has been feeling like she is going to pass out, more difficulty with ambulating and felt confused so came to the hospital. She denies any fever, chills, sore throat, congestion or cough. She denies diarrhea. On presentation pt did have a temp of 99, tachycardic, WBC 19k, Hgb 12.8. Cr 2.[address] thoracic aorta no PE and no evidence of pneumonia. Influenza and RSV negative, Covid negative, UA negative. 07/04/23 evaluated by infectious disease with cefepime and Flagyl initiated yesterday. Denies sweats or chills, denies abdominal pain at rest , but persists with exertion . Denies nausea or vomiting. Denies bowel movement. Denies passing flatus. Denies lightheadedness dizziness or focal deficits. Afebrile. CT of abdomen and pelvis pending. Denies any chest pain, palpit ations or shortness of breath. Sinus rhythm. Echo Doppler completed, results pending. Evaluated by cardiology, metoprolol discontinued, home dose of Midodrin resumed. 07/05/2023 maintained on cefepime. Afebrile, normal WBC. Preliminary blood cultures negative. C-reactive protein elevated at 11.4, pro calcitonin elevated 0.68. Abdomen and pelvis CT reported no evidence for acute abdominal pr ocess,small to moderate hiatal hernia with postsurgical changes gastric lumen and small bowel,no evidence of obstruction, indeterminate left renal lesion.Sodium increased up to 136. Renal function improved, BUN 17, creatinine 0.73. Denies nausea or vomiting. Positive bowel movement this morning Decrease bili pain currently reporting right groin pain. 07/06/2023. Positive regular Diet intake, no nausea vomiting or diarrhea. Positive bowel movement. Reports decreased mid epigastric discomfort and right lower quadrant abdominal pain, worsens with right leg movement. General surgery following with no surgical intervention recommended at this time. Continues on cefepime and Flagyl .Afebrile, normal WBC. Hemoglobin decreased to 9.7 yesterday. Denies chest pain, palpitations or shortness of breath. Maintaining O2 sats in the high 90s to 100% on room air. 07/07. Patient seen and examined. Dr. Yung took over care. Patient at this time keen to go home. No episodes of diarrhea. Being discharged on oral Ceftin and Flagyl for 5 days. PHYSICAL EXAMINATION: GENERAL: The patient is alert and oriented x3, not in any acute distress. Well developed, well nourished. HEENT: Pupils are round and equally reacting to light. EOMI. No scleral icterus. No conjunctival pallor. Normocephalic, atraumatic. No pharyngeal erythema. No thyromegaly. CARDIOVASCULAR: S1 and S2 present. No murmurs, rubs, or gallops. PULMONARY: Chest is clear to auscultation, no wheezing or crackles. ABDOMEN: Soft, nontender, nondistended, normoactive bowel sounds. No palpable organomegaly. MUSCULOSKELETAL: No joint swelling or deformity. EXTREMITIES: No cyanosis, clubbing, or pedal edema. NEUROLOGICAL: Gross neurological examination did not reveal any focal deficits. SKIN: No rashes. Dictation was produced using [employer] dictation software. please excuse any grammatical, word or spelling errors. Patient Condition at Discharge: Stable Plan - Discharge Summary New Discharge Prescriptions: New cefUROXime axetiL [Ceftin] 500 mg PO BID 5 Days #10 tab metroNIDAZOLE [Flagyl] 500 mg PO TID 5 Days #15 tab Continue Montelukast Sodium [Singulair] 10 mg PO DAILY Omeprazole [PriLOSEC] 20 mg PO BID Gabapentin [Neurontin] 300 mg PO QID Albuterol Sulfate [Ventolin HFA] 2 puff INHALATION RT-Q4H PRN PRN Reason: Shortness Of Breath predniSONE 10 mg PO DAILY Furosemide [Lasix] 40 mg PO DAILY Milnacipran HCl [Savella] 50 mg PO DAILY Spironolactone [Aldactone] 25 mg PO DAILY Midodrine HCl [ProAmantine] 2.5 mg PO BID DULoxetine HCL [Cymbalta] 30 mg PO DAILY oxyCODONE HCL [oxyCODONE HCL (IR)] 10 mg PO QID Discontinued Metoprolol Succinate [Toprol XL] 50 mg PO DAILY lisinopriL [Zestril] 5 mg PO DAILY Discharge Medication List Gabapentin [Neurontin] 300 mg PO QID 09/24/14 [History] Montelukast Sodium [Singulair] 10 mg PO DAILY 09/24/14 [History] Omeprazole [PriLOSEC] 20 mg PO BID 09/24/14 [History] Albuterol Sulfate [Ventolin HFA] 2 puff INHALATION RT-Q4H PRN 04/05/16 [History] predniSONE 10 mg PO DAILY 10/12/16 [History] Furosemide [Lasix] 40 mg PO DAILY 01/27/20 [History] Milnacipran HCl [Savella] 50 mg PO DAILY 01/27/20 [History] Spironolactone [Aldactone] 25 mg PO DAILY 01/27/20 [History] DULoxetine HCL [Cymbalta] 30 mg PO DAILY 02/02/21 [History] Midodrine HCl [ProAmantine] 2.5 mg PO BID 07/02/23 [History] oxyCODONE HCL [oxyCODONE HCL (IR)] 10 mg PO QID 07/02/23 [History] cefUROXime axetiL [Ceftin] 500 mg PO BID 5 Days #10 tab 07/07/23 [Rx] metroNIDAZOLE [Flagyl] 500 mg PO TID 5 Days #15 tab 07/07/23 [Rx] Follow up Appointment(s)/Referral(s): Steven Carmen MD [Primary Care Provider] - 1-2 days Discharge Disposition: HOME WITH HOME HEALTH SERVICES
== END 2023-07-07 15:19 | disposition home health service (06) | DRG 872 ==
LOC: EC 20:34 → 4SSUR 07-03 00:10 → 1SOBS 07-03 19:42 → 5NMEDONC 07-04 16:02
PROVIDERS: ADMIT Family Medicine; ATTEND Family Medicine
DX: A41.9 Sepsis, unspecified organism (principal); N17.9 Acute kidney failure, unspecified; I13.0 Hypertensive heart and chronic kidney disease with heart failure and stage 1 through stage 4 chronic kidney disease, or unspecified chronic kidney disease; I50.22 Chronic systolic (congestive) heart failure; I95.9 Hypotension, unspecified; Z11.52 Encounter for screening for COVID-19; G90.1 Familial dysautonomia [Riley-Day]; R41.0 Disorientation, unspecified; K44.9 Diaphragmatic hernia without obstruction or gangrene; G89.29 Other chronic pain; N18.9 Chronic kidney disease, unspecified; E86.0 Dehydration; G25.81 Restless legs syndrome; R55 Syncope and collapse; K52.9 Noninfective gastroenteritis and colitis, unspecified; I08.1 Rheumatic disorders of both mitral and tricuspid valves; M79.7 Fibromyalgia; J45.909 Unspecified asthma, uncomplicated; K66.0 Peritoneal adhesions (postprocedural) (postinfection); Z87.19 Personal history of other diseases of the digestive system; Z79.899 Other long term (current) drug therapy; Z98.84 Bariatric surgery status; Z90.49 Acquired absence of other specified parts of digestive tract; Z88.0 Allergy status to penicillin
CPT/HCPCS: 36415; 71046; 71275; 74174; 74176; 80048; 80053; 81003; 82150; 82803; 83605; 83690; 84145; 84484; 85025; 85027; 85610; 85730; 86140; 87040; 87636; 93005; 93306; 96365; 96366; 96375; 99291

== ENCOUNTER → 2023-07-21 | Outpatient (CLI) | payer BC ==
[2023-07-22 06:06] LABS: HCT 34.5 % (37.2-46.3); HGB 10.1 g/dL (12.0-15.0); MCH 22.6 pg (27.0-32.0); MCHC 29.3 g/dL (32.0-37.0); MCV 77.4 FL (80.0-97.0); Mean Platelet Volume 10.6 FL (9.5-12.2); NRBC Per 100 WBC 0 X 10*3/uL (0.00-0.01); Platelet Count 514 X 10*3/uL (140-440); RBC 4.46 X 10*6/uL (4.10-5.20); RDW 20.4 % (11.5-14.5); WBC 7.59 X 10*3/uL (4.50-10.00)
[2023-07-22 06:07] LABS: Basophils # (A) 0.05 X 10*3/uL (0.00-0.10); Basophils % (A) 0.7 %; Eosinophils # (A) 0.49 X 10*3/uL (0.04-0.35); Eosinophils % (A) 6.5 %; Lymphocytes # (A) 1.64 X 10*3/uL (0.90-5.00); Lymphocytes % (A) 21.6 %; Monocytes # (A) 0.78 X 10*3/uL (0.20-1.00); Monocytes % (A) 10.3 %; Neutrophils # (A) 4.61 X 10*3/uL (1.80-7.70); Neutrophils % (A) 60.6 %
[2023-07-22 06:36] LABS: ALT 16 U/L (8-44); AST 20 U/L (13-35); Albumin 3.6 g/dL (3.8-4.9); Albumin/Globulin Ratio 1.71 Ratio (1.60-3.17); Alkaline Phosphatase 117 U/L (41-126); BUN/Creat Ratio 20.62 Ratio (12.00-20.00); Blood Urea Nitrogen 16.5 mg/dL (9.0-27.0); Chloride 104 mmol/L (96-109); Globulin 2.1 g/dL (1.6-3.3); Glucose 101 mg/dL (70-110); Potassium 4.4 mmol/L (3.5-5.5); Sodium 138 mmol/L (135-145); Total Bilirubin 0.2 mg/dL (0.3-1.2); Total Protein 5.7 g/dL (6.2-8.2)
[2023-07-22 07:51] LABS: % Iron Saturation 4.29 (12.00-45.00); Ferritin 18.4 ng/mL (10.0-291.0); Iron 17 UG/DL (50-170); Total Iron Binding Capacity 396 UG/DL (228-460)
== END | disposition home or self-care (01) ==
LOC: LABWHC1 10:14
PROVIDERS: ATTEND Student in an Organized Health Care Education/Training Program
DX: I10 Essential (primary) hypertension (principal); E66.9 Obesity, unspecified; D50.9 Iron deficiency anemia, unspecified; R10.13 Epigastric pain; R19.7 Diarrhea, unspecified
CPT/HCPCS: 36415; 80053; 82306; 82607; 82728; 82746; 83540; 83550; 84255; 84425; 84446; 84590; 84630; 85025

== ENCOUNTER 2023-08-07 02:01 | Inpatient (IN) | payer BC ==
--- NOTE | 2023-08-07 02:08 | ED ---
Abdominal Pain HPI - General Stated Complaint: ABD pain Time Seen by Provider: 08/07/23 02:03 Source: RN notes reviewed, old records reviewed Mode of arrival: EMS Limitations: altered mental status, physical limitation - History of Present Illness Initial Comments: This is a 62-year-old female poor story secondary to pain unable to provide history aside. Patient misses severe Pain at the top of her belly. Patient given pain meds by EMS with no improvement in pain. Patient has no active nausea or vomiting but does have persistent abdominal pain MD Complaint: abdominal pain -: days(s) Location: periumbilical Radiation: epigastric Migration to: epigastric Severity: severe Severity scale (1-10): 10 Quality: cramping, stabbing Worsens With: nothing Context: sick contacts Associated Symptoms: nausea, vomiting Treatments Prior to Arrival: NSAIDs - Related Data Home Medications Medication Instructions Recorded Confirmed Gabapentin [Neurontin] 300 mg PO QID 09/24/14 08/07/23 Montelukast Sodium [Singulair] 10 mg PO DAILY 09/24/14 08/07/23 Omeprazole [PriLOSEC] 20 mg PO BID 09/24/14 08/07/23 Albuterol Sulfate [Ventolin HFA] 2 puff INHALATION RT-Q4H PRN 04/05/16 08/07/23 predniSONE 10 mg PO DAILY 10/12/16 08/07/23 Furosemide [Lasix] 40 mg PO DAILY 01/27/20 08/07/23 Milnacipran HCl [Savella] 50 mg PO DAILY 01/27/20 08/07/23 Spironolactone [Aldactone] 25 mg PO DAILY 01/27/20 08/07/23 DULoxetine HCL [Cymbalta] 30 mg PO DAILY 02/02/21 08/07/23 Midodrine HCl [ProAmantine] 2.5 mg PO BID 07/02/23 08/07/23 oxyCODONE HCL [oxyCODONE HCL (IR)] 10 mg PO QID 07/02/23 08/07/23 Ergocalciferol (Vitamin D2) 1,250 mcg PO MO 08/07/23 08/07/23 [Drisdol (50,000 Iu)] Linaclotide [Linzess] 145 mcg PO DAILY 08/07/23 08/07/23 lisinopriL [Zestril] 20 mg PO DAILY 08/07/23 08/07/23 Allergies Allergy/AdvReac Type Severity Reaction Status Date / Time Penicillins Allergy Intermediate Rash/Hives Verified 08/07/23 07:30 aspirin AdvReac Severe Dyspnea Verified 08/07/23 07:30 morphine AdvReac Severe Nausea & Verified 08/07/23 07:30 Vomiting Review of Systems ROS Statement: Those systems with pertinent positive or pertinent negative responses have been documented in the HPI. ROS Other: All systems not noted in ROS Statement are negative. Past Medical History Past Medical History: Asthma, Fibromyalgia, Hypertension Additional Past Medical History / Comment(s): see Dr Andrea's H&P, CHRONIC SOB,RLS ,per pt cramping really bad all over feet, legs, and arms. Swelling/edema of evelio lower extremites, Chronic blockage of the small bowel, hx ulcer History of Any Multi-Drug Resistant Organisms: None Reported Past Surgical History: Appendectomy, Bariatric Surgery, Section, Cholecystectomy, Hernia Repair Additional Past Surgical History / Comment(s): abdominal surgeries X14, sinus surgery x4,COLONOSCOPY, surgery for chronic bloackge of smalll bowel ,gastric bypass Past Anesthesia/Blood Transfusion Reactions: No Reported Reaction Past Psychological History: No Psychological Hx Reported Smoking Status: Never smoker Past Alcohol Use History: None Reported Past Drug Use History: None Reported - Past Family History Mother Additional Family Medical History / Comment(s): PT ADOPTED COMPLETE FAMILY HX UNKNOWN Brother(s) Family Medical History: Cancer Additional Family Medical History / Comment(s): TWIN BROTHER FROM CANCER AGE 45 General Exam General appearance: alert, in no apparent distress, anxious Head exam: Present: atraumatic, normocephalic, normal inspection Eye exam: Present: normal appearance, PERRL, EOMI. Absent: scleral icterus, conjunctival injection, periorbital swelling ENT exam: Present: normal exam, mucous membranes dry Neck exam: Present: normal inspection. Absent: tenderness, meningismus, lymphadenopathy Respiratory exam: Present: normal lung sounds bilaterally. Absent: respiratory distress, wheezes, rales, rhonchi, stridor Cardiovascular Exam: Present: normal rhythm, tachycardia, normal heart sounds. Absent: systolic murmur, diastolic murmur, rubs, gallop, clicks GI/Abdominal exam: Present: soft, normal bowel sounds. Absent: distended, tenderness, guarding, rebound, rigid Extremities exam: Present: normal inspection, full ROM, normal capillary refill. Absent: tenderness, pedal edema, joint swelling, calf tenderness Back exam: Present: normal inspection Neurological exam: Present: alert, oriented X3, CN II-XII intact Psychiatric exam: Present: normal affect, normal mood Skin exam: Present: warm, dry, intact, normal color. Absent: rash Course Vital Signs 08/07/23 08/07/23 08/07/23 02:06 02:14 03:14 Temperature 98.0 F Pulse Rate 128 H 119 H 109 H Pulse Rate [ Business Continuity Strategy Director ] Respiratory 30 H 20 22 Rate Blood Pressure 132/119 138/99 136/90 Blood Pressure [Right Arm] O2 Sat by Pulse 97 Oximetry 08/07/23 08/07/23 08/07/23 04:00 05:00 06:37 Temperature Pulse Rate 109 H 109 H 109 H Pulse Rate [ Business Continuity Strategy Director ] Respiratory 22 16 19 Rate Blood Pressure 148/79 125/78 134/86 Blood Pressure [Right Arm] O2 Sat by Pulse 96 95 95 Oximetry 08/07/23 08/07/23 08/07/23 07:27 09:05 10:01 Temperature 99.0 F Pulse Rate 105 H 103 H 104 H Pulse Rate [ Business Continuity Strategy Director ] Respiratory 17 17 19 Rate Blood Pressure 141/87 143/90 156/85 Blood Pressure [Right Arm] O2 Sat by Pulse 96 20 L 95 Oximetry 08/07/23 08/07/23 08/07/23 11:08 12:03 12:15 Temperature Pulse Rate 107 H 112 H 109 H Pulse Rate [ Business Continuity Strategy Director ] Respiratory 17 36 H 24 Rate Blood Pressure 129/95 143/102 152/93 Blood Pressure [Right Arm] O2 Sat by Pulse 96 95 95 Oximetry 08/07/23 08/07/23 13:07 14:00 Temperature 97.6 F Pulse Rate 116 H Pulse Rate [ 118 H Business Continuity Strategy Director ] Respiratory 18 16 Rate Blood Pressure 155/90 Blood Pressure 138/88 [Right Arm] O2 Sat by Pulse 96 100 Oximetry - Reevaluation(s) Reevaluation #1: 08/07/23 02:45 Medical records reviewed Reevaluation #2: 08/07/23 02:45 Patient symptoms improved Reevaluation #3: 08/07/23 02:45 Patient informed of results and questions answered Reevaluation #4: Was pt. sent in by a medical professional or institution (, [facility], MEDICAL AND HEALTH SERVICES MANAGER, urgent care, hospital, or care home...) When possible be specific @ -no Did you speak to anyone other than the patient for history (EMS, parent, family, police, friend...)? What history was obtained from this source @ -no Did you review nursing and triage notes (agree or disagree)? Why? @ -agree Are old charts reviewed (outside hosp., previous admission, EMS record, old EKG, old radiological studies, urgent care reports/EKG's, care home records)? Report findings @ -yes Differential Diagnosis (chest pain, altered mental status, abdominal pain women, abdominal pain men, vaginal bleeding, weakness, fever, dyspnea, syncope, headache, dizziness, GI bleed, back pain, seizure, CVA, palpatations, mental health, musculoskeletal)? @ -prior EKG interpreted by me (3pts min.). @ -yes X-rays interpreted by me (1pt min.). @ -no CT interpreted by me (1pt min.). @ -Yes positive for ileus and small bowel obstruction U/S interpreted by me (1pt. min.). @ -no What testing was considered but not performed or refused? (CT, X-rays, U/S, labs)? Why? @ -none What meds were considered but not given or refused? Why? @ -none Did you discuss the management of the patient with other professionals (professionals i.e. TENNILLE Rivera, MEDICAL AND HEALTH SERVICES MANAGER, lab, RT, psych nurse, social work program coordinator, pediatric intensive physician, teacher, dispatch officer, spring encaser)? Give summary @ -no Was smoking cessation discussed for >3mins.? @ -no Was critical care preformed (if so, how long)? @ -no Were there social determinants of health that impacted care today? How? (Homelessness, low income, unemployed, alcoholism, drug addiction, transportation, low edu. Level, literacy, decrease access to med. care, group home, rehab)? @ -none Was there de-escalation of care discussed even if they declined (Discuss DNR or withdrawal of care, Hospice)? DNR status @ -no What co-morbidities impacted this encounter? (DM, HTN, Smoking, COPD, CAD, Cancer, CVA, ARF, Chemo, Hep., AIDS, mental health diagnosis, sleep apnea, morbid obesity)? @ -none Was patient admitted / discharged? Hospital course, mention meds given and route, prescriptions, significant lab abnormalities, going to OR and other pertinent info. @ - 62 female to the emergency department today for evaluation of abdominal pain and altered mental status, CT positive for ileus with small bowel obstruction Admitted Undiagnosed new problem with uncertain prognosis? @ -no Drug Therapy requiring intensive monitoring for toxicity (Heparin, Nitro, Insulin, Cardizem)? @ -no Were any procedures done? @ -no Diagnosis/symptom? @ -Ileus small bowel obstruction altered mental status Acute, or Chronic, or Acute on Chronic? @ -Acute Uncomplicated (without systemic symptoms) or Complicated (systemic symptoms)? @ -Complicated Side effects of treatment? @ -no Exacerbation, Progression, or Severe Exacerbation? @ -exacerbation Poses a threat to life or bodily function? How? (Chest pain, [place], [place], pneumonia, PE, COPD, DKA, ARF, appy, cholecystitis, CVA, Diverticulitis, Homicidal, Suicidal, threat to staff... and all critical care pts) @ -no Reevaluation #5: Differential Abdominal Pain Women: Appendicitis, Cholecystitis, diverticulosis, ischemic bowel, pancreatitis, hepatitis, UTI, gastroenteritis, AAA, incarcerated hernia, bowel obstruction, constipation, inflammatory bowel, hepatitis, peptic ulcer disease, splenic in farction, perforated viscus, vulvitis, ovarian torsion, PID, kidney stone, placenta abruption, this is not meant to be an all-inclusive list Differential Altered Mental Status: Hypoglycemia, DKA, hypercapnia, ETOH, overdose, CO poisoning, trauma, myxedema coma, HTN encephalopathy, infection, encephalitis, psychosis, intercranial hemorrhage, hepatic encephalopathy, meningitis, CVA, this is not meant to be an all-inclusive list - Consultations Consultation #1: Spoke with the admitting physicians who agreed to admit this patient Medical Decision Making - Medical Decision Making 62 female to the emergency department today for evaluation of abdominal pain and altered mental status - Lab Data Result diagrams: 08/07/23 03:06 08/07/23 03:06 Lab Results 08/07/23 08/07/23 08/07/23 Range/Units 03:06 03:06 03:06 WBC 20.0 H (3.8-10.6) k/uL RBC 4.42 (3.80-5.40) m/uL Hgb 10.3 L (11.4-16.0) gm/dL Hct 33.8 L (34.0-46.0) % MCV 76.5 L (80.0-100.0) fL MCH 23.3 L (25.0-35.0) pg MCHC 30.5 L (31.0-37.0) g/dL RDW 19.1 H (11.5-15.5) % Plt Count 437 (150-450) k/uL MPV 7.9 Neutrophils % 81 % Lymphocytes % 14 % Monocytes % 4 % Eosinophils % 1 % Basophils % 0 % Neutrophils # 16.1 H (1.3-7.7) k/uL Lymphocytes # 2.7 (1.0-4.8) k/uL Monocytes # 0.7 (0-1.0) k/uL Eosinophils # 0.2 (0-0.7) k/uL Basophils # 0.1 (0-0.2) k/uL Hypochromasia Marked Anisocytosis Slight Microcytosis Moderate Sodium 137 (137-145) mmol/L Potassium 4.4 (3.5-5.1) mmol/L Chloride 112 H (98-107) mmol/L Carbon Dioxide 21 L (22-30) mmol/L Anion Gap 4 mmol/L BUN 25 H (7-17) mg/dL Creatinine 0.93 (0.52-1.04) mg/dL Est GFR (CKD-EPI)AfAm 77 (>60 ml/min/1.73 sqM) Est GFR (CKD-EPI)NonAf 67 (>60 ml/min/1.73 sqM) Glucose 110 H (74-99) mg/dL Plasma Lactic Acid Dave 1.3 (0.7-2.0) mmol/L Calcium 8.5 (8.4-10.2) mg/dL Total Bilirubin 0.4 (0.2-1.3) mg/dL AST 37 H (14-36) U/L ALT 31 (4-34) U/L Alkaline Phosphatase 108 (38-126) U/L Troponin I (0.000-0.034) ng/mL Total Protein 5.5 L (6.3-8.2) g/dL Albumin 3.1 L (3.5-5.0) g/dL Amylase 53 (30-110) U/L Lipase 102 (23-300) U/L 08/07/23 Range/Units 03:06 WBC (3.8-10.6) k/uL RBC (3.80-5.40) m/uL Hgb (11.4-16.0) gm/dL Hct (34.0-46.0) % MCV (80.0-100.0) fL MCH (25.0-35.0) pg MCHC (31.0-37.0) g/dL RDW (11.5-15.5) % Plt Count (150-450) k/uL MPV Neutrophils % % Lymphocytes % % Monocytes % % Eosinophils % % Basophils % % Neutrophils # (1.3-7.7) k/uL Lymphocytes # (1.0-4.8) k/uL Monocytes # (0-1.0) k/uL Eosinophils # (0-0.7) k/uL Basophils # (0-0.2) k/uL Hypochromasia Anisocytosis Microcytosis Sodium (137-145) mmol/L Potassium (3.5-5.1) mmol/L Chloride (98-107) mmol/L Carbon Dioxide (22-30) mmol/L Anion Gap mmol/L BUN (7-17) mg/dL Creatinine (0.52-1.04) mg/dL Est GFR (CKD-EPI)AfAm (>60 ml/min/1.73 sqM) Est GFR (CKD-EPI)NonAf (>60 ml/min/1.73 sqM) Glucose (74-99) mg/dL Plasma Lactic Acid Dave (0.7-2.0) mmol/L Calcium (8.4-10.2) mg/dL Total Bilirubin (0.2-1.3) mg/dL AST (14-36) U/L ALT (4-34) U/L Alkaline Phosphatase (38-126) U/L Troponin I <0.012 (0.000-0.034) ng/mL Total Protein (6.3-8.2) g/dL Albumin (3.5-5.0) g/dL Amylase (30-110) U/L Lipase (23-300) U/L - Radiology Data Radiology results: report reviewed (CT of the abdomen pelvis is negative for acute disease), image reviewed Disposition Clinical Impression: Abdominal pain, Shortness of breath, Chest pain, MARY (acute kidney injury), Dehydration, Nausea and vomiting, SBO (small bowel obstruction), Ileus Disposition: ADMITTED IP TO THIS [facility] Condition: Good Is patient prescribed a controlled substance at d/c from ED?: No Time of Disposition: 02:00
[2023-08-07] MEDS: HYDROmorphone 1 MG/ML 1 ML SYRINGE IVP STA ×2 (02:35→04:40)
[2023-08-07] MEDS: ONDANSETRON 4 MG/2 ML VIAL IVP STA (02:36)
[2023-08-07] MEDS: SODIUM CHLORIDE 0.9% 1,000 ML IV STA (02:38)
[2023-08-07 03:36] LABS: Anisocytosis Slight; Basophils # (A) 0.1 k/uL (0-0.2); Basophils % (A) 0 %; Eosinophils # (A) 0.2 k/uL (0-0.7); Eosinophils % (A) 1 %; HCT 33.8 % (34.0-46.0); HGB 10.3 gm/dL (11.4-16.0); Hypochromasia Marked; Lymphocytes # (A) 2.7 k/uL (1.0-4.8); Lymphocytes % (A) 14 %; MCH 23.3 pg (25.0-35.0); MCHC 30.5 g/dL (31.0-37.0); MCV 76.5 fL (80.0-100.0); Mean Platelet Volume 7.9; Microcytosis Moderate; Monocytes # (A) 0.7 k/uL (0-1.0); Monocytes % (A) 4 %; Neutrophils # (A) 16.1 k/uL (1.3-7.7); Neutrophils % (A) 81 %; Platelet Count 437 k/uL (150-450); RBC 4.42 m/uL (3.80-5.40); RDW 19.1 % (11.5-15.5)
[2023-08-07 03:52] LABS: Sodium 137 mmol/L (137-145)
[2023-08-07 03:54] LABS: ALT 31 U/L (4-34); AST 37 U/L (14-36); African American GFR (CKD) 77 (>60 ml/min/1.73 sqM); Albumin 3.1 g/dL (3.5-5.0); Alkaline Phosphatase 108 U/L (38-126); Amylase 53 U/L (30-110); Anion Gap 4 mmol/L; Blood Urea Nitrogen 25 mg/dL (7-17); Calcium 8.5 mg/dL (8.4-10.2); Carbon Dioxide 21 mmol/L (22-30); Chloride 112 mmol/L (98-107); Glucose 110 mg/dL (74-99); Lipase 102 U/L (23-300); Non-African American GFR(CKD) 67 (>60 ml/min/1.73 sqM); Potassium 4.4 mmol/L (3.5-5.1); Total Bilirubin 0.4 mg/dL (0.2-1.3); Total Protein 5.5 g/dL (6.3-8.2)
--- NOTE | 2023-08-07 05:26 | CT ---
EXAM: CT Abdomen and Pelvis Without Intravenous Contrast CLINICAL HISTORY: ITS.REASON CT Reason: pain TECHNIQUE: Axial computed tomography images of the abdomen and pelvis without intravenous contrast. CTDI is 24.5 mGy and DLP is 1564 mGy-cm. This CT exam was performed using one or more of the following dose reduction techniques: automated exposure control, adjustment of the mA and/or kV according to patient size, and/or use of iterative reconstruction technique. Coronal and sagittal reformatted images were created and reviewed. 1118 images COMPARISON: No relevant prior studies available. FINDINGS: Lung bases: Unremarkable. No mass. No consolidation. ABDOMEN: Liver: Unremarkable. Gallbladder and bile ducts: Cholecystectomy clips. No ductal dilation. Pancreas: Unremarkable. No ductal dilation. Spleen: Unremarkable. No splenomegaly. Adrenals: Unremarkable. No mass. Kidneys and ureters: Unremarkable. No obstructing stones. No hydronephrosis. Stomach and bowel: Partial gastrectomy sutures. Dilated loops of small bowel measuring up to 7 cm in maximal diameter in the region of anastomosis in central abdomen, with small bowel feces sign, indicates ileus versus obstruction. Partial gastrectomy sutures with moderate- sized hiatal hernia. PELVIS: Appendix: No findings to suggest acute appendicitis. Bladder: Unremarkable. No stones. Reproductive: Unremarkable as visualized. ABDOMEN and PELVIS: Intraperitoneal space: Unremarkable. No free air. No significant fluid collection. Bones/joints: Osteopenia. Moderate degenerative changes. Soft tissues: Unremarkable. Vasculature: Unremarkable. No abdominal aortic aneurysm. Lymph nodes: Unremarkable. No enlarged lymph nodes. IMPRESSION: Small bowel ileus versus obstruction.
[2023-08-07] MEDS ORDERED: ONDANSETRON 4 MG/2 ML VIAL IVP PRN (05:33)
[2023-08-07] MEDS ORDERED: NALOXONE 0.4 MG/ML 1 ML VIAL IV PRN (05:33)
[2023-08-07] MEDS: SODIUM CHLORIDE 0.9% 1,000 ML IV SCH (06:30)
[2023-08-07] MEDS: HYDROmorphone 1 MG/ML 1 ML SYRINGE IVP PRN (07:30)
[2023-08-07] MEDS: PANTOPRAZOLE 40 MG/10 ML VIAL IV SCH (09:05)
--- NOTE | 2023-08-07 11:42 | P.HPIM ---
History of Present Illness H&P Date: 08/07/23 Chief Complaint: Abdominal pain Josee Cooper is a 62 yo F with PMH of morbid obesity, chronic abdominal pain, history of abdominal adhesions related to previous gastric bypass surgery, systolic CHF who presented to the ED complaining of increased abdominal pain. Reports she she ate lunch and dinner yesterday, developed midepigastric abdominal pain at 8 PM nonradiating, passing gas. Denies constipation reports 2 bowel movements yesterday. She reports feeling dizzy with standing secondary to severe abdominal pain. She denies any fever or chills, sore throat, congestion, cough. Tmax 99, WBC 20k, hemoglobin 10.3, platelets 437, BUN 25, creatinine 0.93, lactic acid 1.3, tachycardic. CT abdomen and pelvis reported small bowel ileus versus obstruction, lung bases unremarkable, no mass no consolidation, gallbladder and bile ducts-cholecystectomy clips, no ductal dilation, liver, pancreas, spleen, adrenals, kidneys and ureters unremarkable. Partial gastrectomy sutures, dilated loops of small bowel measuring up to 7 cm in maximal diameter in the region of the anastomosis in the central abdomen with small bowel feces sign indicates ileus versus obstruction. Partial gastrectomy sutures with moderate size hiatal hernia. Abdomen/pelvis -no free air no signi ficant fluid collection. Review of Systems Review of Systems All systems: negative Constitutional: Reports malaise, Reports weakness, Denies chills, Denies fever Eyes: denies blurred vision, denies pain Ears, nose, mouth and throat: Denies headache, Denies sore throat Cardiovascular: Denies chest pain, Denies shortness of breath Respiratory: Denies cough Gastrointestinal: Reports abdominal pain, Denies diarrhea, positive nausea, positive vomiting. Denies constipation. Genitourinary: Denies dysuria, Denies hematuria Musculoskeletal: Denies myalgias Integumentary: Denies pruritus, Denies rash Neurological: Denies numbness, Denies weakness. Psychiatric: Denies anxiety, Denies depression Endocrine: Denies fatigue, Denies weight change Past Medical History Past Medical History: Asthma, Fibromyalgia, Hypertension Additional Past Medical History / Comment(s): see Dr Andrea's H&P, CHRONIC SOB,RLS ,per pt cramping really bad all over feet, legs, and arms. Swe lling/edema of evelio lower extremites, Chronic blockage of the small bowel, hx ulcer History of Any Multi-Drug Resistant Organisms: None Reported Past Surgical History: Appendectomy, Bariatric Surgery, Section, Cholecystectomy, Hernia Repair Additional Past Surgical History / Comment(s): abdominal surgeries X14, sinus surgery x4,COLONOSCOPY, surgery for chronic bloackge of smalll bowel ,gastric bypass Past Anesthesia/Blood Transfusion Reactions: No Reported Reaction Past Psychological History: No Psychological Hx Reported Smoking Status: Never smoker Past Alcohol Use History: None Reported Past Drug Use History: None Reported - Past Family History Mother Additional Family Medical History / Comment(s): PT ADOPTED COMPLETE FAMILY HX UNKNOWN Brother(s) Family Medical History: Cancer Additional Family Medical History / Comment(s): TWIN BROTHER FROM CANCER AGE 45 Medications and Allergies Home Medications Medication Instructions Recorded Confirmed Type Gabapentin [Neurontin] 300 mg PO QID 09/24/14 08/07/23 History Montelukast Sodium [Singulair] 10 mg PO DAILY 09/24/14 08/07/23 History Omeprazole [PriLOSEC] 20 mg PO BID 09/24/14 08/07/23 History Albuterol Sulfate [Ventolin HFA] 2 puff INHALATION RT-Q4H PRN 04/05/16 08/07/23 History predniSONE 10 mg PO DAILY 10/12/16 08/07/23 History Furosemide [Lasix] 40 mg PO DAILY 01/27/20 08/07/23 History Milnacipran HCl [Savella] 50 mg PO DAILY 01/27/20 08/07/23 History Spironolactone [Aldactone] 25 mg PO DAILY 01/27/20 08/07/23 History DULoxetine HCL [Cymbalta] 30 mg PO DAILY 02/02/21 08/07/23 History Midodrine HCl [ProAmantine] 2.5 mg PO BID 07/02/23 08/07/23 History oxyCODONE HCL [oxyCODONE HCL (IR)] 10 mg PO QID 07/02/23 08/07/23 History Ergocalciferol (Vitamin D2) 1,250 mcg PO MO 08/07/23 08/07/23 History [Drisdol (50,000 Iu)] Linaclotide [Linzess] 145 mcg PO DAILY 08/07/23 08/07/23 History lisinopriL [Zestril] 20 mg PO DAILY 08/07/23 08/07/23 History Allergies Allergy/AdvReac Type Severity Reaction Status Date / Time Penicillins Allergy Intermediate Rash/Hives Verified 08/07/23 07:30 aspirin AdvReac Severe Dyspnea Verified 08/07/23 07:30 morphine AdvReac Severe Nausea & Verified 08/07/23 07:30 Vomiting Physical Exam Vitals: Vital Signs Temp Pulse Resp BP Pulse Ox 08/07/23 11:08 107 H 17 129/95 96 08/07/23 10:01 104 H 19 156/85 95 08/07/23 09:05 103 H 17 143/90 20 L 08/07/23 07:27 99.0 F 105 H 17 141/87 96 08/07/23 06:37 109 H 19 134/86 95 08/07/23 05:00 109 H 16 125/78 95 08/07/23 04:00 109 H 22 148/79 96 08/07/23 03:14 109 H 22 136/90 97 08/07/23 02:14 119 H 20 138/99 08/07/23 02:06 98.0 F 128 H 30 H 132/119 Intake and Output 08/06/23 08/07/23 08/07/23 22:59 06:59 14:59 Other: Weight 106.594 kg Gen: morbidly obese, NAD, well developed HEENT: NC/AT, mmm Neck: supple, no JVD or thyromegaly CV: RRR, no murmur Lungs: Normal effort, no wheezes, rales or rhonchi Abd: soft, midepigastric tender to palpation, positive bowel sounds Neuro: AAOx3, no focal deficit Skin: warm and dry Results CBC & Chem 7: 08/07/23 03:06 08/07/23 03:06 Labs: Abnormal Lab Results - Last 24 Hours (Table) 08/07/23 08/07/23 Range/Units 03:06 03:06 WBC 20.0 H (3.8-10.6) k/uL Hgb 10.3 L (11.4-16.0) gm/dL Hct 33.8 L (34.0-46.0) % MCV 76.5 L (80.0-100.0) fL MCH 23.3 L (25.0-35.0) pg MCHC 30.5 L (31.0-37.0) g/dL RDW 19.1 H (11.5-15.5) % Neutrophils # 16.1 H (1.3-7.7) k/uL Chloride 112 H (98-107) mmol/L Carbon Dioxide 21 L (22-30) mmol/L BUN 25 H (7-17) mg/dL Glucose 110 H (74-99) mg/dL AST 37 H (14-36) U/L Total Protein 5.5 L (6.3-8.2) g/dL Albumin 3.1 L (3.5-5.0) g/dL Assessment and Plan Assessment: Acute mid epigastric pain, CT reporting small bowel obstruction versus ileus, in a patient with multiple abdominal surgeries. recent History of [place] Fibromyalgia Morbid obesity, BMI 44 Plan: Continue on current medication regimen, monitoring and symptomatic treatment. Lovenox for DVT prophylaxis and impaired IV antibiotics ordered. Pain management. evaluated by general surgery, transfer recommended to tertiary care center related to patient is high risk given multiple bowel obstructions/abdominal/bowel surgeries -performed at other institutions, [place]. Transfer to [facility] has been initiated. Patient has been accepted by Eric Aguirre, Dr. Ashley Bowens, pending bed availability. Prognosis guarded given multiple complex medical issues. The impression and plan of care has been dictated as directed. : I performed a history and examination of this patient, discussed the same with the dictator. I agree with the dictator's note ,documented as a scribe. Any additional findings or plans will be noted.
[2023-08-07] MEDS: ENOXAPARIN 40 MG/0.4 ML SYRINGE SQ SCH (11:46)
[2023-08-07] MEDS: metroNIDAZOLE-NS PMX 500 MG in SALINE 1 100ML.BAG IVPB SCH (11:51)
[2023-08-07] MEDS: LEVOFLOXACIN 750MG-D5W PMX 750 MG in DEXTROSE/WATER 1 150ML.BAG IVPB SCH (12:05)
--- NOTE | 2023-08-07 14:35 | P.GSCN ---
History of Present Illness Consult date: 08/07/23 History of present illness: CHIEF COMPLAINT: Abdominal pain HISTORY OF PRESENT ILLNESS: This is a 62-year-old female with a known history of multiple abdominal surgeries. She has had prior bowel obstructions that she reports she has had surgical intervention at [facility]. Patient recently hospitalized in June for abdominal pain and was diagnosed with pain likely due to adhesions and manage conservatively. Patient reports that 8 PM last night she started to have sudden severe pain. Pain continued to worsen and she presented to the ER for further evaluation. Pain was mostly in the epigastric and mid abdomen. She was having nausea and vomiting. 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 Other surgical history does include appendectomy, , cholecystectomy and hernia repair. Patient had CT scan abdomen and pelvis that had reported small bowel ileus versus bowel obstruction. Her last bowel movement was yesterday prior to her abdominal pain. She has been passing a small amount of flatus. No vomiting since coming into the ER. White count was elevated. She has been tachycardic. PAST MEDICAL HISTORY: Asthma, Fibromyalgia, Hypertension, Chronic blockage of the small bowel, hx ulcer PAST SURGICAL HISTORY: See list. MEDICATIONS: See list. ALLERGIES: See list. SOCIAL HISTORY: No illicit drug use. REVIEW OF SYSTEMS: CONSTITUTIONAL: Denies fever or chills. HEENT: Denies blurred vision, vision changes, or eye pain. Denies hemoptysis ENDOCRINE: Denies heat or cold intolerance. CARDIOVASCULAR: Denies chest pain or pressure. RESPIRATORY: No shortness of breath. GASTROINTESTINAL: Denies abdominal pain. Denies nausea or vomiting. NEURO: Denies history of seizures. PSYCH: No depression or suicidal ideation HEMATOLOGIC: Denies bleeding disorders. LYMPHATIC: The patient denies any lumps and bumps around the neck. GENITOURINARY: Denies any blood in urine or increased urinary frequency. MUSCULOSKELETAL: Denies myalgias. Denies joint swelling. Denies decreased range of motion beyond patients baseline. SKIN: Denies pruitis. Denies rash. PHYSICAL EXAM: VITAL SIGNS: Reviewed GENERAL: Well-developed in no acute distress. HEENT: No sclera icterus. Extraocular movements grossly intact. Moist buccal mucosa. Head is atraumatic, normocephalic. Hears conversational speech. No nasal drainage. NECK: Supple without lymphadenopathy. CHEST: Non-labored respirations and equal bilateral excursions. CARDIOVASCULAR: Palpable 2+ radial pulses. ABDOMEN: Obese. Distended. Diffuse tenderness with palpation and more tender in the upper abdomen MUSCULOSKELETAL: No clubbing or cyanosis. NEUROLOGIC: No focal or lateralizing signs. Cranial nerves II through XII gr ossly intact. PSYCH: Appropriate affect. Alert and oriented to person, place and time. SKIN: Well perfused. Good skin turgor. LABORATORY DATA: WBC 20 Hgb 10.3 platelets 437 Sodium is 137 potassium 4.4 creatinine 0.93 Lactic acid 1.3 Lipase 102 Influenza, RSV and COVID-19 not detected IMAGING: CT scan abdomen pelvis reports small bowel ileus versus obstruction ASSESSMENT: 1. Small bowel ileus versus obstruction 2. History of 14 abdominal surgeries 3. Prior history of small bowel obstructions 4. History of Juan Carlos-en-Y gastric bypass PLAN: -Recommend transfer to [facility] where patient has had prior abdominal surgeries -Keep patient n.p.o. -Continue IV fluids -Continue antibiotics -Continue pain management -Continue supportive care Physician Workforce Development Vice President note has been reviewed by physician. Signing provider agrees with the documented findings, assessment, and plan of care. Past Medical History Past Medical History: Asthma, Fibromyalgia, Hypertension Additional Past Medical History / Comment(s): see Dr Andrea's H&P, CHRONIC SOB,RLS ,per pt cramping really bad all over feet, legs, and arms. Swelling/e porfirio of evelio lower extremites, Chronic blockage of the small bowel, hx ulcer History of Any Multi-Drug Resistant Organisms: None Reported Past Surgical History: Appendectomy, Bariatric Surgery, Section, Cholecystectomy, Hernia Repair Additional Past Surgical History / Comment(s): abdominal surgeries X14, sinus surgery x4,COLONOSCOPY, surgery for chronic bloackge of smalll bowel ,gastric bypass Past Anesthesia/Blood Transfusion Reactions: No Reported Reaction Past Psychological History: No Psychological Hx Reported Smoking Status: Never smoker Past Alcohol Use History: None Reported Past Drug Use History: None Reported - Past Family History Mother Additional Family Medical History / Comment(s): PT ADOPTED COMPLETE FAMILY HX UNKNOWN Brother(s) Family Medical History: Cancer Additional Family Medical History / Comment(s): TWIN BROTHER FROM CANCER AGE 45 Medications and Allergies Home Medications Medication Instructions Recorded Confirmed Type Gabapentin [Neurontin] 300 mg PO QID 09/24/14 08/07/23 History Montelukast Sodium [Singulair] 10 mg PO DAILY 09/24/14 08/07/23 History Omeprazole [PriLOSEC] 20 mg PO BID 09/24/14 08/07/23 History Albuterol Sulfate [Ventolin HFA] 2 puff INHALATION RT-Q4H PRN 04/05/16 08/07/23 History predniSONE 10 mg PO DAILY 10/12/16 08/07/23 History Furosemide [Lasix] 40 mg PO DAILY 01/27/20 08/07/23 History Milnacipran HCl [Savella] 50 mg PO DAILY 01/27/20 08/07/23 History Spironolactone [Aldactone] 25 mg PO DAILY 01/27/20 08/07/23 History DULoxetine HCL [Cymbalta] 30 mg PO DAILY 02/02/21 08/07/23 History Midodrine HCl [ProAmantine] 2.5 mg PO BID 07/02/23 08/07/23 History oxyCODONE HCL [oxyCODONE HCL (IR)] 10 mg PO QID 07/02/23 08/07/23 History Ergocalciferol (Vitamin D2) 1,250 mcg PO MO 08/07/23 08/07/23 History [Drisdol (50,000 Iu)] Linaclotide [Linzess] 145 mcg PO DAILY 08/07/23 08/07/23 History lisinopriL [Zestril] 20 mg PO DAILY 08/07/23 08/07/23 History Allergies Allergy/AdvReac Type Severity Reaction Status Date / Time Penicillins Allergy Intermediate Rash/Hives Verified 08/07/23 07:30 aspirin AdvReac Severe Dyspnea Verified 08/07/23 07:30 morphine AdvReac Severe Nausea & Verified 08/07/23 07:30 Vomiting Surgical - Exam Vital Signs Temp Pulse Resp BP 98.0 F 128 H 30 H 132/119 08/07/23 02:06 08/07/23 02:06 08/07/23 02:06 08/07/23 02:06 Results - Labs 08/07/23 03:06 08/07/23 03:06 Abnormal Lab Results - Last 24 Hours (Table) 08/07/23 08/07/23 Range/Units 03:06 03:06 WBC 20.0 H (3.8-10.6) k/uL Hgb 10.3 L (11.4-16.0) gm/dL Hct 33.8 L (34.0-46.0) % MCV 76.5 L (80.0-100.0) fL MCH 23.3 L (25.0-35.0) pg MCHC 30.5 L (31.0-37.0) g/dL RDW 19.1 H (11.5-15.5) % Neutrophils # 16.1 H (1.3-7.7) k/uL Chloride 112 H (98-107) mmol/L Carbon Dioxide 21 L (22-30) mmol/L BUN 25 H (7-17) mg/dL Glucose 110 H (74-99) mg/dL AST 37 H (14-36) U/L Total Protein 5.5 L (6.3-8.2) g/dL Albumin 3.1 L (3.5-5.0) g/dL Diabetes panel 08/07/23 Range/Units 03:06 Sodium 137 (137-145) mmol/L Potassium 4.4 (3.5-5.1) mmol/L Chloride 112 H (98-107) mmol/L Carbon Dioxide 21 L (22-30) mmol/L BUN 25 H (7-17) mg/dL Creatinine 0.93 (0.52-1.04) mg/dL Glucose 110 H (74-99) mg/dL Calcium 8.5 (8.4-10.2) mg/dL AST 37 H (14-36) U/L ALT 31 (4-34) U/L Alkaline Phosphatase 108 (38-126) U/L Total Protein 5.5 L (6.3-8.2) g/dL Albumin 3.1 L (3.5-5.0) g/dL Calcium panel 08/07/23 Range/Units 03:06 Calcium 8.5 (8.4-10.2) mg/dL Albumin 3.1 L (3.5-5.0) g/dL Pituitary panel 08/07/23 Range/Units 03:06 Sodium 137 (137-145) mmol/L Potassium 4.4 (3.5-5.1) mmol/L Chloride 112 H (98-107) mmol/L Carbon Dioxide 21 L (22-30) mmol/L BUN 25 H (7-17) mg/dL Creatinine 0.93 (0.52-1.04) mg/dL Glucose 110 H (74-99) mg/dL Calcium 8.5 (8.4-10.2) mg/dL Adrenal panel 08/07/23 Range/Units 03:06 Sodium 137 (137-145) mmol/L Potassium 4.4 (3.5-5.1) mmol/L Chloride 112 H (98-107) mmol/L Carbon Dioxide 21 L (22-30) mmol/L BUN 25 H (7-17) mg/dL Creatinine 0.93 (0.52-1.04) mg/dL Glucose 110 H (74-99) mg/dL Calcium 8.5 (8.4-10.2) mg/dL Total Bilirubin 0.4 (0.2-1.3) mg/dL AST 37 H (14-36) U/L ALT 31 (4-34) U/L Alkaline Phosphatase 108 (38-126) U/L Total Protein 5.5 L (6.3-8.2) g/dL Albumin 3.1 L (3.5-5.0) g/dL
[2023-08-07 15:18] VITALS: BP 138/88; PULSE 118; RESP 16; TEMP 97.6
[2023-08-08] MEDS ORDERED: LEVOFLOXACIN 750MG-D5W PMX 750 MG in DEXTROSE/WATER 1 150ML.BAG IVPB SCH (09:00)
== END 2023-08-07 19:00 | disposition short-term general hospital (02) | DRG 389 ==
LOC: EC 02:01 → 5NMEDONC 05:35
PROVIDERS: ADMIT Family Medicine; ATTEND Family Medicine
DX: K56.609 Unspecified intestinal obstruction, unspecified as to partial versus complete obstruction (principal); I50.22 Chronic systolic (congestive) heart failure; Z68.41 Body mass index [BMI] 40.0-44.9, adult; I11.0 Hypertensive heart disease with heart failure; E66.01 Morbid (severe) obesity due to excess calories; J45.909 Unspecified asthma, uncomplicated; M79.7 Fibromyalgia; K44.9 Diaphragmatic hernia without obstruction or gangrene; G89.29 Other chronic pain; K66.0 Peritoneal adhesions (postprocedural) (postinfection); Z98.84 Bariatric surgery status; Z90.3 Acquired absence of stomach [part of]; Z79.899 Other long term (current) drug therapy; Z79.891 Long term (current) use of opiate analgesic; Z79.52 Long term (current) use of systemic steroids; Z88.0 Allergy status to penicillin; Z88.6 Allergy status to analgesic agent; Z88.5 Allergy status to narcotic agent
CPT/HCPCS: 36415; 74176; 80053; 82150; 83605; 83690; 84484; 85025; 87636; 96361; 96365; 96366; 96368; 96372; 96375; 96376; 99285

== ENCOUNTER 2023-09-17 10:39 | Emergency (ER) | payer BC ==
--- NOTE | 2023-09-17 10:59 | ED ---
Recheck HPI - General Chief Complaint: Recheck/Abnormal Lab/Rx Stated Complaint: J tube complications Time Seen by Provider: 09/17/23 10:59 Source: patient, EMS, RN notes reviewed, old records reviewed Mode of arrival: EMS Limitations: physical limitation - History of Present Illness Initial Comments: Patient is a 62-year-old female presenting to the ER via EMS from [facility] with a chief complaint of J-tube complication. Patient states she underwent e xploratory laparotomy at [facility] approximately 1 month ago for small bowel obstruction. She states she has an extensive history of small bowel obstructions. She states she was discharged from the hospital a couple of days ago. She has been residing at [facility] for care and rehab. She states this morning staff and herself noticed her J-tube was out which brought her to the ER. Patient states she has been receiving feedings through J-tube and orally and believes it is too much. She has been receiving wound care at [facility] as well. She states staff they are usually "wipe away" purulent drainage. She denies any abdominal pain, constipation/diarrhea, nausea, vomiting, chest pain, fevers, chills, shortness of breath, peripheral edema, urinary complaints. - Related Data Home Medications Medication Instructions Recorded Confirmed Gabapentin [Neurontin] 600 mg PO TID@0900,1300,2100 09/24/14 09/17/23 Montelukast Sodium [Singulair] 10 mg PO DAILY@0909/24/14 09/17/23 Omeprazole [PriLOSEC] 40 mg PO DAILY@89909/24/14 09/17/23 Albuterol Sulfate [Ventolin HFA] 2 puff INHALATION RT-Q4H PRN 04/05/16 09/17/23 predniSONE 10 mg PO DAILY@89910/12/16 09/17/23 Milnacipran HCl [Savella] 50 mg PO DAILY@89901/27/20 09/17/23 Spironolactone [Aldactone] 25 mg PO DAILY@89901/27/20 09/17/23 Midodrine HCl [ProAmantine] 5 mg PO BID@0900,1700 07/02/23 09/17/23 Acetaminophen Tab [Tylenol] 650 mg PO QID@00,06,12,18 09/17/23 09/17/23 HYDROmorphone HCL 2 - 4 mg PO Q4H PRN 09/17/23 09/17/23 Jevity 1.5 Shad Liquid 65 ml PO DAILY@1800 09/17/23 09/17/23 Lidocaine 5% Patch [Lidoderm] 1 patch TOPICAL DAILY@0900 09/17/23 09/17/23 Multivitamins, Thera [Multivitamin 1 tab PO DAILY@0900 09/17/23 09/17/23 (formulary)] fentaNYL [Duragesic 37.5 MCG/HR] 1 patch TRANSDERM Q72H 09/17/23 09/17/23 methocarbamoL 1,000 mg PO QID@09,13,17,21 09/17/23 09/17/23 Allergies Allergy/AdvReac Type Severity Reaction Status Date / Time Penicillins Allergy Intermediate Rash/Hives Verified 09/17/23 12:40 aspirin AdvReac Severe Dyspnea Verified 09/17/23 12:40 morphine AdvReac Severe Nausea & Verified 09/17/23 12:40 Vomiting Review of Systems ROS Statement: Those systems with pertinent positive or pertinent negative responses have been documented in the HPI. ROS Other: All systems not noted in ROS Statement are negative. Past Medical History Past Medical History: Asthma, Fibromyalgia, Hypertension Additional Past Medical History / Comment(s): see Dr Andrea's H&P, CHRONIC SOB,RLS ,per pt cramping really bad all over feet, legs, and arms. Swelling/edema of evelio lower extremites, Chronic blockage of the small bowel, hx ulcer History of Any Multi-Drug Resistant Organisms: None Reported Past Surgical History: Appendectomy, Bariatric Surgery, Section, Cholecystectomy, Hernia Repair Additional Past Surgical History / Comment(s): abdominal surgeries X14, sinus surgery x4,COLONOSCOPY, surgery for chronic bloackge of smalll bowel ,gastric bypass Past Anesthesia/Blood Transfusion Reactions: No Reported Reaction Past Psychological History: No Psychological Hx Reported Smoking Status: Never smoker Past Alcohol Use History: None Reported Past Drug Use History: None Reported - Past Family History Mother Additional Family Medical History / Comment(s): PT ADOPTED COMPLETE FAMILY HX UNKNOWN Brother(s) Family Medical History: Cancer Additional Family Medical History / Comment(s): TWIN BROTHER FROM CANCER AGE 45 General Exam General appearance: alert, in no apparent distress Head exam: Present: atraumatic, normocephalic, normal inspection Eye exam: Present: normal appearance, PERRL, EOMI. Absent: scleral icterus, conjunctival injection, periorbital swelling ENT exam: Present: normal exam, mucous membranes moist Respiratory exam: Present: normal lung sounds bilaterally. Absent: respiratory distress, wheezes, rales, rhonchi, stridor Cardiovascular Exam: Present: regular rate, normal rhythm, normal heart sounds. Absent: systolic murmur, diastolic murmur, rubs, gallop, clicks GI/Abdominal exam: Present: soft, normal bowel sounds, other (Multiple tubes present. No focal tenderness. Midline surgical incision with purulent drainage and malodorous). Absent: distended, tenderness, guarding, rebound, rigid Neurological exam: Present: alert, oriented X3, CN II-XII intact Psychiatric exam: Present: normal affect, normal mood Skin exam: Present: warm, dry, intact, normal color. Absent: rash Course Vital Signs 09/17/23 09/17/23 09/17/23 10:42 12:30 14:18 Temperature 97.8 F Pulse Rate 97 112 H 96 Respiratory 16 18 18 Rate Blood Pressure 114/81 131/81 126/81 O2 Sat by Pulse 96 97 97 Oximetry - Reevaluation(s) Reevaluation #1: 09/17/23 14:43 Spoke with Eric Huang who accepts medical transfer. Medical Decision Making - Medical Decision Making Was pt. sent in by a medical professional or institution (, PA, ONLINE ADVERTISING DIRECTOR, urgent care, hospital, or intermediate...) When possible be specific @ -No Did you speak to anyone other than the patient for history (EMS, parent, family, police, friend...)? What history was obtained from this source @ -No Did you review nursing and triage notes (agree or disagree)? Why? @ -I reviewed and agree with nursing and triage notes Were old charts reviewed (outside hosp., previous admission, EMS record, old EKG, old radiological studies, urgent care reports/EKG's, intermediate records)? Report findings @ -Yes, I [facility] from the hospital stay July 2023. Patient had exploratory laparotomy and multiple tubes placed. She was discharged to [facility] for care. Differential Diagnosis (chest pain, altered mental status, abdominal pain women, abdominal pain men, vaginal bleeding, weakness, fever, dyspnea, syncope, headache, dizziness, GI bleed, back pain, seizure, CVA, palpatations, mental health, musculoskeletal)? @ -Differential Abdominal Pain Women: Appendicitis, Cholecystitis, diverticulosis, ischemic bowel, pancreatitis, hepatitis, UTI, gastroenteritis, AAA, incarcerated hernia, bowel obstruction, co nstipation, inflammatory bowel, hepatitis, peptic ulcer disease, splenic infarction, perforated viscus, vulvitis, ovarian torsion, PID, kidney stone, placenta abruption, this is not meant to be an all-inclusive list EKG interpreted by me (3pts min.). @ -None X-rays interpreted by me (1pt min.). @ -None done CT interpreted by me (1pt min.). @ -CT abdomen pelvis significant for small and large bowel are of normal caliber. Recurrent or residual hiatal hernia unchanged. Fatty liver, stable left renal lesion dating back to 2017. U/S interpreted by me (1pt. min.). @ -None done What testing was considered but not performed or refused? (CT, X-rays, U/S, labs)? Why? @ -None What meds were considered but not given or refused? Why? @ -None Did you discuss the management of the patient with other professionals (professionals i.e. , PA, ONLINE ADVERTISING DIRECTOR, lab, RT, psych nurse, social and political studies professor, cabinet abrasive sandblaster, teacher, public information officer, case investigator)? Give summary @ -Yes, case discussed with Eric Huang who accepts medical transfer. Was smoking cessation discussed for >3mins.? @ -No Was critical care preformed (if so, how long)? @ -No Were there social determinants of health that impacted care today? How? (Homelessness, low income, unemployed, alcoholism, drug addiction, transportation, low edu. Level, literacy, decrease access to med. care, halfway, rehab)? @ -Resides at [facility] Was there de-escalation of care discussed even if they declined (Discuss DNR or withdrawal of care, Hospice)? DNR status @ -No What co-morbidities impacted this encounter? (DM, HTN, Smoking, COPD, CAD, Cancer, CVA, ARF, Chemo, Hep., AIDS, mental health diagnosis, sleep apnea, morbid obesity)? @ -Obese, history of small bowel obstruction Was patient admitted / discharged? Hospital course, mention meds given and route, prescriptions, significant lab abnormalities, going to OR and other pertinent info. @ -Transferred. Patient is a 62-year-old female presenting to the ER with a chief complaint of J-tube complication. History and physical exam completed. Vitals stable. Patient had multiple abdominal tubes present. Midline surgical incision with purulent drainage. No focal tenderness and normal bowel sounds. Patient in no signs of acute distress and nontoxic-appearing. Labs obtained significant for white blood cell count 11.5, platelet count 1143, potassium 5.2, carbon dioxide 21, BUN 18, AST 159, ALT 106, ALK phos 272. CT abdomen pelvis negative for acute changes. Due to recent abdominal surgery, possible wound infection, and lab work transfer was considered. Results discussed with patient, all questions answered. Patient agreeable for transfer. I discussed this case with Eric Huang who accepted transfer. Accepting physician Dr. Soares. Patient received 2 g IV Rocephin and 2 g IV vancomycin prior to transfer. Blood and wound cultures obtained. Patient transferred in stable condition for further treatment. Case discussed with ED attending, Dr. Mercado. Undiagnosed new problem with uncertain prognosis? @ -No Drug Therapy requiring intensive monitoring for toxicity (Heparin, Nitro, Insulin, Cardizem)? @ -No Were any procedures done? @ -No Diagnosis/symptom? @ -Thrombocytosis/transaminitis/surgical site infection Acute, or Chronic, or Acute on Chronic? @ -Acute Uncomplicated (without systemic symptoms) or Complicated (systemic symptoms)? @ -Complicated Side effects of treatment? @ -No Exacerbation, Progression, or Severe Exacerbation? @ -No Poses a threat to life or bodily function? How? (Chest pain, [place], [place], pneumonia, PE, COPD, DKA, ARF, appy, cholecystitis, CVA, Diverticulitis, Homicidal, Suicidal, threat to staff... and all critical care pts) @ -Yes, wound infection can lead to sepsis. - Lab Data Result diagrams: 09/17/23 11:33 09/17/23 11:33 Lab Results 09/17/23 09/17/23 09/17/23 Range/Units 11:33 11:33 11:33 WBC 11.5 H (3.8-10.6) k/uL RBC 4.52 (3.80-5.40) m/uL Hgb 10.1 L (11.4-16.0) gm/dL Hct 35.2 (34.0-46.0) % MCV 77.8 L (80.0-100.0) fL MCH 22.3 L (25.0-35.0) pg MCHC 28.6 L (31.0-37.0) g/dL RDW 18.2 H (11.5-15.5) % Plt Count 1143 H* D (150-450) k/uL MPV 8.3 Neutrophils % 83 % Lymphocytes % 12 % Monocytes % 3 % Eosinophils % 1 % Basophils % 0 % Neutrophils # 9.5 H (1.3-7.7) k/uL Lymphocytes # 1.4 (1.0-4.8) k/uL Monocytes # 0.4 (0-1.0) k/uL Eosinophils # 0.1 (0-0.7) k/uL Basophils # 0.1 (0-0.2) k/uL Manual Slide Review Performed Hypochromasia Marked Poikilocytosis Slight Anisocytosis Slight Microcytosis Slight Sodium 137 (137-145) mmol/L Potassium 5.2 H (3.5-5.1) mmol/L Chloride 106 (98-107) mmol/L Carbon Dioxide 21 L (22-30) mmol/L Anion Gap 10 mmol/L BUN 18 H (7-17) mg/dL Creatinine 0.53 (0.52-1.04) mg/dL Est GFR (CKD-EPI)AfAm >90 (>60 ml/min/1.73 sqM) Est GFR (CKD-EPI)NonAf >90 (>60 ml/min/1.73 sqM) Glucose 97 (74-99) mg/dL Plasma Lactic Acid Dave 1.5 (0.7-2.0) mmol/L Calcium 9.5 (8.4-10.2) mg/dL Total Bilirubin 0.4 (0.2-1.3) mg/dL AST 159 H (14-36) U/L ALT 106 H (4-34) U/L Alkaline Phosphatase 272 H (38-126) U/L Total Protein 6.8 (6.3-8.2) g/dL Albumin 3.6 (3.5-5.0) g/dL - Radiology Data Radiology results: report reviewed, image reviewed Disposition Clinical Impression: Transaminitis, Thrombocytosis, Wound infection after surgery Disposition: OTHER INSTITUTION NOT DEFINED Condition: Fair Referrals: Steven Carmen MD [Primary Care Provider] - 1-2 days Time of Disposition: 14:51 - Out of Hospital Transfer - Req. Specs Out of Hospital Transfer - Requested Specifics: Other Emergency Center ([facility] for surgical consult with )
[2023-09-17 11:17] VITALS: TEMP 97.8
[2023-09-17 12:05] LABS: ALT 106 U/L (4-34); AST 159 U/L (14-36); African American GFR (CKD) >90 (>60 ml/min/1.73 sqM); Albumin 3.6 g/dL (3.5-5.0); Alkaline Phosphatase 272 U/L (38-126); Anion Gap 10 mmol/L; Blood Urea Nitrogen 18 mg/dL (7-17); Calcium 9.5 mg/dL (8.4-10.2); Carbon Dioxide 21 mmol/L (22-30); Chloride 106 mmol/L (98-107); Glucose 97 mg/dL (74-99); Non-African American GFR(CKD) >90 (>60 ml/min/1.73 sqM); Potassium 5.2 mmol/L (3.5-5.1); Sodium 137 mmol/L (137-145); Total Bilirubin 0.4 mg/dL (0.2-1.3); Total Protein 6.8 g/dL (6.3-8.2)
[2023-09-17 12:34] LABS: Anisocytosis Slight; Basophils # (A) 0.1 k/uL (0-0.2); Basophils % (A) 0 %; Eosinophils # (A) 0.1 k/uL (0-0.7); Eosinophils % (A) 1 %; HCT 35.2 % (34.0-46.0); HGB 10.1 gm/dL (11.4-16.0); Hypochromasia Marked; Lymphocytes # (A) 1.4 k/uL (1.0-4.8); Lymphocytes % (A) 12 %; MCH 22.3 pg (25.0-35.0); MCHC 28.6 g/dL (31.0-37.0); MCV 77.8 fL (80.0-100.0); Mean Platelet Volume 8.3; Microcytosis Slight; Monocytes # (A) 0.4 k/uL (0-1.0); Monocytes % (A) 3 %; Neutrophils # (A) 9.5 k/uL (1.3-7.7); Neutrophils % (A) 83 %; Poikilocytosis Slight; RBC 4.52 m/uL (3.80-5.40); RDW 18.2 % (11.5-15.5); WBC 11.5 k/uL (3.8-10.6)
[2023-09-17 12:46] VITALS: RESP 18
[2023-09-17 13:00] LABS: Platelet Count 1143 k/uL (150-450)
--- NOTE | 2023-09-17 13:35 | CT ---
EXAMINATION TYPE: CT abdomen pelvis w con DATE OF EXAM: 09/17/2023 COMPARISON: 08/07/2023 and 11/09/2016 HISTORY: Pain, J-tube, recent small bowel surgery CT DLP: 1535.9 mGycm CONTRAST: CT scan of the abdomen and pelvis is performed without Oral Contrast and with IV Contrast, patient in jected with 100 ml mL of Isovue 300. FINDINGS: LUNG BASES-: No visible nodule. No infiltrate. LIVER/GB: Moderate hepatic steatosis. The gallbladder surgically absent. No space occupying hepatic l esion. Biliary tree is of normal caliber. PANCREAS: No inflammation. No distinct mass. SPLEEN: No splenic enlargement. No lesion seen. ADRENALS: No nodule. No thickening. KIDNEYS/BLADDER: No hydronephrosis. No nephrolithiasis. Loculated cystic lesion left mid kidney danyelle sures 4.3 x 2.4 cm unchanged dating back to 2016. Urinary bladder grossly unremarkable. BOWEL: Surgical clips are noted in the epigastric region with a recurrent hiatal hernia is seen. Ther e are surgical sutures along the gastric lesser curvature compatible with partial gastrectomy. Surgic al sutures at the enterocolonic anastomosis redemonstrated. There is no evidence for dilated bowel at this time. Jejunostomy catheter is noted to be in place. Again no evidence of dilated bowel or obstr uctive change. Midline open wound noted. No evidence for free air. Mild nonspecific engorgement of th e small bowel mesentery. GENITAL ORGANS: Atrophic uterus. No adnexal mass is seen. LYMPH NODES: No greater than 1cm abdominal or pelvic lymph nodes are appreciated. AORTA: No significant abnormality. OSSEOUS STRUCTURES: No significant abnormality is seen. OTHER: No significant additional abnormality is seen. IMPRESSION: 1. Resolution of previously noted small bowel obstruction with interval jejunostomy catheter present. Small and large bowel are normal caliber. Recurrent or residual hiatal hernia unchanged. 2. Fatty liver. 3. Stable left renal lesion dating back to 2017.
[2023-09-17] MEDS ORDERED: VANCOMYCIN 1,750 MG in SODIUM CHLORIDE 0.9% 500 ML 500 ML IVPB STA (14:40)
[2023-09-17] MEDS ORDERED: cefTRIAXone IN SWFI 1,000 MG/10 ML SYRINGE IVP STA (14:41)
[2023-09-17] MEDS ORDERED: VANCOMYCIN IV PER PHARMACY 1 EACH MISC MISCELLANE PRN (14:47)
[2023-09-17 16:26] VITALS: BP 120/90; PULSE 107
[2023-09-18] MEDS ORDERED: VANCOMYCIN 1,750 MG in SODIUM CHLORIDE 0.9% 500 ML 500 ML IVPB SCH (05:00)
== END 2023-09-17 15:47 | disposition other institution (70) ==
LOC: EC 10:39
DX: T81.49XA Infection following a procedure, other surgical site, initial encounter (principal); D75.839 Thrombocytosis, unspecified; R74.01 Elevation of levels of liver transaminase levels; K44.9 Diaphragmatic hernia without obstruction or gangrene; K76.0 Fatty (change of) liver, not elsewhere classified; E66.9 Obesity, unspecified; Z68.42 Body mass index [BMI] 45.0-49.9, adult; Z88.0 Allergy status to penicillin; Z88.5 Allergy status to narcotic agent; Z88.6 Allergy status to analgesic agent; Z87.19 Personal history of other diseases of the digestive system; Z90.49 Acquired absence of other specified parts of digestive tract
CPT/HCPCS: 36415; 80053; 83605; 85025; 87070; 87205; 87075; 74177; 99285; Q9967

== ENCOUNTER 2023-12-03 21:31 | Emergency (ER) | payer BC ==
[2023-12-03 21:59] LABS: Glucose,Whole Blood 32 mg/dL (70-110)
[2023-12-03] MEDS: DEXTROSE 50% SYRINGE 50 ML IVP STA ×2 (22:07→22:33)
[2023-12-03] MEDS: MIDODRINE 5 MG TAB PO STA (22:12)
[2023-12-03] MEDS: SODIUM CHLORIDE 0.9% 1,000 ML IV STA ×2 (22:13→22:14)
[2023-12-03] MEDS: PANTOPRAZOLE 40 MG/10 ML VIAL IVP STA (22:14)
[2023-12-03] MEDS: ONDANSETRON 4 MG/2 ML VIAL IVP STA (22:14)
[2023-12-03 22:30] LABS: Glucose,Whole Blood 60 mg/dL (70-110)
--- NOTE | 2023-12-03 22:47 | ED ---
General Adult HPI - General Chief complaint: Weakness Stated complaint: weakness Time Seen by Provider: 12/03/23 21:55 Source: patient, EMS, RN notes reviewed, old records reviewed Mode of arrival: EMS - History of Present Illness Initial comments: Patient is a 63-year-old female who has past medical history of numerous abdominal surgeries, most recent in July at [facility] with surgeon Dr. Soares sounds like she had a ruptured small bowel that required anastomosis and partial removal. Had a feeding tube at that time to that was removed. Presents complaining of abdominal pain which is somewhat chronic but worse over the last day or so. States she also noticed she is dizzy when she stands up. Has a history of dysautonomia as well. Did not take her evening dose of midodrine. Denies any chest pain or shortness of breath. Endorses normal bowel movements for her. Denies nausea or vomiting. Does notice some discharge from the feeding tube site as well as opening the inferior aspect of the midline abdominal incision. Denies any fevers or chills. Presents for further evaluation at this time. - Related Data Home Medications Medication Instructions Recorded Confirmed Gabapentin [Neurontin] 600 mg PO TID@0900,1300,2100 09/24/14 09/17/23 Montelukast Sodium [Singulair] 10 mg PO DAILY@89909/24/14 09/17/23 Omeprazole [PriLOSEC] 40 mg PO DAILY@89909/24/14 09/17/23 Albuterol Sulfate [Ventolin HFA] 2 puff INHALATION RT-Q4H PRN 04/05/16 09/17/23 predniSONE 10 mg PO DAILY@89910/12/16 09/17/23 Milnacipran HCl [Savella] 50 mg PO DAILY@0900 01/27/20 09/17/23 Spironolactone [Aldactone] 25 mg PO DAILY@89901/27/20 09/17/23 Midodrine HCl [ProAmantine] 5 mg PO BID@0900,1700 07/02/23 09/17/23 Acetaminophen Tab [Tylenol] 650 mg PO QID@00,06,12,18 09/17/23 09/17/23 HYDROmorphone HCL 2 - 4 mg PO Q4H PRN 09/17/23 09/17/23 Jevity 1.5 Shad Liquid 65 ml PO DAILY@1800 09/17/23 09/17/23 Lidocaine 5% Patch [Lidoderm] 1 patch TOPICAL DAILY@0900 09/17/23 09/17/23 Multivitamins, Thera [Multivitamin 1 tab PO DAILY@0900 09/17/23 09/17/23 (formulary)] fentaNYL [Duragesic 37.5 MCG/HR] 1 patch TRANSDERM Q72H 09/17/23 09/17/23 methocarbamoL 1,000 mg PO QID@09,13,17,21 09/17/23 09/17/23 Allergies Allergy/AdvReac Type Severity Reaction Status Date / Time Penicillins Allergy Intermediate Rash/Hives Verified 12/03/23 21:50 milk Allergy Abdominal Verified 12/03/23 21:50 Pain aspirin AdvReac Severe Dyspnea Verified 12/03/23 21:50 morphine AdvReac Severe Nausea & Verified 12/03/23 21:50 Vomiting Review of Systems ROS Statement: Those systems with pertinent positive or pertinent negative responses have been documented in the HPI. Review of Systems: CONST: Denies fever EYES: Denies blurry vision ENT: Denies nasal congestion C/V: Denies Chest pain RESP: Denies shortness of breath GI: Endorses abdominal pain : Denies dysuria SKIN: Denies rash. MSK: Denies joint pain. NEURO: Denies headache ROS Other: All systems not noted in ROS Statement are negative. Past Medical History Past Medical History: Asthma, Fibromyalgia, Hypertension Additional Past Medical History / Comment(s): see Dr Andrea's H&P, CHRONIC SOB,RLS ,per pt cramping really bad all over feet, legs, and arms. Swelling/edema of evelio lower extremites, Chronic blockage of the small bowel, hx ulcer History of Any Multi-Drug Resistant Organisms: None Reported Past Surgical History: Appendectomy, Bariatric Surgery, Section, Cholecystectomy, Hernia Repair Additional Past Surgical History / Comment(s): abdominal surgeries X14, sinus surgery x4,COLONOSCOPY, surgery for chronic bloackge of smalll bowel ,gastric bypass Past Anesthesia/Blood Transfusion Reactions: No Reported Reaction Past Psychological History: No Psychological Hx Reported Smoking Status: Never smoker Past Alcohol Use History: None Reported Past Drug Use History: None Reported - Past Family History Mother Additional Family Medical History / Comment(s): PT ADOPTED COMPLETE FAMILY HX UNKNOWN Brother(s) Family Medical History: Cancer Additional Family Medical History / Comment(s): TWIN BROTHER FROM CANCER AGE 45 General Exam - General Exam Comments Initial Comments: General: Appears in no acute distress. HEAD: Normal with no signs of head trauma. EYES: PERRLA, EOMI, conjunctiva normal, no discharge. ENT: Hearing grossly intact, normal oropharynx. RESPIRATORY: Clear breath sounds bilaterally. No wheezes, rales, or rhonchi. C/V: Regular rate and rhythm. S1 and S2 auscultated, no edema, peripheral pulses 2+ and intact throughout ABD: Abd is soft, nontender, nondistended. No obvious guarding. EXT: Normal range of motion, no obvious deformity SKIN: Poorly healed midline surgical incision. Opened at the inferior aspect which is chronic for the patient as well. The feeding tube site over the right abdomen has discharge from it as well. Concern for purulent drainage coming from both sites. NEURO: Alert and oriented x 4. Course Vital Signs 12/03/23 12/03/23 12/03/23 21:39 23:03 23:17 Temperature 97.8 F Pulse Rate 101 H 98 93 Respiratory 18 18 18 Rate Blood Pressure 87/31 75/50 80/48 O2 Sat by Pulse 98 95 94 L Oximetry 12/04/23 12/04/23 12/04/23 00:57 01:57 02:42 Temperature Pulse Rate 96 93 82 Respiratory 18 19 17 Rate Blood Pressure 96/53 70/54 90/61 O2 Sat by Pulse Oximetry 12/04/23 12/04/23 12/04/23 04:00 05:00 06:06 Temperature Pulse Rate 88 79 79 Respiratory 18 17 16 Rate Blood Pressure 87/49 89/44 92/43 O2 Sat by Pulse 95 Oximetry 12/04/23 12/04/23 12/04/23 07:26 08:00 09:00 Temperature 98.1 F Pulse Rate 80 77 80 Respiratory 16 14 18 Rate Blood Pressure 96/48 90/45 103/90 O2 Sat by Pulse 94 L Oximetry 12/04/23 12/04/23 09:14 09:40 Temperature 97.6 F Pulse Rate 86 80 Respiratory 16 16 Rate Blood Pressure 89/58 90/63 O2 Sat by Pulse Oximetry Procedures - Central Line Placement Right Femoral Consent Obtained: verbal consent Patient Placed on Monitor/Pulse Ox: Yes MD Prep: mask, gown, gloves Central Line Prep: Chlorhexidine scrub Local Anesthesia Used: Lidocaine 1% Amount of Anesthesia Used (mls): 3 Ultrasound Used for Placement: Yes Central Line Lumen Inserted: triple Bloods Obtained for Lab: Yes Central Line Position: good blood return, all ports aspirated, flushed, capped, sutured in place with nylon Dressing Applied: Tegaderm Patient Tolerated Procedure: well Complications: none - Sepsis Sepsis Focused Exam #1 Time Sepsis Criteria Met: 22:45 Sepsis Focused Exam Date: 12/04/23 Sepsis Focused Exam Time: 07:00 Sepsis Focused Exam Complete: Yes Vital Signs & RN Notes Reviewed: Yes Capillary Refill: > 2 Seconds: Fingers, Toes Peripheral Pulses: Normal: Radial (R), Radial (L) Skin Color: Normal for Patient Respiratory Exam: normal lung sounds Cardiovascular Exam: regular rate, normal rhythm Medical Decision Making - Medical Decision Making Was pt. sent in by a medical professional or institution (TENNILLE Rivera, ANSWERER, urgent care, hospital, or snf...) When possible be specific @ -No Did you speak to anyone other than the patient for history (EMS, parent, family, police, friend...)? What history was obtained from this source @ -No Did you review nursing and triage notes (agree or disagree)? Why? @ -I reviewed and agree with nursing and triage notes Were old charts reviewed (outside hosp., previous admission, EMS record, old EKG, old radiological studies, urgent care reports/EKG's, snf records)? Report findings @ -Old charts reviewed from early September when she was diagnosed with a surgical site infection and transferred to [facility] with similar complaints regarding the J-tube site. Differential Diagnosis (chest pain, altered mental status, abdominal pain women, abdominal pain men, vaginal bleeding, weakness, fever, dyspnea, syncope, headache, dizziness, GI bleed, back pain, seizure, CVA, palpatations, mental health, musculoskeletal)? @ -Differential Abdominal Pain Women: Appendicitis, Cholecystitis, diverticulosis, ischemic bowel, pancreatitis, hepatitis, UTI, gastroenteritis, AAA, incarcerated hernia, bowel obstruction, constipation, inflammatory bowel, hepatitis, peptic ulcer disease, splenic infarction, perforated viscus, vulvitis, ovarian torsion, PID, kidney stone, placenta abruption, this is not meant to be an all-inclusive list EKG interpreted by me (3pts min.). @ -As above X-rays interpreted by me (1pt min.). @ -Chest x-ray reveals no obvious acute cardiopulmonary process. CT interpreted by me (1pt min.). @ -CT abdomen pelvis reveals possible enteritis. Appears to have intact J-tube tract still. U/S interpreted by me (1pt. min.). @ -None done What testing was considered but not performed or refused? (CT, X-rays, U/S, labs)? Why? @ -None What meds were considered but not given or refused? Why? @ -None Did you discuss the management of the patient with other professionals (professionals i.e. , PA, ANSWERER, lab, RT, psych nurse, high school social studies tutor, food cashier, teacher, loan officer assistant, case management manager)? Give summary @ - I spoke with [facility] on-call surgeon, Dr. Black. Patient was accepted to [facility] SICU. Patient awaiting bed. I did contact Dr. Carmen for medical consultation with patient is still here later this morning. He was in agreement the consult. Was smoking cessation discussed for >3mins.? @ -No Was critical care preformed (if so, how long)? @ -yes, 35 minutes Were there social determinants of health that impacted care today? How? (Homelessness, low income, unemployed, alcoholism, drug addiction, transportatio n, low edu. Level, literacy, decrease access to med. care, prison, rehab)? @ -No Was there de-escalation of care discussed even if they declined (Discuss DNR or withdrawal of care, Hospice)? DNR status @ -No What co-morbidities impacted this encounter? (DM, HTN, Smoking, COPD, CAD, Cancer, CVA, ARF, Chemo, Hep., AIDS, mental health diagnosis, sleep apnea, morbid obesity)? @ -History of multiple surgeries in the abdomen in the past. Was patient admitted / discharged? Hospital course, mention meds given and route, prescriptions, significant lab abnormalities, going to OR and other pertinent info. @ -Based on the patient's presentation and physical exam, patient presents to the emergency department complaining of abdominal pain, as well as possible surgical site infection she does have purulent drainage from the sites. Surgery was back in July but she has had complications there within the last few months as well.. Has been ongoing for multiple days to weeks however worse over the last day. Is also noted she is having increased lightheadedness when she sits up. Does have a history of dysautonomia. Presents mildly hypotensive with blood pressure of 87/31. Did not take her evening dose of midodrine. Denies any other acute complaints at this time. Concern for intra-abdominal infection. Vital signs otherwise within acceptable limits. We will obtain broad workup. Patient in agreement this plan. She will receive IV fluids, Protonix, Zofran as well as a dose of her evening midodrine. Patient was hypoglycemic and she will receive dose of dextrose IV push as well. She was in agreement this plan. Long delay in obtaining blood work as IVs were placed but they were unable to obtain labs. Patient was administered a total of 3 fluid boluses and placed on maintenance fluids and given a double dose of midodrine blood pressures remained borderline to low with maps anywhere from 49-65. At this time the decision was made to place a central line we were able to obtain laboratory studies via the blood from the central line. Patient tolerated the procedure well. She was placed on norepinephrine drip. Patient met sepsis criteria at 2245. Blood cultures obtained and sent. She is already received 30 cc/kg fluid bolus, patient was administered Bactrim IV vancomycin and cefepime. Patient's laboratory studies eventually returned remarkable for leukocytosis of 14.3. Chronic anemia with a hemoglobin of 7.9 appears relatively stable. Patient has kidney injury of unknown etiology with an anion gap metabolic acidosis. Possible secondary to uremia from the kidney injury but cannot rule out starvation ketoacidosis. Patient has a nonspecific elevated amylase and lipase as well. Patient continued to remain hypoglycemic and after multiple D50 boluses, she was placed on a D10 saline drip at 100 cc an hour. She remains on antibiotics. She remains on norepinephrine drip. Imaging results remain at this time but over the concern for the worsening kidney function as well as what appears to be septic shock with suspected source being the abdomen where patient's surgeon, Dr. Soares performed her most recent surgery in July and appears the sites are infected. I discussed with the patient as well as daughter. Patient will be transferred at this time. We will be reaching out to [facility] in [place]. I spoke with [facility] on-call surgeon, Dr. Black. Patient was accepted to [facility] SICU. Patient awaiting bed. Brain revealed no obvious acute findings at this time. Possible enteritis. Urinalysis returned positive for UTI. On broad-spectrum antibiotics. Undiagnosed new problem with uncertain prognosis? @ -Yes Drug Therapy requiring intensive monitoring for toxicity (Heparin, Nitro, Insulin, Cardizem)? @ -No Were any procedures done? @ -Right femoral central line Diagnosis/symptom? @ -Septic shock, suspected source from prior abdominal surgery and infection of the surgical sites. Persistent hypoglycemia, acute kidney injury, anion gap metabolic acidosis secondary to uremia. UTI Acute, or Chronic, or Acute on Chronic? @ -Acute Uncomplicated (without systemic symptoms) or Complicated (systemic symptoms)? @ -Complicated Side effects of treatment? @ -None Exacerbation, Progression, or Severe Exacerbation] @ -No Poses a threat to life or bodily function? @ -Yes - Lab Data Result diagrams: 12/04/23 01:43 12/03/23 23:55 Lab Results 12/03/23 12/03/23 12/03/23 Range/Units 21:58 22:29 22:59 WBC (3.8-10.6) k/uL RBC (3.80-5.40) m/uL Hgb (11.4-16.0) gm/dL Hct (34.0-46.0) % MCV (80.0-100.0) fL MCH (25.0-35.0) pg MCHC (31.0-37.0) g/dL RDW (11.5-15.5) % Plt Count (150-450) k/uL MPV Neutrophils % % Lymphocytes % % Monocytes % % Eosinophils % % Basophils % % Neutrophils # (1.3-7.7) k/uL Lymphocytes # (1.0-4.8) k/uL Monocytes # (0-1.0) k/uL Eosinophils # (0-0.7) k/uL Basophils # (0-0.2) k/uL Hypochromasia Poikilocytosis Anisocytosis Microcytosis PT (10.0-12.5) sec INR (<1.2) APTT (22.0-30.0) sec Sodium (137-145) mmol/L Potassium (3.5-5.1) mmol/L Chloride (98-107) mmol/L Carbon Dioxide (22-30) mmol/L Anion Gap mmol/L BUN (7-17) mg/dL Creatinine (0.52-1.04) mg/dL Est GFR (CKD-EPI)AfAm (>60 ml/min/1.73 sqM) Est GFR (CKD-EPI)NonAf (>60 ml/min/1.73 sqM) Glucose (74-99) mg/dL POC Glucose (mg/dL) 32 L* 60 L 74 (70-110) mg/dL POC Glu Hose Tubing Backer ID Rhezie, Emie Rhezie, Emie Rhezie, Emie Plasma Lactic Acid Dave (0.7-2.0) mmol/L Calcium (8.4-10.2) mg/dL Magnesium (1.6-2.3) mg/dL Total Bilirubin (0.2-1.3) mg/dL AST (14-36) U/L ALT (4-34) U/L Alkaline Phosphatase (38-126) U/L Total Protein (6.3-8.2) g/dL Albumin (3.5-5.0) g/dL Amylase (30-110) U/L Lipase (23-300) U/L Urine Color Urine Appearance (Clear) Urine pH (5.0-8.0) Ur Specific [place] (1.001-1.035) Urine Protein (Negative) Urine Glucose (UA) (Negative) Urine Ketones (Negative) Urine Blood (Negative) Urine Nitrite (Negative) Urine Bilirubin (Negative) Urine Urobilinogen (<2.0) mg/dL Ur Leukocyte Esterase (Negative) Urine RBC (0-5) /hpf Urine WBC (0-5) /hpf Urine WBC Clumps (None) /hpf Ur Squamous Epith Cells (0-4) /hpf Urine Bacteria (None) /hpf Hyaline Casts (0-2) /lpf Urine Mucus (None) /hpf Salicylates mg/dL Acetone, Qual (Negative) Influenza Type A (PCR) (Not Detectd) Influenza Type B (PCR) (Not Detectd) RSV (PCR) (Not Detectd) SARS-CoV-2 (PCR) (Not Detectd) Blood Type Blood Type Confirm Blood Type Recheck Bld Type Recheck Status Antibody Screen Spec Expiration Date 12/03/23 12/03/23 12/04/23 Range/Units 23:07 23:55 00:52 WBC (3.8-10.6) k/uL RBC (3.80-5.40) m/uL Hgb (11.4-16.0) gm/dL Hct (34.0-46.0) % MCV (80.0-100.0) fL MCH (25.0-35.0) pg MCHC (31.0-37.0) g/dL RDW (11.5-15.5) % Plt Count (150-450) k/uL MPV Neutrophils % % Lymphocytes % % Monocytes % % Eosinophils % % Basophils % % Neutrophils # (1.3-7.7) k/uL Lymphocytes # (1.0-4.8) k/uL Monocytes # (0-1.0) k/uL Eosinophils # (0-0.7) k/uL Basophils # (0-0.2) k/uL Hypochromasia Poikilocytosis Anisocytosis Microcytosis PT (10.0-12.5) sec INR (<1.2) APTT (22.0-30.0) sec Sodium 136 L (137-145) mmol/L Potassium 4.4 (3.5-5.1) mmol/L Chloride 113 H (98-107) mmol/L Carbon Dioxide <5 L* (22-30) mmol/L Anion Gap mmol/L BUN 98 H (7-17) mg/dL Creatinine 3.81 H (0.52-1.04) mg/dL Est GFR (CKD-EPI)AfAm 14 (>60 ml/min/1.73 sqM) Est GFR (CKD-EPI)NonAf 12 (>60 ml/min/1.73 sqM) Glucose 119 H (74-99) mg/dL POC Glucose (mg/dL) (70-110) mg/dL POC Glu Hose Tubing Backer ID Plasma Lactic Acid Dave 1.0 (0.7-2.0) mmol/L Calcium 6.6 L (8.4-10.2) mg/dL Magnesium 1.9 (1.6-2.3) mg/dL Total Bilirubin 0.3 (0.2-1.3) mg/dL AST 19 (14-36) U/L ALT 16 (4-34) U/L Alkaline Phosphatase 108 (38-126) U/L Total Protein 5.4 L (6.3-8.2) g/dL Albumin 2.9 L (3.5-5.0) g/dL Amylase 143 H (30-110) U/L Lipase 633 H (23-300) U/L Urine Color Urine Appearance (Clear) Urine pH (5.0-8.0) Ur Specific [place] (1.001-1.035) Urine Protein (Negative) Urine Glucose (UA) (Negative) Urine Ketones (Negative) Urine Blood (Negative) Urine Nitrite (Negative) Urine Bilirubin (Negative) Urine Urobilinogen (<2.0) mg/dL Ur Leukocyte Esterase (Negative) Urine RBC (0-5) /hpf Urine WBC (0-5) /hpf Urine WBC Clumps (None) /hpf Ur Squamous Epith Cells (0-4) /hpf Urine Bacteria (None) /hpf Hyaline Casts (0-2) /lpf Urine Mucus (None) /hpf Salicylates mg/dL Acetone, Qual (Negative) Influenza Type A (PCR) Not Detected (Not Detectd) Influenza Type B (PCR) Not Detected (Not Detectd) RSV (PCR) Not Detected (Not Detectd) SARS-CoV-2 (PCR) Not Detected (Not Detectd) Blood Type Blood Type Confirm Blood Type Recheck Bld Type Recheck Status Antibody Screen Spec Expiration Date 12/04/23 12/04/23 12/04/23 Range/Units 01:05 01:43 01:43 WBC 14.3 H (3.8-10.6) k/uL RBC 3.68 L (3.80-5.40) m/uL Hgb 7.9 L (11.4-16.0) gm/dL Hct 27.0 L (34.0-46.0) % MCV 73.3 L (80.0-100.0) fL MCH 21.3 L (25.0-35.0) pg MCHC 29.1 L (31.0-37.0) g/dL RDW 18.7 H (11.5-15.5) % Plt Count 361 (150-450) k/uL MPV 8.1 Neutrophils % 85 % Lymphocytes % 11 % Monocytes % 2 % Eosinophils % 0 % Basophils % 0 % Neutrophils # 12.2 H (1.3-7.7) k/uL Lymphocytes # 1.6 (1.0-4.8) k/uL Monocytes # 0.3 (0-1.0) k/uL Eosinophils # 0.1 (0-0.7) k/uL Basophils # 0.0 (0-0.2) k/uL Hypochromasia Marked Poikilocytosis Slight Anisocytosis Slight Microcytosis Moderate PT 10.6 (10.0-12.5) sec INR 1.0 (<1.2) APTT 23.7 (22.0-30.0) sec Sodium (137-145) mmol/L Potassium (3.5-5.1) mmol/L Chloride (98-107) mmol/L Carbon Dioxide (22-30) mmol/L Anion Gap mmol/L BUN (7-17) mg/dL Creatinine (0.52-1.04) mg/dL Est GFR (CKD-EPI)AfAm (>60 ml/min/1.73 sqM) Est GFR (CKD-EPI)NonAf (>60 ml/min/1.73 sqM) Glucose (74-99) mg/dL POC Glucose (mg/dL) 56 L (70-110) mg/dL POC Glu Hose Tubing Backer ID Camille Richard Plasma Lactic Acid Dave (0.7-2.0) mmol/L Calcium (8.4-10.2) mg/dL Magnesium (1.6-2.3) mg/dL Total Bilirubin (0.2-1.3) mg/dL AST (14-36) U/L ALT (4-34) U/L Alkaline Phosphatase (38-126) U/L Total Protein (6.3-8.2) g/dL Albumin (3.5-5.0) g/dL Amylase (30-110) U/L Lipase (23-300) U/L Urine Color Urine Appearance (Clear) Urine pH (5.0-8.0) Ur Specific [place] (1.001-1.035) Urine Protein (Negative) Urine Glucose (UA) (Negative) Urine Ketones (Negative) Urine Blood (Negative) Urine Nitrite (Negative) Urine Bilirubin (Negative) Urine Urobilinogen (<2.0) mg/dL Ur Leukocyte Esterase (Negative) Urine RBC (0-5) /hpf Urine WBC (0-5) /hpf Urine WBC Clumps (None) /hpf Ur Squamous Epith Cells (0-4) /hpf Urine Bacteria (None) /hpf Hyaline Casts (0-2) /lpf Urine Mucus (None) /hpf Salicylates mg/dL Acetone, Qual (Negative) Influenza Type A (PCR) (Not Detectd) Influenza Type B (PCR) (Not Detectd) RSV (PCR) (Not Detectd) SARS-CoV-2 (PCR) (Not Detectd) Blood Type Blood Type Confirm Blood Type Recheck Bld Type Recheck Status Antibody Screen Spec Expiration Date 12/04/23 12/04/23 12/04/23 Range/Units 01:43 02:36 03:01 WBC (3.8-10.6) k/uL RBC (3.80-5.40) m/uL Hgb (11.4-16.0) gm/dL Hct (34.0-46.0) % MCV (80.0-100.0) fL MCH (25.0-35.0) pg MCHC (31.0-37.0) g/dL RDW (11.5-15.5) % Plt Count (150-450) k/uL MPV Neutrophils % % Lymphocytes % % Monocytes % % Eosinophils % % Basophils % % Neutrophils # (1.3-7.7) k/uL Lymphocytes # (1.0-4.8) k/uL Monocytes # (0-1.0) k/uL Eosinophils # (0-0.7) k/uL Basophils # (0-0.2) k/uL Hypochromasia Poikilocytosis Anisocytosis Microcytosis PT (10.0-12.5) sec INR (<1.2) APTT (22.0-30.0) sec Sodium (137-145) mmol/L Potassium (3.5-5.1) mmol/L Chloride (98-107) mmol/L Carbon Dioxide (22-30) mmol/L Anion Gap mmol/L BUN (7-17) mg/dL Creatinine (0.52-1.04) mg/dL Est GFR (CKD-EPI)AfAm (>60 ml/min/1.73 sqM) Est GFR (CKD-EPI)NonAf (>60 ml/min/1.73 sqM) Glucose (74-99) mg/dL POC Glucose (mg/dL) (70-110) mg/dL POC Glu Hose Tubing Backer ID Plasma Lactic Acid Dave (0.7-2.0) mmol/L Calcium (8.4-10.2) mg/dL Magnesium (1.6-2.3) mg/dL Total Bilirubin (0.2-1.3) mg/dL AST (14-36) U/L ALT (4-34) U/L Alkaline Phosphatase (38-126) U/L Total Protein (6.3-8.2) g/dL Albumin (3.5-5.0) g/dL Amylase (30-110) U/L Lipase (23-300) U/L Urine Color Light Yellow Urine Appearance Turbid H (Clear) Urine pH 5.5 (5.0-8.0) Ur Specific [place] 1.019 (1.001-1.035) Urine Protein 1+ H (Negative) Urine Glucose (UA) Negative (Negative) Urine Ketones Negative (Negative) Urine Blood Small H (Negative) Urine Nitrite Negative (Negative) Urine Bilirubin Negative (Negative) Urine Urobilinogen <2.0 (<2.0) mg/dL Ur Leukocyte Esterase Large H (Negative) Urine RBC 57 H (0-5) /hpf Urine WBC >182 H (0-5) /hpf Urine WBC Clumps Many H (None) /hpf Ur Squamous Epith Cells 2 (0-4) /hpf Urine Bacteria Many H (None) /hpf Hyaline Casts 58 H (0-2) /lpf Urine Mucus Occasional H (None) /hpf Salicylates <1.0 mg/dL Acetone, Qual Negative (Negative) Influenza Type A (PCR) (Not Detectd) Influenza Type B (PCR) (Not Detectd) RSV (PCR) (Not Detectd) SARS-CoV-2 (PCR) (Not Detectd) Blood Type O Positive Blood Type Confirm Blood Type Recheck No Previous Record Bld Type Recheck Status CABO Indicated Antibody Screen NEGATIVE Spec Expiration Date 12/07/2023234212/04/23 12/04/23 Range/Units 03:41 04:46 WBC (3.8-10.6) k/uL RBC (3.80-5.40) m/uL Hgb (11.4-16.0) gm/dL Hct (34.0-46.0) % MCV (80.0-100.0) fL MCH (25.0-35.0) pg MCHC (31.0-37.0) g/dL RDW (11.5-15.5) % Plt Count (150-450) k/uL MPV Neutrophils % % Lymphocytes % % Monocytes % % Eosinophils % % Basophils % % Neutrophils # (1.3-7.7) k/uL Lymphocytes # (1.0-4.8) k/uL Monocytes # (0-1.0) k/uL Eosinophils # (0-0.7) k/uL Basophils # (0-0.2) k/uL Hypochromasia Poikilocytosis Anisocytosis Microcytosis PT (10.0-12.5) sec INR (<1.2) APTT (22.0-30.0) sec Sodium (137-145) mmol/L Potassium (3.5-5.1) mmol/L Chloride (98-107) mmol/L Carbon Dioxide (22-30) mmol/L Anion Gap mmol/L BUN (7-17) mg/dL Creatinine (0.52-1.04) mg/dL Est GFR (CKD-EPI)AfAm (>60 ml/min/1.73 sqM) Est GFR (CKD-EPI)NonAf (>60 ml/min/1.73 sqM) Glucose (74-99) mg/dL POC Glucose (mg/dL) 131 H (70-110) mg/dL POC Glu Hose Tubing Backer ID Achatz, Adilia Plasma Lactic Acid Dave (0.7-2.0) mmol/L Calcium (8.4-10.2) mg/dL Magnesium (1.6-2.3) mg/dL Total Bilirubin (0.2-1.3) mg/dL AST (14-36) U/L ALT (4-34) U/L Alkaline Phosphatase (38-126) U/L Total Protein (6.3-8.2) g/dL Albumin (3.5-5.0) g/dL Amylase (30-110) U/L Lipase (23-300) U/L Urine Color Urine Appearance (Clear) Urine pH (5.0-8.0) Ur Specific [place] (1.001-1.035) Urine Protein (Negative) Urine Glucose (UA) (Negative) Urine Ketones (Negative) Urine Blood (Negative) Urine Nitrite (Negative) Urine Bilirubin (Negative) Urine Urobilinogen (<2.0) mg/dL Ur Leukocyte Esterase (Negative) Urine RBC (0-5) /hpf Urine WBC (0-5) /hpf Urine WBC Clumps (None) /hpf Ur Squamous Epith Cells (0-4) /hpf Urine Bacteria (None) /hpf Hyaline Casts (0-2) /lpf Urine Mucus (None) /hpf Salicylates mg/dL Acetone, Qual (Negative) Influenza Type A (PCR) (Not Detectd) Influenza Type B (PCR) (Not Detectd) RSV (PCR) (Not Detectd) SARS-CoV-2 (PCR) (Not Detectd) Blood Type Blood Type Confirm O Positive Blood Type Recheck Bld Type Recheck Status Antibody Screen Spec Expiration Date - EKG Data -: EKG Interpreted by Me EKG Comments: 12-lead Electrocardiogram Interpretation Note EKG was reviewed and interpreted by myself. 12-lead ECG performed at 2223 is interpreted by me as revealing sinus tachycardia at a rate of 101 beats per minute. Cresco is normal. GA interval is 141 ms, QRS durations 86 ms, QTc is 413 ms.. There were no ST or T wave abnormalities to suggest myocardial ischemia or injury. R wave progression across the precordium was satisfactory. By my interpretation this EKG is non-diagnostic for acute ischemia. Disposition Clinical Impression: Hypoglycemia, Septic shock, MARY (acute kidney injury), Increased anion gap metabolic acidosis, Surgical site infection, UTI (urinary tract infection) Disposition: OTHER INSTITUTION NOT DEFINED Condition: Serious Referrals: Steven Carmen MD [Primary Care Provider] - 1-2 days Time of Disposition: 03:01 - Out of Hospital Transfer - Req. Specs Out of Hospital Transfer - Requested Specifics: Surgical ICU (Transferred to surgical ICU at [facility] for continuity of care over concern for possible surgical site infection)
[2023-12-03] MEDS ORDERED: VANCOMYCIN IV PER PHARMACY 1 EACH MISC MISCELLANE PRN (22:50)
[2023-12-03 23:00] LABS: Glucose,Whole Blood 74 mg/dL (70-110)
[2023-12-03] MEDS: SODIUM CHLORIDE 0.9% 1,000 ML IV ONE (23:53)
[2023-12-04] MEDS: CEFEPIME 2 GM in SODIUM CHLORIDE 0.9% 100 ML IVPB SCH (00:50)
[2023-12-04 01:06] LABS: Glucose,Whole Blood 56 mg/dL (70-110)
[2023-12-04] MEDS: DEXTROSE 50% SYRINGE 50 ML IVP STA (01:08)
[2023-12-04 01:09] LABS: ALT 16 U/L (4-34); AST 19 U/L (14-36); African American GFR (CKD) 14 (>60 ml/min/1.73 sqM); Albumin 2.9 g/dL (3.5-5.0); Alkaline Phosphatase 108 U/L (38-126); Amylase 143 U/L (30-110); Blood Urea Nitrogen 98 mg/dL (7-17); Calcium 6.6 mg/dL (8.4-10.2); Chloride 113 mmol/L (98-107); Glucose 119 mg/dL (74-99); Lipase 633 U/L (23-300); Magnesium 1.9 mg/dL (1.6-2.3); Non-African American GFR(CKD) 12 (>60 ml/min/1.73 sqM); Potassium 4.4 mmol/L (3.5-5.1); Sodium 136 mmol/L (137-145); Total Bilirubin 0.3 mg/dL (0.2-1.3); Total Protein 5.4 g/dL (6.3-8.2)
[2023-12-04] MEDS: NOREPINEPHRINE 4 MG in SODIUM CHLORIDE 0.9% 250 ML IV ONE (01:32)
[2023-12-04] MEDS: DEXTROSE 10% IN WATER 1,000 ML with SODIUM CHLORIDE 4MEQ/ML VIAL 77 MEQ IV ONE (01:42)
[2023-12-04 01:55] LABS: Carbon Dioxide <5 mmol/L (22-30)
[2023-12-04] MEDS: VANCOMYCIN 1,500 MG in SODIUM CHLORIDE 0.9% 500 ML 500 ML IVPB ONE (01:55)
[2023-12-04 02:19] LABS: Partial Thromboplastin Time 23.7 sec (22.0-30.0); Prothrombin Time 10.6 sec (10.0-12.5)
[2023-12-04 02:33] LABS: Anisocytosis Slight; Basophils % (A) 0 %; Eosinophils # (A) 0.1 k/uL (0-0.7); Eosinophils % (A) 0 %; HGB 7.9 gm/dL (11.4-16.0); Hypochromasia Marked; Lymphocytes # (A) 1.6 k/uL (1.0-4.8); Lymphocytes % (A) 11 %; MCH 21.3 pg (25.0-35.0); MCHC 29.1 g/dL (31.0-37.0); MCV 73.3 fL (80.0-100.0); Mean Platelet Volume 8.1; Microcytosis Moderate; Monocytes # (A) 0.3 k/uL (0-1.0); Monocytes % (A) 2 %; Neutrophils # (A) 12.2 k/uL (1.3-7.7); Neutrophils % (A) 85 %; Platelet Count 361 k/uL (150-450); Poikilocytosis Slight; RBC 3.68 m/uL (3.80-5.40); RDW 18.7 % (11.5-15.5); WBC 14.3 k/uL (3.8-10.6)
[2023-12-04 02:55] LABS: Salicylate <1.0 mg/dL
[2023-12-04 03:52] LABS: Appearance,Urine Turbid (Clear); Bacteria,Urine Many /hpf; Bilirubin,Urine Negative (Negative); Blood,Urine Small (Negative); Color,Urine Light Yellow; Glucose,Urine (UA) Negative (Negative); Hyaline Casts,Urine 58 /lpf (0-2); Ketones,Urine Negative (Negative); Leukocyte Esterase,Urine Large (Negative); Mucus,Urine Occasional /hpf; Nitrite,Urine Negative (Negative); PH, Urine 5.5 (5.0-8.0); Protein,Urine 1+ (Negative); RBC,Urine 57 /hpf (0-5); Specific Gravity,Urine 1.019 (1.001-1.035); Squamous Epithelial Cell,Urine 2 /hpf (0-4); Urobilinogen,Urine <2.0 mg/dL (<2.0); WBC,Urine >182 /hpf (0-5)
[2023-12-04 04:48] LABS: Glucose,Whole Blood 131 mg/dL (70-110)
--- NOTE | 2023-12-04 04:49 | CT ---
EXAM: CT Abdomen and Pelvis Without Intravenous Contrast CLINICAL HISTORY: Abdominal pain TECHNIQUE: Axial computed tomography images of the abdomen and pelvis without intravenous contrast. CTDI is 19.2 mGy and DLP is 1133.9 mGy-cm. This CT exam was performed using one or more of the following dose reduction techniques: automated exposure control, adjustment of the mA and/or kV according to patient size, and/or use of iterative reconstruction technique. COMPARISON: CT abdomen and pelvis with contrast dated 09/17/2023 FINDINGS: Lung bases: Curvilinear changes noted at the lung bases, similar to the previous examination. Mediastinum: Similar hiatal hernia containing the fundus of the stomach. ABDOMEN: Liver: Hepatic steatosis. Gallbladder and bile ducts: Status post cholecystectomy. No ductal dilation. Pancreas: Unremarkable. No ductal dilation. Spleen: Unremarkable. No splenomegaly. Adrenals: Unremarkable. No mass. Kidneys and ureters: The adjacent cortical lesions involving the lateral aspect of the left kidney appear to be stable in morphology and size when compared to the previous examination. The slightly hyperdense ovoid structure anteriorly presumably represents proteinaceous or hemorrhagic components. The kidneys demonstrate no evidence for obstructive nephrolithiasis or hydronephrosis. Stomach and bowel: Stable postsurgical changes involving the stomach. No evidence for focal high-grade bowel obstruction. Nonspecific fluid filled, but nondilated small bowel loops in the right lower quadrant. Mildly prominent fluid throughout the proximal colon to the level of the splenic flexure. The descending colon and rectosigmoid colon are decompressed. No diverticulitis. The right sided ileostomy is noted with interval removal of the previously noted small caliber drain. PELVIS: Appendix: No findings to suggest acute appendicitis. Bladder: Unremarkable. No stones. Reproductive: Unremarkable as visualized. ABDOMEN and PELVIS: Intraperitoneal space: Unremarkable. No free air. No significant fluid collection. Bones/joints: No acute fracture. No dislocation. Soft tissues: Extensive postoperative changes involving the anterior abdominal wall musculature with laxity and atrophy of the abdominal wall musculature, stable. No significant alteration. Vasculature: Unremarkable. No abdominal aortic aneurysm. Incidental right femoral approach venous catheter with the tip in the right common femoral vein. Lymph nodes: Unremarkable. No enlarged lymph nodes. Tubes, lines and devices: The previously noted cutaneous gastrostomy tube has been removed. IMPRESSION: 1. No evidence for focal high-grade bowel obstruction. Nonspecific fluid filled, but nondilated small bowel loops in the right lower quadrant. This may represent normal variation or mild enteritis. Mildly prominent fluid throughout the proximal colon to the level of the splenic flexure is nonspecific in appearance. Please correlate clinically. The descending colon and rectosigmoid colon are decompressed. No diverticulitis. No free intraperitoneal fluid or pneumoperitoneum. 2. The right sided ileostomy is noted with interval removal of the previously noted small caliber drain. 3. No other significant alteration from the prior examination. Chronic underlying findings, as detailed above.
--- NOTE | 2023-12-04 04:55 | XR ---
EXAM: XR Chest, 1 View CLINICAL HISTORY: Weakness TECHNIQUE: Frontal view of the chest. COMPARISON: Chest 2 views dated 07/02/2023 FINDINGS: Lungs: Improved lung aeration when compared to the previous examination. Curvilinear changes at the left lung base adjacent to the diaphragm. No focal airspace consolidation. The pulmonary vasculature demonstrates no significant radiographic abnormality. Pleural space: Unremarkable. No pneumothorax. No large pleural effusion. Heart: Unremarkable. No cardiomegaly. Mediastinum: The mediastinal contours are thought to be stable. No tracheal deviation. Bones/joints: Unremarkable. No acute fracture. Upper abdomen: Asymmetric elevation of the right hemidiaphragm. IMPRESSION: No focal consolidation or acute cardiopulmonary process identified. Minimal curvilinear atelectasis noted at the left lung base adjacent to the hemidiaphragm.
[2023-12-04] MEDS: MIDODRINE 5 MG TAB PO STA (06:22)
[2023-12-04] MEDS ORDERED: HYDROmorphone 0.5 MG/0.5 ML SYRINGE IVP PRN (08:29)
[2023-12-04 09:16] VITALS: RESP 16; TEMP 97.6
[2023-12-04] MEDS: PANTOPRAZOLE 40 MG/10 ML VIAL IVP SCH (09:18)
[2023-12-04 09:43] VITALS: BP 90/63; PULSE 80
[2023-12-04] MEDS: HYDROmorphone 1 MG/ML 1 ML SYRINGE IVP STA (09:48)
[2023-12-04] MEDS ORDERED: CEFEPIME 1 GM in SODIUM CHLORIDE 0.9% 50 ML IVPB SCH (14:00)
[2023-12-05] MEDS ORDERED: VANCOMYCIN 1,500 MG in SODIUM CHLORIDE 0.9% 500 ML 500 ML IVPB ONE (05:00)
== END 2023-12-04 09:57 | disposition other institution (70) ==
LOC: EC 21:31
DX: A41.9 Sepsis, unspecified organism (principal); R65.21 Severe sepsis with septic shock; N39.0 Urinary tract infection, site not specified; N17.9 Acute kidney failure, unspecified; E87.20 Acidosis, unspecified; E16.2 Hypoglycemia, unspecified; T81.41XA Infection following a procedure, superficial incisional surgical site, initial encounter; R00.0 Tachycardia, unspecified; D64.9 Anemia, unspecified; Z11.52 Encounter for screening for COVID-19; Z88.0 Allergy status to penicillin; Z88.5 Allergy status to narcotic agent; Z88.6 Allergy status to analgesic agent; Z91.011 Allergy to milk products
CPT/HCPCS: 36415 ×2; 93005; 86900; 86901; 80053; 82150; 82009; 83605; 83690; 83735; 85025; 85610; 85730; 86850; 81001; 87040 ×2; 87636; 80179; 71045; 74176; 36556; 99291; 96375 ×3; 96361 ×3; 96365; 96367; 96368; 96366 ×6; 96376 ×2; 51702; J3370; J2405; J0692; C9113 ×2

== ENCOUNTER 2024-02-06 19:04 | Inpatient (IN) | payer BC ==
[~2024-02-06 19:04] MED LIST changes: +CEFEPIME 2 GM VIAL IVPB ONE; +HYDROmorphone 1 MG/ML 1 ML SYRINGE ONE; +ONDANSETRON 4 MG/2 ML VIAL ONE; +SODIUM CHLORIDE 0.9% 1,000 ML BAG ONE; -SODIUM CHLORIDE 0.9% 1,000 ML IV SCH; +SODIUM CHLORIDE 0.9% 100 ML BAG ONE; +SODIUM CHLORIDE 0.9% 500 ML BAG ONE; +VANCOMYCIN 1,000 MG VIAL ONE; +VANCOMYCIN 500 MG VIAL ONE
[2024-02-07] MEDS ORDERED: PREGABALIN 50 MG CAP ONE ×3 (05:27→21:10)
[2024-02-07] MEDS ORDERED: DULoxetine HCL 30 MG CAPSULE.DR PO ONE (08:00)
[2024-02-07] MEDS ORDERED: methocarbamoL 500 MG TAB ONE (08:00)
[2024-02-07] MEDS ORDERED: SODIUM CHLORIDE 0.9% 100 ML BAG IV ONE (08:00)
[2024-02-07] MEDS ORDERED: FUROSEMIDE 40 MG TAB ONE (08:26)
[2024-02-07] MEDS ORDERED: SPIRONOLACTONE 25 MG TAB ONE (08:26)
[2024-02-07] MEDS ORDERED: MONTELUKAST 10 MG TAB ONE (08:27)
[2024-02-07] MEDS ORDERED: lisinopriL 5 MG TAB ONE (08:27)
[2024-02-07] MEDS ORDERED: MIDODRINE 5 MG TAB ONE ×2 (08:27→16:57)
[2024-02-07] MEDS ORDERED: oxyCODONE ER 10 MG TAB.ER.12H PO ONE ×3 (08:27→21:08)
[2024-02-07] MEDS ORDERED: predniSONE 10 MG TAB ONE (08:27)
[2024-02-07] MEDS ORDERED: CEFEPIME 2 GM VIAL IVPB ONE ×2 (08:27→15:20)
[2024-02-07] MEDS ORDERED: PANTOPRAZOLE 40 MG TABLET PO ONE (09:13)
[2024-02-07] MEDS ORDERED: HEPARIN SODIUM,PORCINE 5,000 UNIT/ML 1 ML VIAL ONE (21:08)
[2024-02-08] MEDS ORDERED: CEFEPIME 2 GM VIAL IVPB ONE ×2 (01:33→10:00)
[2024-02-08] MEDS ORDERED: HYDROcodone/APAP 5-325MG 1 EACH TAB ONE (02:36)
[2024-02-08] MEDS ORDERED: HYDROmorphone 1 MG/ML 1 ML SYRINGE ONE ×2 (05:38→11:52)
[2024-02-08] MEDS ORDERED: PREGABALIN 50 MG CAP ONE (05:38)
[2024-02-08] MEDS ORDERED: VANCOMYCIN 500 MG VIAL ONE (08:00)
[2024-02-08] MEDS ORDERED: methocarbamoL 500 MG TAB ONE (08:00)
[2024-02-08] MEDS ORDERED: SODIUM CHLORIDE 0.9% 500 ML BAG ONE ×2 (08:00)
[2024-02-08] MEDS ORDERED: SODIUM CHLORIDE 0.9% 100 ML BAG IV ONE (08:00)
[2024-02-08] MEDS ORDERED: DULoxetine HCL 30 MG CAPSULE.DR PO ONE (08:00)
[2024-02-08] MEDS ORDERED: VANCOMYCIN 1,000 MG VIAL ONE (08:00)
[2024-02-08] MEDS ORDERED: SPIRONOLACTONE 25 MG TAB ONE (09:57)
[2024-02-08] MEDS ORDERED: PANTOPRAZOLE 40 MG TABLET PO ONE (09:58)
[2024-02-08] MEDS ORDERED: predniSONE 10 MG TAB ONE (09:59)
[2024-02-08] MEDS ORDERED: oxyCODONE ER 10 MG TAB.ER.12H PO ONE (09:59)
[2024-02-08] MEDS ORDERED: MIDODRINE 5 MG TAB ONE (09:59)
[2024-02-08] MEDS ORDERED: HEPARIN SODIUM,PORCINE 5,000 UNIT/ML 1 ML VIAL ONE (09:59)
[2024-02-08] MEDS ORDERED: MONTELUKAST 10 MG TAB ONE (09:59)
--- NOTE | 2024-02-26 13:03 | CT ---
Josee Cooper ID: [id number] : 1960 EXAMINATION TYPE: CT abdomen pelvis w con DATE OF EXAM: 02/06/2024 COMPARISON: 12/04/2023 HISTORY: 63 year-old female abdominal pain and drainage from feeding tube site with possible site inf ection. TECHNIQUE: Contiguous axial scanning of the abdomen and pelvis following administration of 100 ml Iso kathy 300 IV contrast. Delayed images through the kidneys and coronal/sagittal reconstructions perform ed. CT DLP: 1353.4 mGycm Automated exposure control for dose reduction was used. FINDINGS: The heart is upper limits of normal in size without pericardial effusion. Strandy scarring redemonstr ated at the lower lungs. No pleural effusion. There is a small hiatal hernia with postsurgical change of Juan Carlos-en-Y gastric bypass. The gastrojejuno stomy appears to be located within the hernia. No focal liver lesion or biliary ductal dilatation. Portal venous system is patent. There may have been previous anterior wall abdominoplasty. Enterostomy at the right mid abdomen with surrounding soft tissue thickening but no abnormal fluid co llection. Mild localized fat stranding is present in the subcutaneous fat layer. No dilated small bowel, free fluid, or free air. A few prominent mid abdominal mesenteric lymph nodes measuring up to 1.2 cm likely reactive/post inflammatory, unchanged. Scattered mild stool. No pericolonic inflammatory change. 2 adjacent cysts within the lateral left kidney measuring 3.4 cm and 2.2 cm. The larger cyst contains proteinaceous or hemorrhagic debris. Adrenal glands, right kidney, spleen, and atrophic pancreas show no gross evaluate. Bladder is urine distended. Uterus anteverted. Both ovaries are visualized. No abnormal fluid collect ion in the pelvis or pelvic lymphadenopathy. Osteopenia. Mild degenerative disc disease lower thoracic spine. Scattered facet arthropathy. Degener ative grade 1 retrolisthesis L1-L2 and grade 1 anterolisthesis L3-L4. Hypertrophic facet arthropathy mid to lower lumbar spine. IMPRESSION: 1. RIGHT MID ABDOMINAL SMALL BOWEL ENTEROSTOMY VERSUS ENTEROCUTANEOUS FISTULA. THERE IS MILD SOFT TIS ADWOA THICKENING OF THE SUBCUTANEOUS TISSUES HERE AND POSSIBLE MINIMAL FAT STRANDING SUGGESTING some in flammation/mild cellulitis. No abnormal fluid collection. 2. Unchanged moderate sized hiatal hernia. The hernia contains the gastrojejunostomy for the patient' s Juan Carlos-en-Y gastric bypass.
--- NOTE | 2024-02-29 12:15 | PN ---
Date of service is 02/08/2024 PROGRESS NOTE LOCATION: [facility]. REASON FOR FOLLOWUP: Abdominal wall abscess and fistula. INTERVAL HISTORY: Patient is afebrile. The patient is breathing comfortably. No chest pain, shortness of breath, or cough. Abdominal pain, has slightly decreased in intensity. Still has some drainage. No diarrhea. PHYSICAL EXAMINATION: VITAL SIGNS: Blood pressure 93/59, pulse of 72, temperature 98.2. She is 98% on room air. GENERAL DESCRIPTION: The patient is a middle-aged female, lying in bed in no distress. RESPIRATORY SYSTEM: Unlabored breathing. Clear to auscultation anteriorly. HEART: S1, S2. Regular rate and rhythm. ABDOMEN: Soft. EXTREMITIES: No edema in the feet. LABORATORY DATA: White count 9.50, creatinine 1.26. 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 The patient is covered with vancomycin to continue while waiting for the culture to finalize. Question concern for ulcer. MMODL / IJN: [id number] / PHUONG
--- NOTE | 2024-03-17 15:57 | CONS ---
CONSULTATION LOCATION: 462. REASON FOR CONSULTATION: Abdominal wall cellulitis abscess. HISTORY OF PRESENT ILLNESS: The patient is a 63-year-old female. Apparently, the patient did have a bowel obstruction and laparotomy done at [facility]. The patient also has a right mid quadrant possible site of previous drainage catheter, which apparently has not healed since July of 2023. The patient is now presenting to the [facility] concerning for increasing drainage from the right-sided abdominal area. The drainage has recently increased, has becoming more painful. The patient describes the pain to be sharp, moderate intense without any radiation. Denies any fever or chills. With these symptoms, the patient was evaluated on presentation to the hospital and the patient did have white count of 8.36. The patient did have a CT of abdominal and pelvis completed, which was reported as right midabdominal small bowel enterostomy versus enterocutaneous fistula. There is mild soft tissue thickening of the subcutaneous tissue here and possible minimal fat stranding suggesting some inflammation and mild cellulitis. The patient has been admitted to the hospital. The patient was started on vancomycin and cefepime. Infectious Disease was consulted for further management of antibiotic therapy. Surgery has been consulted, pending their evaluation. REVIEW OF SYSTEMS: Positive points have been mentioned in HPI. Rest of systems is negative. PAST MEDICAL HISTORY: Reviewed. PAST SURGICAL HISTORY: Reviewed. SOCIAL HISTORY: Reviewed. FAMILY HISTORY: Reviewed. ALLERGIES: To penicillin. MEDICATIONS: Currently, the patient is on: 1. Cefepime 2 g q.8 hours. 2. Vancomycin pharmacy to dose. 3. Prednisone. 4. Lisinopril. 5. Lasix. 6. . 7. Pantoprazole. 8. Spironolactone. 9. Midodrine. PHYSICAL EXAMINATION: VITAL SIGNS: Blood pressure 95/62 with a pulse of 86, temperature 99% on room air. GENERAL DESCRIPTION: This is a middle-aged female, lying in bed, in no distress. No tachypnea or accessory muscles of respiration use. HEENT: Shows no pallor, no scleral icterus. Oral mucosa membranes moist. No pharyngeal erythema or thrush. NECK: Trachea central. No thyromegaly. LUNGS: Unlabored breathing. Clear to auscultation anteriorly. No wheeze or crackle. HEART: S1 and S2. Regular rhythm. ABDOMEN: Soft. Midline incision is healed. The patient did have a mid right abdominal area wound, which is draining some purulent material. EXTREMITIES: No edema in feet. SKIN: No rash or mass palpable. NEUROLOGICAL: The patient is awake, alert, and oriented x3. Mood and affect normal. LABORATORY DATA: Hemoglobin is 8.4, white count 8.36. BUN of 20, creatinine 0.96. Electrolytes are normal. Liver enzymes are normal. Urine has been negative. CT report as mentioned above. DIAGNOSTIC IMPRESSION/PLAN: 1. The patient with draining sinus in the right abdominal wall with some purulent drainage, concerning for infected enterocutaneous fistula. Apparently, aside from a previous G-tube, which has been discontinued and need to cover for the enteric gram-negative with likely pathogen gram-positive infection not entirely excluded. 2. The patient with penicillin allergy that will limit the number of antibiotics. 3. We will obtain aerobic and anaerobic coverage from the drainage area. 4. The patient to continue with vancomycin and cefepime pending culture completion. Await surgical evaluation and possible surgical repair, deep culture. 5. We will follow on clinical condition and culture to further adjust medication if needed. Family at the bedside. Their questions and concerns were answered. MMODL / IJN: [id number] /
--- NOTE | 2024-03-18 14:36 | PN ---
PROGRESS NOTE DATE OF SERVICE: 02/08/2024 The patient remains stable. She is undergoing transfer to [facility] for her enterocutaneous fistula to J-tube. PHYSICAL EXAMINATION: VITAL SIGNS: Appear stable. ABDOMEN: Soft. Enterocutaneous fistula to J-tube. The patient will be transferred to [facility] today. MMDANTEL / IJN: [id number] /
== END 2024-02-08 13:53 | DRG 394 ==
LOC: DISRECOVER 19:04 → UNDOADMIN 22:37 → DISRECOVER 22:37 → UNDODISIN 22:37
PROVIDERS: ADMIT Hospitalist; ATTEND Hospitalist
DX: K94.22 Gastrostomy infection (principal); L02.211 Cutaneous abscess of abdominal wall; L03.311 Cellulitis of abdominal wall; Y84.8 Other medical procedures as the cause of abnormal reaction of the patient, or of later complication, without mention of misadventure at the time of the procedure; Z88.0 Allergy status to penicillin; Z88.6 Allergy status to analgesic agent; Z88.5 Allergy status to narcotic agent; Z91.011 Allergy to milk products
CPT/HCPCS: 74177; 96361; 96365; 96375; 99285

== ENCOUNTER 2024-02-29 19:49 | Inpatient (IN) | payer BC ==
--- NOTE | 2024-02-29 20:07 | ED ---
Skin/Abscess/FB HPI <Sukhwinder Haynes - Last Filed: 02/29/24 20:39> - General Source: patient, family, RN notes reviewed Mode of arrival: wheelchair Limitations: no limitations <Luana Lomas - Last Filed: 03/01/24 11:25> <Chantel Lopez - Last Filed: 03/09/24 01:04> - General Chief complaint: Skin/Abscess/Foreign Body Stated complaint: Near Syncope,AMS,Wound abd Time Seen by Provider: 02/29/24 20:05 - History of Present Illness Initial comments: 63-year-old female presents emergency department chief complaint of abdominal pain. Patient is brought in by her daughter and states that the patient has had multiple abdominal procedures over the past year with the most recent being in July of 2023, and subsequently patient developed an infection after the removal of the postsurgical feeding tube drain. It is reported that patient has been acting more confused and experiencing chills and they are concerned the patient is having a bacterial infection. Patient endorses chills and vomiting and abdominal pain. (Luana Lomas) - Related Data Home Medications Medication Instructions Recorded Confirmed Montelukast Sodium [Singulair] 10 mg PO DAILY 09/24/14 03/01/24 Omeprazole [PriLOSEC] 20 mg PO BID 09/24/14 03/01/24 predniSONE 10 mg PO DAILY 10/12/16 03/01/24 Midodrine HCl [ProAmantine] 2.5 mg PO BID-W/MEALS 07/02/23 03/01/24 Ergocalciferol (Vitamin D2) 1,250 mcg PO MO 03/01/24 03/01/24 [Drisdol (50,000 Iu)] Furosemide [Lasix] 40 mg PO DAILY 03/01/24 03/01/24 Linaclotide [Linzess] 145 mcg PO AC-BRKFST 03/01/24 03/01/24 Metoprolol Succinate (ER) [Toprol 50 mg PO DAILY 03/01/24 03/01/24 Xl] Pregabalin [Lyrica] 50 mg PO TID 03/01/24 03/01/24 methocarbamoL [Robaxin] 1,000 mg PO TID 03/01/24 03/01/24 oxyCODONE HCL [Oxycodone HCl] 10 mg PO QID 03/01/24 03/01/24 Allergies Allergy/AdvReac Type Severity Reaction Status Date / Time Penicillins Allergy Intermediate Rash/Hives Verified 03/01/24 10:03 milk Allergy Abdominal Verified 03/01/24 10:03 Pain aspirin AdvReac Severe Dyspnea Verified 03/01/24 10:03 morphine AdvReac Severe Nausea & Verified 03/01/24 10:03 Vomiting Review of Systems ROS Other: All systems not noted in ROS Statement are negative. <Sukhwinder Haynes - Last Filed: 02/29/24 20:39> ROS Other: All systems not noted in ROS Statement are negative. <Luana Lomas - Last Filed: 03/01/24 11:25> ROS Other: All systems not noted in ROS Statement are negative. <Chantel Lopez - Last Filed: 03/09/24 01:04> ROS Statement: Those systems with pertinent positive or pertinent negative responses have been documented in the HPI. Past Medical History Past Medical History: Asthma, Fibromyalgia, Hypertension Additional Past Medical History / Comment(s): see Dr Andrea's H&P, CHRONIC SOB,RLS ,per pt cramping really bad all over feet, legs, and arms. Swelling/edema of evelio lower extremites, Chronic blockage of the small bowel, hx ulcer History of Any Multi-Drug Resistant Organisms: Other MDRO Date of last positivie culture/infection: Jeannie alvarez - 02/09/24 @ [facility] MDRO Source:: Jeannie alvarez - skin Past Surgical History: Appendectomy, Bariatric Surgery, Section, Cholecystectomy, Hernia Repair Additional Past Surgical History / Comment(s): abdominal surgeries X14, sinus surgery x4,COLONOSCOPY, surgery for chronic bloackge of smalll bowel ,gastric bypass Past Anesthesia/Blood Transfusion Reactions: No Reported Reaction Past Psychological History: No Psychological Hx Reported Smoking Status: Never smoker Past Alcohol Use History: None Reported Past Drug Use History: None Reported - Past Family History Mother Additional Family Medical History / Comment(s): PT ADOPTED COMPLETE FAMILY HX UNKNOWN Brother(s) Family Medical History: Cancer Additional Family Medical History / Comment(s): TWIN BROTHER FROM CANCER AGE 45 <Luana Lomas - Last Filed: 03/01/24 11:25> General Exam Limitations: no limitations General appearance: alert, in no apparent distress Eye exam: Present: normal appearance, PERRL, EOMI. Absent: scleral icterus, conjunctival injection, periorbital swelling Neck exam: Present: normal inspection. Absent: tenderness, meningismus, lymphadenopathy Respiratory exam: Present: normal lung sounds bilaterally. Absent: respiratory distress, wheezes, rales, rhonchi, stridor Cardiovascular Exam: Present: regular rate, normal rhythm, normal heart sounds. Absent: systolic murmur, diastolic murmur, rubs, gallop, clicks GI/Abdominal exam: Present: soft, tenderness (diffuse), normal bowel sounds, other (post surgical midline incision, RUQ wound drainage, no erythema). Absent: distended, guarding, rebound, rigid Extremities exam: Present: normal inspection, full ROM, normal capillary refill. Absent: tenderness, pedal edema, joint swelling, calf tenderness Back exam: Present: normal inspection Skin exam: Present: warm, dry, intact, normal color. Absent: rash <Luana Lomas - Last Filed: 03/01/24 11:25> Course Vital Signs 02/29/24 02/29/24 03/01/24 19:56 22:51 07:00 Temperature 97.9 F Pulse Rate 79 80 66 Respiratory 18 18 18 Rate Blood Pressure 84/60 100/53 100/53 O2 Sat by Pulse 98 100 98 Oximetry 03/01/24 03/01/24 03/01/24 09:13 13:20 16:33 Temperature 98.1 F 98.2 F Pulse Rate 77 84 80 Respiratory 20 18 18 Rate Blood Pressure 94/50 92/49 96/56 O2 Sat by Pulse 99 100 96 Oximetry Medical Decision Making - EKG Data -: EKG Interpreted by Me (EKG is sinus 85 MA 128 QRS 79 QTc 380) <Sukhwinder Haynes - Last Filed: 02/29/24 20:39> - Lab Data Result diagrams: 03/01/24 06:46 02/29/24 20:29 <Luana Lomas - Last Filed: 03/01/24 11:25> - Lab Data Result diagrams: 03/08/24 04:22 03/07/24 06:25 <Chantel Lopez - Last Filed: 03/09/24 01:04> - Medical Decision Making Was pt. sent in by a medical professional or institution (, PA, HEEL SHAPER, urgent care, hospital, or [facility]...) When possible be specific @ -No Did you speak to anyone other than the patient for history (EMS, parent, family, police, friend...)? What history was obtained from this source @ -Spoke to the patient's daughter at bedside states the patient has had multiple abdominal procedures over the past few years with her most recent procedure being completed at [facility]. Did you review nursing and triage notes (agree or disagree)? Why? @ -I reviewed and agree with nursing and triage notes Were old charts reviewed (outside hosp., previous admission, EMS record, old EKG, old radiological studies, urgent care reports/EKG's, [facility] records)? Report findings @ -Reviewed patient's previous admission from January 2024 where infectious disease was consulted and there was concern for abscess in the abdominal wall concerning for fistula where patient was transferred to [facility] for further evaluation where initial surgical procedure was completed Differential Diagnosis (chest pain, altered mental status, abdominal pain women, abdominal pain men, vaginal bleeding, weakness, fever, dyspnea, syncope, headache, dizziness, GI bleed, back pain, seizure, CVA, palpatations, mental health, musculoskeletal)? @ -Differential Abdominal Pain Women: Appendicitis, Cholecystitis, diverticulosis, ischemic bowel, pancreatitis, hepatitis, UTI, gastroenteritis, AAA, incarcerated hernia, bowel obstruction, constipation, inflammatory bowel, hepatitis, peptic ulcer disease, splenic infarction, perforated viscus, vulvitis, ovarian torsion, PID, kidney stone, placenta abruption, this is not meant to be an all-inclusive list EKG interpreted by me (3pts min.). @ -EKG completed at 2009 and sinus rhythm with a ventricular rate 85, parable 120, QTc 380. No acute signs of ischemia. X-rays interpreted by me (1pt min.). @ -None done CT interpreted by me (1pt min.). @ -CT of the abdomen pelvis without contrast reveals no acute intra-abdominal pelvic process with a small hiatal hernia and fat stranding of the right abdominal wall likely related to enterostomy U/S interpreted by me (1pt. min.). @ -None done What testing was considered but not performed or refused? (CT, X-rays, U/S, labs)? Why? @ -None What meds were considered but not given or refused? Why? @ -None Did you discuss the management of the patient with other professionals (professionals i.e. , TENNILLE, HEEL SHAPER, lab, RT, psych nurse, social media marketing analyst, geriatric case manager, teacher, veterinary medical officer, case making machine operator)? Give summary @ -spoke with internal medicine HEEL SHAPER, Jamele Solorzano, with [facility] in regard to the patient's presentation and concern for abdominal cellulitis. patient will be admitted and started on IV antibiotics with ID on consult. Was smoking cessation discussed for >3mins.? @ -No Was critical care preformed (if so, how long)? @ -No Were there social determinants of health that impacted care today? How? (Homelessness, low income, unemployed, alcoholism, drug addiction, transportation, low edu. Level, literacy, decrease access to med. care, longterm, rehab)? @ -No Was there de-escalation of care discussed even if they declined (Discuss DNR or withdrawal of care, Hospice)? DNR status @ -No What co-morbidities impacted this encounter? (DM, HTN, Smoking, COPD, CAD, Cancer, CVA, ARF, Chemo, Hep., AIDS, mental health diagnosis, sleep apnea, morbid obesity)? @ -None Was patient admitted / discharged? Hospital course, mention meds given and route, prescriptions, significant lab abnormalities, going to OR and other pertinent info. @ -admitted. 63 year old female with abdominal pain and post abdominal discharge. patient is hypotensive on arrival with a BP of 84/60, afebrile nontachycardic. Physical exam reveals diffuse abdominal tenderness. Patient symptomatically treated with liter of fluids for hypotension open results of CT ventriculitis. Patient and patient's daughter in agreement this plan. CMP reveals hyperkalemia of 5.7, CO2 of 13, elevated BUN at 35 creatinine 1.34, lact ate not elevated at 1.2, CBC reveals anemia with hemoglobin 7.[address] imaging concerning for cellulitis with bacteremia of the right abdominal wall which is in correlation to the patient's abdominal pain. Discharge. Patient will be admitted and started on IV vancomycin with infectious disease on consult for further evaluation of abdominal cellulitis. Discussed with Dr. Lopez. Undiagnosed new problem with uncertain prognosis? @ -No Drug Therapy requiring intensive monitoring for toxicity (Heparin, Nitro, Insulin, Cardizem)? @ -No Were any procedures done? @ -No Diagnosis/symptom? @ -abdominal wall cellulitis Acute, or Chronic, or Acute on Chronic? @ -acute Uncomplicated (without systemic symptoms) or Complicated (systemic symptoms)? @ -complicated Side effects of treatment? @ -No Exacerbation, Progression, or Severe Exacerbation? @ -No Poses a threat to life or bodily function? How? (Chest pain, USA, DC, pneumonia, PE, COPD, DKA, ARF, appy, cholecystitis, CVA, Diverticulitis, Homicidal, Suicidal, threat to staff... and all critical care pts) @ -No (Luana Lomas) - Lab Data Lab Results 02/29/24 02/29/24 02/29/24 Range/Units 20:28 20:29 20:29 Sodium 136 L (137-145) mmol/L Potassium 5.7 H (3.5-5.1) mmol/L Chloride 111 H (98-107) mmol/L Carbon Dioxide 13 L (22-30) mmol/L Anion Gap 12 mmol/L BUN 35 H (7-17) mg/dL Creatinine 1.34 H (0.52-1.04) mg/dL Est GFR (CKD-EPI)AfAm 49 (>60 ml/min/1.73 sqM) Est GFR (CKD-EPI)NonAf 43 (>60 ml/min/1.73 sqM) Glucose 87 (74-99) mg/dL POC Glucose (mg/dL) 100 (70-110) mg/dL POC Glu Buhr Dresser Carlos Vargas Plasma Lactic Acid Dave 1.2 (0.7-2.0) mmol/L Calcium 8.8 (8.4-10.2) mg/dL Iron (50-170) UG/DL TIBC (228-460) UG/DL % Saturation (12.00-45.00) Transferrin (204.0-354.0) mg/dL Ferritin (10.0-291.0) ng/mL Total Bilirubin 0.4 (0.2-1.3) mg/dL AST 20 (14-36) U/L ALT 13 (4-34) U/L Alkaline Phosphatase 90 (38-126) U/L C-Reactive Protein 4.5 H (<1.0) mg/dL Total Protein 5.4 L (6.3-8.2) g/dL Albumin 3.0 L (3.5-5.0) g/dL Amylase 36 (30-110) U/L Lipase 50 (23-300) U/L Vitamin B12 (200.0-944.0) pg/mL Folate (4.40-31.00) ng/mL 02/29/24 02/29/24 Range/Units 20:29 20:29 Sodium (137-145) mmol/L Potassium (3.5-5.1) mmol/L Chloride (98-107) mmol/L Carbon Dioxide (22-30) mmol/L Anion Gap mmol/L BUN (7-17) mg/dL Creatinine (0.52-1.04) mg/dL Est GFR (CKD-EPI)AfAm (>60 ml/min/1.73 sqM) Est GFR (CKD-EPI)NonAf (>60 ml/min/1.73 sqM) Glucose (74-99) mg/dL POC Glucose (mg/dL) (70-110) mg/dL POC Glu Buhr Dresser ID Plasma Lactic Acid Dave (0.7-2.0) mmol/L Calcium (8.4-10.2) mg/dL Iron 12 L (50-170) UG/DL TIBC 386 (228-460) UG/DL % Saturation 3.11 L (12.00-45.00) Transferrin 276.0 (204.0-354.0) mg/dL Ferritin 28.2 (10.0-291.0) ng/mL Total Bilirubin (0.2-1.3) mg/dL AST (14-36) U/L ALT (4-34) U/L Alkaline Phosphatase (38-126) U/L C-Reactive Protein (<1.0) mg/dL Total Protein (6.3-8.2) g/dL Albumin (3.5-5.0) g/dL Amylase (30-110) U/L Lipase (23-300) U/L Vitamin B12 216.0 (200.0-944.0) pg/mL Folate 9.40 (4.40-31.00) ng/mL Disposition <Sukhwinder Haynes Last Filed: 02/29/24 20:39> Decision to Admit Reason: Admit from EC Decision Date: 02/29/24 Decision Time: 23:00 <Luana Lomas - Last Filed: 03/01/24 11:25> <Chantel Lopez - Last Filed: 03/09/24 01:04> Clinical Impression: Cellulitis, Abdominal pain Disposition: ADMITTED IP TO THIS [facility] Condition: Serious
[2024-02-29 20:30] LABS: Glucose,Whole Blood 100 mg/dL (70-110)
[2024-02-29] MEDS: SODIUM CHLORIDE 0.9% 1,000 ML IV STA (21:13)
[2024-02-29 21:18] LABS: ALT 13 U/L (4-34); AST 20 U/L (14-36); African American GFR (CKD) 49 (>60 ml/min/1.73 sqM); Alkaline Phosphatase 90 U/L (38-126); Amylase 36 U/L (30-110); Anion Gap 12 mmol/L; Blood Urea Nitrogen 35 mg/dL (7-17); C Reactive Protein 4.5 mg/dL (<1.0); Calcium 8.8 mg/dL (8.4-10.2); Carbon Dioxide 13 mmol/L (22-30); Chloride 111 mmol/L (98-107); Glucose 87 mg/dL (74-99); Lipase 50 U/L (23-300); Non-African American GFR(CKD) 43 (>60 ml/min/1.73 sqM); Potassium 5.7 mmol/L (3.5-5.1); Sodium 136 mmol/L (137-145); Total Bilirubin 0.4 mg/dL (0.2-1.3); Total Protein 5.4 g/dL (6.3-8.2)
--- NOTE | 2024-02-29 22:39 | CT ---
EXAMINATION TYPE: CT abdomen pelvis wo con CT DLP: 697.2 mGycm, Automated exposure control for dose reduction was used. DATE OF EXAM: 02/29/2024 9:36 PM COMPARISON: CT abdomen pelvis most recent from CLINICAL INDICATION:Female, 63 years old with history of ab pain; Abdominal pain TECHNIQUE: Axial CT abdomen pelvis wo con;Sagittal and coronal reformats were created on a separate workstation. Contrast used: mL of , (none if empty) Oral contrast used: without Oral Contrast (none if empty) FINDINGS: LOWER CHEST: Bibasilar atelectasis/scarring. ABDOMEN Motion artifact present on exam degrades quality of imaging limiting evaluation. LIVER: Unremarkable GALLBLADDER AND BILE DUCTS: Gallbladder is surgically absent with mild intrahepatic and extra hepatic biliary dilatation likely physiologic and a postcholecystectomy change. No evidence of choledocholit hiasis. PANCREAS: Unremarkable. SPLEEN: Unremarkable. ADRENAL GLANDS: Unremarkable. KIDNEYS AND URETERS: No evidence of hydronephrosis or renal calculus. Redemonstrated cystic changes w ithin the left kidney. Indeterminate left exophytic focus is again seen measuring 2.7 cm. The ureters are unremarkable. PELVIS BLADDER: Unremarkable REPRODUCTIVE: Unremarkable. ABDOMEN & PELVIS STOMACH AND BOWEL: Juan Carlos-en-Y postsurgical changes of the stomach with a small hiatal hernia present. Small bowel is of normal caliber. No evidence of bowel obstruction. PERITONEUM/RETROPERITONEUM: No evidence of pneumoperitoneum or free fluid. VASCULATURE: No evidence of aortic aneurysm. MUSCULOSKELETAL: No acute osseous abnormalities. Degenerative changes of the bony pelvis and visualiz ed spine. LYMPH NODES: No gross evidence for lymphadenopathy. SOFT TISSUE/ABDOMINAL WALL: Similar appearance of a right abdominal enterostomy with similar soft tis herlinda thickening and fat stranding. IMPRESSION: 1. No acute intra-abdominal/pelvic process. 2. Small hiatal hernia. 3. Juan Carlos-en-Y postsurgical changes. 4. Similar fat stranding of the right abdominal wall likely related to enterostomy. Correlate for any cellulitis on exam. 5. Indeterminate left renal focus measuring 2.7 cm. This should be further characterized with a nonem ergent outpatient MRI abdomen with and without IV contrast renal mass protocol if not already complet ed.
[2024-02-29] MEDS ORDERED: NALOXONE 0.4 MG/ML 1 ML VIAL IV PRN (23:00)
[2024-02-29] MEDS ORDERED: VANCOMYCIN IV PER PHARMACY 1 EACH MISC MISCELLANE PRN (23:04)
[2024-03-01] MEDS: SODIUM CHLORIDE 0.9% 1,000 ML IV SCH (00:10)
[2024-03-01] MEDS: VANCOMYCIN 1,500 MG in SODIUM CHLORIDE 0.9% 500 ML 500 ML IVPB ONE (00:14)
[2024-03-01 06:55] LABS: Anisocytosis Slight; Basophils % (A) 0 %; Eosinophils # (A) 0.3 k/uL (0-0.7); Eosinophils % (A) 4 %; HGB 7.1 gm/dL (11.4-16.0); Hypochromasia Marked; Lymphocytes # (A) 2.5 k/uL (1.0-4.8); Lymphocytes % (A) 32 %; MCH 20.5 pg (25.0-35.0); MCHC 28.4 g/dL (31.0-37.0); MCV 72.4 fL (80.0-100.0); Mean Platelet Volume 7.4; Microcytosis Moderate; Monocytes # (A) 0.5 k/uL (0-1.0); Monocytes % (A) 6 %; Neutrophils # (A) 4.3 k/uL (1.3-7.7); Neutrophils % (A) 56 %; Platelet Count 392 k/uL (150-450); RBC 3.45 m/uL (3.80-5.40); RDW 18.3 % (11.5-15.5); WBC 7.8 k/uL (3.8-10.6)
[2024-03-01] MEDS: NON FORMULARY DRUG (Linaclotide [Linzess] 145 MCG Capsule) PO SCH (13:17)
[2024-03-01] MEDS: PREGABALIN 50 MG CAP PO SCH (13:22)
[2024-03-01] MEDS: MONTELUKAST 10 MG TAB PO SCH (13:23)
[2024-03-01] MEDS: PANTOPRAZOLE 40 MG TABLET PO SCH (13:23)
[2024-03-01] MEDS: METOPROLOL SUCCINATE (ER) 50 MG TAB.ER.24H PO SCH (13:23)
[2024-03-01] MEDS: MIDODRINE 5 MG TAB PO SCH (13:23)
[2024-03-01] MEDS: methocarbamoL 500 MG TAB PO SCH (13:23)
[2024-03-01] MEDS: SODIUM BICARB 8.4% 50 ML SYR (1 MEQ/ML) IV STA (13:32)
[2024-03-01] MEDS: DEXTROSE 5% IN WATER 1,000 ML with SODIUM BICARB (1 MEQ/ML) 150 ML IV SCH (14:48)
[2024-03-01] MEDS: SODIUM ZIRCONIUM CYCLOSILICATE 10 GM PACKET PO SCH (15:00)
--- NOTE | 2024-03-01 15:10 | P.HPIM ---
History of Present Illness H&P Date: 03/01/24 History of present illness: 63-year-old female with past medical history significant for asthma, fibr omyalgia, hypertension, restless leg syndrome, history of bowel obstruction, history of MDRO, history of multiple abdominal procedures over the last year with most recent being in July 2023, subsequently patient developed an infection after the removal of feeding tube drain. Patient was brought to the hospital by daughter as patient was felt to be getting progressively more confused for the last few days with chills, family and patient suspected fever but did not check the temperature. Patient was complaining of more abdominal pain, more pronounced around stoma from feeding tube, also reported purulent discharge. CT abdomen showed no acute intra-abdominal/pelvic process, small hiatal hernia, Millicent Y postsurgical changes, similar fat stranding of the right abdominal wall likely related to enterostomy, indeterminate left renal focus measuring 2.7 cm. REVIEW OF SYSTEMS: CONSTITUTIONAL: No fever, no malaise, no fatigue. HEENT: No recent visual problems or hearing problems. Denied any sore throat. CARDIOVASCULAR: No chest pain, orthopnea, PND, no palpitations, no syncope. PULMONARY: No shortness of breath, no cough, no hemoptysis. GASTROINTESTINAL: Complains of abdominal pain, poor appetite. NEUROLOGICAL: No headaches, no weakness, no numbness. HEMATOLOGICAL: Denies any bleeding or petechiae. GENITOURINARY: Denies any burning micturition, frequency, or urgency. MUSCULOSKELETAL/RHEUMATOLOGICAL: Denies any joint pain, swelling, or any muscle pain. ENDOCRINE: Denies any polyuria or polydipsia. The rest of the 14-point review of systems is negative. PHYSICAL EXAMINATION: GENERAL: The patient is A&O x3, NAD HEENT: EOMI, Sclerae anicteric, Moist Mucous membranes Neck: Supple, Non tender, No JVD PULMONARY: Equal breath souds B/L, No wheezing, No crackles. CARDIOVASCULAR: S1, S2 present. No murmurs, rubs, or gallops. ABDOMEN: Enterostomy with discharge, surrounding erythema, tenderness. MUSCULOSKELETAL: No edema, No cyanosis. No clubbing. Normal ROM. Intact peripheral pulses. EXTREMITIES: No cyanosis, clubbing, or pedal edema. NEUROLOGICAL: CN 2-12 grossly intact. No FND Assessment and plan: Abdominal wall cellulitis: History of multiple abdominal surgeries around 15: Acute metabolic encephalopathy: Presented with worsening abdominal pain, confusion, chills CT abdomen pelvis negative for any acute process as above, showed proximal [place] postsurgical changes, similar fat stranding of right abdominal wall likely related to enterostomy. Blood cultures Vancomycin and ertapenem ID consult Acute kidney injury: Hyperkalemia Acute on chronic anemia: MARY likely prerenal, secondary to above Hold nephrotoxin Hold Lasix Monitor BMP and potassium [facility] consult Bladder management protocol to rule out retention History of hypotension: Continue midodrine Monitor vitals Chronic anemia: Hemoglobin 7.1 Monitor H&H, transfuse for hemoglobin less than 7 No sign of central active bleed. DVT prophylaxis Subcutaneous heparin Monitor vital signs and labs Continue telemetry monitoring Labs and medication were reviewed. Continue same treatment. Resume home medication. Further recommendations as per clinical course of the patient Dictation was produced using [employer] dictation software. please excuse any gra mmatical, word or spelling errors. Past Medical History Past Medical History: Asthma, Fibromyalgia, Hypertension Additional Past Medical History / Comment(s): see Dr Andrea's H&P, CHRONIC SOB,RLS ,per pt cramping really bad all over feet, legs, and arms. Swelling/edema of evelio lower extremites, Chronic blockage of the small bowel, hx ulcer History of Any Multi-Drug Resistant Organisms: Other MDRO Date of last positivie culture/infection: Jeannie alvarez - 02/09/24 @ [facility] MDRO Source:: Jeannie alvarez - skin Past Surgical History: Appendectomy, Bariatric Surgery, Section, Cholecystectomy, Hernia Repair Additional Past Surgical History / Comment(s): abdominal surgeries X14, sinus surgery x4,COLONOSCOPY, surgery for chronic bloackge of smalll bowel ,gastric bypass Past Anesthesia/Blood Transfusion Reactions: No Reported Reaction Past Psychological History: No Psychological Hx Reported Smoking Status: Never smoker Past Alcohol Use History: None Reported Past Drug Use History: None Reported - Past Family History Mother Additional Family Medical History / Comment(s): PT ADOPTED COMPLETE FAMILY HX UNKNOWN Brother(s) Family Medical History: Cancer Additional Family Medical History / Comment(s): TWIN BROTHER FROM CANCER AGE 45 Medications and Allergies Home Medications Medication Instructions Recorded Confirmed Type Montelukast Sodium [Singulair] 10 mg PO DAILY 09/24/14 03/01/24 History Omeprazole [PriLOSEC] 20 mg PO BID 09/24/14 03/01/24 History predniSONE 10 mg PO DAILY 10/12/16 03/01/24 History Midodrine HCl [ProAmantine] 2.5 mg PO BID-W/MEALS 07/02/23 03/01/24 History Ergocalciferol (Vitamin D2) 1,250 mcg PO MO 03/01/24 03/01/24 History [Drisdol (50,000 Iu)] Furosemide [Lasix] 40 mg PO DAILY 03/01/24 03/01/24 History Linaclotide [Linzess] 145 mcg PO AC-BRKFST 03/01/24 03/01/24 History Metoprolol Succinate (ER) [Toprol 50 mg PO DAILY 03/01/24 03/01/24 History Xl] Pregabalin [Lyrica] 50 mg PO TID 03/01/24 03/01/24 History methocarbamoL [Robaxin] 1,000 mg PO TID 03/01/24 03/01/24 History oxyCODONE HCL [Oxycodone HCl] 10 mg PO QID 03/01/24 03/01/24 History Allergies Allergy/AdvReac Type Severity Reaction Status Date / Time Penicillins Allergy Intermediate Rash/Hives Verified 03/01/24 10:03 milk Allergy Abdominal Verified 03/01/24 10:03 Pain aspirin AdvReac Severe Dyspnea Verified 03/01/24 10:03 morphine AdvReac Severe Nausea & Verified 03/01/24 10:03 Vomiting Physical Exam Vitals: Vital Signs Temp Pulse Resp BP Pulse Ox 03/01/24 13:20 84 18 92/49 100 03/01/24 09:13 98.1 F 77 20 94/50 99 03/01/24 07:00 66 18 100/53 98 02/29/24 22:51 80 18 100/53 100 02/29/24 19:56 97.9 F 79 18 84/60 98 Intake and Output 02/29/24 03/01/24 03/01/24 22:59 06:59 14:59 Other: Weight 87.997 kg Results CBC & Chem 7: 03/01/24 06:46 02/29/24 20:29 Labs: Abnormal Lab Results - Last 24 Hours (Table) 02/29/24 03/01/24 Range/Units 20:29 06:46 RBC 3.45 L (3.80-5.40) m/uL Hgb 7.1 L (11.4-16.0) gm/dL Hct 25.0 L (34.0-46.0) % MCV 72.4 L (80.0-100.0) fL MCH 20.5 L (25.0-35.0) pg MCHC 28.4 L (31.0-37.0) g/dL RDW 18.3 H (11.5-15.5) % Sodium 136 L (137-145) mmol/L Potassium 5.7 H (3.5-5.1) mmol/L Chloride 111 H (98-107) mmol/L Carbon Dioxide 13 L (22-30) mmol/L BUN 35 H (7-17) mg/dL Creatinine 1.34 H (0.52-1.04) mg/dL C-Reactive Protein 4.5 H (<1.0) mg/dL Total Protein 5.4 L (6.3-8.2) g/dL Albumin 3.0 L (3.5-5.0) g/dL
[2024-03-01] MEDS: ERTAPENEM 1 GM in SODIUM CHLORIDE 0.9% 50 ML IVPB SCH (16:30)
[2024-03-01 17:25] LABS: Anisocytosis Slight; HCT 26.4 % (34.0-46.0); HGB 7.6 gm/dL (11.4-16.0); Hypochromasia Marked; MCHC 28.7 g/dL (31.0-37.0); MCV 73.1 fL (80.0-100.0); Microcytosis Moderate; Platelet Count 446 k/uL (150-450); RBC 3.61 m/uL (3.80-5.40); RDW 18.4 % (11.5-15.5); WBC 7.5 k/uL (3.8-10.6)
[2024-03-01 17:42] LABS: ALT 11 U/L (4-34); AST 18 U/L (14-36); African American GFR (CKD) >90 (>60 ml/min/1.73 sqM); Albumin 2.8 g/dL (3.5-5.0); Alkaline Phosphatase 91 U/L (38-126); Anion Gap 7 mmol/L; Blood Urea Nitrogen 24 mg/dL (7-17); Calcium 8.9 mg/dL (8.4-10.2); Carbon Dioxide 20 mmol/L (22-30); Chloride 113 mmol/L (98-107); Glucose 85 mg/dL (74-99); Non-African American GFR(CKD) 80 (>60 ml/min/1.73 sqM); Potassium 4.8 mmol/L (3.5-5.1); Sodium 140 mmol/L (137-145); Total Bilirubin 0.5 mg/dL (0.2-1.3); Total Protein 5.3 g/dL (6.3-8.2)
[2024-03-01] MEDS: VANCOMYCIN 1,500 MG in SODIUM CHLORIDE 0.9% 500 ML 500 ML IVPB SCH (21:00)
[2024-03-01] MEDS: HEPARIN SODIUM,PORCINE 5,000 UNIT/ML 1 ML VIAL SQ SCH (21:56)
--- NOTE | 2024-03-01 22:13 | P.CONS ---
History of Present Illness - Reason for Consult Consult date: 03/01/24 Cellulitis abdominal wall Requesting physician: Luana Lomas - Chief Complaint Chills and confusion x 1 day - History of Present Illness Patient is a 63-year-old female with a past medical history negative for fibromyalgia hypertension asthma restless leg syndrome in this patient who did have multiple abdominal procedure mostly done at the [facility] and apparently the patient seem to have developed his sinus to the right lower abdominal area that apparently was intubated to a feeding tube drain patient was admitted to this facility about a month ago with similar symptoms patient was subsequently transferred to [facility] for more definite surgical procedure however the daughter mention that no specific treatment was done and the patient was subsequently discharged patient has not been brought back to [facility] ER after apparently the patient was noticed to be more confused and experiencing chills and they are concerned the patient did have a bacterial infection on presentation to the hospital patient was afebrile and no fever have recorded subsequently patient was not tachycardic hypotensive or hypoxic patient did have normal white count of 7.8 BUN and creatinine mildly elevated liver isms are normal CRP is 4.5 patient did have a abdominal pelvis CT no acute intra-abdominal process similar fat stranding of the right abdominal wall likely related to enterostomy correlate for any cellulitis on exam patient has been started on vancomycin infectious disease was consulted for further management patient after my evaluation is more awake and alert has been complaining of chills patient has been complaining of pain to the abdominal wall area mostly dull aching moderate intensity without radiation denies any nausea vomiting or diarrhea Review of Systems Positive point and negatives has been mentioned in the HPI, complete review of systems was performed and all other systems are negative Past Medical History Past Medical History: Asthma, Fibromyalgia, Hypertension Additional Past Medical History / Comment(s): see Dr Andrea's H&P, CHRONIC SOB,RLS ,per pt cramping really bad all over feet, legs, and arms. Swelli ng/edema of evelio lower extremites, Chronic blockage of the small bowel, hx ulcer History of Any Multi-Drug Resistant Organisms: Other MDRO Year Discovered:: Jeannie alvarez - 02/09/24 @ [facility] MDRO Source:: Jeannie alvarez - skin Past Surgical History: Appendectomy, Bariatric Surgery, Section, Cholecystectomy, Hernia Repair Additional Past Surgical History / Comment(s): abdominal surgeries X14, sinus surgery x4,COLONOSCOPY, surgery for chronic bloackge of smalll bowel ,gastric bypass Past Anesthesia/Blood Transfusion Reactions: No Reported Reaction Past Psychological History: No Psychological Hx Reported Smoking Status: Never smoker Past Alcohol Use History: None Reported Past Drug Use History: None Reported - Past Family History Mother Additional Family Medical History / Comment(s): PT ADOPTED COMPLETE FAMILY HX UNKNOWN Brother(s) Family Medical History: Cancer Additional Family Medical History / Comment(s): TWIN BROTHER FROM CANCER AGE 45 Medications and Allergies Home Medications Medication Instructions Recorded Confirmed Type Montelukast Sodium [Singulair] 10 mg PO DAILY 09/24/14 03/01/24 History Omeprazole [PriLOSEC] 20 mg PO BID 09/24/14 03/01/24 History predniSONE 10 mg PO DAILY 10/12/16 03/01/24 History Midodrine HCl [ProAmantine] 2.5 mg PO BID-W/MEALS 07/02/23 03/01/24 History Ergocalciferol (Vitamin D2) 1,250 mcg PO MO 03/01/24 03/01/24 History [Drisdol (50,000 Iu)] Furosemide [Lasix] 40 mg PO DAILY 03/01/24 03/01/24 History Linaclotide [Linzess] 145 mcg PO AC-BRKFST 03/01/24 03/01/24 History Metoprolol Succinate (ER) [Toprol 50 mg PO DAILY 03/01/24 03/01/24 History Xl] Pregabalin [Lyrica] 50 mg PO TID 03/01/24 03/01/24 History methocarbamoL [Robaxin] 1,000 mg PO TID 03/01/24 03/01/24 History oxyCODONE HCL [Oxycodone HCl] 10 mg PO QID 03/01/24 03/01/24 History Allergies Allergy/AdvReac Type Severity Reaction Status Date / Time Penicillins Allergy Intermediate Rash/Hives Verified 03/01/24 10:03 milk Allergy Abdominal Verified 03/01/24 10:03 Pain aspirin AdvReac Severe Dyspnea Verified 03/01/24 10:03 morphine AdvReac Severe Nausea & Verified 03/01/24 10:03 Vomiting Physical Exam Vitals: Vital Signs Temp Pulse Resp BP Pulse Ox 03/01/24 09:13 98.1 F 77 20 94/50 99 03/01/24 07:00 66 18 100/53 98 02/29/24 22:51 80 18 100/53 100 02/29/24 19:56 97.9 F 79 18 84/60 98 Intake and Output 02/29/24 03/01/24 03/01/24 22:59 06:59 14:59 Other: Weight 87.997 kg GENERAL DESCRIPTION: Middle-aged female lying in bed, no distress. No tachypnea or accessory muscle of respiration use. HEENT: Shows Pallor , no scleral icterus. Oral mucous membrane is dry. No pharyngeal erythema or thrush NECK: Trachea central, no thyromegaly. LUNGS: Unlabored breathing. Clear to auscultation anteriorly. No wheeze or crackle. HEART: S1, S2, regular rate and rhythm. No loud murmur ABDOMEN: Soft, right abdominal wall did have a wound with drainage no foul- smelling EXTREMITIES: No edema of feet. SKIN: No rash, no masses palpable. NEUROLOGICAL: The patient is awake, alert, oriented x3, mood and affect normal. Results CBC & Chem 7: 03/01/24 16:50 03/01/24 16:50 Labs: Abnormal Lab Results - Last 24 Hours (Table) 02/29/24 03/01/24 Range/Units 20:29 06:46 RBC 3.45 L (3.80-5.40) m/uL Hgb 7.1 L (11.4-16.0) gm/dL Hct 25.0 L (34.0-46.0) % MCV 72.4 L (80.0-100.0) fL MCH 20.5 L (25.0-35.0) pg MCHC 28.4 L (31.0-37.0) g/dL RDW 18.3 H (11.5-15.5) % Sodium 136 L (137-145) mmol/L Potassium 5.7 H (3.5-5.1) mmol/L Chloride 111 H (98-107) mmol/L Carbon Dioxide 13 L (22-30) mmol/L BUN 35 H (7-17) mg/dL Creatinine 1.34 H (0.52-1.04) mg/dL C-Reactive Protein 4.5 H (<1.0) mg/dL Total Protein 5.4 L (6.3-8.2) g/dL Albumin 3.0 L (3.5-5.0) g/dL Assessment and Plan (1) Abdominal wall cellulitis Current Visit: Yes Status: Acute Code(s): L03.311 - CELLULITIS OF ABDOMINAL WALL SNOMED Code(s): 07121120 (2) Penicillin allergy Current Visit: No Status: Acute Code(s): Z88.0 - ALLERGY STATUS TO PENICILLIN SNOMED Code(s): 82388745 Plan: 1patient presented to hospital with confusion chills concerning for infection in this patient who did have a chronic abdominal wall wound concern for 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, in this patient who did have multiple abdominal procedure most of them has been done at [facility] patient did have similar presentation on her last visit and was transferred to [facility] apparently no specific treatment was done now presenting with worsening drainage from the abdominal wound CT concerning for possible cellulitis will need to cover for the enteric gram-negative to be the likely pathogen 2-patient with history of penicillin allergy however the patient mention she has taken amoxicillin without any problem clinical doubt true penicillin allergy. 3keeping in mind her previous culture with Klebsiella and Morganella we will start the patient on cefepime 2 g every 8 hours and oral Flagyl We will follow on clinical condition and cultures to further adjust medication if needed Thank you for this consultation we will follow the patient along with you Dictation was produced using [employer] dictation software. please excuse any grammatical, word or spelling errors. Time with Patient: Greater than 30
[2024-03-02] MEDS ORDERED: VANCOMYCIN 1,500 MG in SODIUM CHLORIDE 0.9% 500 ML 500 ML IVPB SCH
[2024-03-02] MEDS: SODIUM CHLORIDE 0.9% 500 ML 500 ML IV ONE (02:12)
[2024-03-02 07:50] LABS: % Iron Saturation 3.11 (12.00-45.00); Ferritin 28.2 ng/mL (10.0-291.0)
[2024-03-02] MEDS: CEFEPIME 2 GM in SODIUM CHLORIDE 0.9% 100 ML IVPB SCH (08:36)
[2024-03-02] MEDS: metroNIDAZOLE 500 MG TAB PO SCH (08:37)
[2024-03-02 09:02] LABS: Anisocytosis Slight; Basophils % (A) 0 %; Eosinophils # (A) 0.3 k/uL (0-0.7); Eosinophils % (A) 3 %; HCT 25.2 % (34.0-46.0); HGB 7.4 gm/dL (11.4-16.0); Hypochromasia Marked; Lymphocytes # (A) 1.4 k/uL (1.0-4.8); Lymphocytes % (A) 17 %; MCH 21.6 pg (25.0-35.0); MCHC 29.5 g/dL (31.0-37.0); MCV 73.2 fL (80.0-100.0); Mean Platelet Volume 7.4; Microcytosis Moderate; Monocytes # (A) 0.2 k/uL (0-1.0); Monocytes % (A) 3 %; Neutrophils # (A) 6.2 k/uL (1.3-7.7); Neutrophils % (A) 76 %; Platelet Count 381 k/uL (150-450); RBC 3.44 m/uL (3.80-5.40); RDW 18.4 % (11.5-15.5); WBC 8.1 k/uL (3.8-10.6)
[2024-03-02 09:22] LABS: African American GFR (CKD) >90 (>60 ml/min/1.73 sqM); Anion Gap 7 mmol/L; Blood Urea Nitrogen 15 mg/dL (7-17); Calcium 8.5 mg/dL (8.4-10.2); Carbon Dioxide 21 mmol/L (22-30); Chloride 110 mmol/L (98-107); Glucose 120 mg/dL (74-99); Magnesium 1.6 mg/dL (1.6-2.3); Non-African American GFR(CKD) >90 (>60 ml/min/1.73 sqM); Potassium 4.6 mmol/L (3.5-5.1); Sodium 138 mmol/L (137-145)
--- NOTE | 2024-03-02 10:40 | P.NPCON ---
History of Present Illness - Reason for Consult acute renal failure, hyperkalemia - History of Present Illness Reason for consultation: Acute kidney injury and hyperkalemia History of present illness: Patient is a 63-year-old female seen in renal consultation for acute kidney injury and hyperkalemia. Creatinine was 1.34 on admission and is improved to 0.69 today. Potassium was 5.7 on admission and is normal at 4.6 today. She is currently maintained on bicarb drip and acidosis is also improved. Patient came to the hospital due to abdominal discomfort. Patient states she is on multiple bowel surgeries for bowel obstruction and also had a feeding tube which was removed a few months ago. Patient states she has been having drainage from the feeding tube site. She states she has noticed food as well as puslike drainage coming from the feeding tube site. Patient came to the hospital for further care. She is receiving IV antibiotics. She denies history of diabetes or coronary artery disease. Denies family history of renal disease. Denies regular use of nonsteroidals. No gross hematuria or dysuria. Vital signs are stable. General: No acute distress. HEENT: Head exam is unremarkable. LUNGS: No audible rhonchi or wheezes. HEART: Rate and Rhythm are regular. ABDOMEN: Surgical scar noted. Dressing noted. EXTREMITITES: No edema. Past Medical History Past Medical History: Asthma, Fibromyalgia, Hypertension Additional Past Medical History / Comment(s): see Dr Andrea's H&P, CHRONIC SOB,RLS ,per pt cramping really bad all over feet, legs, and arms. Swelling/edema of evelio lower extremites, Chronic blockage of the small bowel, hx ulcer History of Any Multi-Drug Resistant Organisms: Other MDRO Date of last positivie culture/infection: Jeannie antonio - 02/09/24 @ [facility] MDRO Source:: Jeannie alvarez - skin Past Surgical History: Appendectomy, Bariatric Surgery, Section, Cholecystectomy, Hernia Repair Additional Past Surgical History / Comment(s): abdominal surgeries X14, sinus surgery x4,COLONOSCOPY, surgery for chronic bloackge of smalll bowel ,gastric bypass Past Anesthesia/Blood Transfusion Reactions: No Reported Reaction Past Psychological History: No Psychological Hx Reported Smoking Status: Never smoker Past Alcohol Use History: None Reported Past Drug Use History: None Reported - Past Family History Mother Additional Family Medical History / Comment(s): PT ADOPTED COMPLETE FAMILY HX UNKNOWN Brother(s) Family Medical History: Cancer Additional Family Medical History / Comment(s): TWIN BROTHER FROM CANCER AGE 45 Medications and Allergies Home Medications Medication Instructions Recorded Confirmed Type Montelukast Sodium [Singulair] 10 mg PO DAILY 09/24/14 03/01/24 History Omeprazole [PriLOSEC] 20 mg PO BID 09/24/14 03/01/24 History predniSONE 10 mg PO DAILY 10/12/16 03/01/24 History Midodrine HCl [ProAmantine] 2.5 mg PO BID-W/MEALS 07/02/23 03/01/24 History Ergocalciferol (Vitamin D2) 1,250 mcg PO MO 03/01/24 03/01/24 History [Drisdol (50,000 Iu)] Furosemide [Lasix] 40 mg PO DAILY 03/01/24 03/01/24 History Linaclotide [Linzess] 145 mcg PO AC-BRKFST 03/01/24 03/01/24 History Metoprolol Succinate (ER) [Toprol 50 mg PO DAILY 03/01/24 03/01/24 History Xl] Pregabalin [Lyrica] 50 mg PO TID 03/01/24 03/01/24 History methocarbamoL [Robaxin] 1,000 mg PO TID 03/01/24 03/01/24 History oxyCODONE HCL [Oxycodone HCl] 10 mg PO QID 03/01/24 03/01/24 History Allergies Allergy/AdvReac Type Severity Reaction Status Date / Time Penicillins Allergy Intermediate Rash/Hives Verified 03/01/24 10:03 milk Allergy Abdominal Verified 03/01/24 10:03 Pain aspirin AdvReac Severe Dyspnea Verified 03/01/24 10:03 morphine AdvReac Severe Nausea & Verified 03/01/24 10:03 Vomiting Physical Exam Vitals: Vital Signs Temp Pulse Pulse Resp BP BP Pulse Ox 03/02/24 07:22 98.1 F 84 20 108/69 100 03/02/24 03:24 91/51 03/02/24 00:45 98.4 F 75 18 87/56 97 03/01/24 19:40 98.5 F 58 L 18 95/67 93 L 03/01/24 17:28 97.7 F 87 20 92/55 03/01/24 16:33 98.2 F 80 18 96/56 96 03/01/24 13:20 84 18 92/49 100 Intake and Output 03/01/24 03/02/24 03/02/24 22:59 06:59 14:59 Other: Voiding Method Toilet # Voids 1 1 Weight 87.997 kg Results - Lab Results Most recent lab results Calcium 8.5 mg/dL (8.4-10.2) 03/02/24 08:31 Magnesium 1.6 mg/dL (1.6-2.3) 03/02/24 08:31 03/02/24 08:31 03/02/24 08:31 Assessment and Plan Plan: Assessment: 1. Acute kidney injury secondary to vasomotor nephropathy from hypotension and use of Lasix. Creatinine 1.34 on admission and is 0.69 today. No hydronephrosis noted on kidney ultrasound. 2. Hyperkalemia secondary to metabolic acidosis and acute kidney injury. Resolved. 3. Metabolic acidosis secondary to acute kidney injury and IV fluids. Improved. 4. Abdominal wound infection. On IV antibiotics. 5. Anemia. Rule out iron deficiency. 6. Left renal lesion noted on CAT scan. Patient will need to see urology outpatient for further workup. Plan: Stop bicarb drip. Start normal saline at 50 cc an hour. Add oral bicarb. Continue to hold diuretics. Avoid nephrotoxins. Check iron studies. Thank you for the consultation. I will continue to follow the patient with you during her hospital stay.
[2024-03-02] MEDS: SODIUM CHLORIDE 0.9% 1,000 ML IV SCH (12:52)
[2024-03-02] MEDS: SODIUM BICARBONATE TAB 650 MG TAB PO SCH (12:52)
--- NOTE | 2024-03-02 13:57 | P.PN ---
Subjective Progress Note Date: 03/02/24 Interval History: 63-year-old female with past medical history significant for asthma, fibromyalgia, hypertension, restless leg syndrome, history of bowel obstruction, history of MDRO, history of multiple abdominal procedures over the last year with most recent being in July 2023, subsequently patient developed an infection after the removal of feeding tube drain. Patient was brought to the hospital by daughter as patient was felt to be getting progressively more confused for the last few days with chills, family and patient suspected fever but did not check the temperature. Patient was complaining of more abdominal pain, more pronounced around stoma from feeding tube, also reported purulent discharge. CT abdomen showed no acute intra-abdominal/pelvic process, small hiatal hernia, Millicent Y postsurgical changes, similar fat stranding of the right abdominal wall likely related to enterostomy, indeterminate left renal focus measuring 2.7 cm. 03/02/2024--patient was seen and examined today. Patient feeling better today. Still complains of abdominal pain which is better as compared to yesterday. Alert and oriented x 4. Potential transfer to [facility] discussed with the patient, patient unsure at this point and wanted to hold off transfer, wanted to continue current treatment at this point, patient reported that she was told by her surgeon at [facility] previously that they would wait 6 months to a year before performing another surgery for her leaking stoma. Patient is afebrile, heart rate 84, respiratory rate 20, blood pressure 108/69, saturating 100% on room air. WBCs 8.1, hemoglobin 7.4, platelet count 81. Sodium 138 potassium 4.6 BUN 59, creatinine 0.69. Calcium 8.5, magnesium 1.6. Abdominal wall cellulitis: History of multiple abdominal surgeries around 15: Acute metabolic encephalopathy: Presented with worsening abdominal pain, confusion, chills CT abdomen pelvis negative for any acute process as above, showed proximal [place] postsurgical changes, similar fat stranding of right abdominal wall likely related to enterostomy. Blood cultures Currently vancomycin cefepime and Flagyl per ID. ID consulted and following Acute kidney injury: Resolved Hyperkalemia: Resolved Acute on chronic anemia: MARY likely prerenal, secondary to above Hold nephrotoxin Hold Lasix Monitor [facility] consulted and following, was initially on bicarbonate drip, now on oral bicarbonate. Bladder management protocol to rule out retention CT abdomen showed no hydronephrosis or obstruction. History of hypotension: Continue midodrine Monitor vitals Chronic anemia: Hemoglobin 7.1 Monitor H&H, transfuse for hemoglobin less than 7 No sign of central active bleed. Normal folate and vitamin B12, low iron, Start p.o. iron. DVT prophylaxis Subcutaneous heparin Monitor vital signs and labs Continue telemetry monitoring Labs and medication were reviewed. Continue same treatment. Resume home medication. Further recommendations as per clinical course of the patient PHYSICAL EXAMINATION: GENERAL: The patient is A&O x3, NAD HEENT: EOMI, Sclerae anicteric, Moist Mucous membranes Neck: Supple, Non tender, No JVD PULMONARY: Equal breath souds B/L, No wheezing, No crackles. CARDIOVASCULAR: S1, S2 present. No murmurs, rubs, or gallops. ABDOMEN: Stoma with discharge, dressing intact, mild tenderness in erythema around stoma. MUSCULOSKELETAL: No edema, No cyanosis. No clubbing. Normal ROM. Intact peripheral pulses. EXTREMITIES: No cyanosis, clubbing, or pedal edema. NEUROLOGICAL: CN 2-12 grossly intact. No FND Skin: No Rash REVIEW OF SYSTEMS: CONSTITUTIONAL: No fever or chills. CARDIOVASCULAR: No chest pain, palpitations or syncope. PULMONARY: No shortness of breath, no cough, sore throat. GASTROINTESTINAL: Complains of abdominal pain, denied any nausea vomiting or diarrhea. : No Dysuria, urgency, frequency. Extremities: No edema. NEUROLOGICAL: No headaches, no weakness, or numbness Dictation was produced using [employer] dictation software. please excuse any grammatical, word or spelling errors. Objective - Vital Signs Vital signs: Vital Signs Temp 98.1 F 03/02/24 07:22 Pulse 84 03/02/24 07:22 Resp 20 03/02/24 07:22 BP 108/69 03/02/24 07:22 Pulse Ox 100 03/02/24 07:22 FiO2 Intake & Output 03/01/24 03/02/24 03/02/24 18:59 06:59 18:59 Output Total 500 Balance -500 Weight 87.997 kg Output: Urine 500 Other: Voiding Method Toilet # Voids 1 1 - Labs CBC & Chem 7: 03/02/24 08:31 03/02/24 08:31 Labs: Abnormal Lab Results - Last 24 Hours (Table) 02/29/24 03/01/24 03/01/24 Range/Units 20:29 16:50 16:50 RBC 3.61 L (3.80-5.40) m/uL Hgb 7.6 L (11.4-16.0) gm/dL Hct 26.4 L (34.0-46.0) % MCV 73.1 L (80.0-100.0) fL MCH 21.0 L (25.0-35.0) pg MCHC 28.7 L (31.0-37.0) g/dL RDW 18.4 H (11.5-15.5) % Chloride 113 H (98-107) mmol/L Carbon Dioxide 20 L (22-30) mmol/L BUN 24 H (7-17) mg/dL Glucose (74-99) mg/dL Iron 12 L (50-170) UG/DL % Saturation 3.11 L (12.00-45.00) Total Protein 5.3 L (6.3-8.2) g/dL Albumin 2.8 L (3.5-5.0) g/dL 03/02/24 03/02/24 Range/Units 08:31 08:31 RBC 3.44 L (3.80-5.40) m/uL Hgb 7.4 L (11.4-16.0) gm/dL Hct 25.2 L (34.0-46.0) % MCV 73.2 L (80.0-100.0) fL MCH 21.6 L (25.0-35.0) pg MCHC 29.5 L (31.0-37.0) g/dL RDW 18.4 H (11.5-15.5) % Chloride 110 H (98-107) mmol/L Carbon Dioxide 21 L (22-30) mmol/L BUN (7-17) mg/dL Glucose 120 H (74-99) mg/dL Iron (50-170) UG/DL % Saturation (12.00-45.00) Total Protein (6.3-8.2) g/dL Albumin (3.5-5.0) g/dL Microbiology - Last 24 Hours (Table) 02/29/24 23:30 Blood Culture - Preliminary Blood
--- NOTE | 2024-03-02 16:53 | P.PN ---
Subjective Progress Note Date: 03/02/24 Principal diagnosis: Reason for follow-up is abdominal wall cellulitis Patient is a 63-year-old female with a past medical history negative for fibromyalgia hypertension asthma restless leg syndrome in this patient who did have multiple abdominal procedure mostly done at the 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 On today's evaluation that is 03/02/2024, Patient is afebrile patient is currently on room air and denies having any shortness of breath, the patient denies any chest pain or cough, the patient denies any nausea vomiting still complaining of discomfort to the abdominal wall and drainage. Patient white count is 8.1 creatinine 0.69 blood cultures are pending Objective - Vital Signs Vital signs: Vital Signs Temp 98.9 F 03/02/24 13:30 Pulse 66 03/02/24 13:30 Resp 18 03/02/24 13:30 BP 104/65 03/02/24 13:30 Pulse Ox 98 03/02/24 13:30 FiO2 Intake & Output 03/01/24 03/02/24 03/02/24 18:59 06:59 18:59 Output Total 500 Balance -500 Weight 87.997 kg Output: Urine 500 Other: Voiding Method Toilet # Voids 1 1 - Exam GENERAL DESCRIPTION: Middle-age female lying in bed in no distress RESPIRATORY SYSTEM: Unlabored breathing , decreased breath sounds at bases HEART: S1 S2 regular rate and rhythm , ABDOMEN: Soft , right abdominal wall wound is currently dressed EXTREMITIES: No edema feet - Labs CBC & Chem 7: 03/02/24 08:31 03/02/24 08:31 Labs: Abnormal Lab Results - Last 24 Hours (Table) 02/29/24 03/01/24 03/01/24 Range/Units 20:29 16:50 16:50 RBC 3.61 L (3.80-5.40) m/uL Hgb 7.6 L (11.4-16.0) gm/dL Hct 26.4 L (34.0-46.0) % MCV 73.1 L (80.0-100.0) fL MCH 21.0 L (25.0-35.0) pg MCHC 28.7 L (31.0-37.0) g/dL RDW 18.4 H (11.5-15.5) % Chloride 113 H (98-107) mmol/L Carbon Dioxide 20 L (22-30) mmol/L BUN 24 H (7-17) mg/dL Glucose (74-99) mg/dL Iron 12 L (50-170) UG/DL % Saturation 3.11 L (12.00-45.00) Total Protein 5.3 L (6.3-8.2) g/dL Albumin 2.8 L (3.5-5.0) g/dL 03/02/24 03/02/24 Range/Units 08:31 08:31 RBC 3.44 L (3.80-5.40) m/uL Hgb 7.4 L (11.4-16.0) gm/dL Hct 25.2 L (34.0-46.0) % MCV 73.2 L (80.0-100.0) fL MCH 21.6 L (25.0-35.0) pg MCHC 29.5 L (31.0-37.0) g/dL RDW 18.4 H (11.5-15.5) % Chloride 110 H (98-107) mmol/L Carbon Dioxide 21 L (22-30) mmol/L BUN (7-17) mg/dL Glucose 120 H (74-99) mg/dL Iron (50-170) UG/DL % Saturation (12.00-45.00) Total Protein (6.3-8.2) g/dL Albumin (3.5-5.0) g/dL Microbiology - Last 24 Hours (Table) 02/29/24 23:30 Blood Culture - Preliminary Blood Assessment and Plan (1) Abdominal wall cellulitis Current Visit: Yes Status: Acute Code(s): L03.311 - CELLULITIS OF ABDOMINAL WALL SNOMED Code(s): 20955313 (2) Penicillin allergy Current Visit: No Status: Acute Code(s): Z88.0 - ALLERGY STATUS TO PENICILLIN SNOMED Code(s): 78496276 Plan: 1patient presented to hospital with confusion chills concerning for infection in this patient who did have a chronic abdominal wall wound concern for 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, in this patient who did have multiple abdominal procedure most of them has been done at [facility] patient did have similar presentation on her last visit and was transferred to [facility] apparently no specific treatment was done now presenting with worsening drainage from the abdominal wound CT concerning for possible cellulitis will need to cover for the enteric gram-negative to be the likely pathogen 2-patient with history of penicillin allergy however the patient mention she has taken amoxicillin without any problem clinical doubt true penicillin allergy. 3keeping in mind her previous culture with Klebsiella and Morganella we will continue the patient on cefepime 2 g every 8 hours and oral Flagyl, will benefit from surgical evaluation Dictation was produced using [employer] dictation software. please excuse any grammatical, word or spelling errors. Time with Patient: Less than 30
[2024-03-02 20:13] LABS: Appearance,Urine Clear (Clear); Bilirubin,Urine Negative (Negative); Blood,Urine Negative (Negative); Color,Urine Colorless; Glucose,Urine (UA) Negative (Negative); Ketones,Urine Negative (Negative); Leukocyte Esterase,Urine Negative (Negative); Nitrite,Urine Negative (Negative); Protein,Urine Negative (Negative); Specific Gravity,Urine 1.015 (1.001-1.035); Urobilinogen,Urine <2.0 mg/dL (<2.0)
[2024-03-02] MEDS: ACETAMINOPHEN TAB 325 MG TAB PO PRN (20:13)
[2024-03-02 23:04] LABS: % Iron Saturation 2.64 (12.00-45.00); Ferritin 27.6 ng/mL (10.0-291.0)
[2024-03-03 06:41] LABS: African American GFR (CKD) >90 (>60 ml/min/1.73 sqM); Anion Gap 6 mmol/L; Blood Urea Nitrogen 11 mg/dL (7-17); Calcium 8.4 mg/dL (8.4-10.2); Carbon Dioxide 23 mmol/L (22-30); Chloride 111 mmol/L (98-107); Glucose 96 mg/dL (74-99); Magnesium 1.6 mg/dL (1.6-2.3); Non-African American GFR(CKD) >90 (>60 ml/min/1.73 sqM); Potassium 4.4 mmol/L (3.5-5.1); Sodium 140 mmol/L (137-145)
[2024-03-03] MEDS: ERGOCALCIFEROL 1,250 MCG (50,000 IU) CAPSULE PO SCH (09:32)
[2024-03-03 10:20] LABS: Anisocytosis Slight; HCT 25.5 % (34.0-46.0); HGB 7.4 gm/dL (11.4-16.0); Hypochromasia Marked; MCH 20.9 pg (25.0-35.0); MCHC 28.9 g/dL (31.0-37.0); MCV 72.4 fL (80.0-100.0); Mean Platelet Volume 8.6; Microcytosis Moderate; Platelet Count 391 k/uL (150-450); RBC 3.52 m/uL (3.80-5.40); RDW 18.1 % (11.5-15.5); WBC 7.5 k/uL (3.8-10.6)
--- NOTE | 2024-03-03 10:46 | P.PN ---
Subjective Progress Note Date: 03/03/24 This a pleasant 63-year-old female admitted with chronic abdominal wall recurrent infection in a patient with history of multiple abdominal surgeries, most recent July 2023 at [facility] secondary to perforated small bowel obstruction status post bowel resection with removal of a J-tube. Right abdominal wall site with sinus tract accompanied by induration beneath it, serosanguineous drainage. Patient reports food actually comes out of the prior J-tube site. CT reported small hiatal hernia, Juan Carlos-en-Y postsurgical changes, similar fat stranding of the right abdominal wall likely related to enterostomy correlate for any cellulitis. Complains of chills, right abdominal wall pain. Denies nausea vomiting or diarrhea. Tmax 100.2, WBC 7.5, hemoglobin 7.4, platelets 391.renal function stable. Continues IV antibioticsas per infectious disease. Magnesium 1.6. Objective - Vital Signs Vital signs: Vital Signs Temp 99 F 03/03/24 02:11 Pulse 93 03/03/24 02:11 Resp 17 03/03/24 02:11 BP 95/58 03/03/24 02:11 Pulse Ox 94 L 03/03/24 02:11 FiO2 Intake & Output 03/02/24 03/03/24 03/03/24 18:59 06:59 18:59 Output Total 500 Balance -500 Output: Urine 500 Other: Voiding Method Toilet # Voids 1 - Exam PHYSICAL EXAM: VITAL SIGNS: [Reviewed] GENERAL: morbidly obese, NAD, well developed HEENT: NC/AT,MMM. NECK: Supple, no JVD. CARDIOVASCULAR: RRR,no murmur RESPIRATION: Unlabored , equal air entry,CTA, no wheezes rales or rhonchi. ABDOMEN: Soft, midline surgical scar with scabbing noted at distal end. Tender right abdominal wall, reddened with prior feeding tube site draining serosanguineous drainage, sinus tract with induration. no guarding. Positive bowel sounds. LEGS: No edema. no swelling NERVOUS SYSTEM: AAOX3, No focal deficits. Skin: Warm and dry. - Labs CBC & Chem 7: 03/03/24 06:02 03/03/24 06:02 Labs: Abnormal Lab Results - Last 24 Hours (Table) 03/02/24 03/03/24 Range/Units 08:31 06:02 Chloride 111 H (98-107) mmol/L Iron 10 L (50-170) UG/DL % Saturation 2.64 L (12.00-45.00) Microbiology - Last 24 Hours (Table) 02/29/24 23:30 Blood Culture - Preliminary Blood Assessment and Plan Assessment: Abdominal wound infection, cellulitis History of bowel obstructions, multiple abdominal surgeries, history of Juan Carlos-en-Y Acute kidney injury secondary to diuretics, hypotension, improving Metabolic acidosis, improving Anemia Left renal lesion reported per CT, follow-up outpatient with urology. No hydronephrosis. Fibromyalgia Morbid obesity, BMI 38 Hypomagnesemia Plan: Continue on current medication regimen ,monitoring and symptomatic treatment. IV antibiotics as per infectious disease. General surgery consult ed. Pain management. Magnesium supplemented. The impression and plan of care has been dictated as directed. : I performed a history and examination of this patient, discussed the same with the dictator. I agree with the dictator's note ,documented as a scribe. Any additional findings or plans will be noted.
--- NOTE | 2024-03-03 12:46 | P.PN ---
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 On today's evaluation that is 03/03/2024, patient did have a low-grade fever 100.2 F last night and a low-grade fever of 99.5 F this morning, patient is breathing comfortably and is currently on room air, patient denies having any significant cough no chest pain shortness of breath, patient denies nausea vomiting still complaining of right-sided abdominal pain and significant drainage also complaining of pain to the left breast fold area. The patient white count 7.5, creatinine 0.63 blood cultures are pending Objective - Vital Signs Vital signs: Vital Signs Temp 99.5 F 03/03/24 09:01 Pulse 105 H 03/03/24 09:01 Resp 16 03/03/24 09:01 BP 116/71 03/03/24 09:01 Pulse Ox 94 L 03/03/24 09:01 FiO2 Intake & Output 03/02/24 03/03/24 03/03/24 18:59 06:59 18:59 Output Total 500 Balance -500 Output: Urine 500 Other: Voiding Method Toilet # Voids 1 - Exam GENERAL DESCRIPTION: Middle-age female lying in bed in no distress RESPIRATORY SYSTEM: Unlabored breathing , decreased breath sounds at bases HEART: S1 S2 regular rate and rhythm , ABDOMEN: Soft , right abdominal wall with drainage and induration Left breast fold did have evidence of erythema suggestive of cutaneous candidiasis EXTREMITIES: No edema feet - Labs CBC & Chem 7: 03/03/24 06:02 03/03/24 06:02 Labs: Abnormal Lab Results - Last 24 Hours (Table) 03/02/24 03/03/24 03/03/24 Range/Units 08:31 06:02 06:02 RBC 3.52 L (3.80-5.40) m/uL Hgb 7.4 L (11.4-16.0) gm/dL Hct 25.5 L (34.0-46.0) % MCV 72.4 L (80.0-100.0) fL MCH 20.9 L (25.0-35.0) pg MCHC 28.9 L (31.0-37.0) g/dL RDW 18.1 H (11.5-15.5) % Chloride 111 H (98-107) mmol/L Iron 10 L (50-170) UG/DL % Saturation 2.64 L (12.00-45.00) Microbiology - Last 24 Hours (Table) 02/29/24 23:30 Blood Culture - Preliminary Blood Assessment and Plan (1) Abdominal wall cellulitis Current Visit: Yes Status: Acute Code(s): L03.311 - CELLULITIS OF ABDOMINAL WALL SNOMED Code(s): 46608548 (2) Penicillin allergy Current Visit: No Status: Acute Code(s): Z88.0 - ALLERGY STATUS TO PENICILLIN SNOMED Code(s): 76061582 (3) Cutaneous candidiasis Current Visit: Yes Status: Acute Code(s): B37.2 - CANDIDIASIS OF SKIN AND NAIL SNOMED Code(s): 38439099 Plan: 1patient presented to hospital with confusion chills concerning for infection in this patient who did have a chronic abdominal wall wound concern for 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, in this patient who did have multiple abdominal procedure most of them has been done at [facility] patient did have similar presentation on her last visit and was transferred to [facility] ently no specific treatment was done now presenting with worsening drainage from the abdominal wound CT concerning for possible cellulitis will need to cover for the enteric gram-negative to be the likely pathogen 2-patient with history of penicillin allergy however the patient mention she has taken amoxicillin without any problem clinical doubt true penicillin allergy. 3 patient is currently broadly covered with cefepime 2 g every 8 hours and oral Flagyl, will benefit from surgical evaluation for possible surgical correction 4-patient with the left breast for cutaneous candidiasis will add nystatin powder twice a day Daughter at the bedside questions answered Dictation was produced using [employer] dictation software. please excuse any grammatical, word or spelling errors. Time with Patient: Less than 30
--- NOTE | 2024-03-03 14:45 | P.GSCN ---
History of Present Illness Consult date: 03/03/24 History of present illness: CHIEF COMPLAINT: abdominal pain HISTORY OF PRESENT ILLNESS: This is a 63-year-old female with a known history of 16 abdominal surgeries. Most of her surgeries were completed [facility]. Patient has a chronic nonhealing abdominal wall fistula at the site of where her J-tube used to be. Patient had a perforated small bowel in Jul and had a small bowel resection and possible removal of the J-tube at that time. Patient reports that the area where the J-tube was has never healed. She continues to have drainage from that area which contains food particles. She has continuous infections around that site. They report this is the fourth infection. Patient had increased pain where the entercutaneous fistula is loca chanell. There also have been increased redness. Family reports that patient had been having chills and altered mental status. Family reports that the fistula has been present since July. Patient has also had a 75 pound weight loss since July. Patient had been transferred to [facility] in January regarding the enterocutaneous fistula. Per family no surgery was done at [facility] at that time. They reported to them that they would continue to monitor it and then make a decision. Patient and family would like something done regarding this fistula. They are requesting to be seen by different surgeon other than going to [facility]. PAST MEDICAL HISTORY: See below PAST SURGICAL HISTORY: See below MEDICATIONS: See below ALLERGIES: See below SOCIAL HISTORY: No illicit drug use. REVIEW OF SYSTEMS: CONSTITUTIONAL: Denies fever or chills. HEENT: Denies blurred vision, vision changes, or eye pain. Denies hemoptysis CARDIOVASCULAR: Denies chest pain or pressure. RESPIRATORY: No shortness of breath. GASTROINTESTINAL: See HPI for pertinent findings HEMATOLOGIC: Denies bleeding disorders. GENITOURINARY: Denies any blood in urine or increased urinary frequency. SKIN: Denies pruitis. Denies rash. PHYSICAL EXAM: VITAL SIGNS: Reviewed GENERAL: in no acute distress. ABDOMEN: Soft. Obese. Nondistended. Tenderness palpation to the right upper quadrant where the enterocutaneous fistula is located. There is a thick liquidy drainage noted. No significant erythema around the site. Midline incision with scabbing noted NEUROLOGIC: Alert and oriented. Cranial nerves II through XII grossly intact. LABORATORY DATA: WBC 7.5 Hgb 7.4 platelets 391 Sodium 140 potassium 4.4 creatinine 0.63 IMAGING: CT scan abdomen pelvis reports no acute intra-abdominal pelvic process. Small hiatal hernia. Juan Carlos-en-Y postsurgical changes. Similar fat stranding of the right abdominal wall likely related to intra ostomy. Correlate for cellulitis. Indeterminate left renal focus measuring 2.7 cm. ASSESSMENT: 1. 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 History of multiple abdominal surgeries PLAN: -Further recommendations forthcoming per surgeon -Continue antibiotics per ID service -Continue supportive care Thank you for this consultation Physician Fruit Room Hand note has been reviewed by physician. Signing provider agrees with the documented findings, assessment, and plan of care. Past Medical History Past Medical History: Asthma, Fibromyalgia, Hypertension Additional Past Medical History / Comment(s): see Dr Andrea's H&P, CHRONIC SOB,RLS ,per pt cramping really bad all over feet, legs, and arms. Swelling/edema of evelio lower extremites, Chronic blockage of the small bowel, hx ulcer History of Any Multi-Drug Resistant Organisms: Other MDRO Year Discovered:: 02/09/24 @ Eric Aguirre MDRO Source:: skin Past Surgical History: Appendectomy, Bariatric Surgery, Section, Cholecystectomy, Hernia Repair Additional Past Surgical History / Comment(s): abdominal surgeries X14, sinus surgery x4,COLONOSCOPY, surgery for chronic bloackge of smalll bowel ,gastric bypass Past Anesthesia/Blood Transfusion Reactions: No Reported Reaction Past Psychological History: No Psychological Hx Reported Smoking Status: Never smoker Past Alcohol Use History: None Reported Past Drug Use History: None Reported - Past Family History Mother Additional Family Medical History / Comment(s): PT ADOPTED COMPLETE FAMILY HX UNKNOWN Brother(s) Family Medical History: Cancer Additional Family Medical History / Comment(s): TWIN BROTHER FROM CANCER AGE 45 Medications and Allergies Home Medications Medication Instructions Recorded Confirmed Type Montelukast Sodium [Singulair] 10 mg PO DAILY 09/24/14 03/01/24 History Omeprazole [PriLOSEC] 20 mg PO BID 09/24/14 03/01/24 History predniSONE 10 mg PO DAILY 10/12/16 03/01/24 History Midodrine HCl [ProAmantine] 2.5 mg PO BID-W/MEALS 07/02/23 03/01/24 History Ergocalciferol (Vitamin D2) 1,250 mcg PO MO 03/01/24 03/01/24 History [Drisdol (50,000 Iu)] Furosemide [Lasix] 40 mg PO DAILY 03/01/24 03/01/24 History Linaclotide [Linzess] 145 mcg PO AC-[id number] 03/01/24 03/01/24 History Metoprolol Succinate (ER) [Toprol 50 mg PO DAILY 03/01/24 03/01/24 History Xl] Pregabalin [Lyrica] 50 mg PO TID 03/01/24 03/01/24 History methocarbamoL [Robaxin] 1,000 mg PO TID 03/01/24 03/01/24 History oxyCODONE HCL [Oxycodone HCl] 10 mg PO QID 03/01/24 03/01/24 History Allergies Allergy/AdvReac Type Severity Reaction Status Date / Time Penicillins Allergy Intermediate Rash/Hives Verified 03/01/24 10:03 milk Allergy Abdominal Verified 03/01/24 10:03 Pain aspirin AdvReac Severe Dyspnea Verified 03/01/24 10:03 morphine AdvReac Severe Nausea & Verified 03/01/24 10:03 Vomiting Surgical - Exam Vital Signs Temp Pulse Resp BP Pulse Ox 97.9 F 79 18 84/60 98 02/29/24 19:56 02/29/24 19:56 02/29/24 19:56 02/29/24 19:56 02/29/24 19:56 Results - Labs 03/03/24 06:02 03/03/24 06:02 Abnormal Lab Results - Last 24 Hours (Table) 03/02/24 03/03/24 03/03/24 Range/Units 08:31 06:02 06:02 RBC 3.52 L (3.80-5.40) m/uL Hgb 7.4 L (11.4-16.0) gm/dL Hct 25.5 L (34.0-46.0) % MCV 72.4 L (80.0-100.0) fL MCH 20.9 L (25.0-35.0) pg MCHC 28.9 L (31.0-37.0) g/dL RDW 18.1 H (11.5-15.5) % Chloride 111 H (98-107) mmol/L Iron 10 L (50-170) UG/DL % Saturation 2.64 L (12.00-45.00) Microbiology - Last 24 Hours (Table) 02/29/24 23:30 Blood Culture - Preliminary Blood Diabetes panel 03/03/24 Range/Units 06:02 Sodium 140 (137-145) mmol/L Potassium 4.4 (3.5-5.1) mmol/L Chloride 111 H (98-107) mmol/L Carbon Dioxide 23 (22-30) mmol/L BUN 11 (7-17) mg/dL Creatinine 0.63 (0.52-1.04) mg/dL Glucose 96 (74-99) mg/dL Calcium 8.4 (8.4-10.2) mg/dL Calcium panel 03/03/24 Range/Units 06:02 Calcium 8.4 (8.4-10.2) mg/dL Pituitary panel 03/03/24 Range/Units 06:02 Sodium 140 (137-145) mmol/L Potassium 4.4 (3.5-5.1) mmol/L Chloride 111 H (98-107) mmol/L Carbon Dioxide 23 (22-30) mmol/L BUN 11 (7-17) mg/dL Creatinine 0.63 (0.52-1.04) mg/dL Glucose 96 (74-99) mg/dL Calcium 8.4 (8.4-10.2) mg/dL Adrenal panel 03/03/24 Range/Units 06:02 Sodium 140 (137-145) mmol/L Potassium 4.4 (3.5-5.1) mmol/L Chloride 111 H (98-107) mmol/L Carbon Dioxide 23 (22-30) mmol/L BUN 11 (7-17) mg/dL Creatinine 0.63 (0.52-1.04) mg/dL Glucose 96 (74-99) mg/dL Calcium 8.4 (8.4-10.2) mg/dL
[2024-03-03] MEDS: MAGNESIUM SULFATE-D5W PMX 1 GM in DEXTROSE/WATER 1 100ML.BAG IVPB ONE (16:52)
[2024-03-03] MEDS: NYSTATIN 100,000 UNIT/GM POWD 15 GM TOPICAL SCH (16:52)
[2024-03-03] MEDS: VANCOMYCIN TROUGH DUE 1 EACH MISC MISCELLANE ONE (19:58)
[2024-03-04 06:17] LABS: African American GFR (CKD) >90 (>60 ml/min/1.73 sqM); Anion Gap 3 mmol/L; Blood Urea Nitrogen 9 mg/dL (7-17); Calcium 7.7 mg/dL (8.4-10.2); Carbon Dioxide 24 mmol/L (22-30); Chloride 107 mmol/L (98-107); Glucose 97 mg/dL (74-99); Magnesium 1.8 mg/dL (1.6-2.3); Non-African American GFR(CKD) >90 (>60 ml/min/1.73 sqM); Potassium 4.2 mmol/L (3.5-5.1); Sodium 134 mmol/L (137-145)
[2024-03-04 09:37] LABS: Basophils # (A) 0.03 X 10*3/uL (0.00-0.10); Basophils % (A) 0.3 %; Elliptocytes 2+; Eosinophils # (A) 0.14 X 10*3/uL (0.04-0.35); Eosinophils % (A) 1.5 %; HCT 21.4 % (37.2-46.3); HGB 6.3 g/dL (12.0-15.0); Lymphocytes # (A) 1.89 X 10*3/uL (0.90-5.00); Lymphocytes % (A) 20.3 %; MCH 20.7 pg (27.0-32.0); MCHC 29.4 g/dL (32.0-37.0); MCV 70.4 FL (80.0-97.0); Mean Platelet Volume 10.3 FL (9.5-12.2); Microcytosis (M) 2+; Monocytes # (A) 0.97 X 10*3/uL (0.20-1.00); Monocytes % (A) 10.4 %; NRBC Per 100 WBC 0 X 10*3/uL (0.00-0.01); Neutrophils # (A) 6.23 X 10*3/uL (1.80-7.70); Neutrophils % (A) 67.1 %; Platelet Count 380 X 10*3/uL (140-440); RBC 3.04 X 10*6/uL (4.10-5.20); RDW 19.1 % (11.5-14.5); Schistocytes 2+
[2024-03-04] MEDS ORDERED: MAGNESIUM SULFATE-D5W PMX 1 GM in DEXTROSE/WATER 1 100ML.BAG IVPB ONE (10:55)
--- NOTE | 2024-03-04 11:06 | P.PN ---
Subjective Progress Note Date: 03/04/24 This a pleasant 63-year-old female admitted with chronic abdominal wall recurrent infection in a patient with history of multiple abdominal surgeries, most recent July 2023 at [facility] secondary to perforated small bowel obstruction status post bowel resection with removal of a J-tube. Right abdominal wall site with sinus tract accompanied by induration beneath it, serosanguineous drainage. Patient reports food actually comes out of the prior J-tube site. CT reported small hiatal hernia, Juan Carlos-en-Y postsurgical changes, similar fat stranding of the right abdominal wall likely related to enterostomy correlate for any cellulitis. Complains of chills, right abdominal wall pain. Denies nausea vomiting or diarrhea. Tmax 100.2, WBC 7.5, hemoglobin 7.4, platelets 391.renal function stable. Continues IV antibioticsas per infectious disease. Magnesium 1.6. 03/04/2024 maintained on IV antibiotics as per infectious disease. Tmax 101.9, WBC 9.3. Preliminary blood cultures reporting no growth in 48 hours. ongoing abdominal pain. continues to have food in fecal material pouring out of her prior J-tube site .hemoglobin decreased to 6.3, platelets 380. Blood pressures soft, heart rates 90s to low 100s. Maintaining O2 sats in the mid to high 90s on room air. Sodium 134, potassium 4.2, renal function stable, magnesium 1.8. Denies chills, positive mild generalized shaking. IV infiltrated left upper extremity swollen. Objective - Vital Signs Vital signs: Vital Signs Temp 99.4 F 03/04/24 09:00 Pulse 99 03/04/24 09:00 Resp 16 03/04/24 09:00 BP 107/70 03/04/24 09:00 Pulse Ox 97 03/04/24 09:00 FiO2 Intake & Output 03/03/24 03/04/24 03/04/24 18:59 06:59 18:59 Other: # Voids 3 300 3 - Exam PHYSICAL EXAM: VITAL SIGNS: [Reviewed] GENERAL: morbidly obese, NAD, mild generalized diffuse shaking HEENT: NC/AT,MMM. NECK: Supple, no JVD. CARDIOVASCULAR: RRR,no murmur RESPIRATION: Unlabored , equal air entry,CTA. Left enlarged breast, lymphatic flow/channel appearing. ABDOMEN: Soft, midline surgical scar with scabbing noted at distal end. Tender right abdominal wall, reddened with prior feeding tube site draining food and fecal material , sinus tract with induration. no guarding. Positive bowel soun ds. LEGS: No edema. no swelling NERVOUS SYSTEM: AAOX3, No focal deficits. Skin: Warm and dry. - Labs CBC & Chem 7: 03/04/24 05:50 03/04/24 05:50 Labs: Abnormal Lab Results - Last 24 Hours (Table) 03/04/24 03/04/24 Range/Units 05:50 05:50 RBC 3.04 L (4.10-5.20) X 10*6/uL Hgb 6.3 A* (12.0-15.0) g/dL Hct 21.4 L (37.2-46.3) % MCV 70.4 L (80.0-97.0) FL MCH 20.7 L (27.0-32.0) pg MCHC 29.4 L (32.0-37.0) g/dL RDW 19.1 H (11.5-14.5) % Microcytosis (manual) 2+ A Elliptocytes 2+ A Schistocytes 2+ A Sodium 134 L (137-145) mmol/L Calcium 7.7 L (8.4-10.2) mg/dL Microbiology - Last 24 Hours (Table) 02/29/24 23:30 Blood Culture - Preliminary Blood Assessment and Plan Assessment: Abdominal wound infection, cellulitis, enterocutaneous fistula hip prior J-tube site as per general surgery Acute anemia secondary to the above, 1 unit of packed RBCs pending History of bowel obstructions, multiple abdominal surgeries, history of Juan Carlos-en-Y Acute kidney injury secondary to diuretics, hypotension, improved Metabolic acidosis, improving Anemia Left renal lesion reported per CT, follow-up outpatient with urology. No hydronephrosis. Fibromyalgia Morbid obesity, BMI 38 Hypomagnesemia Plan: Continue on current medication regimen ,monitoring and symptomatic treatment. 1 unit of packed RBCs ordered .magnesium replacement ordered .IV access lost, midline catheter ordered .IV antibiotics as per infectious disease. Further recommendations per general surgery pending. pain management. The impression and plan of care has been dictated as directed. : I performed a history and examination of this patient, discussed the same with the dictator. I agree with the dictator's note ,documented as a scribe. Any additional findings or plans will be noted.
--- NOTE | 2024-03-04 12:00 | P.PN ---
Subjective Progress Note Date: 03/04/24 CHIEF COMPLAINT: Abdominal pain HISTORY OF PRESENT ILLNESS: Patient continues to have drainage from the i ntracutaneous fistula on the right side of the abdomen. She does have tenderness. She did have a temp of 101.9 at 2 AM. WBC 9.3 Hgb 6.3 medicine service has ordered a unit of blood. PHYSICAL EXAM: VITAL SIGNS: Reviewed. GENERAL: Well-developed in no acute distress. ABDOMEN: Soft. Nondistended. Tenderness with palpation around the intracutaneous fistula on the right upper quadrant of the abdomen. Dressing is clean dry and intact. Midline incision with scabbing noted. No drainage NEUROLOGIC: Alert and oriented. Cranial nerves II through XII grossly intact. ASSESSMENT: 1. 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 History of multiple abdominal surgeries PLAN: -Further recommendations forthcoming per surgeon -Continue antibiotics Physician Cinder Block Mason note has been reviewed by physician. Signing provider agrees with the documented findings, assessment, and plan of care. Objective - Vital Signs Vital signs: Vital Signs Temp 99.4 F 03/04/24 09:00 Pulse 99 03/04/24 09:00 Resp 16 03/04/24 09:00 BP 107/70 03/04/24 09:00 Pulse Ox 97 03/04/24 09:00 FiO2 Intake & Output 03/03/24 03/04/24 03/04/24 18:59 06:59 18:59 Other: # Voids 3 300 3 - Labs CBC & Chem 7: 03/04/24 05:50 03/04/24 05:50 Labs: Abnormal Lab Results - Last 24 Hours (Table) 03/04/24 03/04/24 03/04/24 Range/Units 05:50 05:50 10:10 RBC 3.04 L (4.10-5.20) X 10*6/uL Hgb 6.3 A* (12.0-15.0) g/dL Hct 21.4 L (37.2-46.3) % MCV 70.4 L (80.0-97.0) FL MCH 20.7 L (27.0-32.0) pg MCHC 29.4 L (32.0-37.0) g/dL RDW 19.1 H (11.5-14.5) % Microcytosis (manual) 2+ A Elliptocytes 2+ A Schistocytes 2+ A Sodium 134 L (137-145) mmol/L Calcium 7.7 L (8.4-10.2) mg/dL Crossmatch See Detail Microbiology - Last 24 Hours (Table) 02/29/24 23:30 Blood Culture - Preliminary Blood
--- NOTE | 2024-03-04 12:45 | P.PN ---
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 On today's evaluation that is 03/04/2024, Patient did spike a fever of 101.9 F at 2 AM, patient complaining of abdominal pain and drainage from the fistula site also complaining of some swelling to the left upper extremity denies any chest pain shortness of breath or cough no diarrhea. The patient white count is 9.30, hemoglobin is 6.3 creatinine 0.67 blood cultures currently pending Objective - Vital Signs Vital signs: Vital Signs Temp 99.4 F 03/04/24 09:00 Pulse 99 03/04/24 09:00 Resp 16 03/04/24 09:00 BP 107/70 03/04/24 09:00 Pulse Ox 97 03/04/24 09:00 FiO2 Intake & Output 03/03/24 03/04/24 03/04/24 18:59 06:59 18:59 Other: # Voids 3 300 3 - Exam GENERAL DESCRIPTION: Middle-age female lying in bed in no distress RESPIRATORY SYSTEM: Unlabored breathing , decreased breath sounds at bases HEART: S1 S2 regular rate and rhythm , ABDOMEN: Soft , right abdominal wall with drainage and induration Left breast fold did have evidence of erythema suggestive of cutaneous candidiasis EXTREMITIES: No edema feet - Labs CBC & Chem 7: 03/04/24 05:50 03/04/24 05:50 Labs: Abnormal Lab Results - Last 24 Hours (Table) 03/04/24 03/04/24 03/04/24 Range/Units 05:50 05:50 10:10 RBC 3.04 L (4.10-5.20) X 10*6/uL Hgb 6.3 A* (12.0-15.0) g/dL Hct 21.4 L (37.2-46.3) % MCV 70.4 L (80.0-97.0) FL MCH 20.7 L (27.0-32.0) pg MCHC 29.4 L (32.0-37.0) g/dL RDW 19.1 H (11.5-14.5) % Microcytosis (manual) 2+ A Elliptocytes 2+ A Schistocytes 2+ A Sodium 134 L (137-145) mmol/L Calcium 7.7 L (8.4-10.2) mg/dL Crossmatch See Detail Microbiology - Last 24 Hours (Table) 02/29/24 23:30 Blood Culture - Preliminary Blood Assessment and Plan (1) Abdominal wall cellulitis Current Visit: Yes Status: Acute Code(s): L03.311 - CELLULITIS OF ABDOMINAL WALL SNOMED Code(s): 38862561 (2) Penicillin allergy Current Visit: No Status: Acute Code(s): Z88.0 - ALLERGY STATUS TO PENICILLIN SNOMED Code(s): 44694834 (3) Cutaneous candidiasis Current Visit: Yes Status: Acute Code(s): B37.2 - CANDIDIASIS OF SKIN AND NAIL SNOMED Code(s): 44239486 Plan: 1patient presented to hospital with confusion chills concerning for infection in this patient who did have a chronic abdominal wall wound concern for 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, in this patient who did have multiple abdominal procedure most of them has been done at [facility] patient did have similar presentation on her last visit and was transferred to [facility] apparently no specific treatment was done now presenting with worsening drainage from the abdominal wound CT concerning for possible cellulitis will need to cover for the enteric gram-negative to be the likely pathogen 2-patient with history of penicillin allergy however the patient mention she has taken amoxicillin without any problem clinical doubt true penicillin allergy. 3 patient did have a new fever, vancomycin has been added, continue with cefepime 2 g every 8 hours and oral Flagyl, await recommendation from surgical team 4-patient with the left breast for cutaneous candidiasis will continue with nystatin powder twice a day Dictation was produced using [employer] dictation software. please excuse any grammatical, word or spelling errors. Time with Patient: Less than 30
--- NOTE | 2024-03-04 16:52 | P.PN ---
Subjective Patient is seen for follow-up for acute kidney injury. No significant complaints. Renal function has improved and serum creatinine staying at 0.6 mg/dL. Objective - Vital Signs Vital signs: Vital Signs Temp 99.5 F 03/04/24 15:46 Pulse 95 03/04/24 15:46 Resp 16 03/04/24 15:46 BP 94/62 03/04/24 15:46 Pulse Ox 95 03/04/24 15:46 FiO2 Intake & Output 03/03/24 03/04/24 03/04/24 18:59 06:59 18:59 Intake Total 0 Balance 0 Intake: Blood Product 0 Unit 0 Other: # Voids 3 300 3 - Exam Patient is awake, comfortable, no acute distress. Examination of the heart S1 and S2 Examination of the lungs bilateral breath sounds are heard Abdomen is soft - Labs CBC & Chem 7: 03/04/24 05:50 03/04/24 05:50 Labs: Abnormal Lab Results - Last 24 Hours (Table) 03/04/24 03/04/24 03/04/24 Range/Units 05:50 05:50 10:10 RBC 3.04 L (4.10-5.20) X 10*6/uL Hgb 6.3 A* (12.0-15.0) g/dL Hct 21.4 L (37.2-46.3) % MCV 70.4 L (80.0-97.0) FL MCH 20.7 L (27.0-32.0) pg MCHC 29.4 L (32.0-37.0) g/dL RDW 19.1 H (11.5-14.5) % Microcytosis (manual) 2+ A Elliptocytes 2+ A Schistocytes 2+ A Sodium 134 L (137-145) mmol/L Calcium 7.7 L (8.4-10.2) mg/dL Crossmatch See Detail Microbiology - Last 24 Hours (Table) 02/29/24 23:30 Blood Culture - Preliminary Blood Assessment and Plan Assessment: 1. Acute kidney injury secondary to vasomotor nephropathy from hypotension and use of Lasix. Creatinine 1.34 on admission and is down to 0.6mg/dL. No hydronephrosis noted on kidney ultrasound. 2. Hyperkalemia secondary to metabolic acidosis and acute kidney injury. Resolved. 3. Metabolic acidosis secondary to acute kidney injury and IV fluids. Improved. 4. Abdominal wound infection. On IV antibiotics. 5. Anemia. Rule out iron deficiency. 6. Left renal lesion noted on CAT scan. Patient will need to see urology outpatient for further workup. Plan: Can discontinue IV fluids.
[2024-03-04] MEDS: MAGNESIUM SULFATE-D5W PMX 1 GM in DEXTROSE/WATER 1 100ML.BAG IVPB ONE (21:08)
[2024-03-05] MEDS: VANCOMYCIN 1,500 MG in SODIUM CHLORIDE 0.9% 500 ML 500 ML IVPB SCH (01:33)
[2024-03-05] MEDS: CEFEPIME 2 GM in SODIUM CHLORIDE 0.9% 100 ML IVPB SCH (01:39)
[2024-03-05 06:01] LABS: African American GFR (CKD) >90 (>60 ml/min/1.73 sqM); Anion Gap 5 mmol/L; Blood Urea Nitrogen 10 mg/dL (7-17); Calcium 7.9 mg/dL (8.4-10.2); Carbon Dioxide 21 mmol/L (22-30); Chloride 108 mmol/L (98-107); Glucose 92 mg/dL (74-99); Magnesium 2.2 mg/dL (1.6-2.3); Non-African American GFR(CKD) >90 (>60 ml/min/1.73 sqM); Potassium 4.2 mmol/L (3.5-5.1); Sodium 134 mmol/L (137-145)
[2024-03-05 07:02] LABS: Anisocytosis Slight; Basophils % (A) 0 %; Eosinophils # (A) 0.3 k/uL (0-0.7); Eosinophils % (A) 4 %; HCT 23.9 % (34.0-46.0); HGB 7.2 gm/dL (11.4-16.0); Hypochromasia Marked; Lymphocytes % (A) 24 %; MCH 21.6 pg (25.0-35.0); MCHC 30.1 g/dL (31.0-37.0); Mean Platelet Volume 7.6; Microcytosis Moderate; Monocytes # (A) 0.6 k/uL (0-1.0); Monocytes % (A) 7 %; Neutrophils # (A) 5.1 k/uL (1.3-7.7); Neutrophils % (A) 63 %; Platelet Count 368 k/uL (150-450); RBC 3.32 m/uL (3.80-5.40); WBC 8.1 k/uL (3.8-10.6)
[2024-03-05 08:30] LABS: Ovalocytes Present; Poikilocytosis (M) Present; RBC Fragments Present
--- NOTE | 2024-03-05 12:22 | P.PN ---
Subjective Progress Note Date: 03/05/24 This a pleasant 63-year-old female admitted with chronic abdominal wall recurrent infection in a patient with history of multiple abdominal surgeries, most recent July 2023 at [facility] secondary to perforated small bowel obstruction status post bowel resection with removal of a J-tube. Right abdominal wall site with sinus tract accompanied by induration beneath it, serosanguineous drainage. Patient reports food actually comes out of the prior J-tube site. CT reported small hiatal hernia, Juan Carlos-en-Y postsurgical changes, similar fat stranding of the right abdominal wall likely related to enterostomy correlate for any cellulitis. Complains of chills, right abdominal wall pain. Denies nausea vomiting or diarrhea. Tmax 100.2, WBC 7.5, hemoglobin 7.4, platelets 391.renal function stable. Continues IV antibioticsas per infectious disease. Magnesium 1.6. 03/04/2024 maintained on IV antibiotics as per infectious disease. Tmax 101.9, WBC 9.3. Preliminary blood cultures reporting no growth in 48 hours. ongoing abdominal pain. continues to have food in fecal material pouring out of her prior J-tube site .hemoglobin decreased to 6.3, platelets 380. Blood pressures soft, heart rates 90s to low 100s. Maintaining O2 sats in the mid to high 90s on room air. Sodium 134, potassium 4.2, renal function stable, magnesium 1.8. Denies chills, positive mild generalized shaking. IV infiltrated left upper extremity swollen. 03/05/2024 continues on antibiotics as per ID, Tmax 100.5, normal WBC. 1 unit packed RBCs yesterday with current hemoglobin 7.2. General surgery recommendations pending. Objective - Vital Signs Vital signs: Vital Signs Temp 98.5 F 03/05/24 02:31 Pulse 83 03/05/24 02:31 Resp 18 03/05/24 02:31 BP 80/50 03/05/24 02:31 Pulse Ox 90 L 03/05/24 02:31 FiO2 Intake & Output 03/04/24 03/05/24 03/05/24 18:59 06:59 18:59 Intake Total 0 310 Balance 0 310 Intake: Blood Product 0 310 Rc As-1 Unit 0 310 [id number] Other: Voiding Method Toilet Toilet # Voids 4 2 - Exam PHYSICAL EXAM: VITAL SIGNS: [Reviewed] GENERAL: morbidly obese, NAD. HEENT: NC/AT,MMM. NECK: Supple, no JVD. CARDIOVASCULAR: RRR,no murmur RESPIRATION: Unlabored , equal air entry,CTA. ABDOMEN: Soft, midline surgical scar with scabbing noted at distal end. Tender right abdominal wall, reddened with prior feeding tube site draining food and fecal material , sinus tract with induration. no guarding. Positive bowel sounds. LEGS: No edema. no swelling NERVOUS SYSTEM: AAOX3, No focal deficits. Skin: Warm and dry. - Labs CBC & Chem 7: 03/05/24 05:19 03/05/24 05:19 Labs: Abnormal Lab Results - Last 24 Hours (Table) 03/04/24 03/04/24 03/05/24 Range/Units 05:50 10:10 05:19 RBC 3.04 L (4.10-5.20) X 10*6/uL Hgb 6.3 A* (12.0-15.0) g/dL Hct 21.4 L (37.2-46.3) % MCV 70.4 L (80.0-97.0) FL MCH 20.7 L (27.0-32.0) pg MCHC 29.4 L (32.0-37.0) g/dL RDW 19.1 H (11.5-14.5) % Microcytosis (manual) 2+ A Elliptocytes 2+ A Schistocytes 2+ A Sodium 134 L (137-145) mmol/L Chloride 108 H (98-107) mmol/L Carbon Dioxide 21 L (22-30) mmol/L Calcium 7.9 L (8.4-10.2) mg/dL Crossmatch See Detail 03/05/24 Range/Units 05:19 RBC 3.32 L (4.10-5.20) X 10*6/uL Hgb 7.2 L (12.0-15.0) g/dL Hct 23.9 L (37.2-46.3) % MCV 72.0 L (80.0-97.0) FL MCH 21.6 L (27.0-32.0) pg MCHC 30.1 L (32.0-37.0) g/dL RDW 18.0 H (11.5-14.5) % Microcytosis (manual) Elliptocytes Schistocytes Sodium (137-145) mmol/L Chloride (98-107) mmol/L Carbon Dioxide (22-30) mmol/L Calcium (8.4-10.2) mg/dL Crossmatch Microbiology - Last 24 Hours (Table) 02/29/24 23:30 Blood Culture - Preliminary Blood Assessment and Plan Assessment: Abdominal wound infection, cellulitis, enterocutaneous fistula, prior J-tube site as per general surgery Acute anemia secondary to the above, status post 1 unit of packed RBCs History of bowel obstructions, multiple abdominal surgeries, history of Rou x-en-Y Acute kidney injury secondary to diuretics, hypotension, improved Metabolic acidosis, improving Anemia Left renal lesion reported per CT, follow-up outpatient with urology. No hydronephrosis. Fibromyalgia Morbid obesity, BMI 38 Hypomagnesemia Plan: Continue on current medication regimen ,monitoring and symptomatic treatment. IV antibiotics as per infectious disease. Further recommendations per general surgery pending. pain management. Patient advised to be up in chair, has not been out of bed. Increase ambulation as tolerated. PT/OT consulted. The impression and plan of care has been dictated as directed. : I performed a history and examination of this patient, discussed the same with the dictator. I agree with the dictator's note ,documented as a scribe. Any additional findings or plans will be noted.
--- NOTE | 2024-03-05 13:07 | P.PN ---
Subjective Progress Note Date: 03/05/24 CHIEF COMPLAINT: Abdominal pain HISTORY OF PRESENT ILLNESS: Patient continues to have drainage from the e nterocutaneous fistula on the right side of the abdomen. She does have tenderness. Patient did have a low-grade temp last night. Currently afebrile. WBC 8.1 hemoglobin is up from 6.3-7.2 after 1 unit of blood. Albumin 2.8 blood cultures pending PHYSICAL EXAM: VITAL SIGNS: Reviewed. GENERAL: Well-developed in no acute distress. ABDOMEN: Soft. Nondistended. Tenderness with palpation around the enterocutaneous fistula on the right upper quadrant of the abdomen. Dressing is clean dry and intact. Midline incision with scabbing noted. No drainage NEUROLOGIC: Alert and oriented. Cranial nerves II through XII grossly intact. ASSESSMENT: 1. 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 History of multiple abdominal surgeries 3. Severe protein calorie malnutrition PLAN: -Consult Dr. Major for surgical second opinion -Continue antibiotics -Ensure clear added for protein supplement -Patient needs optimization of nutrition, resolution of current infection, follow up blood cultures, and med/card clearance. Will consider revision once these criteria are met. Physician Mortgage Collector note has been reviewed by physician. Signing provider agrees with the documented findings, assessment, and plan of care. Objective - Vital Signs Vital signs: Vital Signs Temp 97.9 F 03/05/24 12:21 Pulse 98 03/05/24 12:21 Resp 18 03/05/24 12:21 BP 113/58 03/05/24 12:21 Pulse Ox 94 L 03/05/24 12:21 FiO2 Intake & Output 03/04/24 03/05/24 03/05/24 18:59 06:59 18:59 Intake Total 0 310 Balance 0 310 Intake: Blood Product 0 310 Rc As-1 Unit 0 310 [id number] Other: Voiding Method Toilet Toilet # Voids 4 2 - Labs CBC & Chem 7: 03/05/24 05:19 03/05/24 05:19 Labs: Abnormal Lab Results - Last 24 Hours (Table) 03/04/24 03/05/24 03/05/24 Range/Units 10:10 05:19 05:19 RBC 3.32 L (3.80-5.40) m/uL Hgb 7.2 L (11.4-16.0) gm/dL Hct 23.9 L (34.0-46.0) % MCV 72.0 L (80.0-100.0) fL MCH 21.6 L (25.0-35.0) pg MCHC 30.1 L (31.0-37.0) g/dL RDW 18.0 H (11.5-15.5) % Sodium 134 L (137-145) mmol/L Chloride 108 H (98-107) mmol/L Carbon Dioxide 21 L (22-30) mmol/L Calcium 7.9 L (8.4-10.2) mg/dL Crossmatch See Detail Microbiology - Last 24 Hours (Table) 02/29/24 23:30 Blood Culture - Preliminary Blood Assessment and Plan Assessment: 63 yo female w/ fistula from jejunostomy site -after record reconciliation, patient is high risk for morbidity during and after surgery as patient is at risk for further fistula development after surgery with possible risk of abscess, extensive small bowel resection, leak, etc. discussed w/ patient that I recommended a second opinion from another surgical group. Patient may be better served going back to original surgeon at [facility] as they have resources/sicu to take care of this patient after surgery. I suspect patient will have a long post operative course. Family understands and seems to agree w/ my recommendation. Time with Patient: Greater than 30
--- NOTE | 2024-03-06 11:09 | P.PN ---
Subjective Progress Note Date: 03/06/24 CHIEF COMPLAINT: Abdominal pain HISTORY OF PRESENT ILLNESS: Patient continues to have drainage from the e nterocutaneous fistula on the right side of the abdomen. She does have tenderness. Patient did have a low-grade temp last night. WBC 8.1 PHYSICAL EXAM: VITAL SIGNS: Reviewed. GENERAL: Well-developed in no acute distress. ABDOMEN: Soft. Nondistended. Tenderness with palpation around the ent erocutaneous fistula on the right upper quadrant of the abdomen. Dressing is clean dry and intact. Midline incision with scabbing noted. No drainage NEUROLOGIC: Alert and oriented. Cranial nerves II through XII grossly intact. ASSESSMENT: 1. 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 History of multiple abdominal surgeries 3. Severe protein calorie malnutrition PLAN: -Consulted Dr. Major for surgical second opinion -Continue antibiotics -Ensure clear added for protein supplement Physician Special Services Coordinator note has been reviewed by physician. Signing provider agrees with the documented findings, assessment, and plan of care. Objective - Vital Signs Vital signs: Vital Signs Temp 98.4 F 03/06/24 08:34 Pulse 99 03/06/24 08:34 Resp 18 03/06/24 08:34 BP 94/61 03/06/24 08:34 Pulse Ox 91 L 03/06/24 08:34 FiO2 Intake & Output 03/05/24 03/06/24 03/06/24 18:59 06:59 18:59 Intake Total 10 Balance 10 Intake: IV 10 Invasive Line 1 10 Other: Voiding Method Toilet Toilet # Voids 3 2 - Labs CBC & Chem 7: 03/05/24 05:19 03/05/24 05:19
--- NOTE | 2024-03-06 14:08 | P.PN ---
Subjective Progress Note Date: 03/06/24 This a pleasant 63-year-old female admitted with chronic abdominal wall recurrent infection in a patient with history of multiple abdominal surgeries, most recent July 2023 at [facility] secondary to perforated small bowel obstruction status post bowel resection with removal of a J-tube. Right abdominal wall site with sinus tract accompanied by induration beneath it, serosanguineous drainage. Patient reports food actually comes out of the prior J-tube site. CT reported small hiatal hernia, Juan Carlos-en-Y postsurgical changes, similar fat stranding of the right abdominal wall likely related to enterostomy correlate for any cellulitis. Complains of chills, right abdominal wall pain. Denies nausea vomiting or diarrhea. Tmax 100.2, WBC 7.5, hemoglobin 7.4, platelets 391.renal function stable. Continues IV antibioticsas per infectious disease. Magnesium 1.6. 03/04/2024 maintained on IV antibiotics as per infectious disease. Tmax 101.9, WBC 9.3. Preliminary blood cultures reporting no growth in 48 hours. ongoing abdominal pain. continues to have food in fecal material pouring out of her prior J-tube site .hemoglobin decreased to 6.3, platelets 380. Blood pressures soft, heart rates 90s to low 100s. Maintaining O2 sats in the mid to high 90s on room air. Sodium 134, potassium 4.2, renal function stable, magnesium 1.8. Denies chills, positive mild generalized shaking. IV infiltrated left upper extremity swollen. 03/05/2024 continues on antibiotics as per ID, Tmax 100.5, normal WBC. 1 unit packed RBCs yesterday with current hemoglobin 7.2. General surgery recommendations pending. 03/06/2024 evaluated by general surgery requesting second surgical opinion- pending. Tmax 100.4. Right abdominal wall site continues to drain fecal material. Objective - Vital Signs Vital signs: Vital Signs Temp 98.4 F 03/06/24 08:34 Pulse 99 03/06/24 08:34 Resp 18 03/06/24 12:02 BP 94/61 03/06/24 08:34 Pulse Ox 91 L 03/06/24 08:34 FiO2 Intake & Output 03/05/24 03/06/24 03/06/24 18:59 06:59 18:59 Intake Total 10 450 Balance 10 450 Intake: IV 10 Invasive Line 1 10 Oral 450 Other: Voiding Method Toilet Toilet Toilet # Voids 3 2 - Exam PHYSICAL EXAM: VITAL SIGNS: [Reviewed] GENERAL: morbidly obese, NAD. HEENT: NC/AT,MMM. NECK: Supple, no JVD. CARDIOVASCULAR: RRR,no murmur RESPIRATION: Unlabored , equal air entry,CTA. ABDOMEN: Soft, midline surgical scar with scabbing noted at distal end. Tender right abdominal wall, reddened with prior feeding tube site draining fecal material , sinus tract with decreased induration. no guarding. Positive bowel sounds. LEGS: No edema. no swelling NERVOUS SYSTEM: AAOX3, No focal deficits. Skin: Warm and dry. - Labs CBC & Chem 7: 03/05/24 05:19 03/05/24 05:19 Labs: Microbiology - Last 24 Hours (Table) 02/29/24 23:30 Blood Culture - Final Blood Assessment and Plan Assessment: Abdominal wound infection, cellulitis, enterocutaneous fistula, prior J-tube site as per general surgery Acute anemia secondary to the above, status post 1 unit of packed RBCs History of bowel obstructions, multiple abdominal surgeries, history of Juan Carlos-en-Y Acute kidney injury secondary to diuretics, hypotension, improved Metabolic acidosis, improving Anemia Left renal lesion reported per CT, follow-up outpatient with urology. No hydronephrosis. Fibromyalgia Morbid obesity, BMI 38 Hypomagnesemia Plan: Continue on current medication regimen ,monitoring and symptomatic treatment. IV antibiotics as per infectious disease. Second opinion per Dr. Zhao pending. pain management. Increase ambulation as tolerated. PT/OT recommending home/home care at [facility]. The impression and plan of care has been dictated as directed. : I performed a history and examination of this patient, discussed the same with the dictator. I agree with the dictator's note ,documented as a scribe. Any additional findings or plans will be noted.
[2024-03-06] MEDS: MIDODRINE 5 MG TAB PO STA (14:26)
--- NOTE | 2024-03-06 15:17 | P.PN ---
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 On today's evaluation that is 03/05/2024,the patient did have low-grade fever 100.5 F last evening the patient is afebrile this morning, patient is breathing comfortably on room air, the patient denies chest pain shortness of breath and no significant cough, patient abdominal pain about the same still having drainage no nausea no vomiting. Patient white count is 8.1, creatinine 0.64, blood cultures have been negative s o far Objective - Vital Signs Vital signs: Vital Signs Temp 97.9 F 03/05/24 12:21 Pulse 98 03/05/24 12:21 Resp 18 03/05/24 12:21 BP 113/58 03/05/24 12:21 Pulse Ox 94 L 03/05/24 12:21 FiO2 Intake & Output 03/04/24 03/05/24 03/05/24 18:59 06:59 18:59 Intake Total 0 310 Balance 0 310 Intake: Blood Product 0 310 Rc As-1 Unit 0 310 [id number] Other: Voiding Method Toilet Toilet # Voids 4 2 - Exam GENERAL DESCRIPTION: Middle-age female lying in bed in no distress RESPIRATORY SYSTEM: Unlabored breathing , decreased breath sounds at bases HEART: S1 S2 regular rate and rhythm , ABDOMEN: Soft , right abdominal wall with drainage and induration Left breast fold did have evidence of erythema suggestive of cutaneous candidiasis EXTREMITIES: No edema feet - Labs CBC & Chem 7: 03/05/24 05:19 03/05/24 05:19 Labs: Abnormal Lab Results - Last 24 Hours (Table) 03/04/24 03/05/24 03/05/24 Range/Units 10:10 05:19 05:19 RBC 3.32 L (3.80-5.40) m/uL Hgb 7.2 L (11.4-16.0) gm/dL Hct 23.9 L (34.0-46.0) % MCV 72.0 L (80.0-100.0) fL MCH 21.6 L (25.0-35.0) pg MCHC 30.1 L (31.0-37.0) g/dL RDW 18.0 H (11.5-15.5) % Sodium 134 L (137-145) mmol/L Chloride 108 H (98-107) mmol/L Carbon Dioxide 21 L (22-30) mmol/L Calcium 7.9 L (8.4-10.2) mg/dL Crossmatch See Detail Microbiology - Last 24 Hours (Table) 02/29/24 23:30 Blood Culture - Preliminary Blood Assessment and Plan (1) Abdominal wall cellulitis Current Visit: Yes Status: Acute Code(s): L03.311 - CELLULITIS OF ABDOMINAL WALL SNOMED Code(s): 62820870 (2) Penicillin allergy Current Visit: No Status: Acute Code(s): Z88.0 - ALLERGY STATUS TO PENICILLIN SNOMED Code(s): 79073865 (3) Cutaneous candidiasis Current Visit: Yes Status: Acute Code(s): B37.2 - CANDIDIASIS OF SKIN AND NAIL SNOMED Code(s): 79306967 Plan: 1patient presented to hospital with confusion chills concerning for infection in this patient who did have a chronic abdominal wall wound concern for 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, in this patient who did have multiple abdominal procedu re most of them has been done at [facility] patient did have similar presentation on her last visit and was transferred to [facility] apparently no specific treatment was done now presenting with worsening drainage from the abdominal wound CT concerning for possible cellulitis will need to cover for the enteric gram-negative to be the likely pathogen 2-patient did have some improvement in the fever pattern white count remains to be normal we will continue the patient on vancomycin cefepime and Flagyl awaiting further recommendation from surgical team 4-patient with the left breast for cutaneous candidiasis will continue with nystatin powder twice a day Dictation was produced using [employer] dictation software. please excuse any grammatical, word or spelling errors.
--- NOTE | 2024-03-06 15:18 | P.PN ---
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 On today's evaluation that is 03/06/2024,the patient did have low-grade fever 100.4 last evening and a low-grade fever 100 degree forehead at noon, patient is on room air not requiring supplemental oxygen and denies any shortness of breath no chest pain or cough.Patient denies having any nausea or vomiting, denies any worsening abdominal pain or any worsening drainage. No new labs were obtained today Objective - Vital Signs Vital signs: Vital Signs Temp 100.0 F H 03/06/24 14:08 Pulse 99 03/06/24 14:08 Resp 18 03/06/24 14:08 BP 112/73 03/06/24 14:35 Pulse Ox 92 L 03/06/24 14:08 FiO2 Intake & Output 03/05/24 03/06/24 03/06/24 18:59 06:59 18:59 Intake Total 10 450 Balance 10 450 Intake: IV 10 Invasive Line 1 10 Oral 450 Other: Voiding Method Toilet Toilet Toilet # Voids 3 2 - Exam GENERAL DESCRIPTION: Middle-age female lying in bed in no distress RESPIRATORY SYSTEM: Unlabored breathing , decreased breath sounds at bases HEART: S1 S2 regular rate and rhythm , ABDOMEN: Soft , right abdominal wall with drainage and induration Left breast fold did have evidence of erythema suggestive of cutaneous candidiasis EXTREMITIES: No edema feet - Labs CBC & Chem 7: 03/05/24 05:19 03/05/24 05:19 Labs: Microbiology - Last 24 Hours (Table) 02/29/24 23:30 Blood Culture - Final Blood Assessment and Plan (1) Abdominal wall cellulitis Current Visit: Yes Status: Acute Code(s): L03.311 - CELLULITIS OF ABDOMINAL WALL SNOMED Code(s): 76235716 (2) Penicillin allergy Current Visit: No Status: Acute Code(s): Z88.0 - ALLERGY STATUS TO PENICILLIN SNOMED Code(s): 01718818 (3) Cutaneous candidiasis Current Visit: Yes Status: Acute Code(s): B37.2 - CANDIDIASIS OF SKIN AND NAIL SNOMED Code(s): 44989271 Plan: 1patient presented to hospital with confusion chills concerning for infection in this patient who did have a chronic abdominal wall wound concern for 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, in this patient who did have multiple abdominal procedure most of them has been done at [facility] patient did have similar presentation on her last visit and was transferred to [facility] apparently no specific treatment was done now presenting with worsening drainage from the abdominal wound CT concerning for possible cellulitis will need to co yvonne for the enteric gram-negative to be the likely pathogen 2-patient with the left breast for cutaneous candidiasis will continue with nystatin powder twice a day 3-patient currently covered with vancomycin cefepime and Flagyl still running low-grade fever which is slightly concerning keeping in mind initial CAT scan did not show any acute abdominal pathology we will repeat a CAT scan Dictation was produced using [employer] dictation software. please excuse any grammatical, word or spelling errors. Time with Patient: Less than 30
[2024-03-06 15:30] VITALS: BMI 37.8
[2024-03-06] MEDS: MIDODRINE 5 MG TAB PO SCH (17:11)
[2024-03-06 17:34] LABS: Glucose,Whole Blood 107 mg/dL (70-110)
--- NOTE | 2024-03-06 18:16 | XR ---
EXAMINATION TYPE: XR chest 1V confirm line plcmt DATE OF EXAM: 03/06/2024 6:08 PM CLINICAL INDICATION: Female, 63 years old with history of chest pain; H COMPARISON: Chest radiographs from 12/04/2023. TECHNIQUE: XR chest 1V confirm line plcmt Frontal view of the chest. FINDINGS: Lungs/Pleura: There is no evidence of pleural effusion, focal consolidation, or pneumothorax. Pulmonary vascularity: Unremarkable. Heart/mediastinum: Cardiomediastinal silhouette is unremarkable. Musculoskeletal: No acute osseous pathology. Other findings: None Lines/Tubes: Left-sided PICC with distal tip at the superior vena cava/brachiocephalic confluence. IMPRESSION: 1. Left PICC with tip in appropriate position. 2. No acute cardiopulmonary disease/process. [facility], , 03/06/2024 6:14 PM
[2024-03-06] MEDS: VANCOMYCIN TROUGH DUE 1 EACH MISC MISCELLANE ONE (18:41)
[2024-03-06] MEDS: IOPAMIDOL CONTRAST (ORAL USE) VIAL PO PRN (20:32)
[2024-03-06] MEDS: CEFEPIME 2 GM in SODIUM CHLORIDE 0.9% 100 ML IVPB SCH (23:50)
--- NOTE | 2024-03-07 01:58 | P.PN ---
Progress Note - Text Progress Note Date: 03/07/24 CHIEF COMPLAINT: Abdominal pain HISTORY OF PRESENT ILLNESS: NAEO. Resting comfortable PHYSICAL EXAM: VITAL SIGNS: Reviewed. GENERAL: Well-developed in no acute distress. ABDOMEN: Soft. Nondistended. Tenderness with palpation around the enterocutaneous fistula on the right upper quadrant of the abdomen. Dressing is clean dry and intact. Midline incision with scabbing noted. No drainage NEUROLOGIC: Alert and oriented. Cranial nerves II through XII grossly intact. ASSESSMENT: 1. 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 History of multiple abdominal surgeries 3. Severe protein calorie malnutrition PLAN: -Consulted Dr. Major for surgical second opinion -No acute surgical intervention planned -Continue antibiotics -Ensure clear added for protein supplement Devante Patterson DO [facility] [phone]
[2024-03-07 06:50] LABS: African American GFR (CKD) >90 (>60 ml/min/1.73 sqM); Anion Gap 4 mmol/L; Blood Urea Nitrogen 11 mg/dL (7-17); Carbon Dioxide 22 mmol/L (22-30); Chloride 105 mmol/L (98-107); Glucose 87 mg/dL (74-99); Non-African American GFR(CKD) >90 (>60 ml/min/1.73 sqM); Potassium 4.2 mmol/L (3.5-5.1); Sodium 131 mmol/L (137-145)
[2024-03-07 09:12] LABS: Basophils # (A) 0.03 X 10*3/uL (0.00-0.10); Basophils % (A) 0.4 %; Eosinophils # (A) 0.18 X 10*3/uL (0.04-0.35); Eosinophils % (A) 2.6 %; HGB 5.7 g/dL (12.0-15.0); Lymphocytes # (A) 1.46 X 10*3/uL (0.90-5.00); Lymphocytes % (A) 21.1 %; MCH 20.7 pg (27.0-32.0); MCHC 28.5 g/dL (32.0-37.0); MCV 72.7 FL (80.0-97.0); Mean Platelet Volume 11.3 FL (9.5-12.2); Monocytes # (A) 0.59 X 10*3/uL (0.20-1.00); Monocytes % (A) 8.5 %; NRBC Per 100 WBC 0 X 10*3/uL (0.00-0.01); Neutrophils # (A) 4.63 X 10*3/uL (1.80-7.70); Neutrophils % (A) 67.1 %; Platelet Count 368 X 10*3/uL (140-440); RBC 2.75 X 10*6/uL (4.10-5.20); RDW 19.3 % (11.5-14.5); WBC 6.91 X 10*3/uL (4.50-10.00)
--- NOTE | 2024-03-07 10:07 | P.PN ---
Subjective Progress Note Date: 03/07/24 CHIEF COMPLAINT: Abdominal pain HISTORY OF PRESENT ILLNESS: Patient continues to have drainage from the e nterocutaneous fistula on the right side of the abdomen. She does have tenderness. Afebrile. WBC 6.91 HGB 5.7 total iron 10 Patient seen and examined with Dr. Major PHYSICAL EXAM: VITAL SIGNS: Reviewed. GENERAL: Well-developed in no acute distress. ABDOMEN: Soft. Nondistended. Tenderness with palpation around the enterocutaneous fistula on the right upper quadrant of the abdomen. Dressing is clean dry and intact. Midline incision with scabbing noted. No drainage NEUROLOGIC: Alert and oriented. Cranial nerves II through XII grossly intact. ASSESSMENT: 1. 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 History of multiple abdominal surgeries 3. Severe protein calorie malnutrition 4. Iron deficiency anemia PLAN: -No surgical intervention planned -Recommend that patient follows up with a tertiary care center such as [facility] where she has had her prior surgeries or one of her choosing -Continue antibiotics -Continue protein supplement to promote wound healing -Blood transfusion per medicine service for hemoglobin of 5.7 -Follow-up on CT scan abdomen and pelvis ordered by ID service Physician Operator Vacuum note has been reviewed by physician. Signing provider agrees with the documented findings, assessment, and plan of care. Objective - Vital Signs Vital signs: Vital Signs Temp 99.4 F 03/07/24 07:04 Pulse 86 03/07/24 07:04 Resp 16 03/07/24 07:04 BP 103/59 03/07/24 07:04 Pulse Ox 97 03/07/24 07:04 FiO2 Intake & Output 03/06/24 03/07/24 03/07/24 18:59 06:59 18:59 Intake Total 950 1900 Output Total 4 Balance 950 1896 Weight 87.997 kg Intake: Intake, IV Titration 600 Amount Cefepime 2 gm In Sodium 100 Chloride 0.9% 100 ml @ 25 mls/hr IVPB Q8HR FRANKIE Rx# :[id number] Vancomycin 1,500 mg In 500 Sodium Chloride 0.9% 500 ml 500 ml @ 167 mls/hr IVPB Q24H FRANKIE Rx#: [id number] Oral 950 1300 Output: Urine 4 Other: Voiding Method Toilet Toilet # Voids 2 - Labs CBC & Chem 7: 03/07/24 06:25 03/07/24 06:25 Labs: Abnormal Lab Results - Last 24 Hours (Table) 03/07/24 03/07/24 Range/Units 06:25 06:25 RBC 2.75 L (4.10-5.20) X 10*6/uL Hgb 5.7 A* (12.0-15.0) g/dL Hct 20.0 L (37.2-46.3) % MCV 72.7 L (80.0-97.0) FL MCH 20.7 L (27.0-32.0) pg MCHC 28.5 L (32.0-37.0) g/dL RDW 19.3 H (11.5-14.5) % Sodium 131 L (137-145) mmol/L Calcium 8.0 L (8.4-10.2) mg/dL Microbiology - Last 24 Hours (Table) 02/29/24 23:30 Blood Culture - Final Blood
--- NOTE | 2024-03-07 10:13 | CT ---
EXAMINATION TYPE: CT abdomen pelvis w con DATE OF EXAM: 03/06/2024 COMPARISON: 02/29/2024 INDICATION: fever, enterocutaneous fistula, possible abscess DLP: 1427 mGycm, Automated exposure control for dose reduction was used. CONTRAST: 100 mL mL of Isovue 300. Study performed with Oral Contrast TECHNIQUE: Axial images were obtained from above the diaphragm to the pubic rami in the axial plane a t 5 mm thick sections. Reconstructed images are reviewed on the computer in the coronal plane. FINDINGS: Limited CT sections are obtained the lung bases. Minimal bilateral pleural effusions are present. Sm all hiatal hernia is present. Gastric sleeve appears to be present.. CT ABDOMEN: Liver: Normal Spleen: Normal Pancreas: Normal Adrenal glands: The adrenal glands are normal. Gallbladder: Surgically absent Kidneys: No masses are evident. No hydronephrosis is present. There is a simple appearing cyst on t he posterior lateral left kidney measuring 2.3 cm. Complex cyst measuring 2.4 cm cyst adjacent 30 Roxanne nsfield units. Delayed images were obtained through the kidneys, which remain unremarkable. Aorta: Minimal Vascular calcification is within the aorta. Inferior vena cava: Normal. CT PELVIS: Loops of bowel within the abdomen and pelvis are normal. Fecal debris is through the colon. Enterocu taneous fistula may be in the right lower quadrant. Small collection with air within the subcutaneous tissues measuring 4.2 x 1.3 cm. Walled abscess is not otherwise identified. There are loops of bowel which are incompletely distended or lack oral contrast limiting their evaluation. Appendix: Not identified. No dilated tubular structure or inflammatory changes evident. Urinary bladder: Normal. Genitourinary structures: Uterus is unremarkable. Adnexa are normal. Osseous structures: No suspicious lytic or sclerotic lesions. Facet changes are within the lower lumb ar spine. IMPRESSION: 1. Appears to be a enteral cutaneous fistula in the right lower quadrant. Small amount of air is wit hin this region. Small abscess may be present. 2. Complex cyst posterior lateral left mid kidney. [facility], , 03/07/2024 10:11 AM
--- NOTE | 2024-03-07 12:03 | P.GSCN ---
History of Present Illness Consult date: 03/06/24 History of present illness: Patient seen and evaluated for second surgical opinion. All records were reviewed. Patient has history of multiple abdominal procedures with resultant expected enterocutaneous fistula. Due to the complexity of her care, do recommend assessment at tertiary care center including [facility], [facility], etc. Patient has complexity of prior gastric bypass where she has persistent nutritional deficits. Do recommend adjust diet to a high-protein diet. No acute surgical intervention at this time. Any further surgeries best deemed at tertiary care facility. Please see full consultation separately Past Medical History Past Medical History: Asthma, Fibromyalgia, Hypertension Additional Past Medical History / Comment(s): see Dr Andrea's H&P, CHRONIC SOB,RLS ,per pt cramping really bad all over feet, legs, and arms. Swelling/edema of evelio lower extremites, Chronic blockage of the small bowel, hx ulcer History of Any Multi-Drug Resistant Organisms: Other MDRO Year Discovered:: 02/09/24 @ [facility] MDRO Source:: skin Past Surgical History: Appendectomy, Bariatric Surgery, Section, Cholecystectomy, Hernia Repair Additional Past Surgical History / Comment(s): abdominal surgeries X14, sinus surgery x4,COLONOSCOPY, surgery for chronic bloackge of smalll bowel ,gastric bypass Past Anesthesia/Blood Transfusion Reactions: No Reported Reaction Past Psychological History: No Psychological Hx Reported Smoking Status: Never smoker Past Alcohol Use History: None Reported Past Drug Use History: None Reported - Past Family History Mother Additional Family Medical History / Comment(s): PT ADOPTED COMPLETE FAMILY HX UNKNOWN Brother(s) Family Medical History: Cancer Additional Family Medical History / Comment(s): TWIN BROTHER FROM CANCER AGE 45 Medications and Allergies Home Medications Medication Instructions Recorded Confirmed Type Montelukast Sodium [Singulair] 10 mg PO DAILY 09/24/14 03/01/24 History Omeprazole [PriLOSEC] 20 mg PO BID 09/24/14 03/01/24 History predniSONE 10 mg PO DAILY 10/12/16 03/01/24 History Midodrine HCl [ProAmantine] 2.5 mg PO BID-W/MEALS 07/02/23 03/01/24 History Ergocalciferol (Vitamin D2) 1,250 mcg PO MO 03/01/24 03/01/24 History [Drisdol (50,000 Iu)] Furosemide [Lasix] 40 mg PO DAILY 03/01/24 03/01/24 History Linaclotide [Linzess] 145 mcg PO AC-BRKFST 03/01/24 03/01/24 History Metoprolol Succinate (ER) [Toprol 50 mg PO DAILY 03/01/24 03/01/24 History Xl] Pregabalin [Lyrica] 50 mg PO TID 03/01/24 03/01/24 History methocarbamoL [Robaxin] 1,000 mg PO TID 03/01/24 03/01/24 History oxyCODONE HCL [Oxycodone HCl] 10 mg PO QID 03/01/24 03/01/24 History Allergies Allergy/AdvReac Type Severity Reaction Status Date / Time Penicillins Allergy Intermediate Rash/Hives Verified 03/01/24 10:03 milk Allergy Abdominal Verified 03/01/24 10:03 Pain aspirin AdvReac Severe Dyspnea Verified 03/01/24 10:03 morphine AdvReac Severe Nausea & Verified 03/01/24 10:03 Vomiting Surgical - Exam Vital Signs Temp Pulse Resp BP Pulse Ox 97.9 F 79 18 84/60 98 02/29/24 19:56 02/29/24 19:56 02/29/24 19:56 02/29/24 19:56 02/29/24 19:56 Results - Labs 03/07/24 06:25 03/07/24 06:25 Abnormal Lab Results - Last 24 Hours (Table) 03/04/24 03/07/24 03/07/24 Range/Units 10:10 06:25 06:25 RBC 2.75 L (4.10-5.20) X 10*6/uL Hgb 5.7 A* (12.0-15.0) g/dL Hct 20.0 L (37.2-46.3) % MCV 72.7 L (80.0-97.0) FL MCH 20.7 L (27.0-32.0) pg MCHC 28.5 L (32.0-37.0) g/dL RDW 19.3 H (11.5-14.5) % Sodium 131 L (137-145) mmol/L Calcium 8.0 L (8.4-10.2) mg/dL Crossmatch See Detail Microbiology - Last 24 Hours (Table) 02/29/24 23:30 Blood Culture - Final Blood Diabetes panel 03/07/24 Range/Units 06:25 Sodium 131 L (137-145) mmol/L Potassium 4.2 (3.5-5.1) mmol/L Chloride 105 (98-107) mmol/L Carbon Dioxide 22 (22-30) mmol/L BUN 11 (7-17) mg/dL Creatinine 0.66 (0.52-1.04) mg/dL Glucose 87 (74-99) mg/dL Calcium 8.0 L (8.4-10.2) mg/dL Calcium panel 03/07/24 Range/Units 06:25 Calcium 8.0 L (8.4-10.2) mg/dL Pituitary panel 03/07/24 Range/Units 06:25 Sodium 131 L (137-145) mmol/L Potassium 4.2 (3.5-5.1) mmol/L Chloride 105 (98-107) mmol/L Carbon Dioxide 22 (22-30) mmol/L BUN 11 (7-17) mg/dL Creatinine 0.66 (0.52-1.04) mg/dL Glucose 87 (74-99) mg/dL Calcium 8.0 L (8.4-10.2) mg/dL Adrenal panel 03/07/24 Range/Units 06:25 Sodium 131 L (137-145) mmol/L Potassium 4.2 (3.5-5.1) mmol/L Chloride 105 (98-107) mmol/L Carbon Dioxide 22 (22-30) mmol/L BUN 11 (7-17) mg/dL Creatinine 0.66 (0.52-1.04) mg/dL Glucose 87 (74-99) mg/dL Calcium 8.0 L (8.4-10.2) mg/dL
--- NOTE | 2024-03-07 13:19 | P.PN ---
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 On today's evaluation that is 03/07/2024, the patient continues to be afebrile, the patient is on room air and breathing comfortably, the Pt denies having any chest pain or cough, the patient denies having any worsening right-sided abdominal pain no vomiting or any diarrhea has been reported. Patient white count 6.91 hemoglobin is 5.7, creatinine 0.66 blood culture has been negative repeat CT abdominal pelvis concerning for enteric cutaneous fistula and possible small abscess Objective - Vital Signs Vital signs: Vital Signs Temp 99.4 F 03/07/24 07:04 Pulse 86 03/07/24 10:20 Resp 16 03/07/24 10:20 BP 103/59 03/07/24 07:04 Pulse Ox 97 03/07/24 07:04 FiO2 Intake & Output 03/06/24 03/07/24 03/07/24 18:59 06:59 18:59 Intake Total 950 1900 Output Total 4 Balance 950 1896 Weight 87.997 kg Intake: Intake, IV Titration 600 Amount Cefepime 2 gm In Sodium 100 Chloride 0.9% 100 ml @ 25 mls/hr IVPB Q8HR FRANKIE Rx# :[id number] Vancomycin 1,500 mg In 500 Sodium Chloride 0.9% 500 ml 500 ml @ 167 mls/hr IVPB Q24H FRANKIE Rx#: [id number] Oral 950 1300 Output: Urine 4 Other: Voiding Method Toilet Toilet Toilet # Voids 2 - Exam GENERAL DESCRIPTION: Middle-age female lying in bed in no distress RESPIRATORY SYSTEM: Unlabored breathing , decreased breath sounds at bases HEART: S1 S2 regular rate and rhythm , ABDOMEN: Soft , right abdominal wall with drainage and induration Left breast fold did have evidence of erythema suggestive of cutaneous candidias is EXTREMITIES: No edema feet - Labs CBC & Chem 7: 03/07/24 06:25 03/07/24 06:25 Labs: Abnormal Lab Results - Last 24 Hours (Table) 03/04/24 03/07/24 03/07/24 Range/Units 10:10 06:25 06:25 RBC 2.75 L (4.10-5.20) X 10*6/uL Hgb 5.7 A* (12.0-15.0) g/dL Hct 20.0 L (37.2-46.3) % MCV 72.7 L (80.0-97.0) FL MCH 20.7 L (27.0-32.0) pg MCHC 28.5 L (32.0-37.0) g/dL RDW 19.3 H (11.5-14.5) % Sodium 131 L (137-145) mmol/L Calcium 8.0 L (8.4-10.2) mg/dL Crossmatch See Detail Microbiology - Last 24 Hours (Table) 02/29/24 23:30 Blood Culture - Final Blood Assessment and Plan (1) Abdominal wall cellulitis Current Visit: Yes Status: Acute Code(s): L03.311 - CELLULITIS OF ABDOMINAL WALL SNOMED Code(s): 91408084 (2) Penicillin allergy Current Visit: No Status: Acute Code(s): Z88.0 - ALLERGY STATUS TO PENICILLIN SNOMED Code(s): 17218038 (3) Cutaneous candidiasis Current Visit: Yes Status: Acute Code(s): B37.2 - CANDIDIASIS OF SKIN AND NAIL SNOMED Code(s): 88174250 Plan: 1patient presented to hospital with confusion chills concerning for infection in this patient who did have a chronic abdominal wall wound concern for 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, in this patient who did have multiple abdominal proc edure most of them has been done at [facility] patient did have similar presentation on her last visit and was transferred to [facility] apparently no specific treatment was done now presenting with worsening drainage from the abdominal wound CT concerning for possible cellulitis will need to cover for the enteric gram-negative to be the likely pathogen 2-patient with the left breast for cutaneous candidiasis will continue with nystatin powder twice a day 3-patient repeat CT did shows evidence of enterocutaneous fistula and possible abscess will benefit from surgical drainage and transfer to tertiary care continue with the current broad-spectrum antibiotic, vancomycin cefepime and F lagyl Dictation was produced using [employer] software. please excuse any grammatical, word or spelling errors.
--- NOTE | 2024-03-07 13:34 | PN ---
PROGRESS NOTE DATE OF SERVICE: 03/07/2024 SUBJECTIVE: This is a 63-year-old woman, who was admitted with abdominal wall cellulitis, also had cutaneous fistula also. The CT scan showed enterocutaneous fistula may be in the right lower quadrant. Multiple consultants are following the patient. The patient is on antibiotics and walled abscess is not visualized in the CT scan. Hemoglobin is found to be 5.7 also. PAST MEDICAL HISTORY: Reviewed. REVIEW OF SYSTEMS: Fourteen-point review is negative except as mentioned earlier. CURRENT MEDICATIONS: Reviewed include Protonix. Doses and rest of medications reviewed. PHYSICAL EXAMINATION: VITAL SIGNS: Pulse is 89, blood pressure 100/50, respirations 16. CHEST: Clear to auscultation. CARDIOVASCULAR: S1, S2. ABDOMEN: Soft. Right mid abdomen, enterocutaneous fistula present. ASSESSMENT: 1. Enterocutaneous fistula with abdominal wall cellulitis. 2. Severe anemia, symptomatic of undetermined etiology, microcytic, rule out GI bleed. 3. History of asthma. 4. Hypertension. 5. Multiple surgeries from [facility]. 6. History of Ramila aureus. 7. History of bariatric surgery. RECOMMENDATIONS AND DISCUSSION: This is a 63-year-old woman who presented with multiple complex medical issues, we will continue the current medications, continue symptomatic treatment. Otherwise, recommend strict isolation per protocol and continue to monitor. Guarded prognosis. Further recommendations to follow. MMODL / IJN: [id number] /
[2024-03-07] MEDS: VANCOMYCIN 1,500 MG in SODIUM CHLORIDE 0.9% 500 ML 500 ML IVPB SCH (14:31)
[2024-03-07] MEDS: FUROSEMIDE 10 MG/ML 2 ML VIAL IV ONE (15:37)
[2024-03-07] MEDS: PANTOPRAZOLE 40 MG/10 ML VIAL IVP SCH (21:37)
[2024-03-08] MEDS: HYDROmorphone 0.5 MG/0.5 ML SYRINGE IVP STA (04:23)
[2024-03-08 09:21] LABS: HGB 7.6 g/dL (12.0-15.0); MCH 22.8 pg (27.0-32.0); MCHC 30.4 g/dL (32.0-37.0); MCV 75.1 FL (80.0-97.0); Mean Platelet Volume 10.4 FL (9.5-12.2); NRBC Per 100 WBC 0 X 10*3/uL (0.00-0.01); Platelet Count 378 X 10*3/uL (140-440); RBC 3.33 X 10*6/uL (4.10-5.20); RDW 20.5 % (11.5-14.5); WBC 6.98 X 10*3/uL (4.50-10.00)
--- NOTE | 2024-03-08 09:33 | P.PN ---
Progress Note - Text Progress Note Date: 03/08/24 CHIEF COMPLAINT: Abdominal pain HISTORY OF PRESENT ILLNESS: NAEO. Resting comfortable. CT-AP reviewed which shows possible abscess. PHYSICAL EXAM: VITAL SIGNS: Reviewed. GENERAL: Well-developed in no acute distress. ABDOMEN: Soft. Nondistended. Tenderness with palpation around the enteroc utaneous fistula on the right upper quadrant of the abdomen. Dressing is clean dry and intact. Midline incision with scabbing noted. No drainage NEUROLOGIC: Alert and oriented. Cranial nerves II through XII grossly intact. ASSESSMENT: 1. 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 History of multiple abdominal surgeries 3. Severe protein calorie malnutrition PLAN: -IR consult for possible drainage of abscess -No acute surgical intervention planned -Continue antibiotics -Ensure clear added for protein supplement Devante Patterson DO [facility] [phone]
--- NOTE | 2024-03-08 15:39 | P.PN ---
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 On today's evaluation that is 03/08/2024, Patient did have low-grade fever 100 F last evening the patient is is afebrile afebrile since then, patient is currently on room air and denies having any shortness of breath, the patient has been complaining of left upper chest pain also complaining of abdominal pain and drainage no nausea no vomiting. Patient did have white count of 6.98 troponin has been negative Objective - Vital Signs Vital signs: Vital Signs Temp 98.9 F 03/08/24 14:00 Pulse 88 03/08/24 14:00 Resp 17 03/08/24 14:00 BP 113/66 03/08/24 14:00 Pulse Ox 93 L 03/08/24 14:00 FiO2 Intake & Output 03/07/24 03/08/24 03/08/24 18:59 06:59 18:59 Intake Total 2368 Balance 2368 Intake: Oral 1800 Blood Product 568 Rc Pheresis 2 As3 Unit 283 [id number] Rc Pheresis 2 As3 Unit 285 [id number] Other: Voiding Method Toilet Toilet # Voids 2 1 - Exam GENERAL DESCRIPTION: Middle-age female lying in bed in no distress RESPIRATORY SYSTEM: Unlabored breathing , decreased breath sounds at bases HEART: S1 S2 regular rate and rhythm , ABDOMEN: Soft , right abdominal wall with drainage and induration Left breast fold did have evidence of erythema suggestive of cutaneous candidiasis EXTREMITIES: No edema feet - Labs CBC & Chem 7: 03/08/24 04:22 03/07/24 06:25 Labs: Abnormal Lab Results - Last 24 Hours (Table) 03/04/24 03/08/24 Range/Units 10:10 04:22 RBC 3.33 L (4.10-5.20) X 10*6/uL Hgb 7.6 L (12.0-15.0) g/dL Hct 25.0 L (37.2-46.3) % MCV 75.1 L (80.0-97.0) FL MCH 22.8 L (27.0-32.0) pg MCHC 30.4 L (32.0-37.0) g/dL RDW 20.5 H (11.5-14.5) % Crossmatch See Detail Assessment and Plan (1) Abdominal wall cellulitis Current Visit: Yes Status: Acute Code(s): L03.311 - CELLULITIS OF ABDOMINAL WALL SNOMED Code(s): 53852119 (2) Penicillin allergy Current Visit: No Status: Acute Code(s): Z88.0 - ALLERGY STATUS TO PENICILLIN SNOMED Code(s): 14003531 (3) Cutaneous candidiasis Current Visit: Yes Status: Acute Code(s): B37.2 - CANDIDIASIS OF SKIN AND NAIL SNOMED Code(s): 32189485 Plan: 1patient presented to hospital with confusion chills concerning for infection in this patient who did have a chronic abdominal wall wound concern for 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, in this patient who did have multiple abdominal procedure most of them has been done at [facility] patient did have similar presentation on her last visit and was transferred to [facility] apparently no specific treatment was done now presenting with worsening drainage from the abdominal wound CT concerning for possible cellulitis will need to cover for the enteric gram-negative to be the likely pathogen 2-patient with the left breast for cutaneous candidiasis will continue with nystatin powder twice a day 3-patient repeat CT did shows evidence of enterocutaneous fistula and possible abscess, IR has been consulted for possible drainage of this abscess which should be sent for culture await IR evaluation and recommendation. 4patient continue with the current broad-spectrum antibiotic, vancomycin cefepime and Flagyl Dictation was produced using [employer] dictation software. please excuse any grammatical, word or spelling errors. Time with Patient: Less than 30
[2024-03-08] MEDS: FUROSEMIDE 40 MG TAB PO SCH (16:24)
[2024-03-08] MEDS: HEPARIN SODIUM,PORCINE 5,000 UNIT/ML 1 ML VIAL SQ SCH (22:15)
--- NOTE | 2024-03-08 22:25 | PN ---
PROGRESS NOTE DATE OF SERVICE: 03/08/2024 I am covering for Dr. Carmen. SUBJECTIVE: This is a 63-year-old woman, who was admitted with abdominal wall cellulitis with recurrent cellulitis and enterocutaneous fistula, is also complaining of severe chest pain. The patient also had history of Ramila auris, on a strict isolation at this time. Multiple consultants are following the patient closely. The patient apparently had chest pain which was in the left side and requesting laboratory a few days ago and had a workup. Currently, the patient is complaining almost the same type of pain and I recommended complete workup also. Hemoglobin improved to 7.6 today. The troponin done 2 days ago was negative. PAST MEDICAL HISTORY: Reviewed. REVIEW OF SYSTEMS: A 14-point review is negative except as mentioned earlier. CURRENT MEDICATIONS: Reviewed include Robaxin. Dose and rest of medications reviewed. PHYSICAL EXAMINATION: VITAL SIGNS: Pulse is 88, blood pressure 94/58, respirations 18. HEENT: Conjunctivae normal. NECK: No JVD. CARDIOVASCULAR: S1, S2. RESPIRATIONS: A few scattered rhonchi. ABDOMEN: Soft. NERVOUS SYSTEM: Nonfocal. LABORATORY DATA: Noted. ASSESSMENT: 1. Enterocutaneous fistula with abdominal wall cellulitis on the right side. 2. Chest pain, rule out coronary artery disease. 3. Severe anemia, symptomatic, undetermined etiology, microcytic, rule out gastrointestinal bleed. 4. History of asthma. 5. Hypertension. 6. Multiple surgeries at [facility]. 7. History of Ramila auris before. 8. History of bariatric surgery. RECOMMENDATIONS: Recommend to continue current management and continue symptomatic treatment. As mentioned earlier, I would recommend a full cardiac workup including 2D echo with Doppler if it is not done recently. Otherwise, closely follow with Surgery, Infectious Disease, and the patient is running fever a couple of days ago, hemoglobin is 7.6. I will repeat labs tomorrow and continue to monitor. As mentioned earlier, blood cultures done on is negative so far. Chest x-ray done on , which I reviewed personally also. Once again, the prognosis guarded. Further recommendations to follow. MMODL / IJN: [id number] /
--- NOTE | 2024-03-09 04:28 | P.PN ---
Progress Note - Text Progress Note Date: 03/09/24 CHIEF COMPLAINT: Abdominal pain HISTORY OF PRESENT ILLNESS: NAEO. Resting comfortable. CT-AP reviewed which shows possible abscess. PHYSICAL EXAM: VITAL SIGNS: Reviewed. GENERAL: Well-developed in no acute distress. ABDOMEN: Soft. Nondistended. Tenderness with palpation around the enteroc utaneous fistula on the right upper quadrant of the abdomen. Dressing is clean dry and intact. Midline incision with scabbing noted. No drainage NEUROLOGIC: Alert and oriented. Cranial nerves II through XII grossly intact. ASSESSMENT: 1. 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 History of multiple abdominal surgeries 3. Severe protein calorie malnutrition PLAN: -IR consult for possible drainage of abscess -No acute surgical intervention planned -ID recs -Ensure clear added for protein supplement Devante Patterson DO [facility] [phone]
--- NOTE | 2024-03-09 10:10 | P.CRDCN ---
History of Present Illness Consult date: 03/09/24 Consult reason: chest pain History of present illness: This is Gino Nix NP, I'm dictating on behalf of Dr. Andrea's H&P and A&P The patient was interviewed and examined. HPI: Patient is a pleasant 63-year-old female with a past medical history significant for asthma, fibromyalgia, hypertension, restless leg syndrome, bowel obstruction, multidrug-resistant organism infection, multiple abdominal procedures, with infection who presented to the hospital with confusion. Cardiology was consulted for onset of chest pain. Patient reports that her chest pain has been going on every day since she was admitted [facility]. Patient has been here for approximately 9 days. She does not report any symptoms of tightness, dizziness, radiation, or shortness of breath. Patient is currently being treated for a severe cellulitis, secondary to a enterocutaneous fistula. It is of note that the patient was unable to be touched by the stethoscope due to chest wall tenderness. ROS: [No fever, chills, or rigors] [no cough, phlegm, or expectoration] [no nausea, vomiting, or diarrhea] [no hematuria, dysuria] [no musculoskelatal complaints] [no strokes or seizures] [no skin lesions] EXAMINATION: GENERAL: Well-appearing, well-nourished and in no acute distress. NECK: Supple without JVD or thyromegaly. LUNGS: Breath sounds clear to auscultation bilaterally. Respiration equal and unlabored. No wheezes, rales or rhonchi. HEART: Regular rate and rhythm without murmurs, rubs or gallops. S1 and S2 heard. EXTREMITIES: Normal range of motion, no edema. No clubbing or cyanosis. Peripheral pulses intact and strong. REVIEW OF LABS, ECG & MEDICAL DATA: LABS: White count 6.98, hemoglobin 7.6, platelets 378, sodium 131, potassium 4.2, chloride 105, BUN 11, creatinine 0.66, troponin less than 0.012 x 2 EKG: Sinus mechanism IMAGING: CT of the abdomen and pelvis without contrast dated 02/29/2024 demonstrates no acute intra-abdominal/pelvic process, small hiatal hernia, Juan Carlos-en-Y postsurgical changes, similar fat stranding of the right abdominal wall likely related to enterostomy, correlate for any cellulitis on exam, indeterminate left renal focus measuring 2.7 cm, this should be further characterized with a nonemergent outpatient MRI abdomen with and without IV contrast renal mass protocol if not already completed. Chest x-ray dated 03/06/2024 demonstrates left PICC with tip in appropriate position, no acute cardiopulmonary disease/process. CT of the abdomen and pelvis with contrast dated 03/06/2024 demonstrates an enterocutaneous fistula in the right lower quadrant, small amount of air is within this region, small abscess may be present, complex cyst posterior lateral left mid kidney. VITALS: Temp 99.6, pulse 87, respirations 17, blood pressure 103/64, O2 saturation 94% on room air IMPRESSION: 1. Enterocutaneous fistula with likely abscess 2. Cellulitis 3. History of extensive abdominal surgery including Juan Carlos-en-Y 4. Chest pain 5. History of hypertension PLAN: EKG and troponins are evaluated. Both do not demonstrate any evidence of acute coronary syndrome. Patient had significant tenderness noted on auscultation exam, we were barely able to listen to her heart due to the tenderness. No acute coronary syndrome apparent at this time. No further recommendations from a cardiology standpoint. Thank you for the consult and allowing us to participate in the care of this patient. Past Medical History Past Medical History: Asthma, Fibromyalgia, Hypertension Additional Past Medical History / Comment(s): see Dr Andrea's H&P, CHRONIC SOB,RLS ,per pt cramping really bad all over feet, legs, and arms. Swelling/edema of evelio lower extremites, Chronic blockage of the small bowel, hx ulcer History of Any Multi-Drug Resistant Organisms: Other MDRO Date of last positivie culture/infection: 02/09/24 @ [facility] MDRO Source:: skin Past Surgical History: Appendectomy, Bariatric Surgery, Section, Cholecystectomy, Hernia Repair Additional Past Surgical History / Comment(s): abdominal surgeries X14, sinus surgery x4,COLONOSCOPY, surgery for chronic bloackge of smalll bowel ,gastric bypass Past Anesthesia/Blood Transfusion Reactions: No Reported Reaction Past Psychological History: No Psychological Hx Reported Smoking Status: Never smoker Past Alcohol Use History: None Reported Past Drug Use History: None Reported - Past Family History Mother Additional Family Medical History / Comment(s): PT ADOPTED COMPLETE FAMILY HX UNKNOWN Brother(s) Family Medical History: Cancer Additional Family Medical History / Comment(s): TWIN BROTHER FROM CANCER AGE 45 Medications and Allergies Home Medications Medication Instructions Recorded Confirmed Type Montelukast Sodium [Singulair] 10 mg PO DAILY 09/24/14 03/01/24 History Omeprazole [PriLOSEC] 20 mg PO BID 09/24/14 03/01/24 History predniSONE 10 mg PO DAILY 10/12/16 03/01/24 History Midodrine HCl [ProAmantine] 2.5 mg PO BID-W/MEALS 07/02/23 03/01/24 History Ergocalciferol (Vitamin D2) 1,250 mcg PO MO 03/01/24 03/01/24 History [Drisdol (50,000 Iu)] Furosemide [Lasix] 40 mg PO DAILY 03/01/24 03/01/24 History Linaclotide [Linzess] 145 mcg PO AC-BRKFST 03/01/24 03/01/24 History Metoprolol Succinate (ER) [Toprol 50 mg PO DAILY 03/01/24 03/01/24 History Xl] Pregabalin [Lyrica] 50 mg PO TID 03/01/24 03/01/24 History methocarbamoL [Robaxin] 1,000 mg PO TID 03/01/24 03/01/24 History oxyCODONE HCL [Oxycodone HCl] 10 mg PO QID 03/01/24 03/01/24 History Allergies Allergy/AdvReac Type Severity Reaction Status Date / Time Penicillins Allergy Intermediate Rash/Hives Verified 03/01/24 10:03 milk Allergy Abdominal Verified 03/01/24 10:03 Pain aspirin AdvReac Severe Dyspnea Verified 03/01/24 10:03 morphine AdvReac Severe Nausea & Verified 03/01/24 10:03 Vomiting Physical Exam Vitals: Vital Signs Temp Pulse Resp BP Pulse Ox 03/09/24 07:30 99.6 F 87 17 103/64 94 L 03/09/24 02:00 99.2 F 88 18 97/60 93 L 03/08/24 20:00 99.6 F 87 17 98/61 94 L 03/08/24 14:00 98.9 F 88 17 113/66 93 L Intake and Output 03/08/24 03/09/24 03/09/24 22:59 06:59 14:59 Other: Voiding Method Toilet # Voids 4 1 Results 03/08/24 04:22 03/07/24 06:25 Cardiac Enzymes 03/08/24 Range/Units 12:09 Troponin I <0.012 (0.000-0.034) ng/mL Current Medications Generic Name Dose Route Start Last Admin Trade Name Freq PRN Reason Stop Dose Admin Acetaminophen 650 mg 02/29/24 23:00 03/06/24 17:17 Acetaminophen Tab 325 Mg Tab PO 650 mg Q6HR PRN Administration Mild Pain or Fever > 100.5 Ergocalciferol 1,250 mcg 03/03/24 09:00 03/03/24 09:32 Ergocalciferol 1,250 Mcg (50,000 Iu) Capsule PO 1,250 mcg MO FRANKIE Administration Furosemide 40 mg 03/08/24 13:30 03/09/24 08:02 Furosemide 40 Mg Tab PO 40 mg DAILY FRANKIE Administration Heparin Sodium (Porcine) 5,000 unit 03/08/24 21:00 03/09/24 08:12 Heparin Sodium,Porcine 5,000 Unit/Ml 1 Ml Vial SQ Not Given Q12HR FRANKIE Cefepime HCl 2 gm/ Sodium 100 mls @ 25 mls/hr 03/07/24 00:00 03/09/24 08:02 Chloride IVPB 25 mls/hr Q8HR FRANKIE Administration Protocol Vancomycin HCl 1,500 mg/ 500 mls @ 167 mls/hr 03/07/24 14:00 03/08/24 22:16 Sodium Chloride IVPB 167 mls/hr Q16H FRANKIE Administration Methocarbamol 1,000 mg 03/01/24 11:00 03/09/24 08:02 Methocarbamol 500 Mg Tab PO 1,000 mg TID FRANKIE Administration Metoprolol Succinate 50 mg 03/01/24 11:00 03/09/24 08:02 Metoprolol Succinate (Er) 50 Mg Tab.Er.24h PO 50 mg DAILY FRANKIE Administration Midodrine 5 mg 03/06/24 17:30 03/09/24 06:46 Midodrine 5 Mg Tab PO 5 mg AC-TID FRANKIE Administration Miscellaneous Information 0 each 03/09/24 13:00 Vancomycin Trough Due 1 Each Misc MISCELLANE 03/09/24 13:01 DIRECTED ONE Montelukast Sodium 10 mg 03/01/24 11:00 03/09/24 08:02 Montelukast 10 Mg Tab PO 10 mg DAILY FRANKIE Administration Naloxone HCl 0.2 mg 02/29/24 23:00 Naloxone 0.4 Mg/Ml 1 Ml Vial IV Q2M PRN Opioid Reversal Non-Formulary Medication 145 mcg 03/01/24 11:00 03/09/24 07:29 Linaclotide [Linzess] PO Not Given AC-BRKFST FRANKIE Nystatin 1 applic 03/03/24 13:00 03/09/24 08:02 Nystatin 100,000 Unit/Gm Powd 15 Gm TOPICAL 1 applic BID FRANKIE Administration Protocol Oxycodone HCl 10 mg 03/01/24 10:51 03/08/24 22:38 Oxycodone Hcl 5 Mg Tab PO 10 mg QID PRN Administration Pain Scale 6 to 10 Pantoprazole Sodium 40 mg 03/07/24 21:00 03/09/24 08:01 Pantoprazole 40 Mg/10 Ml Vial IVP 40 mg BID FRANKIE Administration Pregabalin 50 mg 03/01/24 11:00 03/09/24 08:02 Pregabalin 50 Mg Cap PO 50 mg TID FRANKIE Administration Sodium Bicarbonate 650 mg 03/02/24 10:45 03/09/24 08:02 Sodium Bicarbonate Tab 650 Mg Tab PO 650 mg BID FRANKIE Administration Intake and Output 03/08/24 03/09/24 03/09/24 22:59 06:59 14:59 Other: Voiding Method Toilet # Voids 4 1 03/08/24 04:22 03/07/24 06:25
[2024-03-09] MEDS: VANCOMYCIN TROUGH DUE 1 EACH MISC MISCELLANE ONE (13:13)
[2024-03-09 13:16] LABS: African American GFR (CKD) >90 (>60 ml/min/1.73 sqM); Non-African American GFR(CKD) 89 (>60 ml/min/1.73 sqM)
[2024-03-09 14:02] LABS: Anisocytosis Moderate; Basophils % (A) 0 %; Eosinophils # (A) 0.2 k/uL (0-0.7); Eosinophils % (A) 2 %; HGB 8.4 gm/dL (11.4-16.0); Hypochromasia Marked; Lymphocytes # (A) 1.3 k/uL (1.0-4.8); Lymphocytes % (A) 18 %; MCH 22.9 pg (25.0-35.0); MCHC 30.1 g/dL (31.0-37.0); MCV 76.1 fL (80.0-100.0); Mean Platelet Volume 7.7; Microcytosis Moderate; Monocytes # (A) 0.3 k/uL (0-1.0); Monocytes % (A) 4 %; Neutrophils # (A) 5.1 k/uL (1.3-7.7); Neutrophils % (A) 73 %; Platelet Count 492 k/uL (150-450); Poikilocytosis Slight; RBC 3.69 m/uL (3.80-5.40); RDW 20.6 % (11.5-15.5); WBC 7.1 k/uL (3.8-10.6)
--- NOTE | 2024-03-09 16:11 | P.PN ---
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 On today's evaluation that is 03/09/2024, patient has been afebrile, patient is breathing comfortably and is currently on room air, patient sleeping evaluated on bedside question today per nursing staff no significant change or any new symptoms. Patient white count 7.1, creatinine 0.73 blood culture has been negative Objective - Vital Signs Vital signs: Vital Signs Temp 99.6 F 03/09/24 14:00 Pulse 92 03/09/24 14:00 Resp 17 03/09/24 14:00 BP 114/74 03/09/24 14:00 Pulse Ox 93 L 03/09/24 14:00 FiO2 Intake & Output 03/08/24 03/09/24 03/09/24 18:59 06:59 18:59 Other: Voiding Method Toilet # Voids 4 1 - Exam GENERAL DESCRIPTION: Middle-age female lying in bed in no distress RESPIRATORY SYSTEM: Unlabored breathing , decreased breath sounds at bases HEART: S1 S2 regular rate and rhythm , ABDOMEN: Soft , right abdominal wall with drainage and induration Left breast fold did have evidence of erythema suggestive of cutaneous candidiasis EXTREMITIES: No edema feet - Labs CBC & Chem 7: 03/09/24 12:47 03/09/24 12:47 Labs: Abnormal Lab Results - Last 24 Hours (Table) 03/09/24 Range/Units 12:47 RBC 3.69 L (3.80-5.40) m/uL Hgb 8.4 L (11.4-16.0) gm/dL Hct 28.0 L (34.0-46.0) % MCV 76.1 L (80.0-100.0) fL MCH 22.9 L (25.0-35.0) pg MCHC 30.1 L (31.0-37.0) g/dL RDW 20.6 H (11.5-15.5) % Plt Count 492 H (150-450) k/uL Assessment and Plan (1) Abdominal wall cellulitis Current Visit: Yes Status: Acute Code(s): L03.311 - CELLULITIS OF ABDOMINAL WALL SNOMED Code(s): 54483638 (2) Penicillin allergy Current Visit: No Status: Acute Code(s): Z88.0 - ALLERGY STATUS TO PENICILLIN SNOMED Code(s): 95698486 (3) Cutaneous candidiasis Current Visit: Yes Status: Acute Code(s): B37.2 - CANDIDIASIS OF SKIN AND NAIL SNOMED Code(s): 89377397 Plan: 1patient presented to hospital with confusion chills concerning for infection in this patient who did have a chronic abdominal wall wound concern for 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, in this patient who did have multiple abdominal procedure most of them has been done at [facility] patient did have similar presentation on her last visit and was transferred to [facility] apparently no specific treatment was done now presenting with worsening drainage from the abdominal wound CT concerning for possible cellulitis will need to cover for the enteric gram-negative to be the likely pathogen 2-patient with the left breast for cutaneous candidiasis will continue with nystatin powder twice a day 3-patient repeat CT did shows evidence of enterocutaneous fistula and possible abscess, IR has been consulted for possible drainage of this abscess which should be sent for culture await IR evaluation and recommendation. 4patient did have resolution of her fever white count normal, continue vancomycin cefepime and Flagyl while waiting for the workup to be completed Dictation was produced using [employer] dictation software. please excuse any grammatical, word or spelling errors. Time with Patient: Less than 30
--- NOTE | 2024-03-09 22:13 | PN ---
PROGRESS NOTE DATE OF SERVICE: 03/09/2024 I am covering for Dr. Carmen. SUBJECTIVE: This 63-year-old woman is admitted with abdominal cellulitis and fistula is being closely monitored. No chest pain. No palpitation. OBJECTIVE: VITAL SIGNS: Pulse is 88, blood pressure 90/76, respirations 18. CHEST: Clear to auscultation. CARDIOVASCULAR: S1, S2. ABDOMEN: Soft. LABORATORY DATA: Hemoglobin is not available at this time. ASSESSMENT: 1. 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 2. Chest pain, rule out coronary artery disease. 3. Severe anemia, symptomatic and undermined etiology microcytic, rule out GI bleed. 4. History of asthma. 5. Hypertension. 6. Multiple surgeries at [facility]. 7. History of Ramila auris before. 8. History of bariatric surgery. RECOMMENDATIONS: Recommend to continue current management and continue symptomatic treatment. Otherwise, at this time, I would recommend repeat hemoglobin. If hemoglobin less than 7, recommend transfusion. Continue the antibiotics. Continue with Ramila auris isolation. Prognosis guarded. Further recommendations to follow. MMODL / IJN: [id number] /
[2024-03-10 07:10] LABS: Anisocytosis Moderate; Basophils % (A) 0 %; Eosinophils # (A) 0.2 k/uL (0-0.7); Eosinophils % (A) 3 %; HCT 24.2 % (34.0-46.0); HGB 7.4 gm/dL (11.4-16.0); Hypochromasia Marked; Lymphocytes # (A) 2.1 k/uL (1.0-4.8); Lymphocytes % (A) 31 %; MCHC 30.6 g/dL (31.0-37.0); Mean Platelet Volume 8.1; Microcytosis Moderate; Monocytes # (A) 0.5 k/uL (0-1.0); Monocytes % (A) 8 %; Neutrophils # (A) 3.9 k/uL (1.3-7.7); Neutrophils % (A) 56 %; Platelet Count 533 k/uL (150-450); Poikilocytosis Slight; RBC 3.23 m/uL (3.80-5.40); RDW 21.3 % (11.5-15.5); WBC 6.9 k/uL (3.8-10.6)
[2024-03-10 08:09] VITALS: PULSE 71; RESP 18
[2024-03-10 10:49] LABS: African American GFR (CKD) >90 (>60 ml/min/1.73 sqM); Anion Gap 3 mmol/L; Blood Urea Nitrogen 10 mg/dL (7-17); Calcium 8.5 mg/dL (8.4-10.2); Carbon Dioxide 24 mmol/L (22-30); Chloride 111 mmol/L (98-107); Glucose 80 mg/dL (74-99); Non-African American GFR(CKD) >90 (>60 ml/min/1.73 sqM); Potassium 3.7 mmol/L (3.5-5.1); Sodium 138 mmol/L (137-145)
--- NOTE | 2024-03-10 12:59 | P.PN ---
Subjective Progress Note Date: 03/10/24 CHIEF COMPLAINT: Abdominal pain HISTORY OF PRESENT ILLNESS: Patient continues to have drainage from the e nterocutaneous fistula on the right side of the abdomen. Patient evaluated by IR service and Dr. Rosado no drainage tube was required. They are working on discharging patient today. She does have a follow-up visit with [facility] on March 14 with her general surgeon. Afebrile today. Low-grade temp 100.4 last night. WBC 6.9 Hgb 7.4 PHYSICAL EXAM: VITAL SIGNS: Reviewed. GENERAL: Well-developed in no acute distress. ABDOMEN: Soft. Nondistended. Incisional dressing clean dry and intact on right side of abdomen NEUROLOGIC: Alert and oriented. Cranial nerves II through XII grossly intact. ASSESSMENT: 1. 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 History of multiple abdominal surgeries 3. Severe protein calorie malnutrition 4. Iron deficiency anemia PLAN: -No surgical intervention planned -Recommend the patient follows up with her [facility] general surgeon at the scheduled appointment on 03/14 -Discharge antibiotics per infectious disease -Patient can be discharged from surgical standpoint Physician Manager Welding note has been reviewed by physician. Signing provider agrees with the documented findings, assessment, and plan of care. Objective - Vital Signs Vital signs: Vital Signs Temp 97.1 F L 03/10/24 08:00 Pulse 71 03/10/24 08:00 Resp 18 03/10/24 08:00 BP 116/72 03/10/24 08:00 Pulse Ox 94 L 03/10/24 08:00 FiO2 Intake & Output 03/09/24 03/10/24 03/10/24 18:59 06:59 18:59 Other: Voiding Method Toilet Toilet # Voids 3 2 - Labs CBC & Chem 7: 03/10/24 06:07 03/10/24 06:07 Labs: Abnormal Lab Results - Last 24 Hours (Table) 03/09/24 03/10/24 03/10/24 Range/Units 12:47 06:07 06:07 RBC 3.69 L 3.23 L (3.80-5.40) m/uL Hgb 8.4 L 7.4 L (11.4-16.0) gm/dL Hct 28.0 L 24.2 L (34.0-46.0) % MCV 76.1 L 75.0 L (80.0-100.0) fL MCH 22.9 L 23.0 L (25.0-35.0) pg MCHC 30.1 L 30.6 L (31.0-37.0) g/dL RDW 20.6 H 21.3 H (11.5-15.5) % Plt Count 492 H 533 H (150-450) k/uL Chloride 111 H (98-107) mmol/L
[2024-03-10 13:59] VITALS: BP 104/60; TEMP 97.5
--- NOTE | 2024-03-11 13:06 | P.PN ---
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 On today's evaluation that is 03/10/2024, Patient is afebrile this morning patient denies having any chest pain shortness of breath or cough, the patient is breathing comfortably on room air, patient denies any worsening abdominal pain no nausea no vomiting, no new symptoms. Patient white count 6.9, creatinine 0.63 Objective - Vital Signs Vital signs: Vital Signs Temp 97.1 F L 03/10/24 08:00 Pulse 71 03/10/24 08:00 Resp 18 03/10/24 08:00 BP 116/72 03/10/24 08:00 Pulse Ox 94 L 03/10/24 08:00 FiO2 Intake & Output 03/09/24 03/10/24 03/10/24 18:59 06:59 18:59 Other: Voiding Method Toilet Toilet # Voids 3 2 - Exam GENERAL DESCRIPTION: Middle-age female lying in bed in no distress RESPIRATORY SYSTEM: Unlabored breathing , decreased breath sounds at bases HEART: S1 S2 regular rate and rhythm , ABDOMEN: Soft , right abdominal wall with drainage and induration Left breast fold did have evidence of erythema suggestive of cutaneous candidiasis EXTREMITIES: No edema feet - Labs CBC & Chem 7: 03/10/24 06:07 03/10/24 06:07 Labs: Abnormal Lab Results - Last 24 Hours (Table) 03/09/24 03/10/24 03/10/24 Range/Units 12:47 06:07 06:07 RBC 3.69 L 3.23 L (3.80-5.40) m/uL Hgb 8.4 L 7.4 L (11.4-16.0) gm/dL Hct 28.0 L 24.2 L (34.0-46.0) % MCV 76.1 L 75.0 L (80.0-100.0) fL MCH 22.9 L 23.0 L (25.0-35.0) pg MCHC 30.1 L 30.6 L (31.0-37.0) g/dL RDW 20.6 H 21.3 H (11.5-15.5) % Plt Count 492 H 533 H (150-450) k/uL Chloride 111 H (98-107) mmol/L Assessment and Plan (1) Abdominal wall cellulitis Status: Acute Code(s): L03.311 - CELLULITIS OF ABDOMINAL WALL SNOMED Code(s): 09914655 (2) Penicillin allergy Status: Acute Code(s): Z88.0 - ALLERGY STATUS TO PENICILLIN SNOMED Code(s): 22767387 (3) Cutaneous candidiasis Status: Acute Code(s): B37.2 - CANDIDIASIS OF SKIN AND NAIL SNOMED Code(s): 56637389 Plan: 1patient presented to hospital with confusion chills concerning for infection in this patient who did have a chronic abdominal wall wound concern for 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, in this patient who did have multiple abdominal procedure most of them has been done at [facility] patient did have similar presentation on her last visit and was transferred to [facility] no specific treatment was done now presenting with worsening drainage from the abdominal wound CT concerning for possible cellulitis will need to cover for the enteric gram-negative to be the likely pathogen 2-patient with the left breast fold cutaneous candidiasis will continue with nystatin powder twice a day x 7 days on discharge 3-patient repeat CT did shows evidence of enterocutaneous fistula and possible abscess, IR has been consulted for possible drainage of this abscess, IR mention cannot drain this abscess apparently the patient has been referred back to her original surgeon she has appointment to see them on 03/14/2024. 4patient did have resolution of her fever white count normal, as the abscess has not been drained and we have no culture will recommend to continue continue vancomycin cefepime and Flagyl x 10 days on discharge till the patient is able to see her surgeon and hopefully can drain the abscess and take care of this enterocutaneous fistula surgically, prescription provided to the dependency case manager Dictation was produced using [employer] software. please excuse any grammatical, word or spelling errors. Time with Patient: Less than 30
--- NOTE | 2024-03-12 17:41 | P.DS ---
Providers Date of admission: 02/29/24 23:43 Expected date of discharge: 03/10/24 Attending physician: Steven Carmen MD Consults: 02/29/24 23:00 Consult Physician Routine Consulting Provider: Samantha Calhoun Consult Reason/Comments: cellulitis of abdominal wall Do you want consulting provider notified?: Yes, Notify in am 03/01/24 11:09 Consult Physician Routine Consulting Provider: Ely Thorne Consult Reason/Comments: [place], hyperkalemia Do you want consulting provider notified?: Yes 03/03/24 08:32 Consult Physician Routine Consulting Provider: Aj Flores Consult Reason/Comments: abn ct, , rec as per ID Do you want consulting provider notified?: Yes 03/05/24 11:21 Consult Physician Routine Consulting Provider: Joycelyn Major Consult Reason/Comments: second opinion on entercutaneous fistula Do you want consulting provider notified?: Yes Primary care physician: Antoinette Khoury Hospital Course: Final Diagnoses: Abdominal wound infection, cellulitis, enterocutaneous fistula, prior J-tube site as per general surgery Acute anemia secondary to the above, status post 1 unit of packed RBCs History of bowel obstructions, multiple abdominal surgeries, history of Juan Carlos-en-Y Acute kidney injury secondary to diuretics, hypotension, improved Metabolic acidosis, improving Anemia, iron deficient Left renal lesion reported per CT, follow-up outpatient with urology. No hydronephrosis. Fibromyalgia Morbid obesity, BMI 38 Hypomagnesemia Hospital course:This a pleasant 63-year-old female admitted with chronic abdominal wall recurrent infection in a patient with history of multiple abdominal surgeries, most recent July 2023 at [facility] secondary to perforated small bowel obstruction status post bowel resection with removal of a J-tube. Right abdominal wall site with sinus tract accompanied by induration beneath it, serosanguineous drainage. Patient reports food actually comes out of the prior J-tube site. CT reported small hiatal hernia, Juan Carlos-en-Y postsurgical changes, similar fat stranding of the right abdominal wall likely related to enterostomy correlate for any cellulitis. Complains of chills, right abdominal wall pain. Denies nausea vomiting or diarrhea. Tmax 100.2, WBC 7.5, hemoglobin 7.4, platelets 391.renal function stable. Continues IV antibioticsas per infectious disease. Magnesium 1.6. 03/04/2024 maintained on IV antibiotics as per infectious disease. Tmax 101.9, WBC 9.3. Preliminary blood cultures reporting no growth in 48 hours. ongoing abdominal pain. continues to have food in fecal material pouring out of her prior J-tube site .hemoglobin decreased to 6.3, platelets 380. Blood pressures soft, heart rates 90s to low 100s. Maintaining O2 sats in the mid to high 90s on room air. Sodium 134, potassium 4.2, renal function stable, magnesium 1.8. Denies chills, positive mild generalized shaking. IV infiltrated left upper extremity swollen. 03/05/2024 continues on antibiotics as per ID, Tmax 100.5, normal WBC. 1 unit packed RBCs yesterday with current hemoglobin 7.2. General surgery recommendations pending. 03/06/2024 evaluated by general surgery requesting second surgical opinion- pending. Tmax 100.4. Right abdominal wall site continues to drain fecal material. IV antibiotics as per infectious disease. Second opinion per Dr. Zhao pending. pain management. Increase ambulation as tolerated. PT/OT recommending home/home care at [place]. 03/10/2024 no surgical intervention planned by general surgery at this site ; recommending patient return to [facility] follow-up with her general surgeon who previously performed her surgeries .afebrile, normal WBC. Renal function stable. Denies chest pain, palpitations or shortness of breath. Denies nausea vomiting or diarrhea. Patient has been cleared by all consults for discharge. patient will be discharged home today in a stable condition with guarded prognosis on vancomycin, cefepime and Flagyl x 10 days as per infectious disease. Patient reports she does have a follow-up appointment at [facility] this week on 03/14/2024 with her general surgeon. Patient will be discharged home today in a stable condition with guarded prognosis. The impression and plan of care has been dictated as directed. : I performed a history and examination of this patient, discussed the same with the dictator. I agree with the dictator's note ,documented as a scribe. Any additional findings or plans will be noted. Patient Condition at Discharge: Stable Plan - Discharge Summary New Discharge Prescriptions: New Nystatin 100,000 Unit/gm Powd [Mycostatin Powder] 1 applic TOPICAL BID each Midodrine [ProAmatine] 5 mg PO AC-TID #90 tab Cefepime [Maxipime] 2 gm IVPB Q8H #30 each Vancomycin HCl in 5 % Dextrose [Vancomycin 1.5 Gram/300 ml-D5w] 1.5 gm IV Q12HR #20 each metroNIDAZOLE [Flagyl] 500 mg PO TID #30 tab Continue Montelukast Sodium [Singulair] 10 mg PO DAILY Omeprazole [PriLOSEC] 20 mg PO BID predniSONE 10 mg PO DAILY methocarbamoL [Robaxin] 1,000 mg PO TID oxyCODONE HCL [oxyCODONE HCL (IR)] 10 mg PO QID Pregabalin [Lyrica] 50 mg PO TID Furosemide [Lasix] 40 mg PO DAILY Ergocalciferol (Vitamin D2) [Drisdol (50,000 Iu)] 1,250 mcg PO MO Metoprolol Succinate (ER) [Toprol XL] 50 mg PO DAILY Linaclotide [Linzess] 145 mcg PO AC-BRKFST Discontinued Midodrine HCl [ProAmantine] 2.5 mg PO BID-W/MEALS Discharge Medication List Montelukast Sodium [Singulair] 10 mg PO DAILY 09/24/14 [History] Omeprazole [PriLOSEC] 20 mg PO BID 09/24/14 [History] predniSONE 10 mg PO DAILY 10/12/16 [History] Ergocalciferol (Vitamin D2) [Drisdol (50,000 Iu)] 1,250 mcg PO MO 03/01/24 [History] Furosemide [Lasix] 40 mg PO DAILY 03/01/24 [History] Linaclotide [Linzess] 145 mcg PO AC-BRKFST 03/01/24 [History] Metoprolol Succinate (ER) [Toprol XL] 50 mg PO DAILY 03/01/24 [History] Pregabalin [Lyrica] 50 mg PO TID 03/01/24 [History] methocarbamoL [Robaxin] 1,000 mg PO TID 03/01/24 [History] oxyCODONE HCL [oxyCODONE HCL (IR)] 10 mg PO QID 03/01/24 [History] Cefepime [Maxipime] 2 gm IVPB Q8H #30 each 03/10/24 [Rx] Midodrine [ProAmatine] 5 mg PO AC-TID #90 tab 03/10/24 [Rx] Nystatin 100,000 Unit/gm Powd [Mycostatin Powder] 1 applic TOPICAL BID each 03/10/24 [Rx] Vancomycin HCl in 5 % Dextrose [Vancomycin 1.5 Gram/300 ml-D5w] 1.5 gm IV Q12HR #20 each 03/10/24 [Rx] metroNIDAZOLE [Flagyl] 500 mg PO TID #30 tab 03/10/24 [Rx] Follow up Appointment(s)/Referral(s): Eric Aguirre Dr. General surgery [Other] - 03/14/24 (As previously scheduled) Steven Carmen MD [STAFF PHYSICIAN] - 03/17/24 11:15 am (With Rona at [facility]) [facility], [NON-STAFF] - As Needed ([facility] will call you to schedule your in home nursing visits. Your first visit to begin IV antibiotic teaching will be tomorrow. ) [facility], [REFERRING] - As Needed ([facility] will deliver supplies to your house tomorrow morning. They will call prior to delivery. ) Patient Instructions/Handouts: Cellulitis (ED) Discharge Disposition: HOME WITH HOME HEALTH SERVICES
== END 2024-03-10 18:45 | disposition home health service (06) | DRG 602 ==
LOC: EC 19:49 → 4SSUR 23:43
PROVIDERS: ADMIT Family Medicine; ATTEND Family Medicine
PROC: 30233N1 Transfusion of Nonautologous Red Blood Cells into Peripheral Vein, Percutaneous Approach (ICD-10-PCS; principal; 2024-02-29)
DX: L03.311 Cellulitis of abdominal wall (principal); E43 Unspecified severe protein-calorie malnutrition; G93.41 Metabolic encephalopathy; K63.2 Fistula of intestine; E87.20 Acidosis, unspecified; N17.9 Acute kidney failure, unspecified; B37.2 Candidiasis of skin and nail; D50.9 Iron deficiency anemia, unspecified; E66.01 Morbid (severe) obesity due to excess calories; Z68.38 Body mass index [BMI] 38.0-38.9, adult; G25.81 Restless legs syndrome; I10 Essential (primary) hypertension; J45.909 Unspecified asthma, uncomplicated; M79.7 Fibromyalgia; E83.42 Hypomagnesemia; E87.5 Hyperkalemia; Z79.899 Other long term (current) drug therapy; Z88.0 Allergy status to penicillin; Z98.84 Bariatric surgery status; T50.2X5A Adverse effect of carbonic-anhydrase inhibitors, benzothiadiazides and other diuretics, initial encounter
CPT/HCPCS: 36410; 36415; 36573; 74176; 74177; 76937; 80048; 80053; 80202; 81003; 82150; 82533; 82565; 82607; 82728; 82746; 83540; 83550; 83605; 83690; 83735; 84484; 85025; 85027; 86140; 86850; 86900; 86901; 86920; 87040; 87102; 93005; 96361; 96365; 96366; 96367; 96368; 96375; 99285

== ENCOUNTER 2024-03-17 17:01 | Observation (INO) | payer BC ==
[2024-03-17 17:12] VITALS: RESP 16
--- NOTE | 2024-03-17 18:19 | ED ---
Recheck HPI - General Source: patient, RN notes reviewed Mode of arrival: wheelchair Limitations: no limitations <Cayla Bians - Last Filed: 03/17/24 18:17> <Kanu Kaplan - Last Filed: 03/18/24 01:27> - General Chief Complaint: Recheck/Abnormal Lab/Rx Stated Complaint: Pic Line Time Seen by Provider: 03/17/24 18:17 - History of Present Illness Initial Comments: Quick note: 63 year old female presenting to the ER with a chief complaint of PICC line malfunction. Patient is currently receiving IV antibiotics for infection through a PICC line. She states she accidentally slept and when she woke up her PICC line was out. She denies any pain or injuries. Last dose of antibiotics was Sunday. (Cayla Bains) 63-year-old female presenting with chief complaint of malfunction to her midline. Patient was recently admitted for cellulitis and fistula, was sent home with midline receiving cefepime and vancomycin. She states that she last received her antibiotics yesterday. Today when she woke up and the midline was pulled out of her arm. No pain or any injury. Her area of cellulitis and fistula are not causing her any further troubles at this time (Kanu Kaplan) - Related Data Home Medications Medication Instructions Recorded Confirmed Montelukast Sodium [Singulair] 10 mg PO DAILY 09/24/14 03/17/24 Omeprazole [PriLOSEC] 20 mg PO BID 09/24/14 03/17/24 predniSONE 10 mg PO DAILY 10/12/16 03/17/24 Ergocalciferol (Vitamin D2) 1,250 mcg PO MO 03/01/24 03/17/24 [Drisdol (50,000 Iu)] Furosemide [Lasix] 40 mg PO DAILY 03/01/24 03/17/24 Linaclotide [Linzess] 145 mcg PO AC-BRKFST 03/01/24 03/17/24 Metoprolol Succinate (ER) [Toprol 50 mg PO DAILY 03/01/24 03/17/24 XL] Pregabalin [Lyrica] 50 mg PO TID 03/01/24 03/17/24 methocarbamoL [Robaxin] 1,000 mg PO TID 03/01/24 03/17/24 oxyCODONE HCL [oxyCODONE HCL (IR)] 10 mg PO QID 03/01/24 03/17/24 Milnacipran HCl [Savella] 50 mg PO DAILY 03/17/24 03/17/24 Previous Rx's Medication Instructions Recorded Cefepime [Maxipime] 2 gm IVPB Q8H #30 each 03/10/24 Midodrine [ProAmatine] 5 mg PO AC-TID #90 tab 03/10/24 Nystatin 100,000 Unit/gm Powd 1 applic TOPICAL BID each 03/10/24 [Mycostatin Powder] Vancomycin HCl in 5 % Dextrose 1.5 gm IV Q12HR #20 each 03/10/24 [Vancomycin 1.5 Gram/300 ml-D5w] metroNIDAZOLE [Flagyl] 500 mg PO TID #30 tab 03/10/24 Allergies Allergy/AdvReac Type Severity Reaction Status Date / Time Penicillins Allergy Intermediate Rash/Hives Verified 03/17/24 20:58 milk Allergy Abdominal Verified 03/17/24 20:58 Pain aspirin AdvReac Severe Dyspnea Verified 03/17/24 20:58 morphine AdvReac Severe Nausea & Verified 03/17/24 20:58 Vomiting Review of Systems ROS Other: All systems not noted in ROS Statement are negative. <Cayla Bains - Last Filed: 03/17/24 18:17> ROS Other: All systems not noted in ROS Statement are negative. <Kanu Kaplan - Last Filed: 03/18/24 01:27> ROS Statement: Those systems with pertinent positive or pertinent negative responses have been documented in the HPI. Past Medical History Past Medical History: Asthma, Fibromyalgia, Hypertension Additional Past Medical History / Comment(s): see Dr Andrea's H&P, CHRONIC SOB,RLS ,per pt cramping really bad all over feet, legs, and arms. Swelling/kennedy ma of evelio lower extremites, Chronic blockage of the small bowel, hx ulcer History of Any Multi-Drug Resistant Organisms: Other MDRO Date of last positivie culture/infection: Jeannie alvarez - 02/09/24 @ [facility] MDRO Source:: Jeannie alvarez - skin Past Surgical History: Appendectomy, Bariatric Surgery, Section, Cholecystectomy, Hernia Repair Additional Past Surgical History / Comment(s): abdominal surgeries X14, sinus surgery x4,COLONOSCOPY, surgery for chronic bloackge of smalll bowel ,gastric bypass Past Anesthesia/Blood Transfusion Reactions: No Reported Reaction Past Psychological History: No Psychological Hx Reported Smoking Status: Never smoker Past Alcohol Use History: None Reported Past Drug Use History: None Reported - Past Family History Mother Additional Family Medical History / Comment(s): PT ADOPTED COMPLETE FAMILY HX UNKNOWN Brother(s) Family Medical History: Cancer Additional Family Medical History / Comment(s): TWIN BROTHER FROM CANCER AGE 45 <Cayla Bains - Last Filed: 03/17/24 18:17> General Exam Limitations: no limitations <Cayla Bains - Last Filed: 03/17/24 18:17> Limitations: no limitations General appearance: alert, in no apparent distress Head exam: Present: atraumatic, normocephalic Eye exam: Present: normal appearance, EOMI Neck exam: Present: normal inspection. Absent: meningismus Respiratory exam: Absent: respiratory distress Cardiovascular Exam: Present: regular rate Neurological exam: Present: alert, oriented X3 Psychiatric exam: Present: normal affect, normal mood Skin exam: Present: warm, dry, normal color <Kanu Kaplan - Last Filed: 03/18/24 01:27> - General Exam Comments Initial Comments: Visual Physical Exam Vital signs reviewed General: Well-appearing, nontoxic, no acute distress. Head: Normocephalic, atraumatic Eyes: PERRLA, EOMI ENT: Airway patent Chest: Nonlabored breathing Skin: No visual rash, normal skin tone Neuro: Alert and oriented 3 Musculoskeletal: No gross abnormalities (Cayla Bains) Course Vital Signs 03/17/24 03/17/24 17:08 22:41 Temperature 97.5 F L 98.5 F Pulse Rate 88 55 L Respiratory 16 16 Rate Blood Pressure 101/73 113/66 O2 Sat by Pulse 95 99 Oximetry Medical Decision Making <Cayla Bains - Last Filed: 03/17/24 18:17> - Lab Data Result diagrams: 03/17/24 22:06 03/17/24 22:06 <Kanu Kaplan - Last Filed: 03/18/24 01:27> - Medical Decision Making I performed the quick note portion of this chart. Electronically signed by AURORA Brar Deann) Was pt. sent in by a medical professional or institution (TENNILLE Rivera, INNERSOLE FITTER, urgent care, hospital, or usp...) When possible be specific @ -No Did you speak to anyone other than the patient for history (EMS, parent, family, police, friend...)? What history was obtained from this source @ -No Did you review nursing and triage notes (agree or disagree)? Why? @ -I reviewed and agree with nursing and triage notes Were old charts reviewed (outside hosp., previous admission, EMS record, old EKG, old radiological studies, urgent care reports/EKG's, usp records)? Report findings @ -No old charts were reviewed Differential Diagnosis (chest pain, altered mental status, abdominal pain women, abdominal pain men, vaginal bleeding, weakness, fever, dyspnea, syncope, headache, dizziness, GI bleed, back pain, seizure, CVA, palpatations, mental health, musculoskeletal)? @ -Not applicable EKG interpreted by me (3pts min.). @ -As above X-rays interpreted by me (1pt min.). @ -None done CT interpreted by me (1pt min.). @ -None done U/S interpreted by me (1pt. min.). @ -None done What testing was considered but not performed or refused? (CT, X-rays, U/S, labs)? Why? @ -None What meds were considered but not given or refused? Why? @ -None Did you discuss the management of the patient with other professionals (professionals i.e. TENNILLE Rivera, INNERSOLE FITTER, lab, RT, psych nurse, social media campaign manager, cognos bi developer, teacher, customs officer, gearcase assembler)? Give summary @ -I spoke with Dr. Carmen who accepts admission Was smoking cessation discussed for >3mins.? @ -No Was critical care preformed (if so, how long)? @ -No Were there social determinants of health that impacted care today? How? (Homelessness, low income, unemployed, alcoholism, drug addiction, transportation, low edu. Level, literacy, decrease access to med. care, mcc, rehab)? @ -No Was there de-escalation of care discussed even if they declined (Discuss DNR or withdrawal of care, Hospice)? DNR status @ -No What co-morbidities impacted this encounter? (DM, HTN, Smoking, COPD, CAD, Cancer, CVA, ARF, Chemo, Hep., AIDS, mental health diagnosis, sleep apnea, morbid obesity)? @ -None Was patient admitted / discharged? Hospital course, mention meds given and route, prescriptions, significant lab abnormalities, going to OR and other pertinent info. @ -63-year-old female presenting for evaluation after her midline was ripped out while she was sleeping. She is currently receiving vancomycin and cefepime at home. States her last dose was yesterday. The site to her abdomen is not causing her any further issues at this time, appears to be healing on my evaluation. Patient will be admitted for placement of new midline. She is agreeable with this plan. I discussed this case with my attending Dr. Lopez Undiagnosed new problem with uncertain prognosis? @ -No Drug Therapy requiring intensive monitoring for toxicity (Heparin, Nitro, Insulin, Cardizem)? @ -No Were any procedures done? @ -No Diagnosis/symptom? @ -Malfunction of midline Acute, or Chronic, or Acute on Chronic? @ -Acute Uncomplicated (without systemic symptoms) or Complicated (systemic symptoms)? @ -Complicated Side effects of treatment? @ -No Exacerbation, Progression, or Severe Exacerbation? @ -No Poses a threat to life or bodily function? How? (Chest pain, [place], [place], pneumonia, PE, COPD, DKA, ARF, appy, cholecystitis, CVA, Diverticulitis, Homicidal, Michelle cidal, threat to staff... and all critical care pts) @ -Threat if the patient is not able to receive her regular antibiotics (Kanu Kaplan) Disposition <Cayla Bains - Last Filed: 03/17/24 18:17> Time of Disposition: 20:44 <Kanu Kaplan - Last Filed: 03/18/24 01:27> Clinical Impression: Complication associated with peripherally inserted central catheter (PICC) Disposition: ADMITTED IP TO THIS HOSP Condition: Fair
[2024-03-17] MEDS ORDERED: NALOXONE 0.4 MG/ML 1 ML VIAL IV PRN (20:41)
[2024-03-17] MEDS ORDERED: ACETAMINOPHEN TAB 325 MG TAB PO PRN (20:41)
[2024-03-17] MEDS ORDERED: HYDROcodone/APAP 5-325MG 1 EACH TAB PO PRN (20:41)
[2024-03-17] MEDS: SODIUM CHLORIDE 0.9% 1,000 ML IV SCH (22:35)
[2024-03-17 22:43] LABS: Anisocytosis Moderate; Basophils % (A) 0 %; Eosinophils # (A) 0.4 k/uL (0-0.7); Eosinophils % (A) 5 %; Hypochromasia Marked; Lymphocytes % (A) 23 %; MCH 22.8 pg (25.0-35.0); MCHC 29.8 g/dL (31.0-37.0); MCV 76.6 fL (80.0-100.0); Mean Platelet Volume 7.3; Microcytosis Moderate; Monocytes # (A) 0.5 k/uL (0-1.0); Monocytes % (A) 6 %; Neutrophils # (A) 5.7 k/uL (1.3-7.7); Neutrophils % (A) 63 %; Platelet Count 628 k/uL (150-450); Poikilocytosis Slight; RBC 4.96 m/uL (3.80-5.40); RDW 20.9 % (11.5-15.5)
[2024-03-17 22:51] LABS: HGB 11.3 gm/dL (11.4-16.0)
[2024-03-17 23:05] LABS: African American GFR (CKD) >90 (>60 ml/min/1.73 sqM); Anion Gap 9 mmol/L; Blood Urea Nitrogen 12 mg/dL (7-17); Calcium 9.4 mg/dL (8.4-10.2); Carbon Dioxide 19 mmol/L (22-30); Chloride 110 mmol/L (98-107); Glucose 87 mg/dL (74-99); Non-African American GFR(CKD) 79 (>60 ml/min/1.73 sqM); Sodium 138 mmol/L (137-145)
[2024-03-17] MEDS: oxyCODONE-APAP 5-325MG 1 EACH TAB PO PRN (23:05)
[2024-03-18] MEDS ORDERED: VANCOMYCIN IV PER PHARMACY 1 EACH MISC MISCELLANE PRN (09:18)
--- NOTE | 2024-03-18 09:43 | P.HPIM ---
History of Present Illness H&P Date: 03/18/24 Chief Complaint: Midline catheter fell out History and Physical and Discharge Summary: Please refer to discharge summary on 03/10/2024 for specific details. Patient was discharged on cefepime, vancomycin and oral Flagyl for abdominal wound infection, cellulitis, enterocutaneous fistula, prior J-tube site as per general surgery. Is scheduled to follow-up with her general surgeon at [facility]-states date has changed to March 24. Returned to the ER stating midline catheter fell out yesterday was unable to infuse her antibiotics since yesterday. Patient is afebrile, normal WBC, minimal induration/small tract on right abdominal wound site, minimal tenderness, with currently no drainage. Denies chills shakes or fevers at home. VSS. Patient will be discharged home today in a stable condition with guarded prognosis, after midline catheter replacement. Cefepime, vancomycin and Flagyl have been ordered while patient is inpatient. Review of Systems ROS Statement: Those systems with pertinent positive or pertinent negative responses have been documented in the HPI. ROS Other: All systems not noted in ROS Statement are negative. Past Medical History Past Medical History: Asthma, Fibromyalgia, Hypertension Additional Past Medical History / Comment(s): see Dr Andrea's H&P, CHRONIC SOB,RLS ,per pt cramping really bad all over feet, legs, and arms. Swelling/edema of evelio lower extremites, Chronic blockage of the small bowel, hx ulcer History of Any Multi-Drug Resistant Organisms: Other MDRO Date of last positivie culture/infection: PeterElif alvarez - 02/09/24 @ [facility] MDRO Source:: PeterElif camposcarmela - skin Past Surgical History: Appendectomy, Bariatric Surgery, Section, Cholecystectomy, Hernia Repair Additional Past Surgical History / Comment(s): abdominal surgeries X14, sinus surgery x4,COLONOSCOPY, surgery for chronic bloackge of smalll bowel ,gastric bypass Past Anesthesia/Blood Transfusion Reactions: No Reported Reaction Past Psychological History: No Psychological Hx Reported Smoking Status: Never smoker Past Alcohol Use History: None Reported Past Drug Use History: None Reported - Past Family History Mother Additional Family Medical History / Comment(s): PT ADOPTED COMPLETE FAMILY HX UNKNOWN Brother(s) Family Medical History: Cancer Additional Family Medical History / Comment(s): TWIN BROTHER FROM CANCER AGE 45 Medications and Allergies Home Medications Medication Instructions Recorded Confirmed Type Montelukast Sodium [Singulair] 10 mg PO DAILY 09/24/14 03/17/24 History Omeprazole [PriLOSEC] 20 mg PO BID 09/24/14 03/17/24 History predniSONE 10 mg PO DAILY 10/12/16 03/17/24 History Ergocalciferol (Vitamin D2) 1,250 mcg PO MO 03/01/24 03/17/24 History [Drisdol (50,000 Iu)] Furosemide [Lasix] 40 mg PO DAILY 03/01/24 03/17/24 History Linaclotide [Linzess] 145 mcg PO AC-BRKFST 03/01/24 03/17/24 History Metoprolol Succinate (ER) [Toprol 50 mg PO DAILY 03/01/24 03/17/24 History XL] Pregabalin [Lyrica] 50 mg PO TID 03/01/24 03/17/24 History methocarbamoL [Robaxin] 1,000 mg PO TID 03/01/24 03/17/24 History oxyCODONE HCL [oxyCODONE HCL (IR)] 10 mg PO QID 03/01/24 03/17/24 History Cefepime [Maxipime] 2 gm IVPB Q8H #30 each 03/10/24 03/17/24 Rx Midodrine [ProAmatine] 5 mg PO AC-TID #90 tab 03/10/24 03/17/24 Rx Nystatin 100,000 Unit/gm Powd 1 applic TOPICAL BID each 03/10/24 03/17/24 Rx [Mycostatin Powder] Vancomycin HCl in 5 % Dextrose 1.5 gm IV Q12HR #20 each 03/10/24 03/17/24 Rx [Vancomycin 1.5 Gram/300 ml-D5w] metroNIDAZOLE [Flagyl] 500 mg PO TID #30 tab 03/10/24 03/17/24 Rx Milnacipran HCl [Savella] 50 mg PO DAILY 03/17/24 03/17/24 History Allergies Allergy/AdvReac Type Severity Reaction Status Date / Time Penicillins Allergy Intermediate Rash/Hives Verified 03/17/24 20:58 milk Allergy Abdominal Verified 03/17/24 20:58 Pain aspirin AdvReac Severe Dyspnea Verified 03/17/24 20:58 morphine AdvReac Severe Nausea & Verified 03/17/24 20:58 Vomiting Physical Exam Vitals: Vital Signs Temp Pulse Resp BP Pulse Ox 03/18/24 03:00 98.3 F 68 16 110/69 96 03/17/24 22:41 98.5 F 55 L 16 113/66 99 03/17/24 17:08 97.5 F L 88 16 101/73 95 Intake and Output 03/17/24 03/18/24 03/18/24 22:59 06:59 14:59 Other: Weight 86.636 kg VITAL SIGNS: [Reviewed] GENERAL: morbidly obese, NAD. HEENT: NC/AT,MMM. NECK: Supple, no JVD. CARDIOVASCULAR: RRR,no murmur RESPIRATION: Unlabored , equal air entry,CTA. ABDOMEN: Soft, midline surgical scar well-approximated, right abdominal wall minimal tenderness, small sinus tract with minimal induration, currently no drainage. no guarding. Positive bowel sounds. LEGS: No edema. no swelling NERVOUS SYSTEM: AAOX3, No focal deficits. Skin: Warm and dry. Results CBC & Chem 7: 03/17/24 22:06 03/17/24 22:06 Labs: Abnormal Lab Results - Last 24 Hours (Table) 03/17/24 03/17/24 Range/Units 22:06 22:06 Hgb 11.3 L D (11.4-16.0) gm/dL MCV 76.6 L (80.0-100.0) fL MCH 22.8 L (25.0-35.0) pg MCHC 29.8 L (31.0-37.0) g/dL RDW 20.9 H (11.5-15.5) % Plt Count 628 H (150-450) k/uL Chloride 110 H (98-107) mmol/L Carbon Dioxide 19 L (22-30) mmol/L Assessment and Plan Assessment: Midline catheter replacement Abdominal wound infection, cellulitis, enterocutaneous fistula, prior J-tube site as per general surgery Cutaneous candidiasis History of bowel obstructions, multiple abdominal surgeries, history of Juan Carlos-en-Y Anemia, iron deficient Left renal lesion reported per CT, follow-up outpatient with urology. No hydronephrosis. Fibromyalgia Morbid obesity, BMI 38 Plan: Midline catheter replacement ordered. Cefepime and vancomycin IV piggyback's ordered to continue along with oral Flagyl while inpatient. Patient to be discharged home today in a stable condition with guarded prognosis, after midline catheter replacement and advised to follow-up with her [facility] [place] surgeon as previously scheduled-patient states date has changed to March 24. Discharge Medication List Montelukast Sodium [Singulair] 10 mg PO DAILY 09/24/14 [History] Omeprazole [PriLOSEC] 20 mg PO BID 09/24/14 [History] predniSONE 10 mg PO DAILY 10/12/16 [History] Ergocalciferol (Vitamin D2) [Drisdol (50,000 Iu)] 1,250 mcg PO MO 03/01/24 [History] Furosemide [Lasix] 40 mg PO DAILY 03/01/24 [History] Linaclotide [Linzess] 145 mcg PO AC-BRKFST 03/01/24 [History] Metoprolol Succinate (ER) [Toprol XL] 50 mg PO DAILY 03/01/24 [History] Pregabalin [Lyrica] 50 mg PO TID 03/01/24 [History] methocarbamoL [Robaxin] 1,000 mg PO TID 03/01/24 [History] oxyCODONE HCL [oxyCODONE HCL (IR)] 10 mg PO QID 03/01/24 [History] Cefepime [Maxipime] 2 gm IVPB Q8H #30 each 03/10/24 [Rx] Midodrine [ProAmatine] 5 mg PO AC-TID #90 tab 03/10/24 [Rx] Nystatin 100,000 Unit/gm Powd [Mycostatin Powder] 1 applic TOPICAL BID each 03/10/24 [Rx] Vancomycin HCl in 5 % Dextrose [Vancomycin 1.5 Gram/300 ml-D5w] 1.5 gm IV Q12HR #20 each 03/10/24 [Rx] metroNIDAZOLE [Flagyl] 500 mg PO TID #30 tab 03/10/24 [Rx] Milnacipran HCl [Savella] 50 mg PO DAILY 03/17/24 [History] The impression and plan of care has been dictated as directed. : I performed a history and examination of this patient, discussed the same with the dictator. I agree with the dictator's note ,documented as a scribe. Any additional findings or plans will be noted.
[2024-03-18] MEDS: VANCOMYCIN 1,500 MG in SODIUM CHLORIDE 0.9% 500 ML 500 ML IVPB SCH (10:23)
[2024-03-18] MEDS: CEFEPIME 2 GM in SODIUM CHLORIDE 0.9% 100 ML IVPB SCH (10:23)
[2024-03-18] MEDS: metroNIDAZOLE 500 MG TAB PO SCH (10:23)
[2024-03-18] MEDS: FUROSEMIDE 40 MG TAB PO SCH (10:39)
[2024-03-18] MEDS: METOPROLOL SUCCINATE (ER) 50 MG TAB.ER.24H PO SCH (10:39)
[2024-03-18] MEDS: MONTELUKAST 10 MG TAB PO SCH (10:39)
[2024-03-18] MEDS: PANTOPRAZOLE 40 MG TABLET PO SCH (10:40)
[2024-03-18] MEDS: MIDODRINE 5 MG TAB PO SCH (12:16)
[2024-03-18 14:43] VITALS: BP 102/62; PULSE 62; TEMP 98.1
[2024-03-18] MEDS ORDERED: PREGABALIN 50 MG CAP PO SCH (16:00)
== END 2024-03-18 14:42 | disposition home or self-care (01) ==
LOC: EC 17:01 → 6NMEDSUR 21:43
PROVIDERS: ADMIT Family Medicine; ATTEND Family Medicine
DX: T82.524A Displacement of infusion catheter, initial encounter (principal); Y82.8 Other medical devices associated with adverse incidents; L03.311 Cellulitis of abdominal wall; K63.2 Fistula of intestine; J45.909 Unspecified asthma, uncomplicated; I10 Essential (primary) hypertension; D50.9 Iron deficiency anemia, unspecified; B37.2 Candidiasis of skin and nail; N28.89 Other specified disorders of kidney and ureter; M79.7 Fibromyalgia; E66.01 Morbid (severe) obesity due to excess calories; Z68.38 Body mass index [BMI] 38.0-38.9, adult; Z98.84 Bariatric surgery status; Z79.52 Long term (current) use of systemic steroids; Z79.899 Other long term (current) drug therapy; Z88.0 Allergy status to penicillin; Z88.5 Allergy status to narcotic agent; Z88.6 Allergy status to analgesic agent
CPT/HCPCS: 96368; 96365; 96366; 99284; 36410; 76937; 80048; 85025; G0378 ×2; C1751; J3370; J0692

== ENCOUNTER 2024-11-28 10:55 | Emergency (ER) | payer BC ==
[2024-11-28 11:09] VITALS: TEMP 97.9
--- NOTE | 2024-11-28 11:34 | ED ---
Extremity Problem HPI - General Source: patient, RN notes reviewed Mode of arrival: ambulatory Limitations: no limitations - History of Present Illness MD Complaint: extremity pain <Viv Laws - Last Filed: 11/28/24 11:31> - General Source: patient, RN notes reviewed, old records reviewed <Lele Khoury - Last Filed: 11/28/24 14:21> - General Chief complaint: Extremity Problem,Nontraumatic Stated complaint: R-Arm Pain Time Seen by Provider: 11/28/24 11:20 - History of Present Illness Initial comments: Quick Note: This is a 64-year-old female who presents to the emergency department for right arm pain. States that she has had pain in the right axilla region for the last couple of days. She developed a DVT in that arm when she was hospitalized at [facility] last month and was put on a heparin drip. When she was discharged she was discharged with a 14-day supply of blood thinners but was told that she did not need to continue them afterwards. They are unsure why that was the case or what caused the blood clot in the first place. Denies any chest pain or shortness of breath. (Viv Laws) 64-year-old female presents emergency department complaining of right shoulder pain. Has been ongoing for a week. Recently got out of the hospital approximately month ago. Does have a history of a DVT in the right upper extremity is concerned that this return. Presents for further evaluation. Originally seen as a quick note. Pain is primarily in the musculature of the bicep muscle. Pain with movement. Improved at rest. No pain with passive movement. Neurovascular intact otherwise. Presents for further evaluation. Denies any injuries. Patient 89 patient did have a DVT in the right upper extremity after discharge however is no longer on blood thinners. (Lele Khoury) - Related Data Home Medications Medication Instructions Recorded Confirmed Montelukast Sodium [Singulair] 10 mg PO DAILY 09/24/14 03/17/24 Omeprazole [PriLOSEC] 20 mg PO BID 09/24/14 03/17/24 predniSONE 10 mg PO DAILY 10/12/16 03/17/24 Ergocalciferol (Vitamin D2) 1,250 mcg PO MO 03/01/24 03/17/24 [Drisdol (50,000 Iu)] Furosemide [Lasix] 40 mg PO DAILY 03/01/24 03/17/24 Linaclotide [Linzess] 145 mcg PO AC-BRKFST 03/01/24 03/17/24 Metoprolol Succinate (ER) [Toprol 50 mg PO DAILY 03/01/24 03/17/24 XL] Pregabalin [Lyrica] 50 mg PO TID 03/01/24 03/17/24 methocarbamoL [Robaxin] 1,000 mg PO TID 03/01/24 03/17/24 oxyCODONE HCL [oxyCODONE HCL (IR)] 10 mg PO QID 03/01/24 03/17/24 Milnacipran HCl [Savella] 50 mg PO DAILY 03/17/24 03/17/24 Previous Rx's Medication Instructions Recorded Cefepime [Maxipime] 2 gm IVPB Q8H #30 each 03/10/24 Midodrine [ProAmatine] 5 mg PO AC-TID #90 tab 03/10/24 Nystatin 100,000 Unit/gm Powd 1 applic TOPICAL BID each 03/10/24 [Mycostatin Powder] Vancomycin HCl in 5 % Dextrose 1.5 gm IV Q12HR #20 each 03/10/24 [Vancomycin 1.5 Gram/300 ml-D5w] metroNIDAZOLE [Flagyl] 500 mg PO TID #30 tab 03/10/24 Allergies Allergy/AdvReac Type Severity Reaction Status Date / Time Penicillins Allergy Intermediate Rash/Hives Verified 11/28/24 11:10 milk Allergy Abdominal Verified 11/28/24 11:10 Pain aspirin AdvReac Severe Dyspnea Verified 11/28/24 11:10 morphine AdvReac Severe Nausea & Verified 11/28/24 11:10 Vomiting Review of Systems ROS Other: All systems not noted in ROS Statement are negative. <Viv Laws - Last Filed: 11/28/24 11:31> ROS Other: All systems not noted in ROS Statement are negative. <Lele Khoury - Last Filed: 11/28/24 14:21> ROS Statement: Those systems with pertinent positive or pertinent negative responses have been documented in the HPI. Review of Systems: CONST: Denies fever EYES: Denies blurry vision ENT: Denies nasal congestion C/V: Denies Chest pain RESP: Denies shortness of breath GI: Denies abdominal pain : Denies dysuria SKIN: Denies rash. MSK: Endorses right shoulder pain NEURO: Denies headache (Lele Khoury) Past Medical History Past Medical History: Asthma, Deep Vein Thrombosis (DVT), Fibromyalgia, Hypertension Additional Past Medical History / Comment(s): see Dr Andrea's H&P, CHRONIC SOB,RLS ,per pt cramping really bad all over feet, legs, and arms. Swelling/edema of evelio lower extremites, Chronic blockage of the small bowel, hx ulcer History of Any Multi-Drug Resistant Organisms: None Reported Date of last positivie culture/infection: Jeannie alvarez - 02/09/24 @ [facility] MDRO Source:: Jeannie alvarez - skin Past Surgical History: Appendectomy, Bariatric Surgery, Section, Chol ecystectomy, Hernia Repair Additional Past Surgical History / Comment(s): abdominal surgeries X14, sinus surgery x4,COLONOSCOPY, surgery for chronic bloackge of smalll bowel ,gastric bypass Past Anesthesia/Blood Transfusion Reactions: No Reported Reaction Past Psychological History: No Psychological Hx Reported Smoking Status: Never smoker Past Alcohol Use History: None Reported Past Drug Use History: None Reported - Past Family History Mother Additional Family Medical History / Comment(s): PT ADOPTED COMPLETE FAMILY HX UNKNOWN Brother(s) Family Medical History: Cancer Additional Family Medical History / Comment(s): TWIN BROTHER FROM CANCER AGE 45 <Viv Laws - Last Filed: 11/28/24 11:31> General Exam Limitations: no limitations <Viv Laws - Last Filed: 11/28/24 11:31> <Lele Khoury - Last Filed: 11/28/24 14:21> - General Exam Comments Initial Comments: Visual Physical Exam Vital signs reviewed General: Well-appearing, nontoxic, no acute distress. Head: Normocephalic, atraumatic Eyes: PERRLA, EOMI ENT: Airway patent Chest: Nonlabored breathing Skin: No visual rash, normal skin tone Neuro: Alert and oriented 3 Musculoskeletal: No gross abnormalities (Viv Laws) General: Appears in no acute distress. HEAD: Normal with no signs of head trauma. EYES: EOMI. ENT: Hearing grossly intact. RESPIRATORY: No respiratory distress. C/V: Regular rate and rhythm. ABD: Abdomen is nondistended. EXT: Decreased range of motion of the right shoulder secondary to pain. No pain with passive range of motion of the right shoulder. Tenderness palpation p rimarily around the shoulder girdle, concern for rotator cuff issue. Some tenderness in the proximal bicep muscle body as well. Neurovasc intact throughout the right upper extremity. No skin changes. SKIN: No rashes or lesions observed on exposed skin. NEURO: Alert and oriented. (Lele Khoury) Course Vital Signs 11/28/24 11/28/24 11:07 13:33 Temperature 97.9 F Pulse Rate 79 72 Respiratory 20 17 Rate Blood Pressure 120/74 111/62 O2 Sat by Pulse 99 100 Oximetry Medical Decision Making <Viv Laws - Last Filed: 11/28/24 11:31> <Lele Khoury - Last Filed: 11/28/24 14:21> - Medical Decision Making I performed the QuickNote portion of this chart. Signed Viv Laws PA-C. (Viv Laws) Was pt. sent in by a medical professional or institution (TENNILLE Rivera, FIRE EQUIPMENT OPERATOR, urgent care, hospital, or group home...) When possible be specific @ -No Did you speak to anyone other than the patient for history (EMS, parent, family, police, friend...)? What history was obtained from this source @ -No Did you review nursing and triage notes (agree or disagree)? Why? @ -I reviewed and agree with nursing and triage notes Were old charts reviewed (outside hosp., previous admission, EMS record, old EKG, old radiological studies, urgent care reports/EKG's, group home records)? Report findings @ -No old charts were reviewed Differential Diagnosis (chest pain, altered mental status, abdominal pain women, abdominal pain men, vaginal bleeding, weakness, fever, dyspnea, syncope, headache, dizziness, GI bleed, back pain, seizure, CVA, palpatations, mental health, musculoskeletal)? @ -Differential Musculoskeletal Muscular strain, contusion, ligament sprain, fracture, arthritis, septic arthritis, bursitis, cellulitis, muscle spasm, nerve compression, DVT, arterial occlusion, herpes zoster, electrolyte abnormality, tumor.... This is not meant to be in all inclusive list EKG interpreted by me (3pts min.). @ -None X-rays interpreted by me (1pt min.). @ -Right shoulder x-ray shows arthritis but no obvious acute process. CT interpreted by me (1pt min.). @ -None done U/S interpreted by me (1pt. min.). @ -DVT ultrasound negative What testing was considered but not performed or refused? (CT, X-rays, U/S, labs)? Why? @ -None What meds were considered but not given or refused? Why? @ -None Did you discuss the management of the patient with other professionals (professionals i.e. , PA, FIRE EQUIPMENT OPERATOR, lab, RT, psych nurse, social work msw, client services representative, teacher, officer captain, continuous pillowcase cutter)? Give summary @ -No Was smoking cessation discussed for >3mins.? @ -No Was critical care preformed (if so, how long)? @ -No Were there social determinants of health that impacted care today? How? (Homelessness, low income, unemployed, alcoholism, drug addiction, transportation, low edu. Level, literacy, decrease access to med. care, retirement, rehab)? @ -No Was there de-escalation of care discussed even if they declined (Discuss DNR or withdrawal of care, Hospice)? DNR status @ -No What co-morbidities impacted this encounter? (DM, HTN, Smoking, COPD, CAD, Cancer, CVA, ARF, Chemo, Hep., AIDS, mental health diagnosis, sleep apnea, morbid obesity)? @ -None Was patient admitted / discharged? Hospital course, mention meds given and route, prescriptions, significant lab abnormalities, going to OR and other pertinent info. @ -Based on the patient's presentation physical exam, presents emergency department complaining of right arm and shoulder pain. Concern for possible DVT. DVT ultrasound negative for any evidence of DVT. I evaluated patient at this time. We will add on a right shoulder x-ray and I will provide a dose of Tylenol. Patient was in agreement this plan. Vitals are within acceptable limits. Likely musculoskeletal pain. X-ray negative for any obvious acute process. Arthritis present. I updated patient. She expressed understanding. Recommended attempts at mobility at home and follow-up with her PCP and she was in agreement this plan. I instructed the patient to follow up with their PCP in the next 1-3 days. I explained that the patient should return to the emergency department if they experience any worsening symptoms. Strict return precautions were discussed with the patient. The patient expressed understanding of these instructions. I answered all questions that the patient had. The patient was discharged home in good condition with their prescriptions and follow up information. Undiagnosed new problem with uncertain prognosis? @ -No Drug Therapy requiring intensive monitoring for toxicity (Heparin, Nitro, Insulin, Cardizem)? @ -No Were any procedures done? @ -No Diagnosis/symptom? @ -Right shoulder sprain Acute, or Chronic, or Acute on Chronic? @ -Acute Uncomplicated (without systemic symptoms) or Complicated (systemic symptoms)? @ -Uncomplicated Side effects of treatment? @ -None Exacerbation, Progression, or Severe Exacerbation] @ -No Poses a threat to life or bodily function? @ -Unlikely at this time (Lele Khoury) Disposition <Viv Laws - Last Filed: 11/28/24 11:31> Is patient prescribed a controlled substance at d/c from ED?: No Time of Disposition: 14:20 <Lele Khoury - Last Filed: 11/28/24 14:21> Clinical Impression: Sprain of right shoulder Disposition: HOME SELF-CARE Condition: Good Instructions (If sedation given, give patient instructions): Shoulder Sprain (ED) Referrals: Antoinette Khoury DO [Primary Care Provider] - 1-2 days
--- NOTE | 2024-11-28 11:54 | US ---
EXAMINATION TYPE: US venous doppler duplex UE RT DATE OF EXAM: 11/28/2024 COMPARISON: NONE CLINICAL INDICATION: Female, 64 years old with history of Arm pain, hx of DVT; Discharged from [facility] out one month ago - had multiple surgeries to fix feeding tube, diagnosed with a RUE DVT; Patient de nies any other signs, symptoms, or relevant history. Not on thinners TECHNIQUE: Grayscale, color Doppler and spectral Doppler imaging of the upper extremity. SIDE PERFORMED: Right VESSELS IMAGED: IJV Subclavian Vein Axilla Vein Brachial Vein(s) Radial Paired Veins Ulnar Paired Veins Cephalic Vein* Basilic Vein* (*superficial vessels) FINDINGS: Right Arm: Negative for DVT Grayscale, color doppler, spectral doppler imaging performed of the deep veins of the upper extremiti es. IMPRESSION: No evidence for DVT. [facility], , 11/28/2024 11:51 AM
[2024-11-28 13:35] VITALS: BP 111/62; PULSE 72; RESP 17
[2024-11-28] MEDS: ACETAMINOPHEN TAB 500 MG TAB PO STA (13:38)
--- NOTE | 2024-11-28 13:55 | XR ---
EXAMINATION TYPE: XR shoulder complete RT DATE OF EXAM: 11/28/2024 1:17 PM COMPARISON: None CLINICAL INDICATION: Female, 64 years old with history of pain; PHH, pain TECHNIQUE: XR shoulder complete RT; examined in AP, internally rotated and scapular Y projections. FINDINGS: No evidence of acute osseous pathology, joint dislocation, or soft tissue swelling. The remaining po rtions of the visualized chest are unremarkable. Degeneration changes of the acromion, distal clavic le with osteophyte formation. There is osteophyte formation of the glenoid and humeral head. There is joint space narrowing of glenohumeral joint. IMPRESSION: 1. No acute osseous pathology. 2. Mild shoulder osteoarthrosis. [facility], , 11/28/2024 1:52 PM
[2024-11-28] MEDS: IBUPROFEN 800 MG TAB PO STA (14:04)
== END 2024-11-28 14:26 | disposition home or self-care (01) ==
LOC: EC 10:55
DX: S43.401A Unspecified sprain of right shoulder joint, initial encounter (principal); Z88.0 Allergy status to penicillin; Z91.011 Allergy to milk products; Z88.5 Allergy status to narcotic agent; Z88.6 Allergy status to analgesic agent; X58.XXXA Exposure to other specified factors, initial encounter
CPT/HCPCS: 99284

== ENCOUNTER 2024-12-14 23:34 | Emergency (ER) | payer BC ==
[2024-12-14 23:58] VITALS: TEMP 98.4
--- NOTE | 2024-12-15 00:02 | ED ---
Upper Extremity HPI - General Chief Complaint: Extremity Injury, Upper Stated Complaint: Hand Pain Time Seen by Provider: 12/14/24 23:51 Source: patient, RN notes reviewed Mode of arrival: ambulatory Limitations: no limitations - History of Present Illness Initial Comments: This is a 64-year-old female presenting for left middle finger injury occurring 3 days ago. Patient states she accidentally poked her finger/hand with a knife. Denies any other injury, loss of motor function, discharge. MD Complaint: Injury to:: left, hand Onset/Timin -: days(s) Other Extremity Injury: Hand: Left Other Injuries: none Place: home Improves With: immobilization Worsens With: movement of extremity Context: laceration Associated Symptoms: denies other symptoms - Related Data Home Medications Medication Instructions Recorded Confirmed Montelukast Sodium [Singulair] 10 mg PO DAILY 09/24/14 12/16/24 Omeprazole [PriLOSEC] 20 mg PO BID 09/24/14 12/16/24 predniSONE 10 mg PO DAILY 10/12/16 12/16/24 Ergocalciferol (Vitamin D2) 1,250 mcg PO MO 03/01/24 12/16/24 [Drisdol (50,000 Iu)] Furosemide [Lasix] 40 mg PO DAILY 03/01/24 12/16/24 Pregabalin [Lyrica] 50 mg PO TID 03/01/24 12/16/24 oxyCODONE HCL [oxyCODONE HCL (IR)] 10 mg PO QID 03/01/24 12/16/24 Albuterol Sulfate [Albuterol 2 puff INHALATION RT-Q6H PRN 12/16/24 12/16/24 Sulfate Hfa] Meclizine [Antivert] 25 mg PO TID PRN 12/16/24 12/16/24 Midodrine HCl 2.5 mg PO BID 12/16/24 12/16/24 Spironolactone [Aldactone] 25 mg PO DAILY 12/16/24 12/16/24 lisinopriL [Zestril] 20 mg PO DAILY 12/16/24 12/16/24 Previous Rx's Medication Instructions Recorded clindamycin HCL 300 mg PO QID #28 cap 12/14/24 Allergies Allergy/AdvReac Type Severity Reaction Status Date / Time Penicillins Allergy Intermediate Rash/Hives Verified 12/16/24 13:56 milk Allergy Abdominal Verified 12/16/24 13:56 Pain aspirin AdvReac Severe Dyspnea Verified 12/16/24 13:56 morphine AdvReac Severe Nausea & Verified 12/16/24 13:56 Vomiting Review of Systems ROS Statement: Those systems with pertinent positive or pertinent negative responses have been documented in the HPI. ROS Other: All systems not noted in ROS Statement are negative. Past Medical History Past Medical History: Asthma, Deep Vein Thrombosis (DVT), Fibromyalgia, Hypertension Additional Past Medical History / Comment(s): see Dr Andrea's H&P, CHRONIC SOB,RLS ,per pt cramping really bad all over feet, legs, and arms. Swelling/ed shasta of evelio lower extremites, Chronic blockage of the small bowel, hx ulcer History of Any Multi-Drug Resistant Organisms: None Reported Date of last positivie culture/infection: Jeannie alvarez - 02/09/24 @ [facility] MDRO Source:: Jeannie alvarez - skin Past Surgical History: Appendectomy, Bariatric Surgery, Section, Cholecystectomy, Hernia Repair Additional Past Surgical History / Comment(s): abdominal surgeries X14, sinus surgery x4,COLONOSCOPY, surgery for chronic bloackge of smalll bowel ,gastric bypass Past Anesthesia/Blood Transfusion Reactions: No Reported Reaction Past Psychological History: No Psychological Hx Reported Smoking Status: Never smoker Past Alcohol Use History: None Reported Past Drug Use History: None Reported - Past Family History Mother Additional Family Medical History / Comment(s): PT ADOPTED COMPLETE FAMILY HX UNKNOWN Brother(s) Family Medical History: Cancer Additional Family Medical History / Comment(s): TWIN BROTHER FROM CANCER AGE 45 General Exam Limitations: no limitations General appearance: alert, in no apparent distress Head exam: Present: atraumatic, normocephalic, normal inspection Eye exam: Present: normal appearance, PERRL, EOMI. Absent: scleral icterus, conjunctival injection, periorbital swelling ENT exam: Present: normal exam, mucous membranes moist Neck exam: Present: normal inspection. Absent: tenderness, meningismus, lymphadenopathy Respiratory exam: Present: normal lung sounds bilaterally. Absent: respiratory distress, wheezes, rales, rhonchi, stridor Cardiovascular Exam: Present: regular rate, normal rhythm, normal heart sounds. Absent: systolic murmur, diastolic murmur, rubs, gallop, clicks GI/Abdominal exam: Present: soft, normal bowel sounds. Absent: distended, tenderness, guarding, rebound, rigid Extremities exam: Present: full ROM, tenderness (Positive left hand/palm tenderness with associated edema and mild erythema with warmth. No obvious open puncture wound or foreign body noted on palmar aspect near third MCP joint), normal capillary refill, other (Negative left third digit circumferential edema, finger held in flexed position or pain with passive extension). Absent: pedal edema, joint swelling, calf tenderness Back exam: Present: normal inspection Neurological exam: Present: alert, oriented X3, CN II-XII intact Psychiatric exam: Present: normal affect, normal mood Skin exam: Present: warm, dry, intact, normal color. Absent: rash Course Vital Signs 12/14/24 12/15/24 23:52 01:12 Temperature 98.4 F 98.4 F Pulse Rate 81 73 Respiratory 19 16 Rate Blood Pressure 126/80 129/80 O2 Sat by Pulse 97 100 Oximetry Medical Decision Making - Medical Decision Making Was pt. sent in by a medical professional or institution (, PA, RETAIL SALES ASSOCIATE SEASONAL, urgent care, hospital, or group home...) When possible be specific @ -No Did you speak to anyone other than the patient for history (EMS, parent, family, police, friend...)? What history was obtained from this source @ -No Did you review nursing and triage notes (agree or disagree)? Why? @ -I reviewed and agree with nursing and triage notes Were old charts reviewed (outside hosp., previous admission, EMS record, old EKG, old radiological studies, urgent care reports/EKG's, group home records)? Report findings @ -No old charts were reviewed Differential Diagnosis (chest pain, altered mental status, abdominal pain women, abdominal pain men, vaginal bleeding, weakness, fever, dyspnea, syncope, headache, dizziness, GI bleed, back pain, seizure, CVA, palpatations, mental health, musculoskeletal)? @ -Differential Musculoskeletal Muscular strain, contusion, ligament sprain, fracture, arthritis, septic arthritis, bursitis, cellulitis, muscle spasm, nerve compression, DVT, arterial occlusion, herpes zoster, electrolyte abnormality, tumor.... This is not meant to be in all inclusive list EKG interpreted by me (3pts min.). @ -Not done X-rays interpreted by me (1pt min.). @ -[Left hand x-ray shows no acute osseous abnormality or radiopaque foreign body. CT interpreted by me (1pt min.). @ -None done U/S interpreted by me (1pt. min.). @ -None done What testing was considered but not performed or refused? (CT, X-rays, U/S, labs)? Why? @ -None What meds were considered but not given or refused? Why? @ -None Did you discuss the management of the patient with other professionals (professionals i.e. , PA, RETAIL SALES ASSOCIATE SEASONAL, lab, RT, psych nurse, social sciences research scientist, bed and breakfast innkeeper, teacher, international first officer, case making machine operator)? Give summary @ -No Was smoking cessation discussed for >3mins.? @ -No Was critical care preformed (if so, how long)? @ -No Were there social determinants of health that impacted care today? How? (Homelessness, low income, unemployed, alcoholism, drug addiction, transportation, low edu. Level, literacy, decrease access to med. care, shelter, rehab)? @ -No Was there de-escalation of care discussed even if they declined (Discuss DNR or withdrawal of care, Hospice)? DNR status @ -No What co-morbidities impacted this encounter? (DM, HTN, Smoking, COPD, CAD, Cancer, CVA, ARF, Chemo, Hep., AIDS, mental health diagnosis, sleep apnea, morbid obesity)? @ -None Was patient admitted / discharged? Hospital course, mention meds given and route, prescriptions, significant lab abnormalities, going to OR and other pertinent info. @ -Left hand x-ray shows no acute osseous abnormality or radiopaque foreign body. Patient provided p.o. clindamycin with clindamycin regimen sent to patient's pharmacy. Advise return to ER if experiencing fever, worsening pain or red streaking. Discussed patient with Dr. Lopez. Undiagnosed new problem with uncertain prognosis? @ -No Drug Therapy requiring intensive monitoring for toxicity (Heparin, Nitro, Insulin, Cardizem)? @ -No Were any procedures done? @ -No Diagnosis/symptom? @ -Cellulitis Acute, or Chronic, or Acute on Chronic? @ -Acute Uncomplicated (without systemic symptoms) or Complicated (systemic symptoms)? @ -Uncomplicated Side effects of treatment? @ -No Exacerbation, Progression, or Severe Exacerbation? @ -No Poses a threat to life or bodily function? How? (Chest pain, [place], [place], pneumonia, PE, COPD, DKA, ARF, appy, cholecystitis, CVA, Diverticulitis, Homicidal, Suicidal, threat to staff... and all critical care pts) @ -No Disposition Clinical Impression: Cellulitis of left hand Disposition: HOME SELF-CARE Condition: Good Instructions (If sedation given, give patient instructions): Cellulitis (ED) Additional Instructions: Tylenol every 46 hours for pain. Apply cold compress to affected area for 10 minutes up to 4 times daily as needed. Return to ER if experiencing fever, red streaking or worsening pain despite antibiotic use. Prescriptions: clindamycin HCL 300 mg PO QID #28 cap Is patient prescribed a controlled substance at d/c from ED?: No Referrals: Antoinette Khoury DO [Primary Care Provider] - 1-2 days Time of Disposition: 01:30
[2024-12-15] MEDS: CLINDAMYCIN 150 MG CAP PO STA (00:15)
--- NOTE | 2024-12-15 00:20 | XR ---
EXAMINATION TYPE: XR hand limited LT DATE OF EXAM: 12/15/2024 12:06 AM INDICATION: Patient age:Female; 64 years old; Reason for study: Knife Puncture near third MCP joint; PHH. pain COMPARISON: None TECHNIQUE: Frontal and lateral views of the left hand were obtained. FINDINGS: No acute fracture or dislocation. Degenerative changes of the first CMC joint. Mild soft ti ssue swelling of the dorsal hand. No radiopaque foreign body. Few scattered soft tissue calcification s of the wrist. Chondrocalcinosis within the triangular fibrocartilage complex. IMPRESSION: No acute osseous pathology. No radiopaque foreign body. [facility], , 12/15/2024 12:18 AM
[2024-12-15 01:38] VITALS: BP 129/80; PULSE 73; RESP 16
== END 2024-12-15 01:12 | disposition home or self-care (01) ==
LOC: EC 23:34
DX: L03.114 Cellulitis of left upper limb (principal); Z88.0 Allergy status to penicillin; Z88.5 Allergy status to narcotic agent; Z88.6 Allergy status to analgesic agent
CPT/HCPCS: 99283

== ENCOUNTER 2024-12-16 10:31 | Inpatient (IN) | payer BC ==
--- NOTE | 2024-12-16 11:21 | ED ---
General Adult HPI - General Chief complaint: Altered Mental Status Stated complaint: Abd Pain Time Seen by Provider: 12/16/24 10:36 Source: patient, family, EMS, RN notes reviewed Mode of arrival: EMS Limitations: altered mental status - History of Present Illness Initial comments: 64-year-old female presents emergency department via EMS from home with chief complaint of altered mental status, fever, weakness. Patient reportedly woke up not feeling well and states that she was very confused. Patient was normal for her baseline yesterday. Patient noted to have 104 temp. Patient does have chronic abdominal wounds and multiple surgeries. Patient had no significant infections per EMS report information is very limited from patient at this time. - Related Data Home Medications Medication Instructions Recorded Confirmed Montelukast Sodium [Singulair] 10 mg PO DAILY 09/24/14 03/17/24 Omeprazole [PriLOSEC] 20 mg PO BID 09/24/14 03/17/24 predniSONE 10 mg PO DAILY 10/12/16 03/17/24 Ergocalciferol (Vitamin D2) 1,250 mcg PO MO 03/01/24 03/17/24 [Drisdol (50,000 Iu)] Furosemide [Lasix] 40 mg PO DAILY 03/01/24 03/17/24 Pregabalin [Lyrica] 50 mg PO TID 03/01/24 03/17/24 oxyCODONE HCL [oxyCODONE HCL (IR)] 10 mg PO QID 03/01/24 03/17/24 Albuterol Sulfate [Albuterol 2 puff INHALATION RT-Q6H PRN 12/16/24 12/16/24 Sulfate Hfa] Meclizine [Antivert] 25 mg PO TID PRN 12/16/24 12/16/24 Midodrine HCl 2.5 mg PO BID 12/16/24 12/16/24 Spironolactone [Aldactone] 25 mg PO DAILY 12/16/24 12/16/24 lisinopriL [Zestril] 20 mg PO DAILY 12/16/24 12/16/24 Previous Rx's Medication Instructions Recorded clindamycin HCL 300 mg PO QID #28 cap 12/14/24 Allergies Allergy/AdvReac Type Severity Reaction Status Date / Time Penicillins Allergy Intermediate Rash/Hives Verified 12/16/24 13:56 milk Allergy Abdominal Verified 12/16/24 13:56 Pain aspirin AdvReac Severe Dyspnea Verified 12/16/24 13:56 morphine AdvReac Severe Nausea & Verified 12/16/24 13:56 Vomiting Review of Systems ROS Statement: Those systems with pertinent positive or pertinent negative responses have been documented in the HPI. ROS Other: All systems not noted in ROS Statement are negative. Past Medical History Past Medical History: Asthma, Deep Vein Thrombosis (DVT), Fibromyalgia, Hypertension Additional Past Medical History / Comment(s): see Dr Andrea's H&P, CHRONIC SOB,RLS ,per pt cramping really bad all over feet, legs, and arms. Swelling/edema of evelio lower extremites, Chronic blockage of the small bowel, hx ulcer History of Any Multi-Drug Resistant Organisms: None Reported Date of last positivie culture/infection: Jeannie alvarez - 02/09/24 @ [facility] MDRO Source:: Jeannie alvarez - skin Past Surgical History: Appendectomy, Bariatric Surgery, Section, Cholecystectomy, Hernia Repair Additional Past Surgical History / Comment(s): abdominal surgeries X14, sinus surgery x4,COLONOSCOPY, surgery for chronic bloackge of smalll bowel ,gastric bypass Past Anesthesia/Blood Transfusion Reactions: No Reported Reaction Past Psychological History: No Psychological Hx Reported Smoking Status: Never smoker Past Alcohol Use History: None Reported Past Drug Use History: None Reported - Past Family History Mother Additional Family Medical History / Comment(s): PT ADOPTED COMPLETE FAMILY HX UN KNOWN Brother(s) Family Medical History: Cancer Additional Family Medical History / Comment(s): TWIN BROTHER FROM CANCER AGE 45 General Exam Limitations: altered mental status General appearance: alert, in no apparent distress Head exam: Present: atraumatic, normocephalic, normal inspection Eye exam: Present: normal appearance, PERRL, EOMI. Absent: scleral icterus, conjunctival injection, periorbital swelling ENT exam: Present: normal exam, normal oropharynx, mucous membranes moist Neck exam: Present: normal inspection, full ROM. Absent: tenderness, meningismus, lymphadenopathy Respiratory exam: Present: normal lung sounds bilaterally. Absent: respiratory distress, wheezes, rales, rhonchi, stridor Cardiovascular Exam: Present: normal rhythm, tachycardia, normal heart sounds. Absent: systolic murmur, diastolic murmur, rubs, gallop, clicks GI/Abdominal exam: Present: soft, normal bowel sounds, other (Multiple wounds noted on the abdomen chronic wounds, small amount of drainage). Absent: distended, tenderness, guarding, rebound, rigid Neurological exam: Present: alert. Absent: oriented X3 Course Vital Signs 12/16/24 12/16/24 12/16/24 10:41 12:23 13:09 Temperature 103.4 F H Pulse Rate 128 H 135 H 137 H Respiratory 25 H 24 24 Rate Blood Pressure 146/74 103/78 96/78 O2 Sat by Pulse 96 100 Oximetry 12/16/24 12/16/24 12/16/24 13:17 13:52 14:01 Temperature 101.6 F H Pulse Rate 141 H 141 H Respiratory 22 22 Rate Blood Pressure 95/64 111/101 O2 Sat by Pulse 98 Oximetry EKG Findings - EKG Comments: EKG Findings:: EKG performed at 10: 51 sinus tachycardia short IA rate of 126 IA 104 QRS 74 QT/QTc 280/355 - EKG Results: EKG: interpreted by ERMD Procedures - Sepsis Sepsis Focused Exam #1 Time Sepsis Criteria Met: 13:30 Sepsis Focused Exam Date: 12/16/24 Sepsis Focused Exam Time: 13:40 Sepsis Focused Exam Complete: Yes Vital Signs & RN Notes Reviewed: Yes Capillary Refill: < 2 Seconds: Fingers, Toes Peripheral Pulses: Normal: Radial (R), Radial (L), Posterior Tibialis (R), Posterior Tibialis (L), Dorsalis Pedis (R), Dorsalis Pedis (L) Skin Color: Normal for Patient Respiratory Exam: normal lung sounds Cardiovascular Exam: normal rhythm, tachycardia Medical Decision Making - Medical Decision Making Was pt. sent in by a medical professional or institution (, PA, RN INTERNAL MEDICINE, urgent care, hospital, or jail...) When possible be specific @ -No Did you speak to anyone other than the patient for history (EMS, parent, family, police, friend...)? What history was obtained from this source @ -Daughter providing significant history past medical history Did you review nursing and triage notes (agree or disagree)? Why? @ -I reviewed and agree with nursing and triage notes Were old charts reviewed (outside hosp., previous admission, EMS record, old EKG, old radiological studies, urgent care reports/EKG's, jail records)? Report findings @ -No old charts were reviewed Differential Diagnosis (chest pain, altered mental status, abdominal pain women, abdominal pain men, vaginal bleeding, weakness, fever, dyspnea, syncope, headache, dizziness, GI bleed, back pain, seizure, CVA, palpatations, mental health, musculoskeletal)? @ -Differential Fever: Pneumonia, viral URI, endocarditis, myocarditis, pericarditis, otitis, sinusitis, peritonsillar Abscess, retropharyngeal Abscess, epiglottitis, peritonitis, appendicitis, Merle cystitis, diverticulitis, hepatitis, colitis, UTI, PID, TOA, pyelonephritis, prostatitis, epididymitis, meningitis, encephalitis, pulmonary embolism, CVA, thyroid storm, pancreatitis, adrenal crisis, cavernous sinus thrombosis, this is not meant to be an all-inclusive list. EKG interpreted by me (3pts min.). @ -As above X-rays interpreted by me (1pt min.). @Chest x-ray shows no acute cardiopulmonary process CT interpreted by me (1pt min.). 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 min.). @ -None done What testing was considered but not performed or refused? (CT, X-rays, U/S, labs)? Why? @ -None What meds were considered but not given or refused? Why? @ -None Did you discuss the management of the patient with other professionals (professionals i.e. , PA, RN INTERNAL MEDICINE, lab, RT, psych nurse, psychiatric social worker supervisor, wood heel flap trimmer, te acher, chief digital media officer, lining caser)? Give summary @ -Dr. Yung for admission, Dr. Calhoun for infectious disease consult Was smoking cessation discussed for >3mins.? @ -No Was critical care preformed (if so, how long)? @ -35 Were there social determinants of health that impacted care today? How? (Homel essness, low income, unemployed, alcoholism, drug addiction, transportation, low edu. Level, literacy, decrease access to med. care, fdc, rehab)? @ -No Was there de-escalation of care discussed even if they declined (Discuss DNR or withdrawal of care, Hospice)? DNR status @ -No What co-morbidities impacted this encounter? (DM, HTN, Smoking, COPD, CAD, Cancer, CVA, ARF, Chemo, Hep., AIDS, mental health diagnosis, sleep apnea, morbid obesity)? @ -None Was patient admitted / discharged? Hospital course, mention meds given and route, prescriptions, significant lab abnormalities, going to OR and other pertinent info. @ -Admitted patient presented for altered status, found to be febrile. Patient has fever unknown origin concerning for infection of PICC line in arm patient was started on cefepime, vancomycin. Patient was seen by ID. Patient was given fluid bolus, antipyretics, maintenance fluids sepsis exam was performed. Undiagnosed new problem with uncertain prognosis? @ -No Drug Therapy requiring intensive monitoring for toxicity (Heparin, Nitro, Insulin, Cardizem)? @ -No Were any procedures done? @ -No Diagnosis/symptom? @ -Fever unknown origin, lactic acidosis, weakness, altered mental status Acute, or Chronic, or Acute on Chronic? @ -Acute Uncomplicated (without systemic symptoms) or Complicated (systemic symptoms)? @ -Complicated Side effects of treatment? @ -No Exacerbation, Progression, or Severe Exacerbation? @ -No Poses a threat to life or bodily function? How? (Chest pain, USA, NH, pneumonia, PE, COPD, DKA, ARF, appy, cholecystitis, CVA, Diverticulitis, Homicidal, Suicidal, threat to staff... and all critical care pts) @ -Yes possible sepsis and endorgan failure - Lab Data Result diagrams: 12/16/24 12:19 12/16/24 12:19 Lab Results 12/16/24 12/16/24 12/16/24 Range/Units 11:12 12:19 12:19 WBC 10.02 H (4.50-10.00) 10*3/uL RBC 4.95 (4.10-5.20) 10*6/uL Hgb 10.8 L (12.0-15.0) g/dL Hct 36.2 L (37.2-46.3) % MCV 73.1 L (80.0-97.0) fL MCH 21.8 L (27.0-32.0) pg MCHC 29.8 L (32.0-37.0) g/dL Plt Count 325 (140-440) 10*3/uL MPV 9.3 L (9.5-12.2) fL Immature Gran % (Auto) 0.4 % Neutrophils % 91.8 % Lymphocytes % 6.2 % Monocytes % 1.2 % Eosinophils % 0.0 % Basophils % 0.4 % Immature Gran # 0.04 (0.00-0.04) 10*3/uL Neutrophils # 9.20 H (1.80-7.70) 10*3/uL Lymphocytes # 0.62 L (0.90-5.00) 10*3/uL Monocytes # 0.12 L (0.20-1.00) 10*3/uL Eosinophils # 0.00 L (0.04-0.35) 10*3/uL Basophils # 0.04 (0.00-0.10) 10*3/uL Sodium 137 (137-145) mmol/L Potassium 4.4 (3.5-5.1) mmol/L Chloride 104 (98-107) mmol/L Carbon Dioxide 18 L (22-30) mmol/L Anion Gap 15 mmol/L BUN 24 H (7-17) mg/dL Creatinine 0.68 (0.52-1.04) mg/dL Est GFR (CKD-EPI)AfAm >90 (>60 ml/min/1.73 sqM) Est GFR (CKD-EPI)NonAf >90 (>60 ml/min/1.73 sqM) Glucose 108 H (74-99) mg/dL Plasma Lactic Acid Dave (0.7-2.0) mmol/L Calcium 9.0 (8.4-10.2) mg/dL Total Bilirubin 0.7 (0.2-1.3) mg/dL AST 44 H (14-36) U/L ALT 23 (4-34) U/L Alkaline Phosphatase 137 H (38-126) U/L Troponin I (0.000-0.034) ng/mL Total Protein 6.5 (6.3-8.2) g/dL Albumin 3.9 (3.5-5.0) g/dL Lipase 61 (23-300) U/L Urine Color Colorless Urine Appearance Clear (Clear) Urine pH 7.0 (5.0-8.0) Ur Specific [place] 1.009 (1.001-1.035) Urine Protein Negative (Negative) Urine Glucose (UA) Negative (Negative) Urine Ketones Negative (Negative) Urine Blood Trace H (Negative) Urine Nitrite Negative (Negative) Urine Bilirubin Negative (Negative) Urine Urobilinogen <2.0 (<2.0) mg/dL Ur Leukocyte Esterase Negative (Negative) Urine RBC 11 H (0-5) /hpf Urine WBC 8 H (0-5) /hpf Ur Squamous Epith Cells <1 (0-4) /hpf 12/16/24 12/16/24 Range/Units 12:19 12:19 WBC (4.50-10.00) 10*3/uL RBC (4.10-5.20) 10*6/uL Hgb (12.0-15.0) g/dL Hct (37.2-46.3) % MCV (80.0-97.0) fL MCH (27.0-32.0) pg MCHC (32.0-37.0) g/dL Plt Count (140-440) 10*3/uL MPV (9.5-12.2) fL Immature Gran % (Auto) % Neutrophils % % Lymphocytes % % Monocytes % % Eosinophils % % Basophils % % Immature Gran # (0.00-0.04) 10*3/uL Neutrophils # (1.80-7.70) 10*3/uL Lymphocytes # (0.90-5.00) 10*3/uL Monocytes # (0.20-1.00) 10*3/uL Eosinophils # (0.04-0.35) 10*3/uL Basophils # (0.00-0.10) 10*3/uL Sodium (137-145) mmol/L Potassium (3.5-5.1) mmol/L Chloride (98-107) mmol/L Carbon Dioxide (22-30) mmol/L Anion Gap mmol/L BUN (7-17) mg/dL Creatinine (0.52-1.04) mg/dL Est GFR (CKD-EPI)AfAm (>60 ml/min/1.73 sqM) Est GFR (CKD-EPI)NonAf (>60 ml/min/1.73 sqM) Glucose (74-99) mg/dL Plasma Lactic Acid Dave 4.1 H* (0.7-2.0) mmol/L Calcium (8.4-10.2) mg/dL Total Bilirubin (0.2-1.3) mg/dL AST (14-36) U/L ALT (4-34) U/L Alkaline Phosphatase (38-126) U/L Troponin I 0.063 H* (0.000-0.034) ng/mL Total Protein (6.3-8.2) g/dL Albumin (3.5-5.0) g/dL Lipase (23-300) U/L Urine Color Urine Appearance (Clear) Urine pH (5.0-8.0) Ur Specific [place] (1.001-1.035) Urine Protein (Negative) Urine Glucose (UA) (Negative) Urine Ketones (Negative) Urine Blood (Negative) Urine Nitrite (Negative) Urine Bilirubin (Negative) Urine Urobilinogen (<2.0) mg/dL Ur Leukocyte Esterase (Negative) Urine RBC (0-5) /hpf Urine WBC (0-5) /hpf Ur Squamous Epith Cells (0-4) /hpf Critical Care Time Critical Care Time: Yes Total Critical Care Time: 35 Disposition Clinical Impression: Fever of unknown origin, Weakness, Altered mental status Disposition: ADMITTED IP TO THIS HOSP Referrals: Antoinette Khoury DO [Primary Care Provider] - 1-2 days Time of Disposition: 13:38
[2024-12-16 11:36] LABS: Bilirubin,Urine Negative (Negative); Blood,Urine Trace (Negative); Color,Urine Colorless; Glucose,Urine (UA) Negative (Negative); Ketones,Urine Negative (Negative); Leukocyte Esterase,Urine Negative (Negative); Nitrite,Urine Negative (Negative); PH, Urine 7.0 (5.0-8.0); Protein,Urine Negative (Negative); RBC,Urine 11 /hpf (0-5); Specific Gravity,Urine 1.009 (1.001-1.035); Squamous Epithelial Cell,Urine <1 /hpf (0-4); Urobilinogen,Urine <2.0 mg/dL (<2.0); WBC,Urine 8 /hpf (0-5)
--- NOTE | 2024-12-16 11:40 | XR ---
EXAMINATION TYPE: XR chest 2V DATE OF EXAM: 12/16/2024 11:29 AM COMPARISON: 03/06/2024 CLINICAL INDICATION: Female, 64 years old with history of fever: Shortness of breath TECHNIQUE: XR chest 2V views of the chest are obtained. FINDINGS: Scattered senescent parenchymal changes noted. Hyperinflation compatible with COPD. No evidence for infiltrate. No evidence for atelectasis. Heart size is stable. Mediastinal structures are stable and grossly unremarkable. No evidence for hilar prominence. Degenerative changes dorsal spine. IMPRESSION: 1. No evidence for acute pulmonary disease. [facility], , 12/16/2024 11:38 AM
[2024-12-16] MEDS: LACTATED RINGERS 1,000 ML IV SCH ×2 (11:48→12:42)
--- NOTE | 2024-12-16 12:10 | CT ---
EXAMINATION TYPE: CT brain wo con DATE OF EXAM: 12/16/2024 COMPARISON: CLINICAL INDICATION: Female, 64 years old with history of AMS; PHH, AMS. TECHNIQUE: CT scan of the head is performed without contrast. CT DLP: 1068.[address] CTDI: mGy Automated exposure control for dose reduction was used. FINDINGS: There is no acute intracranial hemorrhage or midline shift identified. There is diffuse v entricular and sulcal prominence consistent with diffuse age-related cerebral atrophy. There is low- attenuation in the periventricular white matter consistent with chronic small vessel ischemic change. The globes are intact and the visualized sinuses are clear. IMPRESSION: No acute intracranial hemorrhage or midline shift. There is diffuse age-related cerebra l atrophy and chronic small vessel ischemic change noted. [facility], , 12/16/2024 12:07 PM
[2024-12-16] MEDS: ACETAMINOPHEN IV (For NPO) 1,000 MG in EMPTY BAG 1 BAG IVPB STA (12:29)
[2024-12-16 12:37] LABS: RBC 4.95 10*6/uL (4.10-5.20); WBC 10.02 10*3/uL (4.50-10.00)
--- NOTE | 2024-12-16 12:37 | CT ---
EXAMINATION TYPE: CT abdomen pelvis w con DATE OF EXAM: 12/16/2024 11:45 AM COMPARISON: None. CLINICAL INDICATION: Female, 64 years old with history of fever, pain, Fever, abd pain unspecified. TECHNIQUE:CT scan of the abdomen and pelvis is performed without Oral Contrast and with IV Contrast, patient injected with 80 ml mL of Isovue 300. CT DLP: 1831.3 mGycm, Automated exposure control for dose reduction was used. FINDINGS: LUNG BASES-: No visible nodule. No infiltrate. LIVER/GB: No calcified gallstones. No space occupying hepatic lesion. Biliary tree is of normal ca liber. PANCREAS: No inflammation. No distinct mass. SPLEEN: No splenic enlargement. No lesion seen. ADRENALS: No nodule. No thickening. KIDNEYS/BLADDER: No hydronephrosis. No nephrolithiasis. No distinct renal mass. Urinary bladder g rossly unremarkable. 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 Bowel is poorly characterized given motion. There is no evidence for dilatation. No free air or intra-abdominal abscess. GENITAL ORGANS: No gross abnormality. LYMPH NODES: No greater than 1cm abdominal or pelvic lymph nodes are appreciated. AORTA: No significant abnormality. OSSEOUS STRUCTURES: No significant abnormality is seen. OTHER: No significant additional abnormality is seen. IMPRESSION: 1. 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 Bowel is poorly characterized giv en motion. There is no evidence for dilatation. No free air or intra-abdominal abscess. [facility], , 12/16/2024 12:35 PM
[2024-12-16 12:38] LABS: Basophils # (A) 0.04 10*3/uL (0.00-0.10); Basophils % (A) 0.4 %; Eosinophils # (A) 0.00 10*3/uL (0.04-0.35); Eosinophils % (A) 0.0 %; HCT 36.2 % (37.2-46.3); HGB 10.8 g/dL (12.0-15.0); Lymphocytes # (A) 0.62 10*3/uL (0.90-5.00); Lymphocytes % (A) 6.2 %; MCH 21.8 pg (27.0-32.0); MCHC 29.8 g/dL (32.0-37.0); MCV 73.1 fL (80.0-97.0); Monocytes # (A) 0.12 10*3/uL (0.20-1.00); Monocytes % (A) 1.2 %; Neutrophils # (A) 9.20 10*3/uL (1.80-7.70); Neutrophils % (A) 91.8 %; Platelet Count 325 10*3/uL (140-440); RDW 21.6 % (11.5-14.5)
[2024-12-16] MEDS: CEFEPIME 2 GM in SODIUM CHLORIDE 0.9% 100 ML IVPB STA (12:43)
[2024-12-16 12:54] LABS: ALT 23 U/L (4-34); AST 44 U/L (14-36); African American GFR (CKD) >90 (>60 ml/min/1.73 sqM); Albumin 3.9 g/dL (3.5-5.0); Alkaline Phosphatase 137 U/L (38-126); Anion Gap 15 mmol/L; Blood Urea Nitrogen 24 mg/dL (7-17); Calcium 9.0 mg/dL (8.4-10.2); Carbon Dioxide 18 mmol/L (22-30); Chloride 104 mmol/L (98-107); Glucose 108 mg/dL (74-99); Lipase 61 U/L (23-300); Non-African American GFR(CKD) >90 (>60 ml/min/1.73 sqM); Potassium 4.4 mmol/L (3.5-5.1); Sodium 137 mmol/L (137-145); Total Protein 6.5 g/dL (6.3-8.2)
[2024-12-16] MEDS ORDERED: VANCOMYCIN IV PER PHARMACY 1 EACH MISC MISCELLANE PRN (13:33)
[2024-12-16] MEDS ORDERED: NALOXONE 0.4 MG/ML 1 ML VIAL IV PRN (13:39)
[2024-12-16] MEDS ORDERED: IBUPROFEN 400 MG TAB PO PRN (13:39)
[2024-12-16] MEDS ORDERED: ACETAMINOPHEN TAB 325 MG TAB PO PRN (13:39)
[2024-12-16] MEDS: IBUPROFEN IV 800 MG in SODIUM CHLORIDE 0.9% 250 ML IV ONE (14:21)
[2024-12-16 14:55] LABS: INR 1.1 (<1.2); Partial Thromboplastin Time 21.7 sec (22.0-30.0); Prothrombin Time 12.0 sec (10.0-12.5)
[2024-12-16 14:56] LABS: RSV Not Detected (Not Detectd)
[2024-12-16] MEDS: VANCOMYCIN 1,750 MG in SODIUM CHLORIDE 0.9% 500 ML 500 ML IVPB STA (15:04)
[2024-12-16] MEDS: KETOROLAC 15 MG/ML 1 ML VIAL IVP PRN (20:41)
--- NOTE | 2024-12-16 23:01 | P.CONS ---
History of Present Illness - Reason for Consult Consult date: 12/16/24 FUO Requesting physician: Joe Rahman - Chief Complaint Fever x 1 day - History of Present Illness Patient is a 64-year-old female with multiple comorbidities including DVT asthma fibromyalgia hypertension patient did have multiple abdominal surgery at outside facility and currently has been dealing with the abdominal fistula and the patient has been on TPN for the last 2 months to the left arm PICC line patient has been brought into the hospital by EMS for evaluation of mental status changes fever and weakness. The patient woke up not feeling well and the patient was noticed to be confused did have a temperature of 104 F on presentation to the hospital patient was febrile with a temperature of 103.4 F patient was tachycardic and hypertensive mildly hypoxic currently on 2 L nasal cannula oxygen patient did have white count of 10.02 creatinine 0.68 electrolytes have been normal lactic acid 3.0 AST is mildly elevated troponin is elevated urine has been negative influenza RSV COVID testing has been negative patient did have a chest x-ray no evidence for acute cardiopulmonary disease abdominal pelvis CT anterior 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 bowel is poorly controlled colitis given motion no dilatation no free air intra-abdominal abscess patient was started on vancomycin has received a dose of cefepime infectious disease was consulted for fever of unknown origin most information has been obtained from review of the chart and talking to the daughter at the bedside as the patient was arousable but elevated good historian however not specifically she denied having any headache chest pain shortness with or cough no vomiting has been reported either Review of Systems Positive points has been mentioned in HPI complete review could not be obtained because of his underlying mental status Past Medical History Past Medical History: Asthma, Deep Vein Thrombosis (DVT), Fibromyalgia, Hypertension Additional Past Medical History / Comment(s): see Dr Andrea's H&P, CHRONIC SOB,RLS ,per pt cramping really bad all over feet, legs, and arms. Swelling/edema of evelio lower extremites, Chronic blockage of the small bowel, hx ulcer History of Any Multi-Drug Resistant Organisms: None Reported Year Discovered:: Jeannie alvarez - 02/09/24 @ [facility] MDRO Source:: Jeannie alvarez - skin Past Surgical History: Appendectomy, Bariatric Surgery, Section, Cholecystectomy, Hernia Repair Additional Past Surgical History / Comment(s): abdominal surgeries X14, sinus surgery x4,COLONOSCOPY, surgery for chronic bloackge of smalll bowel ,gastric bypass Past Anesthesia/Blood Transfusion Reactions: No Reported Reaction Past Psychological History: No Psychological Hx Reported Smoking Status: Never smoker Past Alcohol Use History: None Reported Past Drug Use History: None Reported - Past Family History Mother Additional Family Medical History / Comment(s): PT ADOPTED COMPLETE FAMILY HX UNKNOWN Brother(s) Family Medical History: Cancer Additional Family Medical History / Comment(s): TWIN BROTHER FROM CANCER AGE 45 Medications and Allergies Home Medications Medication Instructions Recorded Confirmed Type Montelukast Sodium [Singulair] 10 mg PO DAILY 09/24/14 12/16/24 History Omeprazole [PriLOSEC] 20 mg PO BID 09/24/14 12/16/24 History predniSONE 10 mg PO DAILY 10/12/16 12/16/24 History Ergocalciferol (Vitamin D2) 1,250 mcg PO MO 03/01/24 12/16/24 History [Drisdol (50,000 Iu)] Furosemide [Lasix] 40 mg PO DAILY 03/01/24 12/16/24 History Pregabalin [Lyrica] 50 mg PO TID 03/01/24 12/16/24 History oxyCODONE HCL [oxyCODONE HCL (IR)] 10 mg PO QID 03/01/24 12/16/24 History clindamycin HCL 300 mg PO QID #28 cap 12/14/24 12/16/24 Rx Albuterol Sulfate [Albuterol 2 puff INHALATION RT-Q6H PRN 12/16/24 12/16/24 History Sulfate Hfa] Meclizine [Antivert] 25 mg PO TID PRN 12/16/24 12/16/24 History Midodrine HCl 2.5 mg PO BID 12/16/24 12/16/24 History Spironolactone [Aldactone] 25 mg PO DAILY 12/16/24 12/16/24 History lisinopriL [Zestril] 20 mg PO DAILY 12/16/24 12/16/24 History Allergies Allergy/AdvReac Type Severity Reaction Status Date / Time Penicillins Allergy Intermediate Rash/Hives Verified 12/16/24 13:56 milk Allergy Abdominal Verified 12/16/24 13:56 Pain aspirin AdvReac Severe Dyspnea Verified 12/16/24 13:56 morphine AdvReac Severe Nausea & Verified 12/16/24 13:56 Vomiting Physical Exam Vitals: Vital Signs Temp Pulse Resp BP Pulse Ox 12/16/24 14:01 141 H 22 111/101 12/16/24 13:52 141 H 22 95/64 98 12/16/24 13:17 101.6 F H 12/16/24 13:09 137 H 24 96/78 100 12/16/24 12:23 135 H 24 103/78 96 12/16/24 10:41 103.4 F H 128 H 25 H 146/74 Intake and Output 12/15/24 12/16/24 12/16/24 22:59 06:59 14:59 Other: Weight 113.398 kg GENERAL DESCRIPTION: LH female lying in bed, no distress. No tachypnea or accessory muscle of respiration use. HEENT: Shows Pallor , no scleral icterus. Oral mucous membrane is dry. NECK: Trachea central, no thyromegaly. LUNGS: Unlabored breathing. Clear to auscultation anteriorly. No wheeze or crackle. HEART: S1, S2, regular rate and rhythm. No loud murmur ABDOMEN: Soft, no tenderness , guarding or rigidity, no organomegaly EXTREMITIES: No edema of feet. SKIN: No rash, no masses palpable. NEUROLOGICAL: The patient is lethargic but arousable mood and affect normal. Results CBC & Chem 7: 12/16/24 12:19 12/16/24 12:19 Labs: Abnormal Lab Results - Last 24 Hours (Table) 12/16/24 12/16/24 12/16/24 Range/Units 11:12 12:19 12:19 WBC 10.02 H (4.50-10.00) 10*3/uL Hgb 10.8 L (12.0-15.0) g/dL Hct 36.2 L (37.2-46.3) % MCV 73.1 L (80.0-97.0) fL MCH 21.8 L (27.0-32.0) pg MCHC 29.8 L (32.0-37.0) g/dL MPV 9.3 L (9.5-12.2) fL Neutrophils # 9.20 H (1.80-7.70) 10*3/uL Lymphocytes # 0.62 L (0.90-5.00) 10*3/uL Monocytes # 0.12 L (0.20-1.00) 10*3/uL Eosinophils # 0.00 L (0.04-0.35) 10*3/uL Carbon Dioxide 18 L (22-30) mmol/L BUN 24 H (7-17) mg/dL Glucose 108 H (74-99) mg/dL Plasma Lactic Acid Dave (0.7-2.0) mmol/L AST 44 H (14-36) U/L Alkaline Phosphatase 137 H (38-126) U/L Troponin I (0.000-0.034) ng/mL Urine Blood Trace H (Negative) Urine RBC 11 H (0-5) /hpf Urine WBC 8 H (0-5) /hpf 12/16/24 12/16/24 Range/Units 12:19 12:19 WBC (4.50-10.00) 10*3/uL Hgb (12.0-15.0) g/dL Hct (37.2-46.3) % MCV (80.0-97.0) fL MCH (27.0-32.0) pg MCHC (32.0-37.0) g/dL MPV (9.5-12.2) fL Neutrophils # (1.80-7.70) 10*3/uL Lymphocytes # (0.90-5.00) 10*3/uL Monocytes # (0.20-1.00) 10*3/uL Eosinophils # (0.04-0.35) 10*3/uL Carbon Dioxide (22-30) mmol/L BUN (7-17) mg/dL Glucose (74-99) mg/dL Plasma Lactic Acid Dave 4.1 H* (0.7-2.0) mmol/L AST (14-36) U/L Alkaline Phosphatase (38-126) U/L Troponin I 0.063 H* (0.000-0.034) ng/mL Urine Blood (Negative) Urine RBC (0-5) /hpf Urine WBC (0-5) /hpf Assessment and Plan (1) Penicillin allergy Current Visit: No Status: Acute Code(s): Z88.0 - ALLERGY STATUS TO PENICILLIN SNOMED Code(s): 77342062 (2) Sepsis Current Visit: No Status: Acute Code(s): A41.9 - SEPSIS, UNSPECIFIED ORGANISM SNOMED Code(s): 26545634 Plan: 1patient presented hospital with sepsis in this patient who did have fever tachycardia hypotension elevated white count meeting currently for SIRS/sepsis in this patient initial workup has been negative chest x-ray was reported negative for any acute infiltrate UA has been negative CT abdominal pelvis was negative for any abscess or perforation high clinic suspicious for PICC line infection which has been there for more than a month and the patient been getting TPN in the outpatient setting likely from gram-positive skin lory plus minus Ramila 2-we will obtain blood cultures from the PICC line peripheral blood culture has been obtained 3-patient empirically treated with vancomycin pharmacy to dose while watching kidney function closely while waiting for the culture to finalize Daughter at bedside question concern answered We will follow on clinical condition and cultures to further adjust medication if needed Thank you for this consultation we will follow the patient along with you Dictation was produced using [employer] dictation software. please excuse any grammatical, word or spelling errors. Time with Patient: Greater than 30
[2024-12-17] MEDS: VANCOMYCIN 1,750 MG in SODIUM CHLORIDE 0.9% 500 ML 500 ML IVPB SCH (03:48)
[2024-12-17 07:56] LABS: African American GFR (CKD) >90 (>60 ml/min/1.73 sqM); Non-African American GFR(CKD) 84 (>60 ml/min/1.73 sqM)
--- NOTE | 2024-12-17 09:38 | US ---
EXAMINATION TYPE: US venous doppler duplex UE LT DATE OF EXAM: 12/17/2024 COMPARISON: NONE CLINICAL INDICATION: Female, 64 years old with history of Swelling, nonfunctioning PICC line; patient altered mental status. PICC line nonfunctioning TECHNIQUE: Grayscale, color Doppler and spectral Doppler imaging of the upper extremity. SIDE PERFORMED: Left VESSELS IMAGED: IJV Subclavian Vein Axilla Vein Brachial Vein(s) Radial Paired Veins Ulnar Paired Veins Cephalic Vein* Basilic Vein* (*superficial vessels) FINDINGS: Left Arm: No evidence for DVT in vessels seen. Bandage on arm above elbow where PICC line origin is, vessels limited in that area. Cephalic vein not seen. Grayscale, color doppler, spectral doppler imaging performed of the deep veins of the upper extremiti es. IMPRESSION: No evidence for DVT. [facility], , 12/17/2024 9:36 AM
[2024-12-17] MEDS ORDERED: ALBUTEROL NEBULIZED 2.5 MG/3 ML INHALATION PRN (09:52)
[2024-12-17] MEDS ORDERED: MECLIZINE 25 MG TAB PO PRN (09:52)
[2024-12-17] MEDS: MONTELUKAST 10 MG TAB PO SCH (10:21)
[2024-12-17] MEDS: MIDODRINE 5 MG TAB PO SCH (10:21)
[2024-12-17] MEDS: HYDROCORTISONE SUCCINATE 100 MG/2 ML VIAL IV SCH (10:22)
[2024-12-17 11:53] LABS: ALT 49 U/L (4-34); AST 46 U/L (14-36); African American GFR (CKD) >90 (>60 ml/min/1.73 sqM); Albumin 1.5 g/dL (3.5-5.0); Alkaline Phosphatase 87 U/L (38-126); Anion Gap 14 mmol/L; Blood Urea Nitrogen 13 mg/dL (7-17); Calcium 7.0 mg/dL (8.4-10.2); Carbon Dioxide 13 mmol/L (22-30); Chloride 106 mmol/L (98-107); Glucose 55 mg/dL (74-99); Non-African American GFR(CKD) >90 (>60 ml/min/1.73 sqM); Potassium 4.2 mmol/L (3.5-5.1); Sodium 133 mmol/L (137-145); Total Protein 3.2 g/dL (6.3-8.2)
[2024-12-17 11:55] LABS: HCT 23.4 % (37.2-46.3); MCH 22.2 pg (27.0-32.0); MCHC 29.9 g/dL (32.0-37.0); MCV 74.3 fL (80.0-97.0); Platelet Count 202 10*3/uL (140-440); RBC 3.15 10*6/uL (4.10-5.20); RDW 21.4 % (11.5-14.5); WBC 9.30 10*3/uL (4.50-10.00)
[2024-12-17 11:56] LABS: HGB 7.0 g/dL (12.0-15.0)
[2024-12-17 13:10] LABS: Anisocytosis (M) Present; Lymphocytes # (M) 0.47 k/uL (1.0-4.8); Monocytes # (M) 0.37 k/uL (0-1.0); Neutrophils # (M) 8.46 k/uL (1.3-7.7); Neutrophils % (M) 89 %; Total Cells Counted 100
[2024-12-17 13:13] LABS: Poikilocytosis (M) Present
--- NOTE | 2024-12-17 13:18 | P.HPIM ---
History of Present Illness H&P Date: 12/17/24 History of present illness; patient 64-year-old lady with past medical history significant for multiple abdominal surgery, history of DVT, asthma, fibromyalgia currently on TPN, hypertension presents the ER because of fevers. Patient stated that she woke up not feeling well. Patient stated that she was all right yesterday. This morning woke up with fevers and was not her usual self. Patient also complaining of chills. Patient checked her temperature and was found to have a fever of 104. There was no complaint of cough. Patient any shortness of breath.. Patient denies any palpitation. There is no complaint of orthopnea or PND. Denies any nausea, vomiting abdominal pain. Patient denies any complaint of dizziness. There is no complaint of headache. Family did notice that the patient was bit confused. Because of the symptoms patient was brought to the ER Initial lab work done in the ER showed WBC 10.02, hemoglobin 10.08, platelet count 325, sodium 137, potassium 4.4, BUN 24, creatinine 0.68, lactate 4.1 AST 44, ALT 23, troponin 0.063 UA negative for infection Influenza A not detected Influenza B not detected RSV not detected COVID-19 not detected EKG done in the ER showed heart rate of 126, no ST segment elevation or depression seen, no T-wave inversions seen. 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 Denied any sore throat. CARDIOVASCULAR: As mentioned above. PULMONARY: As mentioned above GASTROINTESTINAL: No diarrhea, no nausea, no vomiting, no abdominal pain. NEUROLOGICAL: No headaches, no weakness, no numbness. HEMATOLOGICAL: Denies any bleeding or petechiae. GENITOURINARY: Denies any burning micturition, frequency, or urgency. MUSCULOSKELETAL/RHEUMATOLOGICAL: Denies any joint pain, swelling, or any muscle pain. ENDOCRINE: Denies any polyuria or polydipsia. The rest of the 14-point review of systems is negative. PHYSICAL EXAMINATION: GENERAL: The patient is alert and oriented x3, n ill looking HEENT: Pupils are round and equally reacting to light. EOMI. No scleral icterus. No conjunctival pallor. Normocephalic, atraumatic. No pharyngeal erythema. No thyromegaly. CARDIOVASCULAR: S1 and S2 present. No murmurs, rubs, or gallops. PULMONARY: Chest is clear to auscultation, no wheezing or crackles. ABDOMEN: Soft, site of fistula seen, no tenderness MUSCULOSKELETAL: Chronic lymphedema of lower extremities bilaterally as me ntioned above EXTREMITIES: No cyanosis, clubbing, or pedal edema. NEUROLOGICAL: Gross neurological examination did not reveal any focal deficits. SKIN: No rashes. Assessment and plan Fever of unknown origin Lactic acidosis Elevated troponin History of fibromyalgia history of DVT History of asthma History of multiple abdominal surgeries Monitor vital signs Monitor CBC Monitor CMP Continue telemetry monitoring Ordered blood cultures Ordered CRP, ESR, Pro-Shad Start patient on broad-spectrum antibiotics in the form of IV cefepime vancomycin Continue TPN Resume home meds ID consulted Labs and medication were reviewed.. Continue same treatment. Continue with symptomatic treatment. Resume home medication. Monitor labs and vitals. DVT and GI prophylaxis. Further recommendations as per clinical course of the patient Dictation was produced using [employer] dictation software. please excuse any grammatical, word or spelling errors. Past Medical History Past Medical History: Asthma, Deep Vein Thrombosis (DVT), Fibromyalgia, Hypertension Additional Past Medical History / Comment(s): see Dr Andrea's H&P, CHRONIC SOB,RLS ,per pt cramping really bad all over feet, legs, and arms. Swelling/edema of evelio lower extremites, Chronic blockage of the small bowel, hx ulcer History of Any Multi-Drug Resistant Organisms: None Reported Date of last positivie culture/infection: Jeannie alvarez - 02/09/24 @ [facility] MDRO Source:: Jeannie alvarez - skin Past Surgical History: Appendectomy, Bariatric Surgery, Section, Cholecystectomy, Hernia Repair Additional Past Surgical History / Comment(s): abdominal surgeries X14, sinus surgery x4,COLONOSCOPY, surgery for chronic bloackge of smalll bowel ,gastric bypass Past Anesthesia/Blood Transfusion Reactions: No Reported Reaction Past Psychological History: No Psychological Hx Reported Smoking Status: Never smoker Past Alcohol Use History: None Reported Past Drug Use History: None Reported - Past Family History Mother Additional Family Medical History / Comment(s): PT ADOPTED COMPLETE FAMILY HX UNKNOWN Brother(s) Family Medical History: Cancer Additional Family Medical History / Comment(s): TWIN BROTHER FROM CANCER AGE 45 Medications and Allergies Home Medications Medication Instructions Recorded Confirmed Type Montelukast Sodium [Singulair] 10 mg PO DAILY 09/24/14 12/16/24 History Omeprazole [PriLOSEC] 20 mg PO BID 09/24/14 12/16/24 History predniSONE 10 mg PO DAILY 10/12/16 12/16/24 History Ergocalciferol (Vitamin D2) 1,250 mcg PO MO 03/01/24 12/16/24 History [Drisdol (50,000 Iu)] Furosemide [Lasix] 40 mg PO DAILY 03/01/24 12/16/24 History Pregabalin [Lyrica] 50 mg PO TID 03/01/24 12/16/24 History oxyCODONE HCL [oxyCODONE HCL (IR)] 10 mg PO QID 03/01/24 12/16/24 History clindamycin HCL 300 mg PO QID #28 cap 12/14/24 12/16/24 Rx Albuterol Sulfate [Albuterol 2 puff INHALATION RT-Q6H PRN 12/16/24 12/16/24 History Sulfate Hfa] Meclizine [Antivert] 25 mg PO TID PRN 12/16/24 12/16/24 History Midodrine HCl 2.5 mg PO BID 12/16/24 12/16/24 History Spironolactone [Aldactone] 25 mg PO DAILY 12/16/24 12/16/24 History lisinopriL [Zestril] 20 mg PO DAILY 12/16/24 12/16/24 History Allergies Allergy/AdvReac Type Severity Reaction Status Date / Time Penicillins Allergy Intermediate Rash/Hives Verified 12/16/24 13:56 milk Allergy Abdominal Verified 12/16/24 13:56 Pain aspirin AdvReac Severe Dyspnea Verified 12/16/24 13:56 morphine AdvReac Severe Nausea & Verified 12/16/24 13:56 Vomiting Physical Exam Vitals: Vital Signs Temp Pulse Resp BP Pulse Ox 12/17/24 07:24 98.4 F 12/17/24 06:03 99 18 111/55 97 12/17/24 02:33 94 18 108/70 93 L 12/16/24 22:22 98.5 F 96 19 108/95 99 12/16/24 21:00 98.5 F 97 20 97/80 99 12/16/24 18:31 99.8 F H 105 H 22 89/49 100 12/16/24 18:17 110 H 24 74/42 99 12/16/24 16:53 113 H 24 79/42 99 12/16/24 16:12 101 F H 12/16/24 16:03 133 H 24 141/126 98 12/16/24 15:20 103.0 F H 137 H 24 103/66 98 12/16/24 14:39 129 H 22 105/76 94 L 12/16/24 14:20 103 F H 12/16/24 14:01 141 H 22 111/101 12/16/24 13:52 141 H 22 95/64 98 12/16/24 13:17 101.6 F H 12/16/24 13:09 137 H 24 96/78 100 12/16/24 12:23 135 H 24 103/78 96 12/16/24 10:41 103.4 F H 128 H 25 H 146/74 Results CBC & Chem 7: 12/17/24 11:02 12/17/24 11:02 Labs: Abnormal Lab Results - Last 24 Hours (Table) 12/16/24 12/16/24 12/16/24 Range/Units 11:12 12:19 12:19 WBC 10.02 H (4.50-10.00) 10*3/uL Hgb 10.8 L (12.0-15.0) g/dL Hct 36.2 L (37.2-46.3) % MCV 73.1 L (80.0-97.0) fL MCH 21.8 L (27.0-32.0) pg MCHC 29.8 L (32.0-37.0) g/dL MPV 9.3 L (9.5-12.2) fL Neutrophils # 9.20 H (1.80-7.70) 10*3/uL Lymphocytes # 0.62 L (0.90-5.00) 10*3/uL Monocytes # 0.12 L (0.20-1.00) 10*3/uL Eosinophils # 0.00 L (0.04-0.35) 10*3/uL APTT (22.0-30.0) sec Carbon Dioxide 18 L (22-30) mmol/L BUN 24 H (7-17) mg/dL Glucose 108 H (74-99) mg/dL Plasma Lactic Acid Dave (0.7-2.0) mmol/L AST 44 H (14-36) U/L Alkaline Phosphatase 137 H (38-126) U/L Troponin I (0.000-0.034) ng/mL Urine Blood Trace H (Negative) Urine RBC 11 H (0-5) /hpf Urine WBC 8 H (0-5) /hpf 12/16/24 12/16/24 12/16/24 Range/Units 12:19 12:19 14:05 WBC (4.50-10.00) 10*3/uL Hgb (12.0-15.0) g/dL Hct (37.2-46.3) % MCV (80.0-97.0) fL MCH (27.0-32.0) pg MCHC (32.0-37.0) g/dL MPV (9.5-12.2) fL Neutrophils # (1.80-7.70) 10*3/uL Lymphocytes # (0.90-5.00) 10*3/uL Monocytes # (0.20-1.00) 10*3/uL Eosinophils # (0.04-0.35) 10*3/uL APTT 21.7 L (22.0-30.0) sec Carbon Dioxide (22-30) mmol/L BUN (7-17) mg/dL Glucose (74-99) mg/dL Plasma Lactic Acid Dave 4.1 H* (0.7-2.0) mmol/L AST (14-36) U/L Alkaline Phosphatase (38-126) U/L Troponin I 0.063 H* (0.000-0.034) ng/mL Urine Blood (Negative) Urine RBC (0-5) /hpf Urine WBC (0-5) /hpf 12/16/24 12/16/24 12/17/24 Range/Units 15:47 18:38 00:41 WBC (4.50-10.00) 10*3/uL Hgb (12.0-15.0) g/dL Hct (37.2-46.3) % MCV (80.0-97.0) fL MCH (27.0-32.0) pg MCHC (32.0-37.0) g/dL MPV (9.5-12.2) fL Neutrophils # (1.80-7.70) 10*3/uL Lymphocytes # (0.90-5.00) 10*3/uL Monocytes # (0.20-1.00) 10*3/uL Eosinophils # (0.04-0.35) 10*3/uL APTT (22.0-30.0) sec Carbon Dioxide (22-30) mmol/L BUN (7-17) mg/dL Glucose (74-99) mg/dL Plasma Lactic Acid Dave 3.8 H* 3.0 H* 2.7 H* (0.7-2.0) mmol/L AST (14-36) U/L Alkaline Phosphatase (38-126) U/L Troponin I (0.000-0.034) ng/mL Urine Blood (Negative) Urine RBC (0-5) /hpf Urine WBC (0-5) /hpf
[2024-12-17] MEDS: PREGABALIN 50 MG CAP PO SCH (16:06)
[2024-12-17 20:33] LABS: Glucose,Whole Blood 102 mg/dL (70-110)
[2024-12-17] MEDS: PANTOPRAZOLE 40 MG TABLET PO SCH (20:46)
[2024-12-17 21:07] LABS: Basophils # (A) 0.03 10*3/uL (0.00-0.10); Basophils % (A) 0.3 %; Eosinophils # (A) 0.01 10*3/uL (0.04-0.35); Eosinophils % (A) 0.1 %; HCT 27.9 % (37.2-46.3); HGB 8.4 g/dL (12.0-15.0); Lymphocytes # (A) 0.47 10*3/uL (0.90-5.00); Lymphocytes % (A) 5.0 %; MCH 22.1 pg (27.0-32.0); MCHC 30.1 g/dL (32.0-37.0); MCV 73.4 fL (80.0-97.0); Monocytes # (A) 0.38 10*3/uL (0.20-1.00); Monocytes % (A) 4.1 %; Neutrophils # (A) 8.44 10*3/uL (1.80-7.70); Neutrophils % (A) 90.0 %; Platelet Count 235 10*3/uL (140-440); RBC 3.80 10*6/uL (4.10-5.20); RDW 21.2 % (11.5-14.5); WBC 9.38 10*3/uL (4.50-10.00)
[2024-12-18 05:17] LABS: Basophils # (A) 0.03 10*3/uL (0.00-0.10); Basophils % (A) 0.3 %; Eosinophils # (A) 0.01 10*3/uL (0.04-0.35); Eosinophils % (A) 0.1 %; HCT 28.1 % (37.2-46.3); HGB 8.0 g/dL (12.0-15.0); Lymphocytes # (A) 0.59 10*3/uL (0.90-5.00); Lymphocytes % (A) 6.8 %; MCH 21.6 pg (27.0-32.0); MCHC 28.5 g/dL (32.0-37.0); MCV 75.9 fL (80.0-97.0); Monocytes # (A) 0.50 10*3/uL (0.20-1.00); Monocytes % (A) 5.8 %; Neutrophils # (A) 7.47 10*3/uL (1.80-7.70); Neutrophils % (A) 86.7 %; Platelet Count 209 10*3/uL (140-440); RBC 3.70 10*6/uL (4.10-5.20); RDW 21.4 % (11.5-14.5); WBC 8.63 10*3/uL (4.50-10.00)
[2024-12-18] MEDS: SPIRONOLACTONE 25 MG TAB PO SCH (12:28)
--- NOTE | 2024-12-18 13:37 | P.PN ---
Subjective Progress Note Date: 12/18/24 patient 64-year-old lady with past medical history significant for multiple abdominal surgery, history of DVT, asthma, fibromyalgia currently on TPN, hypertension presents the ER because of fevers. Patient stated that she woke up not feeling well. Patient stated that she was all right yesterday. This m orning woke up with fevers and was not her usual self. Patient also complaining of chills. Patient checked her temperature and was found to have a fever of 104. There was no complaint of cough. Patient any shortness of breath.. Patient denies any palpitation. There is no complaint of orthopnea or PND. Denies any nausea, vomiting abdominal pain. Patient denies any complaint of dizziness. There is no complaint of headache. Family did notice that the patient was bit confused. Because of the symptoms patient was brought to the ER Initial lab work done in the ER showed WBC 10.02, hemoglobin 10.08, platelet count 325, sodium 137, potassium 4.4, BUN 24, creatinine 0.68, lactate 4.1 AST 4 4, ALT 23, troponin 0.063 UA negative for infection Influenza A not detected Influenza B not detected RSV not detected COVID-19 not detected EKG done in the ER showed heart rate of 126, no ST segment elevation or depression seen, no T-wave inversions seen. 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 Patient seen and examined. Vital signs reviewed temperature 98, heart rate 54, respiration 15, blood pressure 118/61.Labs reviewed showing WBC 8.60, hemoglobin 8, platelet count 209 REVIEW OF SYSTEMS: CONSTITUTIONAL: No fever, no malaise,. CARDIOVASCULAR: No chest pain, no palpitations, no syncope. PULMONARY: No shortness of breath, no cough, GASTROINTESTINAL: No diarrhea, no nausea, no vomiting, no abdominal pain. NEUROLOGICAL: No headaches, no weakness, PHYSICAL EXAMINATION: GENERAL: The patient is alert and oriented x3, n ill looking HEENT: Pupils are round and equally reacting to light. EOMI. No scleral icterus. No conjunctival pallor. Normocephalic, atraumatic. No pharyngeal erythema. No thyromegaly. CARDIOVASCULAR: S1 and S2 present. No murmurs, rubs, or gallops. PULMONARY: Chest is clear to auscultation, no wheezing or crackles. ABDOMEN: Soft, site of fistula seen, no tenderness MUSCULOSKELETAL: Chronic lymphedema of lower extremities bilaterally as mentioned above EXTREMITIES: No cyanosis, clubbing, or pedal edema. NEUROLOGICAL: Gross neurological examination did not reveal any focal deficits. SKIN: No rashes. Assessment and plan Fever of unknown origin Lactic acidosis Elevated troponin History of fibromyalgia history of DVT History of asthma History of multiple abdominal surgeries Monitor vital signs Monitor CBC Monitor CMP Continue telemetry monitoring Follow-up on blood cultures Continue pharmacy dose vancomycin Continue stress dose of Solu-Cortef Continue IV fluids Continue pain management ID following, discussed with Dr. Calhoun, recommendations noted from 12/18 Labs and medication were reviewed.. Continue same treatment. Continue with symptomatic treatment. Resume home medication. Monitor labs and vitals. DVT and GI prophylaxis. Further recommendations as per clinical course of the patient Dictation was produced using [employer] dictation software. please excuse any grammatical, word or spelling errors. Objective - Vital Signs Vital signs: Vital Signs Temp 98.0 F 12/18/24 08:30 Pulse 54 L 12/18/24 08:30 Resp 15 12/18/24 08:30 BP 118/61 12/18/24 08:30 Pulse Ox 100 12/18/24 08:30 FiO2 Intake & Output 12/17/24 12/18/24 12/18/24 18:59 06:59 18:59 Output Total 0 Balance 0 Weight 112.7 kg Output: Urine 0 - Labs CBC & Chem 7: 12/18/24 04:16 12/17/24 11:02 Labs: Abnormal Lab Results - Last 24 Hours (Table) 12/17/24 12/17/24 12/17/24 Range/Units 11:02 11:02 20:55 RBC 3.15 L 3.80 L (4.10-5.20) 10*6/uL Hgb 7.0 L D 8.4 L (12.0-15.0) g/dL Hct 23.4 L 27.9 L (37.2-46.3) % MCV 74.3 L 73.4 L (80.0-97.0) fL MCH 22.2 L 22.1 L (27.0-32.0) pg MCHC 29.9 L 30.1 L (32.0-37.0) g/dL Immature Gran # 0.05 H 0.05 H (0.00-0.04) 10*3/uL Neutrophils # 8.44 H (1.80-7.70) 10*3/uL Neutrophils # (Manual) 8.46 H (1.3-7.7) k/uL Lymphocytes # 0.47 L (0.90-5.00) 10*3/uL Lymphocytes # (Manual) 0.47 L (1.0-4.8) k/uL Eosinophils # 0.01 L (0.04-0.35) 10*3/uL Sodium 133 L (137-145) mmol/L Carbon Dioxide 13 L (22-30) mmol/L Creatinine 0.36 L (0.52-1.04) mg/dL Glucose 55 L (74-99) mg/dL Calcium 7.0 L (8.4-10.2) mg/dL AST 46 H (14-36) U/L ALT 49 H (4-34) U/L C-Reactive Protein 27.1 H (<1.0) mg/dL Total Protein 3.2 L (6.3-8.2) g/dL Albumin 1.5 L (3.5-5.0) g/dL /09/09 Range/Units 04:16 RBC 3.70 L (4.10-5.20) 10*6/uL Hgb 8.0 L (12.0-15.0) g/dL Hct 28.1 L (37.2-46.3) % MCV 75.9 L (80.0-97.0) fL MCH 21.6 L (27.0-32.0) pg MCHC 28.5 L (32.0-37.0) g/dL Immature Gran # (0.00-0.04) 10*3/uL Neutrophils # (1.80-7.70) 10*3/uL Neutrophils # (Manual) (1.3-7.7) k/uL Lymphocytes # 0.59 L (0.90-5.00) 10*3/uL Lymphocytes # (Manual) (1.0-4.8) k/uL Eosinophils # 0.01 L (0.04-0.35) 10*3/uL Sodium (137-145) mmol/L Carbon Dioxide (22-30) mmol/L Creatinine (0.52-1.04) mg/dL Glucose (74-99) mg/dL Calcium (8.4-10.2) mg/dL AST (14-36) U/L ALT (4-34) U/L C-Reactive Protein (<1.0) mg/dL Total Protein (6.3-8.2) g/dL Albumin (3.5-5.0) g/dL Microbiology - Last 24 Hours (Table) 12/16/24 15:47 Blood Culture - Preliminary Blood 12/16/24 12:25 Blood Culture - Preliminary Blood
[2024-12-18 14:13] LABS: African American GFR (CKD) >90 (>60 ml/min/1.73 sqM); Non-African American GFR(CKD) >90 (>60 ml/min/1.73 sqM)
[2024-12-18] MEDS: VANCOMYCIN TROUGH DUE 1 EACH MISC MISCELLANE ONE (15:21)
--- NOTE | 2024-12-18 15:36 | P.PN ---
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 On today's evaluation that is 12/17/2024,the patient did have resolution of her fever and is afebrile this morning patient is breathing comfortably on 2 L nasal cannula oxygen, the patient denies chest pain shortness of breath and no significant cough, patient denies abdominal pain, no nausea vomiting, mention feeling better Objective - Vital Signs Vital signs: Vital Signs Temp 98.4 F 12/17/24 07:24 Pulse 99 12/17/24 06:03 Resp 18 12/17/24 06:03 BP 111/55 12/17/24 06:03 Pulse Ox 97 12/17/24 06:03 FiO2 Intake & Output 12/16/24 12/17/24 12/17/24 18:59 06:59 18:59 Weight 113.398 kg - Exam GENERAL DESCRIPTION: Middle-age female lying in bed in no distress RESPIRATORY SYSTEM: Unlabored breathing , decreased breath sounds at bases HEART: S1 S2 regular rate and rhythm , ABDOMEN: Soft , no tenderness EXTREMITIES: No edema feet - Labs CBC & Chem 7: 12/18/24 04:16 12/18/24 13:50 Labs: Abnormal Lab Results - Last 24 Hours (Table) 12/16/24 12/16/24 12/16/24 Range/Units 11:12 12:19 12:19 WBC 10.02 H (4.50-10.00) 10*3/uL Hgb 10.8 L (12.0-15.0) g/dL Hct 36.2 L (37.2-46.3) % MCV 73.1 L (80.0-97.0) fL MCH 21.8 L (27.0-32.0) pg MCHC 29.8 L (32.0-37.0) g/dL MPV 9.3 L (9.5-12.2) fL Neutrophils # 9.20 H (1.80-7.70) 10*3/uL Lymphocytes # 0.62 L (0.90-5.00) 10*3/uL Monocytes # 0.12 L (0.20-1.00) 10*3/uL Eosinophils # 0.00 L (0.04-0.35) 10*3/uL APTT (22.0-30.0) sec Carbon Dioxide 18 L (22-30) mmol/L BUN 24 H (7-17) mg/dL Glucose 108 H (74-99) mg/dL Plasma Lactic Acid Dave (0.7-2.0) mmol/L AST 44 H (14-36) U/L Alkaline Phosphatase 137 H (38-126) U/L Troponin I (0.000-0.034) ng/mL Urine Blood Trace H (Negative) Urine RBC 11 H (0-5) /hpf Urine WBC 8 H (0-5) /hpf 12/16/24 12/16/24 12/16/24 Range/Units 12:19 12:19 14:05 WBC (4.50-10.00) 10*3/uL Hgb (12.0-15.0) g/dL Hct (37.2-46.3) % MCV (80.0-97.0) fL MCH (27.0-32.0) pg MCHC (32.0-37.0) g/dL MPV (9.5-12.2) fL Neutrophils # (1.80-7.70) 10*3/uL Lymphocytes # (0.90-5.00) 10*3/uL Monocytes # (0.20-1.00) 10*3/uL Eosinophils # (0.04-0.35) 10*3/uL APTT 21.7 L (22.0-30.0) sec Carbon Dioxide (22-30) mmol/L BUN (7-17) mg/dL Glucose (74-99) mg/dL Plasma Lactic Acid Dave 4.1 H* (0.7-2.0) mmol/L AST (14-36) U/L Alkaline Phosphatase (38-126) U/L Troponin I 0.063 H* (0.000-0.034) ng/mL Urine Blood (Negative) Urine RBC (0-5) /hpf Urine WBC (0-5) /hpf 12/16/24 12/16/24 12/17/24 Range/Units 15:47 18:38 00:41 WBC (4.50-10.00) 10*3/uL Hgb (12.0-15.0) g/dL Hct (37.2-46.3) % MCV (80.0-97.0) fL MCH (27.0-32.0) pg MCHC (32.0-37.0) g/dL MPV (9.5-12.2) fL Neutrophils # (1.80-7.70) 10*3/uL Lymphocytes # (0.90-5.00) 10*3/uL Monocytes # (0.20-1.00) 10*3/uL Eosinophils # (0.04-0.35) 10*3/uL APTT (22.0-30.0) sec Carbon Dioxide (22-30) mmol/L BUN (7-17) mg/dL Glucose (74-99) mg/dL Plasma Lactic Acid Dave 3.8 H* 3.0 H* 2.7 H* (0.7-2.0) mmol/L AST (14-36) U/L Alkaline Phosphatase (38-126) U/L Troponin I (0.000-0.034) ng/mL Urine Blood (Negative) Urine RBC (0-5) /hpf Urine WBC (0-5) /hpf Assessment and Plan (1) Penicillin allergy Current Visit: No Status: Acute Code(s): Z88.0 - ALLERGY STATUS TO PENICILLIN SNOMED Code(s): 00476925 (2) Sepsis Current Visit: No Status: Acute Code(s): A41.9 - SEPSIS, UNSPECIFIED ORGANISM SNOMED Code(s): 25739476 Plan: 1patient presented hospital with sepsis in this patient who did have fever tachycardia hypotension elevated white count meeting currently for SIRS/sepsis in this patient initial workup has been negative chest x-ray was reported negative for any acute infiltrate UA has been negative CT abdominal pelvis was negative for any abscess or perforation high clinic suspicious for PICC line infection which has been there for more than a month and the patient been getting TPN in the outpatient setting likely from gram-positive skin lory plus minus Ramila 2-peripheral blood culture negative blood culture could not be obtained from the PICC line as no blood drop subsequently she did have a Doppler ultrasound to the left upper extremity did not show any DVT 3-patient did have resolution of the fever and will continue with empiric vancomycin while waiting for the culture to finalize Dictation was produced using [employer] dictation software. please excuse any grammatical, word or spelling errors. Time with Patient: Less than 30
--- NOTE | 2024-12-18 15:37 | P.PN ---
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 On today's evaluation that is 12/18/2024,the patient remains to be afebrile, patient is on room air not requiring supplemental oxygen and denies any shortness of breath no chest pain or cough.Patient seems to be upset and crying as mentioned she has been denied any food to eat and she would like to eat denies any chest pain no cough no abdominal pain no diarrhea nursing staff seem to have problem withdrawing from the PICC line. Patient white count is 8.63 creatinine 0.49 Vanco trough is 20.3 blood cultures so far negative patient did have a venous Doppler did not mention any DVT in the left upper extremity Objective - Vital Signs Vital signs: Vital Signs Temp 98.0 F 12/18/24 08:30 Pulse 54 L 12/18/24 08:30 Resp 15 12/18/24 08:30 BP 118/61 12/18/24 08:30 Pulse Ox 100 12/18/24 08:30 FiO2 Intake & Output 12/17/24 12/18/24 12/18/24 18:59 06:59 18:59 Output Total 0 Balance 0 Weight 112.7 kg Output: Urine 0 - Exam GENERAL DESCRIPTION: Middle-age female lying in bed in no distress RESPIRATORY SYSTEM: Unlabored breathing , decreased breath sounds at bases HEART: S1 S2 regular rate and rhythm , ABDOMEN: Soft , no tenderness EXTREMITIES: No edema feet - Labs CBC & Chem 7: 12/18/24 04:16 12/18/24 13:50 Labs: Abnormal Lab Results - Last 24 Hours (Table) 12/17/24 12/17/24 12/17/24 Range/Units 11:02 11:02 20:55 RBC 3.15 L 3.80 L (4.10-5.20) 10*6/uL Hgb 7.0 L D 8.4 L (12.0-15.0) g/dL Hct 23.4 L 27.9 L (37.2-46.3) % MCV 74.3 L 73.4 L (80.0-97.0) fL MCH 22.2 L 22.1 L (27.0-32.0) pg MCHC 29.9 L 30.1 L (32.0-37.0) g/dL Immature Gran # 0.05 H 0.05 H (0.00-0.04) 10*3/uL Neutrophils # 8.44 H (1.80-7.70) 10*3/uL Neutrophils # (Manual) 8.46 H (1.3-7.7) k/uL Lymphocytes # 0.47 L (0.90-5.00) 10*3/uL Lymphocytes # (Manual) 0.47 L (1.0-4.8) k/uL Eosinophils # 0.01 L (0.04-0.35) 10*3/uL Sodium 133 L (137-145) mmol/L Carbon Dioxide 13 L (22-30) mmol/L Creatinine 0.36 L (0.52-1.04) mg/dL Glucose 55 L (74-99) mg/dL Calcium 7.0 L (8.4-10.2) mg/dL AST 46 H (14-36) U/L ALT 49 H (4-34) U/L C-Reactive Protein 27.1 H (<1.0) mg/dL Total Protein 3.2 L (6.3-8.2) g/dL Albumin 1.5 L (3.5-5.0) g/dL 12/18/24 Range/Units 04:16 RBC 3.70 L (4.10-5.20) 10*6/uL Hgb 8.0 L (12.0-15.0) g/dL Hct 28.1 L (37.2-46.3) % MCV 75.9 L (80.0-97.0) fL MCH 21.6 L (27.0-32.0) pg MCHC 28.5 L (32.0-37.0) g/dL Immature Gran # (0.00-0.04) 10*3/uL Neutrophils # (1.80-7.70) 10*3/uL Neutrophils # (Manual) (1.3-7.7) k/uL Lymphocytes # 0.59 L (0.90-5.00) 10*3/uL Lymphocytes # (Manual) (1.0-4.8) k/uL Eosinophils # 0.01 L (0.04-0.35) 10*3/uL Sodium (137-145) mmol/L Carbon Dioxide (22-30) mmol/L Creatinine (0.52-1.04) mg/dL Glucose (74-99) mg/dL Calcium (8.4-10.2) mg/dL AST (14-36) U/L ALT (4-34) U/L C-Reactive Protein (<1.0) mg/dL Total Protein (6.3-8.2) g/dL Albumin (3.5-5.0) g/dL Microbiology - Last 24 Hours (Table) 12/16/24 15:47 Blood Culture - Preliminary Blood 12/16/24 12:25 Blood Culture - Preliminary Blood Assessment and Plan (1) Penicillin allergy Current Visit: No Status: Acute Code(s): Z88.0 - ALLERGY STATUS TO PENICILLIN SNOMED Code(s): 78881068 (2) Sepsis Current Visit: No Status: Acute Code(s): A41.9 - SEPSIS, UNSPECIFIED ORGANISM SNOMED Code(s): 99142161 Plan: 1patient [facility] with sepsis in this patient who did have fever tachycardia hypotension elevated white count meeting currently for SIRS/sepsis in this patient initial workup has been negative chest x-ray was reported negati ve for any acute infiltrate UA has been negative CT abdominal pelvis was negative for any abscess or perforation high clinic suspicious for PICC line infection which has been there for more than a month and the patient been getting TPN in the outpatient setting likely from gram-positive skin lory plus minus Ramila 2-peripheral blood culture negative blood culture could not be obtained from the PICC line as no blood drop subsequently she did have a Doppler ultrasound to the left upper extremity did not show any DVT, however as there has been concern from the daughter who reported swelling to the left upper shoulder area when PICC line was getting infused though not noticed by the nursing staff still concern for possible PICC line related infection PICC line will be discontinued and will send the tip for the culture 3-patient did have resolution of the fever, patient to be treated with v ancomycin target trough of 15 while waiting for the culture to finalize Dictation was produced using [employer] dictation software. please excuse any grammatical, word or spelling errors. Time with Patient: Less than 30
[2024-12-18] MEDS: VANCOMYCIN 1,750 MG in SODIUM CHLORIDE 0.9% 500 ML 500 ML IVPB SCH (20:17)
[2024-12-18 21:02] VITALS: BP 135/77; PULSE 73; RESP 17; TEMP 98.1
[2024-12-19] MEDS ORDERED: predniSONE 10 MG TAB PO SCH (09:00)
[2024-12-20] MEDS ORDERED: VANCOMYCIN TROUGH DUE 1 EACH MISC MISCELLANE ONE (17:00)
[2024-12-22] MEDS ORDERED: ERGOCALCIFEROL 1,250 MCG (50,000 IU) CAPSULE PO SCH (09:00)
--- NOTE | 2024-12-23 16:52 | CDI ---
Documentation Clarification Form Date: 12/23/24 From: SAMANTHA Rios Admit Date: 12/16/2024 01:40:00 PM Patient Name: Josee Cooper Visit Number: [id number] Discharge Date: 12/18/2024 10:27:00 PM ATTENTION: The Clinical Documentation Specialists (CDI) and [facility] Coding Staff appreciate your assistance in clarifying documentation. Please respond to the clarification below the line at the bottom and electronically sign. The CDI & [facility] Coding staff will review the response and follow-up if needed. Please note: Queries are made part of the Legal Health Record. If you have any questions, please contact the author of this message via ITS. Doctor/Provider: Leobardo Luo Sepsis is documented in the Consult and progress notes which may lack sufficient clinical evidence/support in the medical record. Additional clarification is requested. History/Risk Factors: Patient presented with a fever and chills. Per Dr. Tanner notes the patient presented with sepsis with fever, tachycardia, hypotension, elevated white count meeting currently for SIRS/sepsis in the patient initial workup has been negative Patient has a current PICC that has been present for more than a month. Clinical Indicators: Vital signs in the ED: 103.4, Pulse 128, RR 25, BP 146/74; peripheral blood culture was negative; culture could not be taken from the PICC line Treatment: IV Vancomycin started and patient did have resolution of the fever and did continue with empiric vancomycin upon discharge After work up and study, please clarify which diagnosis is most appropriate? [ ] Sepsis is ruled out. The patient had a localized infection without systemic response or organ dysfunction. [ x ] Sepsis was initially suspected, but subsequent clinical findings did not support the diagnosis, and it has been ruled out. [ ] Sepsis is clinically supported as evidenced by these additional clinical indicators: [ ] Other, please specify [ ] Unable to determine (Template Last Reviewed: June 2023) TRINID
--- NOTE | 2024-12-28 15:30 | P.DS ---
Providers Date of admission: 12/16/24 13:40 Expected date of discharge: 12/18/24 Attending physician: Leobardo Luo Consults: 12/16/24 13:34 Consult Physician Urgent Consulting Provider: Samantha Calhoun Consult Reason/Comments: FUO Do you want consulting provider notified?: Yes Primary care physician: Antoinette Khoury Hospital Course: Discharge diagnoses; Fever of unknown origin Lactic acidosis Elevated troponin History of fibromyalgia history of DVT History of asthma History of multiple abdominal surgeries Hospital course; patient 64-year-old lady with past medical history significant for multiple abdominal surgery, history of DVT, asthma, fibromyalgia currently on TPN, hypertension presents the ER because of fevers. Patient stated that she woke up not feeling well. Patient stated that she was all right yesterday. This morning woke up with fevers and was not her usual self. Patient also complaining of chills. Patient checked her temperature and was found to have a fever of 104. There was no complaint of cough. Patient any shortness of breath.. Patient denies any palpitation. There is no complaint of orthopnea or PND. Denies any nausea, vomiting abdominal pain. Patient denies any complaint of dizziness. There is no complaint of headache. Family did notice that the patient was bit confused. Because of the symptoms patient was brought to the ER Initial lab work done in the ER showed WBC 10.02, hemoglobin 10.08, platelet count 325, sodium 137, potassium 4.4, BUN 24, creatinine 0.68, lactate 4.1 AST 44, ALT 23, troponin 0.063 UA negative for infection Influenza A not detected Influenza B not detected RSV not detected COVID-19 not detected EKG done in the ER showed heart rate of 126, no ST segment elevation or depression seen, no T-wave inversions seen. 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 Patient seen and examined. Vital signs reviewed temperature 98, heart rate 54, respiration 15, blood pressure 118/61.Labs reviewed showing WBC 8.60, hemoglobin 8, platelet count 209 Patient was being seen by ID. While in the hospital, patient decided that she does not want to stay in the hospital any longer, patient left AGAINST MEDICAL ADVICE, Dictation was produced using [employer] dictation software. please excuse any grammatical, word or spelling errors. Patient Condition at Discharge: Serious Plan - Discharge Summary Discharge Rx Participant: Yes New Discharge Prescriptions: No Action Montelukast Sodium [Singulair] 10 mg PO DAILY Omeprazole [PriLOSEC] 20 mg PO BID predniSONE 10 mg PO DAILY oxyCODONE HCL [oxyCODONE HCL (IR)] 10 mg PO QID Pregabalin [Lyrica] 50 mg PO TID Furosemide [Lasix] 40 mg PO DAILY Albuterol Sulfate [Albuterol Sulfate Hfa] 2 puff INHALATION RT-Q6H PRN PRN Reason: Shortness Of Breath Ergocalciferol (Vitamin D2) [Drisdol (50,000 Iu)] 1,250 mcg PO MO clindamycin HCL 300 mg PO QID #28 cap lisinopriL [Zestril] 20 mg PO DAILY Spironolactone [Aldactone] 25 mg PO DAILY Midodrine HCl 2.5 mg PO BID Meclizine [Antivert] 25 mg PO TID PRN PRN Reason: Vertigo Discharge Medication List Montelukast Sodium [Singulair] 10 mg PO DAILY 09/24/14 [History] Omeprazole [PriLOSEC] 20 mg PO BID 09/24/14 [History] predniSONE 10 mg PO DAILY 10/12/16 [History] Ergocalciferol (Vitamin D2) [Drisdol (50,000 Iu)] 1,250 mcg PO MO 03/01/24 [History] Furosemide [Lasix] 40 mg PO DAILY 03/01/24 [History] Pregabalin [Lyrica] 50 mg PO TID 03/01/24 [History] oxyCODONE HCL [oxyCODONE HCL (IR)] 10 mg PO QID 03/01/24 [History] clindamycin HCL 300 mg PO QID #28 cap 12/14/24 [Rx] Albuterol Sulfate [Albuterol Sulfate Hfa] 2 puff INHALATION RT-Q6H PRN 12/16/24 [History] Meclizine [Antivert] 25 mg PO TID PRN 12/16/24 [History] Midodrine HCl 2.5 mg PO BID 12/16/24 [History] Spironolactone [Aldactone] 25 mg PO DAILY 12/16/24 [History] lisinopriL [Zestril] 20 mg PO DAILY 12/16/24 [History] Follow up Appointment(s)/Referral(s): Antoinette Khoury DO [Primary Care Provider] - 1-2 days Discharge Disposition: LEFT AGAINST MEDICAL ADVICE
== END 2024-12-18 22:27 | disposition left against medical advice (07) | DRG 864 ==
LOC: EC 10:31 → 4SSUR 13:40 → 6NMEDSUR 13:52 → 3SCARD 13:54 → 4SSUR 12-17 21:38
PROVIDERS: ADMIT Hospitalist; ATTEND Hospitalist
DX: R50.9 Fever, unspecified (principal); E87.20 Acidosis, unspecified; G25.81 Restless legs syndrome; I10 Essential (primary) hypertension; J45.909 Unspecified asthma, uncomplicated; Z95.828 Presence of other vascular implants and grafts; Z79.899 Other long term (current) drug therapy; M79.7 Fibromyalgia; Z86.718 Personal history of other venous thrombosis and embolism; Z88.0 Allergy status to penicillin; Z98.84 Bariatric surgery status
CPT/HCPCS: 36415; 70450; 71046; 74177; 80053; 80202; 81001; 82565; 83605; 83690; 84484; 85025; 85610; 85652; 85730; 86140; 87040; 87070; 87636; 93005; 94760; 96361; 96365; 96366; 96367; 96368; 96375; 96376; 99291